=== PATIENT | female | born 1950 | race Caucasian/White ===

== ENCOUNTER 2017-06-26 08:55 | Emergency (ER) | payer MEDICARE ==
[2017-06-26 09:09] VITALS: BP 143/88
[2017-06-26] MEDS ORDERED: Sodium Chloride 0.9% 10 ML Syringe FLUSH PRN (09:10)
[2017-06-26] MEDS ORDERED: methylPREDNISolone Sodium Succinate 125 MG/2 ML SDV IVPUSH ONE (09:12)
[2017-06-26] MEDS ORDERED: Albuterol/Ipratropium 3.0-0.5 MG/3 ML Neb Soln NEB ONE (09:12)
[2017-06-26 09:30] LABS: CHLORIDE,CL 104 mmol/L (101-111); SODIUM,NA 141 mmol/L (135-145)
[2017-06-26] MEDS ORDERED: Albuterol 0.083% 2.5 MG/3 ML Neb Soln NEB ONE ×2 (09:53→11:25)
[2017-06-26] MEDS ORDERED: guaiFENesin 100 MG/5 ML Soln 5 ML UD Cup PO ONE (11:25)
--- NOTE | 2017-06-26 11:44 | EDM.PDOC ---
ED HPI GENERAL MEDICAL PROBLEM - General Chief Complaint: Respiratory Problem Time Seen by Provider: 06/26/17 09:05 Source of Information: Reports: Patient History Limitations: Reports: No Limitations - History of Present Illness INITIAL COMMENTS - FREE TEXT/NARRATIVE: 67 yo female presents with shortness of breath since this morning. States that she took a duoneb earlier with no relief. No respiratory distress upon arrival however pt with shallow breathing and dry cough.No other complaints currently. 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 Treatments - Related Data Allergies Allergy/AdvReac Type Severity Reaction Status Date / Time Penicillins Allergy Intermediate Hives Verified 06/26/17 09:25 Home Meds: Home Meds Benazepril HCl 10 mg PO DAILY 10/02/13 [History] Venlafaxine HCl [Venlafaxine ER] 175 mg PO DAILY 10/02/13 [History] amLODIPine Besylate [Amlodipine Besylate] 20 mg PO DAILY 10/02/13 [History] traZODone 50 mg PO BEDTIME PRN 03/25/16 [History] Albuterol/Ipratropium [DuoNeb 3.0-0.5 MG/3 ML] 3 ml NEB TID #60 neb 03/26/16 [Rx ] Budesonide [Pulmicort] 0.5 mg IH BID #60 ml 03/26/16 [Rx] Past Medical History HEENT History: Reports: Impaired Vision Cardiovascular History: Reports: Hypertension Respiratory History: Reports: COPD, Pneumonia, Recurrent Musculoskeletal History: Reports: Fracture - Infectious Disease History Infectious Disease History: Reports: Chicken Pox - Past Surgical History GI Surgical History: Reports: Appendectomy, Cholecystectomy Musculoskeletal Surgical History: Reports: Knee Replacement Social & Family History - Family History Family Medical History: Unobtainable - Tobacco Use Smoking Status *Q: Former Smoker Years of Tobacco use: 50 Packs/Tins Daily: 1 Used Tobacco, but Quit: Yes Month Tobacco Last Used: Septmenber Second Hand Smoke Exposure: Yes - Caffeine Use Caffeine Use: Reports: Coffee Caffeine Use Comment: 3 cups/day - Alcohol Use Days Per Week of Alcohol Use: 0 - Recreational Drug Use Recreational Drug Use: No ED ROS GENERAL - Review of Systems Review Of Systems: ROS reveals no pertinent complaints other than HPI. ED EXAM, GENERAL - Physical Exam Exam: See Below Exam Limited By: No Limitations General Appearance: Alert, WD/WN, No Apparent Distress Eye Exam: Bilateral Eye: Normal Inspection, PERRL Nose: Normal Inspection, Normal Mucosa, No Blood Throat/Mouth: Normal Inspection, Normal Lips, Normal Teeth, Normal Gums, Normal Oropharynx, Normal Voice, No Airway Compromise Head: Atraumatic, Normocephalic Neck: Normal Inspection, Supple, Non-Tender, Full Range of Motion Respiratory/Chest: No Respiratory Distress, No Accessory Muscle Use, Chest Non- Tender, Crackles, Rhonchi, Wheezing, Accessory Muscle Use Cardiovascular: Normal Peripheral Pulses, Regular Rate, Rhythm, No Edema, No Gallop, No JVD, No Murmur, No Rub GI/Abdominal: Normal Bowel Sounds, Soft, Non-Tender, No Organomegaly, No Distention, No Abnormal Bruit, No Mass Neurological: Alert, Oriented, CN II-XII Intact, Normal Cognition, Normal Gait, No Motor/Sensory Deficits Skin Exam: Warm, Dry, Intact, Normal Color, No Rash Course - Vital Signs Last Recorded V/S: Last Vital Signs Temp 98.7 F 06/26/17 09:07 Pulse 105 H 06/26/17 11:37 Resp 30 H 06/26/17 09:07 BP 143/88 H 06/26/17 09:07 Pulse Ox 92 L 06/26/17 09:07 - Orders/Labs/Meds Orders: Active Orders 24 hr Category Date Time Status EKG Documentation Completion [RC] STAT Care 06/26/17 09:10 Active RT Aerosol Therapy [RC] ASDIRECTED Care 06/26/17 09:13 Active RT Aerosol Therapy [RC] ASDIRECTED Care 06/26/17 09:53 Active RT Aerosol Therapy [RC] ASDIRECTED Care 06/26/17 11:26 Active Sodium Chloride 0.9% [Saline Flush] Med 06/26/17 09:10 Active 10 ml FLUSH ASDIRECTED PRN Saline Lock Insert [OM.PC] Stat Oth 06/26/17 09:10 Ordered Medication Orders Sodium Chloride (Saline Flush) 10 ml FLUSH ASDIRECTED PRN PRN Reason: Keep Vein Open Last Admin: 06/26/17 09:18 Dose: 10 ml Labs: Laboratory Tests 0906/26/17 06/26/17 Range/Units 08:58 08:58 08:58 WBC 16.2 H (5.0-10.0) 10^3/uL RBC 5.13 (4.2-5.4) 10^6/uL Hgb 13.4 (12.0-16.0) g/dL Hct 42.5 (37.0-47.0) % MCV 82.8 (80-100) fL MCH 26.1 L (27.0-34.0) pg MCHC 31.5 L (33.0-35.0) g/dL Plt Count 394 (150-450) 10^3/uL Neut % (Auto) 73.9 (42.2-75.2) % Lymph % (Auto) 15.1 L (20.5-50.1) % Mitchell % (Auto) 9.5 H (2-8) % Eos % (Auto) 1.4 (1.0-3.0) % Baso % (Auto) 0.1 (0.0-1.0) % Sodium 141 (135-145) mmol/L Potassium 3.7 (3.6-5.0) mmol/L Chloride 104 (101-111) mmol/L Carbon Dioxide 25.0 (21.0-31.0) mmol/L Anion Gap 15.7 BUN 9 (7-18) mg/dL Creatinine 0.8 (0.6-1.3) mg/dL Est Cr Clr Drug Dosing 60.54 mL/min Estimated GFR (MDRD) > 60 Glucose 92 (74-105) mg/dL Calcium 9.1 (8.4-10.2) mg/dl Creatine Kinase 32 (26-174) IU/L Creatine Kinase Index 4.1 H (0-2.4) % CK-MB (CK-2) 1.30 (0.4-4.7) ng/mL Troponin I < 0.02 (0.00-0.02) ng/ml B-Natriuretic Peptide 48 (0-100) pg/ml Meds: Medications Generic Name Dose Route Start Last Admin Trade Name Freq PRN Reason Stop Dose Admin Sodium Chloride 10 ml 06/26/17 09:10 06/26/17 09:18 Saline Flush FLUSH 10 ml ASDIRECTED PRN Administration Keep Vein Open Discontinued Medications Generic Name Dose Route Start Last Admin Trade Name Sylvain PRN Reason Stop Dose Admin Albuterol 2.5 mg 06/26/17 09:53 06/26/17 10:32 Proventil Neb Soln NEB 06/26/17 09:54 2.5 mg ONETIME ONE Administration Albuterol 2.5 mg 06/26/17 11:25 06/26/17 11:41 Proventil Neb Soln NEB 06/26/17 11:26 2.5 mg ONETIME ONE Administration Albuterol/Ipratropium 3 ml 06/26/17 09:12 06/26/17 09:17 Duoneb 3.0-0.5 Mg/3 Ml NEB 06/26/17 09:13 3 ml ONETIME ONE Administration Guaifenesin 100 mg 06/26/17 11:25 06/26/17 12:02 Robitussin PO 06/26/17 11:26 100 mg ONETIME ONE Administration Methylprednisolone Sodium Succinate 125 mg 06/26/17 09:12 06/26/17 09:17 Solu-Medrol IVPUSH 06/26/17 09:13 125 mg ONETIME ONE Administration - Re-Assessments/Exams Free Text/Narrative Re-Assessment/Exam: 06/26/17 11:45 Pt states that she feels better after treatments. Continues with cough. Wheezing and rhonchi significantly decreased. 06/26/17 12:03 Pt breathing easier after third albuterol. Wheezing decreased. coughing improved. Will DC home Departure - Departure Time of Disposition: 12:04 Disposition: Home, Self-Care 01 Condition: Good Clinical Impression: COPD exacerbation - Discharge Information Instructions: Chronic Obstructive Pulmonary Disease Exacerbation, [id number] Forms: ED Department Discharge Additional Instructions: Use albuterol nebs as needed. Take medrol dose pack as directed. Take coricidan for cough as needed. Follow up with your PCP in 2-3 days if not improving. return for worsening symptoms - My Orders Last 24 Hours: My Active Orders 06/26/17 09:10 EKG Documentation Completion [RC] STAT Sodium Chloride 0.9% [Saline Flush] 10 ml FLUSH ASDIRECTED PRN Saline Lock Insert [OM.PC] Stat 06/26/17 09:13 RT Aerosol Therapy [RC] ASDIRECTED 06/26/17 09:53 RT Aerosol Therapy [RC] ASDIRECTED 06/26/17 11:26 RT Aerosol Therapy [RC] ASDIRECTED - Assessment/Plan Last 24 Hours: My Active Orders 06/26/17 09:10 EKG Documentation Completion [RC] STAT Sodium Chloride 0.9% [Saline Flush] 10 ml FLUSH ASDIRECTED PRN Saline Lock Insert [OM.PC] Stat 06/26/17 09:13 RT Aerosol Therapy [RC] ASDIRECTED 06/26/17 09:53 RT Aerosol Therapy [RC] ASDIRECTED 06/26/17 11:26 RT Aerosol Therapy [RC] ASDIRECTED
--- NOTE | 2017-07-05 10:35 | EKG ---
06/26/2017- YOMAIRA YANCEY - This is a standard 12-lead EKG showing sinus tachycardia with ventricular rate of 105 beats per minute. 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 Normal axis. No significant ST-T changes. [facility] /[id number]
== END 2017-06-26 12:15 | disposition home or self-care (01) ==
LOC: DL.ED 08:55
DX: J44.1 Chronic obstructive pulmonary disease with (acute) exacerbation (principal); I10 Essential (primary) hypertension; Z87.01 Personal history of pneumonia (recurrent); Z90.49 Acquired absence of other specified parts of digestive tract; Z96.659 Presence of unspecified artificial knee joint; Z87.891 Personal history of nicotine dependence; Z79.899 Other long term (current) drug therapy; Z88.0 Allergy status to penicillin
CPT/HCPCS: 36415; 71010; 80048; 82550; 82553; 83880; 84484; 85025; 93005; 96374; 99285; A9270; J2930; J7050; J7620; 93010; 99284

== ENCOUNTER 2017-10-13 14:38 | Emergency (ER) | payer MEDICARE ==
--- NOTE | 2017-10-13 14:50 | EDM.PDOC ---
<Kalyn Nunez - Last Filed: 10/13/17 17:14> ED HPI GENERAL MEDICAL PROBLEM - General Chief Complaint: Gastrointestinal Problem Stated Complaint: IN BY AMBULANCE Time Seen by Provider: 10/13/17 14:38 Source of Information: Reports: Patient, EMS, EMS Notes Reviewed, RN, RN Notes Reviewed History Limitations: Reports: No Limitations - History of Present Illness INITIAL COMMENTS - FREE TEXT/NARRATIVE: Pt presents to the ER with c/o N/V/D since Wednesday night. She states she has been unable to keep even fluids down. She admits to chills but denies fever, SOB , or chest pain. She states a history of COPD. Onset: Gradual Onset Date: 10/10/17 - Related Data Allergies Allergy/AdvReac Type Severity Reaction Status Date / Time Penicillins Allergy Intermediate Hives Verified 06/26/17 09:25 Home Meds: Home Meds Benazepril HCl 10 mg PO DAILY 10/02/13 [History] Venlafaxine HCl [Venlafaxine ER] 175 mg PO DAILY 10/02/13 [History] amLODIPine Besylate [Amlodipine Besylate] 20 mg PO DAILY 10/02/13 [History] traZODone 50 mg PO BEDTIME PRN 03/25/16 [History] Albuterol/Ipratropium [DuoNeb 3.0-0.5 MG/3 ML] 3 ml NEB TID PRN 10/13/17 [ History] Budesonide [Pulmicort] 0.5 mg IH BID PRN 10/13/17 [History] Past Medical History HEENT History: Reports: Impaired Vision Cardiovascular History: Reports: Hypertension Respiratory History: Reports: COPD, Pneumonia, Recurrent Musculoskeletal History: Reports: Fracture - Infectious Disease History Infectious Disease History: Reports: Chicken Pox - Past Surgical History GI Surgical History: Reports: Appendectomy, Cholecystectomy Musculoskeletal Surgical History: Reports: Knee Replacement Social & Family History - Family History Family Medical History: Unobtainable - Tobacco Use Smoking Status *Q: Former Smoker Years of Tobacco use: 50 Packs/Tins Daily: 1 Used Tobacco, but Quit: Yes Month Tobacco Last Used: Second Hand Smoke Exposure: Yes - Caffeine Use Caffeine Use: Reports: Coffee Caffeine Use Comment: 3 cups/day - Alcohol Use Days Per Week of Alcohol Use: 0 - Recreational Drug Use Recreational Drug Use: No ED ROS GENERAL - Review of Systems Review Of Systems: ROS reveals no pertinent complaints other than HPI. ED EXAM, GI/ABD - Physical Exam Exam: See Below Exam Limited By: No Limitations General Appearance: Alert, WD/WN, Mild Distress Eyes: Bilateral: Normal Appearance, EOMI Ears: Normal External Exam, Hearing Grossly Normal Nose: Normal Inspection Throat/Mouth: Normal Voice, No Airway Compromise, Other (dry mucous membranes) Head: Atraumatic, Normocephalic Neck: Normal Inspection, Supple, Non-Tender, Full Range of Motion Respiratory/Chest: No Respiratory Distress, No Accessory Muscle Use, Chest Non- Tender, Decreased Breath Sounds Cardiovascular: Normal Peripheral Pulses, Regular Rate, Rhythm, No Edema, No Gallop, No JVD, No Murmur, No Rub GI/Abdominal Exam: Normal Bowel Sounds, Soft, Tender (Female) Exam: Deferred Rectal (Female) Exam: Deferred Back Exam: Normal Inspection, Full Range of Motion Extremities: Normal Inspection, Normal Range of Motion, Non-Tender, No Pedal Edema, Normal Capillary Refill Neurological: Alert, Oriented Psychiatric: Normal Affect, Normal Mood Skin Exam: Warm, Dry, Intact, No Rash, Pallor Lymphatic: No Adenopathy EKG INTERPRETATION EKG Date: 10/13/17 Time: 14:58 Rhythm: Other (sinus tachycardia) Rate (Beats/Min): 121 [place]: LAD-Left [place] Deviation P-Wave: Present QRS: Normal ST-T: Normal QT: Normal MA/PQ Interval: 124 Comparison: Change From Previous EKG Course - Vital Signs Last Recorded V/S: Last Vital Signs Temp 37.1 C 10/13/17 14:11 Pulse 123 H 10/13/17 14:11 Resp 16 10/13/17 14:11 BP 148/89 H 10/13/17 14:11 Pulse Ox 98 10/13/17 14:11 - Orders/Labs/Meds Orders: Active Orders 24 hr Category Date Time Status EKG Documentation Completion [RC] STAT Care 10/13/17 14:44 Active CULTURE BLOOD [BC] Stat Lab 10/13/17 15:57 Received CULTURE BLOOD [BC] Stat Lab 10/13/17 16:01 Results UA W/MICROSCOPIC [URIN] Stat Lab 10/13/17 16:17 Received Blood Culture x2 Reflex Set [OM.PC] Stat Oth 10/13/17 15:19 Ordered Labs: Laboratory Tests 10/13/17 10/13/17 10/13/17 Range/Units 14:57 14:57 15:57 WBC 16.6 H (5.0-10.0) 10^3/uL RBC 5.65 H (4.2-5.4) 10^6/uL Hgb 14.4 (12.0-16.0) g/dL Hct 45.4 (37.0-47.0) % MCV 80.4 (80-100) fL MCH 25.5 L (27.0-34.0) pg MCHC 31.7 L (33.0-35.0) g/dL Plt Count 366 (150-450) 10^3/uL Neut % (Auto) 86.8 H (42.2-75.2) % Lymph % (Auto) 4.7 L (20.5-50.1) % [place] % (Auto) 7.4 (2-8) % Eos % (Auto) 1.0 (1.0-3.0) % Baso % (Auto) 0.1 (0.0-1.0) % Add Manual Diff Yes Neutrophils % (Manual) 88 H (42-75) % Band Neutrophils % 2 % Lymphocytes % (Manual) 7 L (20-50) % Monocytes % (Manual) 3 (2-8) % Sodium 142 (135-145) mmol/L Potassium 3.4 L (3.6-5.0) mmol/L Chloride 105 (101-111) mmol/L Carbon Dioxide 26.0 (21.0-31.0) mmol/L Anion Gap 14.4 BUN 18 (7-18) mg/dL Creatinine 0.7 (0.6-1.3) mg/dL Est Cr Clr Drug Dosing 72.10 mL/min Estimated GFR (MDRD) > 60 BUN/Creatinine Ratio 25.71 Glucose 126 H (74-105) mg/dL Lactic Acid 2.7 H (0.5-2.2) mmol/L Calcium 8.5 (8.4-10.2) mg/dl Total Bilirubin 0.3 (0.2-1.0) mg/dL AST 25 (10-42) IU/L ALT 17 (10-60) IU/L Alkaline Phosphatase 86 (42-121) IU/L Troponin I < 0.02 (0.00-0.02) ng/ml Total Protein 6.7 (6.7-8.2) g/dl Albumin 3.8 (3.2-5.5) g/dl Globulin 2.9 Albumin/Globulin Ratio 1.31 Departure - Departure Disposition: Home, Self-Care 01 Clinical Impression: Gastroenteritis - Discharge Information Instructions: Viral Gastroenteritis, Adult, [id number] Forms: ED Department Discharge Additional Instructions: RX: Zofran 4mg. Drink plenty of fluids. Clear liquid diet until nausea and vomiting resolves and then advance to diet as tolerated. Follow up in clinic for urine test at the first available appointment. Return to ER if worse at any time. <Rodriguez Iraheta - Last Filed: 10/13/17 18:46> ED HPI GENERAL MEDICAL PROBLEM Epigastric Pain Score (Numeric/FACES): 8 Course - Radiology Interpretation Free Text/Narrative:: Chest x-ray: No acute progress. See Rad report. - Re-Assessments/Exams Free Text/Narrative Re-Assessment/Exam: 10/13/17 18:45 Patient was unable to provide a satisfactory urine sample. She was unwilling to wait until she could and would not allow a cath urine. Patient stated that she was going to leave AMA if she could not be discharged at this time. I agreed to discharge the patient and instructed her to follow up in clinic. Departure - Departure Time of Disposition: 18:41 Condition: Fair
[2017-10-13 15:25] LABS: ANION GAP 14.4; CHLORIDE,CL 105 mmol/L (101-111); SODIUM,NA 142 mmol/L (135-145)
[2017-10-13 16:01] VITALS: BP 148/89
--- NOTE | 2017-10-14 15:01 | EKG ---
10/13/2017 - YOMAIRA YANCEY - FINDINGS: This 12-lead EKG shows sinus tachycardia with a ventricular rate of 121. Borderline left axis deviation. No acute ST-T wave changes. [facility] /[id number]
== END 2017-10-13 18:55 | disposition home or self-care (01) ==
LOC: DL.ED 14:38
DX: K52.9 Noninfective gastroenteritis and colitis, unspecified (principal); I10 Essential (primary) hypertension; J44.9 Chronic obstructive pulmonary disease, unspecified; Z87.891 Personal history of nicotine dependence; Z79.899 Other long term (current) drug therapy; Z88.0 Allergy status to penicillin
CPT/HCPCS: 36415; 71046; 80053; 83605; 84484; 85025; 87040; 93005; 93010; 99282; 99285

== ENCOUNTER 2018-05-14 19:46 | Emergency (ER) | payer MEDICARE, OTHER ==
[2018-05-14] MEDS ORDERED: Albuterol/Ipratropium 3.0-0.5 MG/3 ML Neb Soln NEB ONE (20:05)
[2018-05-14] MEDS ORDERED: Aspirin 81 MG Tab.Chew PO ONE (20:11)
[2018-05-14] MEDS ORDERED: methylPREDNISolone Sodium Succinate 125 MG/2 ML SDV IVPUSH ONE (20:13)
[2018-05-14 20:29] VITALS: BP 112/79
[2018-05-14 20:29] LABS: ANION GAP 12.5; CHLORIDE,CL 106 mmol/L (101-111); SODIUM,NA 137 mmol/L (135-145)
--- NOTE | 2018-05-14 21:32 | EDM.PDOC ---
ED HPI GENERAL MEDICAL PROBLEM - General Chief Complaint: Chest Pain Stated Complaint: CHEST PAIN HARD TIME BREATHING [id number] Time Seen by Provider: 05/14/18 19:55 Source of Information: Reports: Patient History Limitations: Reports: No Limitations - History of Present Illness INITIAL COMMENTS - FREE TEXT/NARRATIVE: C/o chest pain with cough since 2pm, hx COPD, coughing more, productive clear, hard to cough up. Pain worse with cough, absent at rest. Current tobacco use. Does not use oxygen at home. No air conditioning in home by choice. No fevers. Last neb in am. Left Chest Pain Score (Numeric/FACES): 6 - Related Data Allergies Allergy/AdvReac Type Severity Reaction Status Date / Time Penicillins Allergy Intermediate Hives Verified 05/14/18 19:58 Home Meds: Home Meds Benazepril HCl 10 mg PO DAILY 10/02/13 [History] Venlafaxine HCl [Venlafaxine ER] 175 mg PO DAILY 10/02/13 [History] amLODIPine Besylate [Amlodipine Besylate] 20 mg PO DAILY 10/02/13 [History] traZODone 50 mg PO BEDTIME PRN 03/25/16 [History] Albuterol/Ipratropium [DuoNeb 3.0-0.5 MG/3 ML] 3 ml NEB TID PRN 10/13/17 [ History] Past Medical History HEENT History: Reports: Impaired Vision Cardiovascular History: Reports: Hypertension Respiratory History: Reports: COPD, Pneumonia, Recurrent Musculoskeletal History: Reports: Fracture - Infectious Disease History Infectious Disease History: Reports: Chicken Pox - Past Surgical History HEENT Surgical History: Reports: Cataract Surgery GI Surgical History: Reports: Appendectomy, Cholecystectomy Musculoskeletal Surgical History: Reports: Knee Replacement Social & Family History - Family History Family Medical History: Unobtainable - Tobacco Use Smoking Status *Q: Current Every Day Smoker Years of Tobacco use: 50 Packs/Tins Daily: 0.7 - Caffeine Use Caffeine Use: Reports: Coffee, Tea Caffeine Use Comment: 3 cups/day - Recreational Drug Use Recreational Drug Use: No ED ROS GENERAL - Review of Systems Review Of Systems: ROS reveals no pertinent complaints other than HPI. ED EXAM, GENERAL - Physical Exam Exam: See Below Exam Limited By: No Limitations General Appearance: Alert, Mild Distress Eye Exam: Bilateral Eye: EOMI, PERRL Ears: Normal External Exam Nose: Normal Inspection Throat/Mouth: Normal Inspection Head: Atraumatic, Normocephalic Neck: Normal Inspection Respiratory/Chest: Decreased Breath Sounds, Wheezing (end phase greater left lowe), Other (harsh thick cough) Cardiovascular: Normal Peripheral Pulses, Regular Rate, Rhythm Back Exam: Normal Inspection Extremities: Normal Inspection, Normal Range of Motion Neurological: Alert, Oriented Psychiatric: Normal Affect Skin Exam: Warm, Dry, Intact, Normal Color Course - Vital Signs Last Recorded V/S: Last Vital Signs Temp 98.0 F 05/14/18 19:53 Pulse 102 H 05/14/18 20:28 Resp 16 05/14/18 20:28 BP 112/79 05/14/18 20:28 Pulse Ox 95 05/14/18 20:28 - Orders/Labs/Meds Labs: Laboratory Tests 05/14/18 05/14/18 05/14/18 Range/Units 20:00 20:00 20:00 WBC 11.2 H (5.0-10.0) 10^3/uL RBC 5.95 H (4.2-5.4) 10^6/uL Hgb 15.4 (12.0-16.0) g/dL Hct 47.5 H (37.0-47.0) % MCV 79.8 L (80-100) fL MCH 25.9 L (27.0-34.0) pg MCHC 32.4 L (33.0-35.0) g/dL Plt Count 440 (150-450) 10^3/uL Neut % (Auto) 77.4 H (42.2-75.2) % Lymph % (Auto) 14.8 L (20.5-50.1) % Alfalfa % (Auto) 5.3 (2-8) % Eos % (Auto) 2.3 (1.0-3.0) % Baso % (Auto) 0.2 (0.0-1.0) % Sodium 137 (135-145) mmol/L Potassium 3.5 L (3.6-5.0) mmol/L Chloride 106 (101-111) mmol/L Carbon Dioxide 22.0 (21.0-31.0) mmol/L Anion Gap 12.5 BUN 14 (7-18) mg/dL Creatinine 0.9 (0.6-1.3) mg/dL Est Cr Clr Drug Dosing 48.63 mL/min Estimated GFR (MDRD) > 60 BUN/Creatinine Ratio 15.55 Glucose 120 H (74-105) mg/dL Calcium 9.8 (8.4-10.2) mg/dl Total Bilirubin 0.6 (0.2-1.0) mg/dL AST 18 (10-42) IU/L ALT 12 (10-60) IU/L Alkaline Phosphatase 88 (42-121) IU/L CK-MB (CK-2) 1.20 (0.4-4.7) ng/mL Troponin I < 0.02 (0.00-0.02) ng/ml B-Natriuretic Peptide 42 (0-100) pg/ml Total Protein 7.6 (6.7-8.2) g/dl Albumin 4.1 (3.2-5.5) g/dl Globulin 3.5 Albumin/Globulin Ratio 1.17 Meds: Medications Discontinued Medications Generic Name Dose Route Start Last Admin Trade Name Freq PRN Reason Stop Dose Admin Albuterol/Ipratropium 3 ml 05/14/18 20:05 05/14/18 20:09 Duoneb 3.0-0.5 Mg/3 Ml NEB 05/14/18 20:06 3 ml ONETIME ONE Administration Aspirin 324 mg 05/14/18 20:11 05/14/18 20:25 Aspirin PO 05/14/18 20:12 324 mg ONETIME ONE Administration Doxycycline Hyclate Confirm 05/14/18 21:48 Vibramycin Administered 05/14/18 21:49 Dose 200 mg .ROUTE .STK-MED ONE Methylprednisolone Sodium Succinate 125 mg 05/14/18 20:13 05/14/18 20:26 Solu-Medrol IVPUSH 05/14/18 20:14 125 mg ONETIME ONE Administration - Radiology Interpretation Free Text/Narrative:: CXR COPD, No pneumonia - Re-Assessments/Exams Free Text/Narrative Re-Assessment/Exam: 05/16/18 02:47 Improved exchange post neb. Departure - Departure Time of Disposition: 21:47 Disposition: Home, Self-Care 01 Condition: Good Clinical Impression: COPD with acute bronchitis, Tobacco user - Discharge Information *PRESCRIPTION DRUG MONITORING PROGRAM REVIEWED*: No Instructions: Chronic Obstructive Pulmonary Disease Exacerbation Referrals: PCP,None [Primary Care Provider] - Forms: ED Department Discharge Additional Instructions: Use albuterol inhaler every 4 hours as needed for cough congestion muccinex per package instructions to loosen phlegm and ease cough doxycycline 100mg one twice daily for one week prednisone 2mg daily x 3 then 10 x 3 days
[2018-05-14] MEDS ORDERED: Doxycycline 100 MG Cap ONE (21:48)
--- NOTE | 2018-05-17 14:24 | EKG ---
05/14/2018 - YOMAIRA YANCEY - FINDINGS: A 12-lead EKG shows normal sinus rhythm with sinus tachycardia with heart rate of 103. No significant ST elevation or ST depression noted on this 12-lead EKG except for nonspecific ST-T wave changes noted on leads V2 and V3 with mild depression, not significant. [facility] /[id number]
== END 2018-05-14 21:58 | disposition home or self-care (01) ==
LOC: DL.ED 19:46
DX: J44.9 Chronic obstructive pulmonary disease, unspecified (principal); I10 Essential (primary) hypertension; F17.210 Nicotine dependence, cigarettes, uncomplicated; Z88.0 Allergy status to penicillin; Z79.899 Other long term (current) drug therapy
CPT/HCPCS: 36415; 71045; 80053; 82553; 83880; 84484; 85025; 96374; 99285; A9270; J2930; 99283; J7620-GY

== ENCOUNTER 2018-11-08 14:38 | Emergency (ER) | payer MEDICARE, OTHER ==
--- NOTE | 2018-11-08 14:53 | EDM.PDOC ---
"ED HPI GENERAL MEDICAL PROBLEM - General Chief Complaint: Chest Pain Stated Complaint: ambulance Time Seen by Provider: 11/08/18 14:53 Source of Information: Reports: Patient, EMS, Family (brother), Old Records, RN , RN Notes Reviewed History Limitations: Reports: No Limitations - History of Present Illness INITIAL COMMENTS - FREE TEXT/NARRATIVE: Pt arrives from home by ambulance with report that approx. 36 hours ago she went to bed feeling well and woke on the floor next to the bed after approx. 12 hours. She does not recall falling or hitting her head. Denies neck pain. She did not seek medical care initially but states that today her family insisted she go to the ER to be checked. She admits to pain in the right arm, chest, and buttock. She states that she has been up and walking today without weakness or severe pain. She denies fever, chills, headache, visual changes, loss of bowel or bladder control, or motor weakness. Onset: Today, Unknown/Unsure Location: Reports: Chest, Upper Extremity, Right, Generalized Quality: Reports: Ache Severity: Moderate Improves with: Reports: None Worsens with: Reports: None Associated Symptoms: Reports: No Other Symptoms Treatments CLIENT TECHNOLOGIES SPECIALIST: Reports: Nitroglycerin - Related Data Allergies Allergy/AdvReac Type Severity Reaction Status Date / Time Penicillins Allergy Intermediate Hives Verified 05/14/18 19:58 Home Meds: Home Meds Benazepril HCl 20 mg PO DAILY 10/02/13 [History] Venlafaxine HCl [Venlafaxine ER] 150 mg PO DAILY 10/02/13 [History] amLODIPine Besylate [Amlodipine Besylate] 10 mg PO DAILY 10/02/13 [History] traZODone 50 mg PO BEDTIME PRN 03/25/16 [History] Albuterol/Ipratropium [DuoNeb 3.0-0.5 MG/3 ML] 3 ml NEB TID PRN 10/13/17 [ History] Metoprolol Succinate [Toprol XL 100mg] 100 mg PO DAILY 11/08/18 [History] Potassium Chloride [Klor-Con 10] 10 meq PO DAILY 11/08/18 [History] Past Medical History HEENT History: Reports: Impaired Vision Cardiovascular History: Reports: Hypertension Respiratory History: Reports: COPD, Pneumonia, Recurrent Musculoskeletal History: Reports: Fracture - Infectious Disease History Infectious Disease History: Reports: Chicken Pox - Past Surgical History HEENT Surgical History: Reports: Cataract Surgery GI Surgical History: Reports: Appendectomy, Cholecystectomy Musculoskeletal Surgical History: Reports: Knee Replacement Social & Family History - Family History Family Medical History: Unobtainable - Tobacco Use Smoking Status *Q: Current Every Day Smoker Tobacco Use Within Last Twelve Months: Cigarettes Years of Tobacco use: 50 - Caffeine Use Caffeine Use: Reports: Coffee, Tea Caffeine Use Comment: 3 cups/day - Alcohol Use Alcohol Use History: No - Recreational Drug Use Recreational Drug Use: No - Living Situation & Occupation Living situation: Reports: Single, Alone Occupation: Retired ED ROS GENERAL - Review of Systems Review Of Systems: ROS reveals no pertinent complaints other than HPI. ED EXAM, GENERAL - Physical Exam Exam: See Below Exam Limited By: No Limitations General Appearance: Alert, No Apparent Distress, Thin, Other (Chronically ill appearing) Eye Exam: Bilateral Eye: EOMI, Normal Inspection, PERRL Ears: Hearing Grossly Normal Nose: Normal Inspection, Normal Mucosa, No Blood Throat/Mouth: Normal Lips, Normal Oropharynx, Normal Voice, No Airway Compromise Head: Atraumatic, Normocephalic Neck: Normal Inspection, Supple, Non-Tender, Full Range of Motion Respiratory/Chest: No Respiratory Distress, No Accessory Muscle Use, Chest Non- Tender, Decreased Breath Sounds, Crackles. No: Rales, Rhonchi, Wheezing, Stridor Cardiovascular: Normal Peripheral Pulses, Regular Rate, Rhythm, No Edema, No Gallop, No JVD, No Murmur, No Rub Peripheral Pulses: 3+: Radial (L), Radial (R) GI/Abdominal: Normal Bowel Sounds, Soft, Non-Tender, No Distention, No Abnormal Bruit. No: Guarding, Rigid, Rebound (Female) Exam: Deferred Rectal (Female) Exam: Deferred Back Exam: Normal Inspection, Full Range of Motion, NT Extremities: No Pedal Edema, Normal Capillary Refill, Arm Pain (Rt upper, no visible bruising, swelling, or deformity.). No: Joint Swelling, Sherri's Sign, Increased Warmth Neurological: Alert, Oriented, CN II-XII Intact, Normal Cognition, Normal Gait, No Motor/Sensory Deficits Psychiatric: Normal Affect, Normal Mood Skin Exam: Warm, Dry, Intact, Normal Color, Rash (Rash at left lower leg, resolving per pt.) EKG INTERPRETATION EKG Date: 11/08/18 Time: 14:54 Rhythm: Other (SR) Rate (Beats/Min): 82 [place]: RAD-Right [place] Deviation P-Wave: Present QRS: Other (RSR' in V1 and V2) ST-T: Normal QT: Prolonged Comparison: NA - No Prior EKG Course - Vital Signs Last Recorded V/S: Last Vital Signs Temp 37.2 C 11/08/18 14:44 Pulse 88 11/08/18 14:44 Resp 18 11/08/18 14:44 BP 110/95 H 11/08/18 14:44 Pulse Ox 97 11/08/18 14:44 - Orders/Labs/Meds Orders: Active Orders 24 hr Category Date Time Status EKG 12 Lead [EKG Documentation Completion] [RC] STAT Care 11/08/18 15:00 Active Peripheral IV Care [RC] . DIRECTED Care 11/08/18 15:03 Active Chest 1V Frontal [CR] Stat Exams 11/08/18 15:01 Taken Head wo Cont [CT] Stat Exams 11/08/18 16:12 Taken Humerus Rt [CR] Urgent Exams 11/08/18 15:02 Taken CULTURE URINE [RM] Stat Lab 11/08/18 16:05 Received Sodium Chloride 0.9% [Saline Flush] Med 11/08/18 15:02 Active 10 ml FLUSH ASDIRECTED PRN Peripheral IV Insertion Adult [OM.PC] Stat Oth 11/08/18 15:00 Ordered Medication Orders Sodium Chloride (Saline Flush) 10 ml FLUSH ASDIRECTED PRN PRN Reason: Keep Vein Open Labs: Laboratory Tests 11/08/18 11/08/18 11/08/18 Range/Units 15:03 15:03 15:03 WBC 9.7 (5.0-10.0) 10^3/uL RBC 4.22 (4.2-5.4) 10^6/uL Hgb 11.8 L D (12.0-16.0) g/dL Hct 35.6 L (37.0-47.0) % MCV 84.4 D (80-100) fL MCH 28.0 (27.0-34.0) pg MCHC 33.1 (33.0-35.0) g/dL Plt Count 344 D (150-450) 10^3/uL Neut % (Auto) 73.8 (42.2-75.2) % Lymph % (Auto) 15.7 L (20.5-50.1) % [place] % (Auto) 8.3 H (2-8) % Eos % (Auto) 2.1 (1.0-3.0) % Baso % (Auto) 0.1 (0.0-1.0) % PT 10.4 (9.0-12.0) SEC INR 1.0 (0.9-1.2) APTT 28.7 (22.0-34.0) SEC Sodium 140 (135-145) mmol/L Potassium 3.6 (3.6-5.0) mmol/L Chloride 107 (101-111) mmol/L Carbon Dioxide 19.0 L (21.0-31.0) mmol/L Anion Gap 17.6 BUN 15 (7-18) mg/dL Creatinine 0.6 (0.6-1.3) mg/dL Est Cr Clr Drug Dosing 72.95 mL/min Estimated GFR (MDRD) > 60 BUN/Creatinine Ratio 25.00 Glucose 70 L (74-105) mg/dL Lactic Acid (0.5-2.2) mmol/L Calcium 8.5 (8.4-10.2) mg/dl Magnesium 1.7 L (1.8-2.5) mg/dL Total Bilirubin 1.1 H (0.2-1.0) mg/dL AST 35 (10-42) IU/L ALT 18 (10-60) IU/L Alkaline Phosphatase 86 (42-121) IU/L Creatine Kinase 628 H (26-174) IU/L Troponin I < 0.02 (0.00-0.02) ng/ml Total Protein 5.9 L (6.7-8.2) g/dl Albumin 3.0 L (3.2-5.5) g/dl Globulin 2.9 Albumin/Globulin Ratio 1.03 Lipase 21 L (22-51) U/L Urine Color (YELLOW) Urine Appearance (CLEAR) Urine pH (5.0-9.0) Ur Specific [place] (1.005-1.030) Urine Protein (NEGATIVE) Urine Glucose (UA) (NEGATIVE) Urine Ketones (NEGATIVE) Urine Occult Blood (NEGATIVE) Urine Nitrite (NEGATIVE) Urine Bilirubin (NEGATIVE) Urine Urobilinogen (0.2-1.0) mg/dL Ur Leukocyte Esterase (NEGATIVE) Urine RBC /HPF Urine WBC (0-5/HPF) /HPF Ur Epithelial Cells /HPF Amorphous Sediment (0/HPF) /HPF Urine Bacteria (0-FEW/HPF) /HPF Urine Mucus /LPF Urine Yeast (0/HPF) /HPF Urine Opiates Screen (NEGATIVE) Ur Oxycodone Screen (NEGATIVE) Urine Methadone Screen (NEGATIVE) Ur Barbiturates Screen (NEGATIVE) U Tricyclic Antidepress (NEGATIVE) Ur Phencyclidine Scrn (NEGATIVE) Ur Amphetamine Screen (NEGATIVE) U Methamphetamines Scrn (NEGATIVE) Urine MDMA Screen (NEGATIVE) U Benzodiazepines Scrn (NEGATIVE) Urine Cocaine Screen (NEGATIVE) U Marijuana (THC) Screen (NEGATIVE) Ethyl Alcohol 6 mg/dL 11/08/18 11/08/18 11/08/18 Range/Units 15:03 16:05 16:05 WBC (5.0-10.0) 10^3/uL RBC (4.2-5.4) 10^6/uL Hgb (12.0-16.0) g/dL Hct (37.0-47.0) % MCV (80-100) fL MCH (27.0-34.0) pg MCHC (33.0-35.0) g/dL Plt Count (150-450) 10^3/uL Neut % (Auto) (42.2-75.2) % Lymph % (Auto) (20.5-50.1) % [place] % (Auto) (2-8) % Eos % (Auto) (1.0-3.0) % Baso % (Auto) (0.0-1.0) % PT (9.0-12.0) SEC INR (0.9-1.2) APTT (22.0-34.0) SEC Sodium (135-145) mmol/L Potassium (3.6-5.0) mmol/L Chloride (101-111) mmol/L Carbon Dioxide (21.0-31.0) mmol/L Anion Gap BUN (7-18) mg/dL Creatinine (0.6-1.3) mg/dL Est Cr Clr Drug Dosing mL/min Estimated GFR (MDRD) BUN/Creatinine Ratio Glucose (74-105) mg/dL Lactic Acid 1.0 (0.5-2.2) mmol/L Calcium (8.4-10.2) mg/dl Magnesium (1.8-2.5) mg/dL Total Bilirubin (0.2-1.0) mg/dL AST (10-42) IU/L ALT (10-60) IU/L Alkaline Phosphatase (42-121) IU/L Creatine Kinase (26-174) IU/L Troponin I (0.00-0.02) ng/ml Total Protein (6.7-8.2) g/dl Albumin (3.2-5.5) g/dl Globulin Albumin/Globulin Ratio Lipase (22-51) U/L Urine Color Yellow (YELLOW) Urine Appearance Slightly cloudy (CLEAR) Urine pH 6.0 (5.0-9.0) Ur Specific [place] >= 1.030 (1.005-1.030) Urine Protein 30 H (NEGATIVE) Urine Glucose (UA) Negative (NEGATIVE) Urine Ketones 80 H (NEGATIVE) Urine Occult Blood Negative (NEGATIVE) Urine Nitrite Negative (NEGATIVE) Urine Bilirubin Large H (NEGATIVE) Urine Urobilinogen 1.0 (0.2-1.0) mg/dL Ur Leukocyte Esterase Small H (NEGATIVE) Urine RBC 0-5 /HPF Urine WBC 30-40 H (0-5/HPF) /HPF Ur Epithelial Cells Many H /HPF Amorphous Sediment Rare (0/HPF) /HPF Urine Bacteria Few (0-FEW/HPF) /HPF Urine Mucus Rare /LPF Urine Yeast Few H (0/HPF) /HPF Urine Opiates Screen Negative (NEGATIVE) Ur Oxycodone Screen Negative (NEGATIVE) Urine Methadone Screen Positive H (NEGATIVE) Ur Barbiturates Screen Negative (NEGATIVE) U Tricyclic Antidepress Positive H (NEGATIVE) Ur Phencyclidine Scrn Negative (NEGATIVE) Ur Amphetamine Screen Negative (NEGATIVE) U Methamphetamines Scrn Negative (NEGATIVE) Urine MDMA Screen Negative (NEGATIVE) U Benzodiazepines Scrn Negative (NEGATIVE) Urine Cocaine Screen Negative (NEGATIVE) U Marijuana (THC) Screen Negative (NEGATIVE) Ethyl Alcohol mg/dL Meds: Medications Generic Name Dose Route Start Last Admin Trade Name Freq PRN Reason Stop Dose Admin Sodium Chloride 10 ml 11/08/18 15:02 Saline Flush FLUSH ASDIRECTED PRN Keep Vein Open Discontinued Medications Generic Name Dose Route Start Last Admin Trade Name Freq PRN Reason Stop Dose Admin Fluconazole 200 mg 11/08/18 17:09 Diflucan PO 11/08/18 17:10 ONETIME ONE - Radiology Interpretation Free Text/Narrative:: [facility] Final Radiology Report Call: [phone] assistance Online chat: [email or web address] Name: YOMAIRA YANCEY Age: 68Years F Date: 11/08/2018 SSN: -- : 1950 Study: XR CHEST 1 VIEW Requesting Physician: RADHA MENDIOLA Images: 1 Addl Studies: Provided Clinical History: Contrast: Contrast Medium: Contrast Amount: Contrast Method: CONFIDENTIALITY STATEMENT This report is intended only for use by the referring physician, and only in accordance with law. If you received this in error, call [phone]. Page 1 of 1 EXAM: XR Chest, 1 View EXAM DATE/TIME: 11/08/2018 3:12 PM CLINICAL HISTORY: 68 years old, female; Pain; Chest pain; Type not specified TECHNIQUE: XR of the chest, 1 view. COMPARISON: CR Chest 1V Frontal 05/14/2018 8:35 PM FINDINGS: Lungs: There is nonspecific elevation of the right hemidiaphragm. The lungs are hyperinflated, consistent with underlying small airways disease. Pleural space: Unremarkable. No pleural effusion. No pneumothorax. Heart/Mediastinum: The vasculature demonstrates diffuse mild atherosclerotic calcification. Bones/joints: The thoracic spine demonstrates mild degenerative changes at multiple levels. IMPRESSION: 1. There is nonspecific elevation of the right hemidiaphragm. 2. The lungs are hyperinflated, consistent with underlying small airways disease. Thank you for allowing us to participate in the care of your patient. Dictated and Authenticated by: Luis Peterson DO 11/08/2018 3:32 PM Central Time ([place] & [place]) [facility] Final Radiology Report Call: [phone] assistance Online chat: [email or web address] Name: YOMAIRA YANCEY Age: 68Years F Date: 11/08/2018 SSN: -- : 1950 Study: XR HUMERUS Requesting Physician: RADHA MENDIOLA Images: 2 Addl Studies: Provided Clinical History: Contrast: Contrast Medium: Contrast Amount: Contrast Method: CONFIDENTIALITY STATEMENT This report is intended only for use by the referring physician, and only in accordance with law. If you received this in error, call [phone]. Page 1 of 1 EXAM: XR Right Humerus, 2 or More Views EXAM DATE/TIME: 11/08/2018 3:12 PM CLINICAL HISTORY: 68 years old, female; Injury or trauma; Fall; Initial encounter; Blunt trauma ( contusions or hematomas; Arm, upper; Right; Patient HX: RT upper arm pain S/P fall TECHNIQUE: XR Right humerus 2 or more views. COMPARISON: No relevant prior studies available. FINDINGS: Bones/joints: There is no evidence of acute fracture. There is no evidence of joint malalignment or dislocation. Degenerative changes of the shoulder are present. Soft tissues: Normal. IMPRESSION: 1. There is no evidence of acute fracture. 2. Degenerative changes of the shoulder are present. Thank you for allowing us to participate in the care of your patient. Dictated and Authenticated by: Luis Peterson DO 11/08/2018 3:33 PM Central Time ([place] & [place]) [facility] Final Radiology Report Call: [phone] assistance Online chat: [email or web address] Name: YOMAIRA YANCEY Age: 68Years F Date: 11/08/2018 SSN: -- : 1950 Study: CT HEAD WO Requesting Physician: RADHA MENDIOLA Images: 140 Addl Studies: Provided Clinical History: Contrast: Without Contrast Medium: Contrast Amount: Contrast Method: Page 1 of 2 EXAM: CT Head Without Contrast EXAM DATE/TIME: 11/08/2018 4:21 PM CLINICAL HISTORY: 68 years old, female; Signs and symptoms; Other: Syncope TECHNIQUE: Axial computed tomography images of the head/brain without contrast. All CT scans at this facility use at least one of these dose optimization techniques: automated exposure control; mA and/or kV adjustment per patient size (includes targeted exams where dose is matched to clinical indication); or iterative reconstruction. Coronal and sagittal reformatted images were created and reviewed. COMPARISON: No relevant prior studies available. FINDINGS: Brain: No hemorrhage, mass effect or midline shift. Age-related atrophy and chronic white matter ischemic changes, with no evidence of an acute intracranial abnormality. Ventricles: Normal. No ventriculomegaly. Bones/joints: Unremarkable. No acute fracture. Sinuses: Mucosal thickening within the left maxillary sinus. Remaining sinuses are clear. Mastoid air cells: Visualized mastoid air cells are unremarkable. No mastoid effusion. Soft tissues: Unremarkable. Vasculature: The vasculature demonstrates diffuse mild atherosclerotic calcification. Other findings: Encephalomalacic change noted within the right caudate nucleus. IMPRESSION: YOMAIRA YANCEY | Final Radiology Report CONFIDENTIALITY STATEMENT This report is intended only for use by the referring physician, and only in accordance with law. If you received this in error, call [phone]. Page 2 of 2 1. No hemorrhage, mass effect or midline shift. 2. Age-related atrophy and chronic white matter ischemic changes, with no evidence of an acute intracranial abnormality. Thank you for allowing us to participate in the care of your patient. Dictated and Authenticated by: Luis Peterson DO 11/08/2018 4:37 PM Central Time ([place] & [place]) Departure - Departure Time of Disposition: 17:16 Disposition: Home, Self-Care 01 Condition: Good Clinical Impression: Fall from bed, initial encounter, Yeast cystitis, COPD, Moderate chronic obstructive pulmonary disease Syncope Qualifiers: Syncope type: unspecified Qualified Code(s): R55 - Syncope and collapse - Discharge Information *PRESCRIPTION DRUG MONITORING PROGRAM REVIEWED*: No *COPY OF PRESCRIPTION DRUG MONITORING REPORT IN PATIENT COLLIN: No Instructions: Syncope Forms: ED Department Discharge Additional Instructions: It is unable to be determined if you rolled out of bed or had a syncopal episode (sudden loss of consciousness). No significant abnormalities were found on your exam, x-rays, blood tests, or CT Head scan. Your urine has some yeast infection. Rx: Diflucan 150mg Follow up in clinic with your doctor in the next week for recheck. Return to ER if worse at any time. - My Orders Last 24 Hours: My Active Orders 11/08/18 15:00 EKG 12 Lead [EKG Documentation Completion] [RC] STAT Peripheral IV Insertion Adult [OM.PC] Stat 11/08/18 15:01 Chest 1V Frontal [CR] Stat 11/08/18 15:02 Humerus Rt [CR] Urgent Sodium Chloride 0.9% [Saline Flush] 10 ml FLUSH ASDIRECTED PRN 11/08/18 15:03 Peripheral IV Care [RC] . DIRECTED 11/08/18 16:05 CULTURE URINE [RM] Stat 11/08/18 16:12 Head wo Cont [CT] Stat - Assessment/Plan Last 24 Hours: My Active Orders 11/08/18 15:00 EKG 12 Lead [EKG Documentation Completion] [RC] STAT Peripheral IV Insertion Adult [OM.PC] Stat 11/08/18 15:01 Chest 1V Frontal [CR] Stat 11/08/18 15:02 Humerus Rt [CR] Urgent Sodium Chloride 0.9% [Saline Flush] 10 ml FLUSH ASDIRECTED PRN 11/08/18 15:03 Peripheral IV Care [RC] . DIRECTED 11/08/18 16:05 CULTURE URINE [RM] Stat 11/08/18 16:12 Head wo Cont [CT] Stat"
[2018-11-08] MEDS ORDERED: Sodium Chloride 0.9% 10 ML Syringe FLUSH PRN (15:02)
[2018-11-08 15:36] LABS: ANION GAP 17.6; CHLORIDE,CL 107 mmol/L (101-111); SODIUM,NA 140 mmol/L (135-145)
[2018-11-08] MEDS ORDERED: Fluconazole 100 MG Tab PO ONE (17:09)
[2018-11-08 17:30] VITALS: BP 125/73
== END 2018-11-08 17:51 | disposition home or self-care (01) ==
LOC: DL.ED 14:38
DX: R55 Syncope and collapse (principal); B37.41 Candidal cystitis and urethritis; J44.9 Chronic obstructive pulmonary disease, unspecified; I10 Essential (primary) hypertension; F17.210 Nicotine dependence, cigarettes, uncomplicated; Z88.0 Allergy status to penicillin; Z79.899 Other long term (current) drug therapy
CPT/HCPCS: 36415; 70450; 71045; 73060; 80053; 80305; 81001; 82550; 83605; 83690; 83735; 84484; 85025; 85610; 85730; 87086; 93005; 99285; G0480; 87088; 87186

== ENCOUNTER 2018-12-25 21:02 | Emergency (ER) | payer MEDICARE ==
--- NOTE | 2018-12-25 21:00 | EDM.PDOC ---
ED HPI GENERAL MEDICAL PROBLEM - General Stated Complaint: AMBULANCE Time Seen by Provider: 12/25/18 20:54 Source of Information: Reports: Patient History Limitations: Reports: No Limitations - History of Present Illness INITIAL COMMENTS - FREE TEXT/NARRATIVE: states been getting dizziness alot since taking new BP Rx. lost balance fell c/ o right hip pain unable to stand had someone helped her back up. did hit right fore head but no LOC and no neck pain feels fine only pain is at right hip. Right Temporal Head Pain Score (Numeric/FACES): 4 - Related Data Allergies Allergy/AdvReac Type Severity Reaction Status Date / Time Penicillins Allergy Intermediate Hives Verified 05/14/18 19:58 Home Meds: Home Meds Benazepril HCl 20 mg PO DAILY 10/02/13 [History] Venlafaxine HCl [Venlafaxine ER] 150 mg PO DAILY 10/02/13 [History] amLODIPine Besylate [Amlodipine Besylate] 10 mg PO DAILY 10/02/13 [History] traZODone 50 mg PO BEDTIME PRN 03/25/16 [History] Albuterol/Ipratropium [DuoNeb 3.0-0.5 MG/3 ML] 3 ml NEB TID PRN 10/13/17 [ History] Metoprolol Succinate [Toprol XL 100mg] 100 mg PO DAILY 11/08/18 [History] Potassium Chloride [Klor-Con 10] 10 meq PO DAILY 11/08/18 [History] Past Medical History HEENT History: Reports: Impaired Vision Cardiovascular History: Reports: Hypertension Respiratory History: Reports: COPD, Pneumonia, Recurrent Musculoskeletal History: Reports: Fracture - Infectious Disease History Infectious Disease History: Reports: Chicken Pox - Past Surgical History HEENT Surgical History: Reports: Cataract Surgery GI Surgical History: Reports: Appendectomy, Cholecystectomy Musculoskeletal Surgical History: Reports: Knee Replacement Social & Family History - Family History Family Medical History: Unobtainable - Caffeine Use Caffeine Use: Reports: Coffee, Tea Caffeine Use Comment: 3 cups/day - Living Situation & Occupation Living situation: Reports: Single, Alone Occupation: Retired ED ROS GENERAL - Review of Systems Review Of Systems: ROS reveals no pertinent complaints other than HPI. ED EXAM,LOWER BACK PAIN/INJURY - Physical Exam Exam: See Below Exam Limited By: No Limitations General Appearance: Alert, WD/WN, No Apparent Distress, Other (txting on phone presently) Eye Exam: Bilateral Eye: PERRL (pupils ess ER @ 4mm) Ears: Hearing Grossly Normal Throat/Mouth: Normal Voice, No Airway Compromise Head: Other (right fore head contusion) Neck: Non-Tender, Full Range of Motion Respiratory/Chest: No Respiratory Distress Cardiovascular: Regular Rate, Rhythm GI/Abdominal: Soft, Non-Tender Neurological: Alert, Normal Mood/Affect, No Motor/Sensory Deficits, Oriented x 3 Psychiatric: Normal Affect, Normal Mood Skin Exam: Warm, Dry, Normal Color Lymphatic: No Adenopathy Course - Vital Signs Last Recorded V/S: Last Vital Signs Temp 36.7 C 12/25/18 22:05 Pulse 70 12/25/18 22:05 Resp 16 12/25/18 22:05 BP 98/71 12/25/18 22:05 Pulse Ox 94 L 12/25/18 22:05 - Orders/Labs/Meds Orders: Active Orders 24 hr Category Date Time Status Chest 1V Frontal [CR] Urgent Exams 12/25/18 22:06 Ordered Labs: Laboratory Tests 12/25/18 12/25/18 12/25/18 Range/Units 20:55 20:55 20:55 WBC 19.7 H (5.0-10.0) 10^3/uL RBC 4.74 (4.2-5.4) 10^6/uL Hgb 13.5 D (12.0-16.0) g/dL Hct 41.6 (37.0-47.0) % MCV 87.8 D (80-100) fL MCH 28.5 (27.0-34.0) pg MCHC 32.5 L (33.0-35.0) g/dL Plt Count 315 (150-450) 10^3/uL Neut % (Auto) 78.4 H (42.2-75.2) % Lymph % (Auto) 13.0 L (20.5-50.1) % [place] % (Auto) 5.5 (2-8) % Eos % (Auto) 3.0 (1.0-3.0) % Baso % (Auto) 0.1 (0.0-1.0) % Add Manual Diff Yes Neutrophils % (Manual) 66 (42-75) % Band Neutrophils % 8 % Lymphocytes % (Manual) 16 L (20-50) % Atypical Lymphs % 0 % Monocytes % (Manual) 5 (2-8) % Eosinophils % (Manual) 5 H (1-3) % Basophils % (Manual) 0 Sodium 137 (135-145) mmol/L Potassium 3.6 (3.6-5.0) mmol/L Chloride 105 (101-111) mmol/L Carbon Dioxide 21.0 (21.0-31.0) mmol/L Anion Gap 14.6 BUN 17 (7-18) mg/dL Creatinine 0.9 (0.6-1.3) mg/dL Est Cr Clr Drug Dosing 48.63 mL/min Estimated GFR (MDRD) > 60 BUN/Creatinine Ratio 18.88 Glucose 78 (74-105) mg/dL Lactic Acid 1.4 (0.5-2.2) mmol/L Calcium 8.9 (8.4-10.2) mg/dl Total Bilirubin 0.7 (0.2-1.0) mg/dL AST 24 (10-42) IU/L ALT 20 (10-60) IU/L Alkaline Phosphatase 93 (42-121) IU/L Total Protein 7.1 (6.7-8.2) g/dl Albumin 3.9 (3.2-5.5) g/dl Globulin 3.2 Albumin/Globulin Ratio 1.22 Meds: Medications Discontinued Medications Generic Name Dose Route Start Last Admin Trade Name Freq PRN Reason Stop Dose Admin Morphine Sulfate 2 mg 12/25/18 21:55 12/25/18 22:00 Morphine IVPUSH 12/25/18 21:56 2 mg ONETIME ONE Administration Ondansetron HCl 4 mg 12/25/18 21:52 12/25/18 22:00 Zofran IV 12/25/18 21:53 4 mg ONETIME ONE Administration - Re-Assessments/Exams Free Text/Narrative Re-Assessment/Exam: 12/25/18 22:[address] [facility] Departure - Departure Time of Disposition: 22:10 Disposition: DC/Tfer to Acute Hospital 02 Condition: Fair Clinical Impression: Fracture of right hip Qualifiers: Encounter type: initial encounter Fracture type: closed Qualified Code(s): S72.001A - Fracture of unspecified part of neck of right femur, initial encounter for closed fracture Pelvic fracture Qualifiers: Encounter type: initial encounter Pelvic bone location: multiple parts Fracture type: closed Fracture alignment: without disruption of pelvic ring Qualified Code(s): S32.82XA - Multiple fractures of pelvis without disruption of pelvic ring, initial encounter for closed fracture - Discharge Information Forms: Interfacility Transfer EMTALA - My Orders Last 24 Hours: My Active Orders 12/25/18 22:06 Chest 1V Frontal [CR] Urgent - Assessment/Plan Last 24 Hours: My Active Orders 12/25/18 22:06 Chest 1V Frontal [CR] Urgent
[2018-12-25 21:24] LABS: ANION GAP 14.6; CHLORIDE,CL 105 mmol/L (101-111); SODIUM,NA 137 mmol/L (135-145)
[2018-12-25] MEDS ORDERED: Ondansetron 4 MG/2 ML SDV IV ONE (21:52)
[2018-12-25] MEDS ORDERED: Morphine 2 MG/ML Syringe IVPUSH ONE (21:55)
[2018-12-25 22:06] VITALS: BP 98/71
== END 2018-12-25 22:49 ==
LOC: DL.ED 21:02
DX: S32.82XA Multiple fractures of pelvis without disruption of pelvic ring, initial encounter for closed fracture (principal); S72.001A Fracture of unspecified part of neck of right femur, initial encounter for closed fracture; S00.83XA Contusion of other part of head, initial encounter; I10 Essential (primary) hypertension; J44.9 Chronic obstructive pulmonary disease, unspecified; Z88.0 Allergy status to penicillin; Z79.899 Other long term (current) drug therapy; W18.39XA Other fall on same level, initial encounter
CPT/HCPCS: 36415; 70450; 71045; 72125; 72192; 80053; 83605; 85025; 96374; 96375; 99285; J2270; J2405

== ENCOUNTER 2019-01-02 15:45 | Inpatient (IN) | payer MEDICARE, MEDICAID ==
[2019-01-02] MEDS ORDERED: Ibuprofen 400 MG Tab PO PRN (16:12)
[2019-01-02] MEDS ORDERED: Acetaminophen 325 MG Tab PO PRN (16:12)
[2019-01-02] MEDS ORDERED: Polyethylene Glycol 3350 Powder 17 GM Packet PO PRN (16:12)
[2019-01-02] MEDS ORDERED: Ondansetron 4 MG Tab.DIS PO PRN (16:12)
[2019-01-02] MEDS ORDERED: Promethazine 25 MG Tab PO PRN (16:12)
[2019-01-02] MEDS ORDERED: Bisacodyl 5 MG Tab PO PRN (16:12)
[2019-01-02] MEDS ORDERED: Promethazine 25 MG/ML SDV IM PRN (16:12)
[2019-01-02] MEDS ORDERED: Ondansetron 4 MG/2 ML SDV IVPUSH PRN (16:12)
[2019-01-02] MEDS ORDERED: Docusate Sodium 100 MG Cap PO PRN (16:12)
[2019-01-02] MEDS ORDERED: Magnesium Hydroxide 400 MG/5 ML Susp 30 ML Cup PO PRN (16:12)
--- NOTE | 2019-01-02 16:48 | PCM.HP ---
H&P History of Present Illness - General Date of Service: 01/02/19 Admit Problem/Dx: Admission Diagnosis/Problem Admission Diagnosis/Problem Fracture of pubis Source of Information: Patient, Old Records History Limitations: Reports: No Limitations - History of Present Illness Initial Comments - Free Text/Narative: Ms. Barr is a 68 y.o female with medical history significant for fracture of the right inferior and superior pubis, sacral fracture, right wrist fracture, COPD, gastric ulcer with bleeding, HTN, HLP, depression, tobacco abuse, and pedal edema who was admitted to [facility] for pubic rami fracture and has been transferred to us for Swing Bed admission for PT/OT. She reports that she was unloading her groceries from the trunk of her car when she felt lightheaded and fell down to the right. Presented to our ED where she was found to have fractures of her right pubis and was sent to [facility] for further management. She states that she was given IVF and underwent physical therapy. She reports 8/10 right pubis pain that is constant, throbbing, and non-radiating. Worse with exertion but improves with tramadol. She reports shortness of breath at baseline but that has not worsened. Does not use O2 at home. She denies any fever, chills, chest pain, headache, vision changes, rhinorrhea, sore throat, abd pain, n/v/d/c, melena, hematochezia, dysuria, hematuria, or edema. Denies alcohol or illicit drug use. Reports that she used to smoke half pack of cigarettes daily but has not smoked since she was admitted and plans to stay quit. - Related Data Allergies/Adverse Reactions: Allergies Allergy/AdvReac Type Severity Reaction Status Date / Time Penicillins Allergy Intermediate Hives Verified 01/02/19 16:23 Home Medications: Home Meds Benazepril HCl 20 mg PO DAILY 10/02/13 [History] Venlafaxine HCl [Venlafaxine ER] 150 mg PO DAILY 10/02/13 [History] amLODIPine Besylate [Amlodipine Besylate] 10 mg PO DAILY 10/02/13 [History] traZODone 50 mg PO BEDTIME PRN 03/25/16 [History] Albuterol/Ipratropium [DuoNeb 3.0-0.5 MG/3 ML] 3 ml NEB TID PRN 10/13/17 [ History] Metoprolol Succinate [Toprol XL 100mg] 100 mg PO DAILY 11/08/18 [History] Potassium Chloride [Klor-Con 10] 10 meq PO DAILY 11/08/18 [History] Past Medical History HEENT History: Reports: Impaired Vision Cardiovascular History: Reports: Hypertension Respiratory History: Reports: COPD, Pneumonia, Recurrent Musculoskeletal History: Reports: Fracture Neurological History: Reports: None Psychiatric History: Reports: Anxiety - Infectious Disease History Infectious Disease History: Reports: Chicken Pox - Past Surgical History HEENT Surgical History: Reports: Cataract Surgery GI Surgical History: Reports: Appendectomy, Cholecystectomy Musculoskeletal Surgical History: Reports: Knee Replacement Social & Family History - Family History Family Medical History: Unobtainable - Caffeine Use Caffeine Use: Reports: Coffee, Tea Caffeine Use Comment: 3 cups/day - Living Situation & Occupation Living situation: Reports: Single, Alone Occupation: Retired H&P Review of Systems - Review of Systems: Review Of Systems: ROS reveals no pertinent complaints other than HPI. Exam - Exam Exam: See Below - Exam General: Alert, Oriented, Cooperative, Mild Distress HEENT: Conjunctiva Clear, EOMI, Hearing Intact, Mucosa Moist & [place] Neck: Supple, Trachea Midline Lungs: Normal Respiratory Effort, Wheezing (Expiratory wheezings. ) Cardiovascular: Regular Rate, Regular Rhythm GI/Abdominal Exam: Normal Bowel Sounds, Soft, Non-Tender (suprapubic and pubic tenderness on the right. ), No Distention, Pelvis Stable Extremities: Normal Inspection, Non-Tender, No Pedal Edema Peripheral Pulses: 1+: Dorsalis Pedis (L), Dorsalis Pedis (R), 2+: Radial (L), Radial (R) Skin: Warm, Dry, Intact Neuro Extensive - Mental Status: Alert, Oriented x3, Normal Mood/Affect, Normal Cognition, Memory Intact Psychiatric: Alert, Normal Affect, Normal Mood - Patient Data Lab Results Last 24 hrs: Reviewed patient's labs from [facility]. No need to repeat CBC or BMP today. Will obtain new labs tomorrow. - Problem List (1) Pubic ramus fracture SNOMED Code(s): 56657789 ICD Code: S32.599A - OTH FRACTURE OF UNSP PUBIS, INIT ENCNTR FOR CLOSED FRACTURE Status: Acute Current Visit: Yes (2) COPD, Moderate chronic obstructive pulmonary disease SNOMED Code(s): 858887388 ICD Code: J44.9 - CHRONIC OBSTRUCTIVE PULMONARY DISEASE, UNSPECIFIED Status : Chronic Current Visit: No (3) Dyslipidemia SNOMED Code(s): 858245636 ICD Code: E78.5 - HYPERLIPIDEMIA, UNSPECIFIED Status: Chronic Priority: Low Current Visit: No (4) History of - depression SNOMED Code(s): 179200758 ICD Code: Z86.59 - PERSONAL HISTORY OF OTHER MENTAL AND BEHAVIORAL DISORDERS Status: Chronic Current Visit: No (5) History of - hypertension, HTN, High Blood Pressure SNOMED Code(s): 861083905 ICD Code: Z86.79 - PERSONAL HISTORY OF OTHER DISEASES OF THE CIRCULATORY SYSTEM Status: Chronic Current Visit: No Problem List Initiated/Reviewed/Updated: Yes Orders Last 24hrs: Active Orders 24 hr Category Date Time Status Patient Status [ADT] Routine ADT 01/02/19 16:12 Ordered Height and Weight [RC] UPON Care 01/02/19 16:12 Ordered Intake and Output [RC] QSHIFT Care 01/02/19 16:20 Ordered Notify Provider Vital Signs [RC] ASDIRECTED Care 01/02/19 16:20 Ordered Oxygen Therapy [RC] PRN Care 01/02/19 16:12 Ordered Up With Assistance [RC] ASDIRECTED Care 01/02/19 16:12 Ordered VTE/DVT Education [RC] PER UNIT ROUTINE Care 01/02/19 16:12 Ordered Vital Signs [RC] Q4H Care 01/02/19 16:12 Ordered OT Evaluation and Treatment [CONS] Routine Cons 01/02/19 16:12 Ordered PT Evaluation and Treatment [CONS] Routine Cons 01/02/19 16:12 Ordered Regular Diet [DIET] Diet 01/02/19 Dinner Ordered BASIC METABOLIC PANEL,BMP [CHEM] AM Lab 01/03/19 05:11 Ordered CBC W/O DIFF,HEMOGRAM [HEME] AM Lab 01/03/19 05:11 Ordered Acetaminophen [Tylenol] Med 01/02/19 16:12 Ordered 650 mg PO Q6H PRN Bisacodyl [Dulcolax] Med 01/02/19 16:12 Ordered 5 mg PO DAILY PRN Docusate Sodium [Colace] Med 01/02/19 16:12 Ordered 100 mg PO BID PRN Docusate Sodium/Sennosides [Senna Plus] Med 01/02/19 16:12 Ordered 1 tab PO BEDTIME PRN Enoxaparin [Lovenox] Med 01/03/19 09:00 Ordered 30 mg SUBCUT DAILY Ibuprofen [Motrin] Med 01/02/19 16:12 Ordered 400 mg PO Q6H PRN Magnesium Hydroxide [Milk of Magnesia] Med 01/02/19 16:12 Ordered 30 ml PO Q12H PRN Ondansetron [Zofran ODT] Med 01/02/19 16:12 Ordered 4 mg PO Q6H PRN Ondansetron [Zofran] Med 01/02/19 16:12 Ordered 4 mg IVPUSH Q6H PRN Polyethylene Glycol 3350 [MiraLAX] Med 01/02/19 16:12 Ordered 17 gm PO DAILY PRN Promethazine [Phenergan] Med 01/02/19 16:12 Ordered 25 mg PO Q6H PRN Promethazine [Phenergan] Med 01/02/19 16:12 Ordered 6.25 mg IM Q6H PRN Resuscitation Status Routine Resus Stat 01/02/19 16:12 Ordered Medication Orders Acetaminophen (Tylenol) 650 mg PO Q6H PRN PRN Reason: Pain Bisacodyl (Dulcolax) 5 mg PO DAILY PRN PRN Reason: Constipation Docusate Sodium (Colace) 100 mg PO BID PRN PRN Reason: Constipation Enoxaparin Sodium (Lovenox) 30 mg SUBCUT DAILY [facility] Ibuprofen (Motrin) 400 mg PO Q6H PRN PRN Reason: Pain Magnesium Hydroxide (Milk Of Magnesia) 30 ml PO Q12H PRN PRN Reason: Constipation Ondansetron HCl (Zofran Odt) 4 mg PO Q6H PRN PRN Reason: nausea, able to take PO Ondansetron HCl (Zofran) 4 mg IVPUSH Q6H PRN PRN Reason: Nausea/Vomiting Polyethylene Glycol (Miralax) 17 gm PO DAILY PRN PRN Reason: Constipation Promethazine HCl (Phenergan) 25 mg PO Q6H PRN PRN Reason: nausea, able to take PO Promethazine HCl (Phenergan) 6.25 mg IM Q6H PRN PRN Reason: Nausea/Vomiting Senna/Docusate Sodium (Senna Plus) 1 tab PO BEDTIME PRN PRN Reason: Constipation Assessment/Plan Comment:: Fracture of inferior and superior rami of right pubis: No surgical intervention. Reports 8/10 pain that improves with tramadol. - PT/OT ordered. - Ambulate with assistance - Tramadol, ibuprofen, for pain #COPD: not in exacerbation - Symbicort - supplemental O2 as needed, titrate to O2 saturation of 88-92% #HTN: - Continue home medications #Hyperlipidemia: - Continue home medications. #Cachexia: patient appears cachectic, likely due to COPD - Regular diet - Nutritional supplementation - User Experience Developer consult #Anxiety/Depression: - Continue Effexor and trazodone DVT PPx: Lovenox GI PPx: Regular diet Code status discussed and patient wants to be DNR/DNI.
[2019-01-02] MEDS: traMADol 50 MG Tab PO PRN (18:43)
[2019-01-02] MEDS: traZODone 50 MG Tab PO PRN (20:59)
[2019-01-03 07:13] LABS: ANION GAP 12.4; CHLORIDE,CL 109 mmol/L (101-111); SODIUM,NA 141 mmol/L (135-145)
[2019-01-03] MEDS: Benazepril 10 MG Tab PO SCH (08:37)
[2019-01-03] MEDS: Potassium Chloride 10 MEQ Tab.ER PO SCH (08:38)
[2019-01-03] MEDS: Metoprolol Succinate 50 MG Tab.ER PO SCH (08:38)
[2019-01-03] MEDS: amLODIPine 5 MG Tab PO SCH (08:38)
[2019-01-03] MEDS: Venlafaxine 150 MG CAP.ER PO SCH (08:38)
[2019-01-03] MEDS: traMADol 50 MG Tab PO PRN (10:29)
[2019-01-03] MEDS: Enoxaparin 40 MG/0.4 ML Syringe SUBCUT SCH (10:59)
--- NOTE | 2019-01-03 11:40 | PCM.PN ---
- General Info Date of Service: 01/03/19 Admission Dx/Problem (Free Text): Admission Diagnosis/Problem Admission Diagnosis/Problem Fracture of pubis - Patient Data Vitals - Most Recent: Last Vital Signs Temp 98.8 F 01/03/19 07:42 Pulse 86 01/03/19 08:38 Resp 20 01/03/19 07:42 BP 129/67 01/03/19 08:38 Pulse Ox 90 L 01/03/19 07:42 Weight - Most Recent: 112 lb 12.8 oz Lab Results Last 24 Hours: Laboratory Results - last 24 hr 01/03/19 01/03/19 Range/Units 06:00 06:00 WBC 7.2 (5.0-10.0) 10^3/uL RBC 3.76 L (4.2-5.4) 10^6/uL Hgb 10.6 L D (12.0-16.0) g/dL Hct 33.5 L (37.0-47.0) % MCV 89.1 (80-100) fL MCH 28.2 (27.0-34.0) pg MCHC 31.6 L (33.0-35.0) g/dL Plt Count 340 (150-450) 10^3/uL Sodium 141 (135-145) mmol/L Potassium 4.4 (3.6-5.0) mmol/L Chloride 109 (101-111) mmol/L Carbon Dioxide 24.0 (21.0-31.0) mmol/L Anion Gap 12.4 BUN 10 (7-18) mg/dL Creatinine 0.5 L (0.6-1.3) mg/dL Est Cr Clr Drug Dosing 87.54 mL/min Estimated GFR (MDRD) > 60 Glucose 74 (74-105) mg/dL Calcium 8.7 (8.4-10.2) mg/dl Med Orders - Current: Current Medications Acetaminophen (Tylenol) 650 mg PO Q6H PRN PRN Reason: Pain Last Admin: 01/03/19 09:08 Dose: 650 mg Albuterol/Ipratropium (Duoneb 3.0-0.5 Mg/3 Ml) 3 ml NEB TID PRN PRN Reason: breathing Amlodipine Besylate (Norvasc) 10 mg PO DAILY [facility] Last Admin: 01/03/19 08:38 Dose: 10 mg Benazepril HCl (Lotensin) 20 mg PO DAILY [facility] Last Admin: 01/03/19 08:37 Dose: 20 mg Bisacodyl (Dulcolax) 5 mg PO DAILY PRN PRN Reason: Constipation Calamine/Zinc Oxide (Calamine Lotion) 0 ml TOP ASDIRECTED PRN PRN Reason: Itching Docusate Sodium (Colace) 100 mg PO BID PRN PRN Reason: Constipation Doxycycline Hyclate (Vibramycin) 100 mg PO Q12HR [facility] Enoxaparin Sodium (Lovenox) 40 mg SUBCUT DAILY [facility] Last Admin: 01/03/19 10:59 Dose: 40 mg Ibuprofen (Motrin) 400 mg PO Q6H PRN PRN Reason: Pain Magnesium Hydroxide (Milk Of Magnesia) 30 ml PO Q12H PRN PRN Reason: Constipation Metoprolol Succinate (Toprol Xl) 100 mg PO DAILY [facility] Last Admin: 01/03/19 08:38 Dose: 100 mg Ondansetron HCl (Zofran Odt) 4 mg PO Q6H PRN PRN Reason: nausea, able to take PO Last Admin: 01/02/19 21:04 Dose: 4 mg Ondansetron HCl (Zofran) 4 mg IVPUSH Q6H PRN PRN Reason: Nausea/Vomiting Polyethylene Glycol (Miralax) 17 gm PO DAILY PRN PRN Reason: Constipation Potassium Chloride (Klor-Con 10) 10 meq PO DAILY [facility] Last Admin: 01/03/19 08:38 Dose: 10 meq Promethazine HCl (Phenergan) 25 mg PO Q6H PRN PRN Reason: nausea, able to take PO Promethazine HCl (Phenergan) 6.25 mg IM Q6H PRN PRN Reason: Nausea/Vomiting Senna/Docusate Sodium (Senna Plus) 1 tab PO BEDTIME PRN PRN Reason: Constipation Tramadol HCl (Ultram) 50 mg PO Q6H PRN PRN Reason: Pain Last Admin: 01/03/19 10:29 Dose: 50 mg Trazodone HCl (Trazodone) 50 mg PO BEDTIME PRN PRN Reason: Insomnia Last Admin: 01/02/19 20:59 Dose: 50 mg Venlafaxine HCl (Venlafaxine Hcl Er) 150 mg PO DAILY [facility] Last Admin: 01/03/19 08:38 Dose: 150 mg - Problem List & Annotations (1) Pubic ramus fracture SNOMED Code(s): 65173615 Code(s): S32.599A - OTH FRACTURE OF UNSP PUBIS, INIT ENCNTR FOR CLOSED FRACTURE Status: Acute Current Visit: Yes (2) COPD, Moderate chronic obstructive pulmonary disease SNOMED Code(s): 932946078 Code(s): J44.9 - CHRONIC OBSTRUCTIVE PULMONARY DISEASE, UNSPECIFIED Status : Chronic Current Visit: No (3) Dyslipidemia SNOMED Code(s): 395104848 Code(s): E78.5 - HYPERLIPIDEMIA, UNSPECIFIED Status: Chronic Priority: Low Current Visit: No (4) History of - depression SNOMED Code(s): 238792796 Code(s): Z86.59 - PERSONAL HISTORY OF OTHER MENTAL AND BEHAVIORAL DISORDERS Status: Chronic Current Visit: No (5) History of - hypertension, HTN, High Blood Pressure SNOMED Code(s): 840100557 Code(s): Z86.79 - PERSONAL HISTORY OF OTHER DISEASES OF THE CIRCULATORY SYSTEM Status: Chronic Current Visit: No - My Orders Last 24 Hours: My Active Orders 01/02/19 16:12 Patient Status [ADT] Routine Height and Weight [RC] UPON Oxygen Therapy [RC] PRN Up With Assistance [RC] ASDIRECTED VTE/DVT Education [RC] PER UNIT ROUTINE Vital Signs [RC] QSHIFT OT Evaluation and Treatment [CONS] Routine PT Evaluation and Treatment [CONS] Routine Acetaminophen [Tylenol] 650 mg PO Q6H PRN Bisacodyl [Dulcolax] 5 mg PO DAILY PRN Docusate Sodium [Colace] 100 mg PO BID PRN Docusate Sodium/Sennosides [Senna Plus] 1 tab PO BEDTIME PRN Ibuprofen [Motrin] 400 mg PO Q6H PRN Magnesium Hydroxide [Milk of Magnesia] 30 ml PO Q12H PRN Ondansetron [Zofran ODT] 4 mg PO Q6H PRN Ondansetron [Zofran] 4 mg IVPUSH Q6H PRN Polyethylene Glycol 3350 [MiraLAX] 17 gm PO DAILY PRN Promethazine [Phenergan] 25 mg PO Q6H PRN Promethazine [Phenergan] 6.25 mg IM Q6H PRN Resuscitation Status Routine 01/02/19 16:20 Intake and Output [RC] QSHIFT Notify Provider Vital Signs [RC] ASDIRECTED 01/02/19 17:04 Albuterol/Ipratropium [DuoNeb 3.0-0.5 MG/3 ML] 3 ml NEB TID PRN traZODone 50 mg PO BEDTIME PRN 01/02/19 18:27 traMADol [Ultram] 50 mg PO Q6H PRN 01/02/19 Dinner Regular Diet [DIET] 01/03/19 09:00 Benazepril [Lotensin] 20 mg PO DAILY Enoxaparin [Lovenox] 40 mg SUBCUT DAILY Metoprolol Succinate [Toprol XL] 100 mg PO DAILY Potassium Chloride [Klor-Con 10] 10 meq PO DAILY Venlafaxine [Venlafaxine HCl ER] 150 mg PO DAILY amLODIPine [Norvasc] 10 mg PO DAILY 01/03/19 11:38 Calamine/Zinc Oxide [Calamine Lotion] See Dose Instructions TOP ASDIRECTED PRN 01/03/19 12:00 Doxycycline [Vibramycin] 100 mg PO Q12HR - Plan Plan:: Fracture of inferior and superior rami of right pubis: No surgical intervention. Reports 8/10 pain that improves with tramadol. - PT/OT ordered. - Ambulate with assistance - Tramadol, ibuprofen, for pain #COPD: not in exacerbation - Symbicort - supplemental O2 as needed, titrate to O2 saturation of 88-92% #HTN: - Continue home medications #Hyperlipidemia: - Continue home medications. #Cachexia: patient appears cachectic, likely due to COPD - Regular diet - Nutritional supplementation - Core Stacker consult #Anxiety/Depression: - Continue Effexor and trazodone DVT PPx: Lovenox GI PPx: Regular diet Code status discussed and patient wants to be DNR/DNI.
[2019-01-03] MEDS: Doxycycline 100 MG Cap PO SCH ×2 (13:00→21:01)
[2019-01-03] MEDS: Calamine/Zinc Oxide Lotion 118 ML Bottle TOP PRN (13:00)
[2019-01-03] MEDS: Albuterol/Ipratropium 3.0-0.5 MG/3 ML Neb Soln NEB PRN (14:56)
[2019-01-03] MEDS ORDERED: Acetaminophen 325 MG Tab PO PRN (16:15)
[2019-01-03] MEDS ORDERED: Ondansetron 4 MG Tab.DIS PO PRN (16:15)
[2019-01-03] MEDS ORDERED: Magnesium Hydroxide 400 MG/5 ML Susp 30 ML Cup PO PRN (16:15)
[2019-01-03] MEDS: traZODone 50 MG Tab PO PRN (21:02)
[2019-01-04] MEDS: Albuterol/Ipratropium 3.0-0.5 MG/3 ML Neb Soln NEB PRN (05:34)
[2019-01-04] MEDS: Benazepril 10 MG Tab PO SCH (08:53)
[2019-01-04] MEDS: Doxycycline 100 MG Cap PO SCH ×2 (08:54→20:47)
[2019-01-04] MEDS: amLODIPine 5 MG Tab PO SCH (08:54)
[2019-01-04] MEDS: Potassium Chloride 10 MEQ Tab.ER PO SCH (08:56)
[2019-01-04] MEDS: Venlafaxine 150 MG CAP.ER PO SCH (08:56)
[2019-01-04] MEDS: Metoprolol Succinate 50 MG Tab.ER PO SCH (08:57)
[2019-01-04] MEDS: Enoxaparin 40 MG/0.4 ML Syringe SUBCUT SCH (08:59)
[2019-01-04] MEDS: Calamine/Zinc Oxide Lotion 118 ML Bottle TOP PRN (16:22)
[2019-01-04] MEDS: traZODone 50 MG Tab PO PRN (20:48)
[2019-01-05] MEDS: Albuterol/Ipratropium 3.0-0.5 MG/3 ML Neb Soln NEB PRN ×3 (08:18→22:28)
[2019-01-05] MEDS: Enoxaparin 40 MG/0.4 ML Syringe SUBCUT SCH (08:40)
[2019-01-05] MEDS: Potassium Chloride 10 MEQ Tab.ER PO SCH (08:40)
[2019-01-05] MEDS: amLODIPine 5 MG Tab PO SCH (08:41)
[2019-01-05] MEDS: Metoprolol Succinate 50 MG Tab.ER PO SCH (08:44)
[2019-01-05] MEDS: Doxycycline 100 MG Cap PO SCH ×2 (08:44→20:49)
[2019-01-05] MEDS: Calamine/Zinc Oxide Lotion 118 ML Bottle TOP PRN ×2 (08:45→20:51)
[2019-01-05] MEDS: Benazepril 10 MG Tab PO SCH (08:45)
[2019-01-05] MEDS: Venlafaxine 150 MG CAP.ER PO SCH (08:45)
[2019-01-05] MEDS: traMADol 50 MG Tab PO PRN ×2 (14:01→20:49)
[2019-01-05] MEDS: FORMOTEROL INH SCH ×2 (18:41→22:29)
[2019-01-05] MEDS: BUDESONIDE INH SCH ×2 (18:41→22:29)
[2019-01-05] MEDS: traZODone 50 MG Tab PO PRN (20:51)
[2019-01-05] MEDS ORDERED: Formoterol/Mometasone 200-5 MCG 8.8 GM Inhaler IH SCH (21:00)
[2019-01-06] MEDS: Albuterol/Ipratropium 3.0-0.5 MG/3 ML Neb Soln NEB PRN (06:38)
[2019-01-06] MEDS: Venlafaxine 150 MG CAP.ER PO SCH (08:57)
[2019-01-06] MEDS: Benazepril 10 MG Tab PO SCH (08:58)
[2019-01-06] MEDS: Doxycycline 100 MG Cap PO SCH ×2 (08:58→22:30)
[2019-01-06] MEDS: Enoxaparin 40 MG/0.4 ML Syringe SUBCUT SCH (08:58)
[2019-01-06] MEDS: Metoprolol Succinate 50 MG Tab.ER PO SCH (09:01)
[2019-01-06] MEDS: Potassium Chloride 10 MEQ Tab.ER PO SCH (09:01)
[2019-01-06] MEDS: amLODIPine 5 MG Tab PO SCH (09:01)
[2019-01-06] MEDS: BUDESONIDE INH SCH ×2 (09:02→22:38)
[2019-01-06] MEDS: FORMOTEROL INH SCH ×2 (09:02→22:38)
[2019-01-06] MEDS: Pantoprazole 40 MG Tab.CR PO SCH (10:07)
[2019-01-06] MEDS: traMADol 50 MG Tab PO PRN (10:07)
[2019-01-06] MEDS: Hydrocortisone 1% Oint 28 GM Tube TOP PRN (10:08)
[2019-01-06] MEDS: traZODone 50 MG Tab PO PRN (22:30)
[2019-01-07] MEDS: Pantoprazole 40 MG Tab.CR PO SCH (06:22)
[2019-01-07] MEDS: Doxycycline 100 MG Cap PO SCH ×2 (09:28→21:26)
[2019-01-07] MEDS: amLODIPine 5 MG Tab PO SCH (09:28)
[2019-01-07] MEDS: Potassium Chloride 10 MEQ Tab.ER PO SCH (09:29)
[2019-01-07] MEDS: Benazepril 10 MG Tab PO SCH (09:29)
[2019-01-07] MEDS: Venlafaxine 150 MG CAP.ER PO SCH (09:29)
[2019-01-07] MEDS: Metoprolol Succinate 50 MG Tab.ER PO SCH (09:30)
[2019-01-07] MEDS: traMADol 50 MG Tab PO PRN (09:30)
[2019-01-07] MEDS: Enoxaparin 40 MG/0.4 ML Syringe SUBCUT SCH (09:32)
[2019-01-07] MEDS: FORMOTEROL INH SCH ×2 (09:33→21:30)
[2019-01-07] MEDS: BUDESONIDE INH SCH ×2 (09:33→21:30)
[2019-01-07] MEDS: Calamine/Zinc Oxide Lotion 118 ML Bottle TOP PRN (09:35)
[2019-01-07] MEDS: Ibuprofen 400 MG Tab PO PRN (11:50)
[2019-01-07] MEDS: Albuterol/Ipratropium 3.0-0.5 MG/3 ML Neb Soln NEB PRN (15:29)
[2019-01-07] MEDS: traZODone 50 MG Tab PO PRN (21:26)
[2019-01-07] MEDS: Hydrocortisone 1% Oint 28 GM Tube TOP PRN (21:26)
[2019-01-08] MEDS: Ibuprofen 400 MG Tab PO PRN ×2 (02:08→12:26)
[2019-01-08] MEDS: Pantoprazole 40 MG Tab.CR PO SCH (05:50)
[2019-01-08] MEDS: Venlafaxine 150 MG CAP.ER PO SCH (08:43)
[2019-01-08] MEDS: Potassium Chloride 10 MEQ Tab.ER PO SCH (08:44)
[2019-01-08] MEDS: Doxycycline 100 MG Cap PO SCH ×2 (08:44→21:02)
[2019-01-08] MEDS: amLODIPine 5 MG Tab PO SCH (08:44)
[2019-01-08] MEDS: Benazepril 10 MG Tab PO SCH (08:44)
[2019-01-08] MEDS: Metoprolol Succinate 50 MG Tab.ER PO SCH (08:45)
[2019-01-08] MEDS: FORMOTEROL INH SCH ×2 (08:47→21:03)
[2019-01-08] MEDS: BUDESONIDE INH SCH ×2 (08:47→21:03)
[2019-01-08] MEDS: Enoxaparin 40 MG/0.4 ML Syringe SUBCUT SCH (08:48)
[2019-01-08] MEDS: Hydrocortisone 1% Oint 28 GM Tube TOP PRN ×2 (10:03→21:05)
[2019-01-08] MEDS: Mineral Oil/Petrolatum/Phenylephrine/Shark Liver Oil Oint 57 GM Tube RECTAL SCH ×2 (16:29→20:53)
[2019-01-08] MEDS: traZODone 50 MG Tab PO PRN (21:02)
[2019-01-09] MEDS: Pantoprazole 40 MG Tab.CR PO SCH (05:36)
[2019-01-09] MEDS: Benazepril 10 MG Tab PO SCH (08:50)
[2019-01-09] MEDS: Potassium Chloride 10 MEQ Tab.ER PO SCH (08:50)
[2019-01-09] MEDS: Venlafaxine 150 MG CAP.ER PO SCH (08:50)
[2019-01-09] MEDS: Doxycycline 100 MG Cap PO SCH ×2 (08:51→21:56)
[2019-01-09] MEDS: Mineral Oil/Petrolatum/Phenylephrine/Shark Liver Oil Oint 57 GM Tube RECTAL SCH ×2 (08:51→21:56)
[2019-01-09] MEDS: amLODIPine 5 MG Tab PO SCH (08:51)
[2019-01-09] MEDS: Enoxaparin 40 MG/0.4 ML Syringe SUBCUT SCH (08:51)
[2019-01-09] MEDS: Metoprolol Succinate 50 MG Tab.ER PO SCH (08:51)
[2019-01-09] MEDS: BUDESONIDE INH SCH ×2 (08:52→21:54)
[2019-01-09] MEDS: FORMOTEROL INH SCH ×2 (08:52→21:54)
[2019-01-09] MEDS: Hydrocortisone 1% Oint 28 GM Tube TOP PRN ×2 (08:59→21:56)
[2019-01-09] MEDS: Ibuprofen 400 MG Tab PO PRN (10:06)
--- NOTE | 2019-01-09 10:49 | PCM.PN ---
- General Info Date of Service: 01/09/19 Subjective Update: Feeling well, Improved pain in the pelvis area. Pain is moderate, worse with activity. Better with rest. Has been itching, left anterior ray has been erythematous with scratching ivan. No associated fever. Improved after starting hydrocortisone cream. Feeling less itchy Functional Status: Reports: Pain Controlled, Tolerating Diet - Review of Systems Pulmonary: Denies: Shortness of Breath Cardiovascular: Denies: Chest Pain Gastrointestinal: Denies: Abdominal Pain Skin: Reports: Pruritis (Improved in the left leg) Psychiatric: Denies: Confusion - Patient Data Vitals - Most Recent: Last Vital Signs Temp 36.9 C 01/09/19 08:00 Pulse 69 01/09/19 08:51 Resp 16 01/09/19 08:00 BP 121/65 01/09/19 08:51 Pulse Ox 90 L 01/09/19 08:00 Weight - Most Recent: 52.299 kg I&O - Last 24 Hours: Intake & Output 01/08/19 01/09/19 01/09/19 22:59 06:59 14:59 Intake Total 150 200 Balance 150 200 Med Orders - Current: Current Medications Acetaminophen (Tylenol) 650 mg PO Q6HR PRN PRN Reason: Pain (mild 1-3) Last Admin: 01/04/19 08:52 Dose: 650 mg Albuterol/Ipratropium (Duoneb 3.0-0.5 Mg/3 Ml) 3 ml NEB TID PRN PRN Reason: breathing Last Admin: 01/07/19 15:29 Dose: 3 ml Amlodipine Besylate (Norvasc) 10 mg PO DAILY [facility] Last Admin: 01/09/19 08:51 Dose: 10 mg Benazepril HCl (Lotensin) 20 mg PO DAILY [facility] Last Admin: 01/09/19 08:50 Dose: 20 mg Bisacodyl (Dulcolax) 5 mg PO DAILY PRN PRN Reason: Constipation, use 4th Calamine/Zinc Oxide (Calamine Lotion) 0 ml TOP ASDIRECTED PRN PRN Reason: Itching Last Admin: 01/07/19 09:35 Dose: 1 applic Docusate Sodium (Colace) 100 mg PO BID PRN PRN Reason: Constipation, use 1st Doxycycline Hyclate (Vibramycin) 100 mg PO Q12HR [facility] Stop: 01/12/19 21:01 Last Admin: 01/09/19 08:51 Dose: 100 mg Enoxaparin Sodium (Lovenox) 40 mg SUBCUT DAILY [facility] Last Admin: 01/09/19 08:51 Dose: 40 mg Hydrocortisone (Hydrocortisone 1% Oint) 0 gm TOP BID PRN PRN Reason: itchy leg Last Admin: 01/09/19 08:59 Dose: 1 applic Ibuprofen (Motrin) 400 mg PO Q6HR PRN PRN Reason: Pain (moderate 4-6) Last Admin: 01/09/19 10:06 Dose: 400 mg Magnesium Hydroxide (Milk Of Magnesia) 30 ml PO Q12HR PRN PRN Reason: Constipation, use 2nd Metoprolol Succinate (Toprol Xl) 100 mg PO DAILY [facility] Last Admin: 01/09/19 08:51 Dose: 100 mg Nf Symbicort 160-4. 5mcg Inhalet Patient Own Med 0 each INH BID [facility] Last Admin: 01/09/19 08:52 Dose: 1 each Ondansetron HCl (Zofran) 4 mg IVPUSH Q6H PRN PRN Reason: Nausea/Vomiting Ondansetron HCl (Zofran Odt) 4 mg PO Q6HR PRN PRN Reason: nausea, can take PO, use 1st Last Admin: 01/03/19 21:03 Dose: 4 mg Pantoprazole Sodium (Protonix) 40 mg PO ACBREAKFAST [facility] Last Admin: 01/09/19 05:36 Dose: 40 mg Phenyleph/Shark Oil/Min Oil/Petrol (Preparation H Oint) 0 gm RECTAL BID [facility] Last Admin: 01/09/19 08:51 Dose: Not Given Polyethylene Glycol (Miralax) 17 gm PO DAILY PRN PRN Reason: Constipation, use 3rd Potassium Chloride (Klor-Con 10) 10 meq PO DAILY [facility] Last Admin: 01/09/19 08:50 Dose: 10 meq Promethazine HCl (Phenergan) 25 mg PO Q6H PRN PRN Reason: nausea, can take PO, use 2nd Promethazine HCl (Phenergan) 6.25 mg IM Q6H PRN PRN Reason: Nausea/Vomiting Last Admin: 01/05/19 09:35 Dose: 6.25 mg Senna/Docusate Sodium (Senna Plus) 1 tab PO BEDTIME PRN PRN Reason: Constipation Tramadol HCl (Ultram) 50 mg PO Q6HR PRN PRN Reason: Pain (severe 7-10) Last Admin: 01/07/19 09:30 Dose: 50 mg Trazodone HCl (Trazodone) 50 mg PO BEDTIME PRN PRN Reason: Insomnia Last Admin: 01/08/19 21:02 Dose: 50 mg Venlafaxine HCl (Venlafaxine Hcl Er) 150 mg PO DAILY [facility] Last Admin: 01/09/19 08:50 Dose: 150 mg Discontinued Medications Acetaminophen (Tylenol) 650 mg PO Q6H PRN PRN Reason: Pain Last Admin: 01/03/19 09:08 Dose: 650 mg Ibuprofen (Motrin) 400 mg PO Q6H PRN PRN Reason: Pain Magnesium Hydroxide (Milk Of Magnesia) 30 ml PO Q12H PRN PRN Reason: Constipation Last Admin: 01/03/19 15:20 Dose: 30 ml Mometasone Furoate/Formoterol Fumar (Dulera 200-5 Mcg) 2 puff IH BID [facility] Ondansetron HCl (Zofran Odt) 4 mg PO Q6H PRN PRN Reason: nausea, able to take PO Last Admin: 01/02/19 21:04 Dose: 4 mg Tramadol HCl (Ultram) 50 mg PO Q6H PRN PRN Reason: Pain Last Admin: 01/03/19 10:29 Dose: 50 mg - Exam General: Alert, Oriented Neck: Supple Lungs: Clear to Auscultation, Normal Respiratory Effort Cardiovascular: Regular Rate, Regular Rhythm GI/Abdominal Exam: Normal Bowel Sounds, Soft, Non-Tender Extremities: No Pedal Edema Skin: Warm, Other (Left leg anterior ray area with scratch ivan, mild erythema ) - Problem List & Annotations (1) Pubic ramus fracture SNOMED Code(s): 85721623 Code(s): S32.599A - OTH FRACTURE OF UNSP PUBIS, INIT ENCNTR FOR CLOSED FRACTURE Status: Acute Current Visit: Yes - Problem List Review Problem List Initiated/Reviewed/Updated: Yes - My Orders Last 24 Hours: My Active Orders 01/08/19 14:15 MO/Pet,Wh/Phenylephrine/Shk Lv [Preparation H Oint] 0 gm RECTAL BID - Plan Plan:: Fracture of inferior and superior rami of right pubis: No surgical intervention. Reports 8/10 pain that improves with tramadol. - PT/OT ordered. - Ambulate with assistance - Tramadol, ibuprofen, for pain #COPD: not in exacerbation - Symbicort - supplemental O2 as needed, titrate to O2 saturation of 88-92% #HTN: - Continue home medications #Hyperlipidemia: - Continue home medications. #Cachexia: patient appears cachectic, likely due to COPD - Regular diet - Nutritional supplementation - Decorative Greens Cutter consult #Anxiety/Depression: - Continue Effexor and trazodone Lower extremity erythema, scratches Concern w cellulitis Started doxycycline We will finish a 10 day course Hydrocortisone for itching DVT PPx: Lovenox GI PPx: Regular diet
[2019-01-09] MEDS: traZODone 50 MG Tab PO PRN (21:56)
[2019-01-10] MEDS: Pantoprazole 40 MG Tab.CR PO SCH (06:35)
[2019-01-10] MEDS: Benazepril 10 MG Tab PO SCH (08:37)
[2019-01-10] MEDS: Potassium Chloride 10 MEQ Tab.ER PO SCH (08:37)
[2019-01-10] MEDS: amLODIPine 5 MG Tab PO SCH (08:38)
[2019-01-10] MEDS: Enoxaparin 40 MG/0.4 ML Syringe SUBCUT SCH (08:38)
[2019-01-10] MEDS: Doxycycline 100 MG Cap PO SCH ×2 (08:40→20:45)
[2019-01-10] MEDS: Venlafaxine 150 MG CAP.ER PO SCH (08:40)
[2019-01-10] MEDS: Metoprolol Succinate 50 MG Tab.ER PO SCH (08:40)
[2019-01-10] MEDS: Mineral Oil/Petrolatum/Phenylephrine/Shark Liver Oil Oint 57 GM Tube RECTAL SCH ×2 (08:41→20:45)
[2019-01-10] MEDS: FORMOTEROL INH SCH ×2 (08:43→20:45)
[2019-01-10] MEDS: BUDESONIDE INH SCH ×2 (08:43→20:45)
[2019-01-10] MEDS: Ibuprofen 400 MG Tab PO PRN (15:13)
[2019-01-10] MEDS: traZODone 50 MG Tab PO PRN (20:48)
[2019-01-11] MEDS: Pantoprazole 40 MG Tab.CR PO SCH (06:07)
[2019-01-11 07:52] VITALS: BP 108/77
[2019-01-11] MEDS: Benazepril 10 MG Tab PO SCH (08:35)
[2019-01-11] MEDS: Potassium Chloride 10 MEQ Tab.ER PO SCH (08:35)
[2019-01-11] MEDS: Enoxaparin 40 MG/0.4 ML Syringe SUBCUT SCH (08:36)
[2019-01-11] MEDS: FORMOTEROL INH SCH (08:36)
[2019-01-11] MEDS: BUDESONIDE INH SCH (08:36)
[2019-01-11] MEDS: amLODIPine 5 MG Tab PO SCH (08:37)
[2019-01-11] MEDS: Mineral Oil/Petrolatum/Phenylephrine/Shark Liver Oil Oint 57 GM Tube RECTAL SCH (08:37)
[2019-01-11] MEDS: Metoprolol Succinate 50 MG Tab.ER PO SCH (08:38)
[2019-01-11] MEDS: Venlafaxine 150 MG CAP.ER PO SCH (08:38)
[2019-01-11] MEDS: Doxycycline 100 MG Cap PO SCH (08:39)
[2019-01-11] MEDS: Hydrocortisone 1% Oint 28 GM Tube TOP PRN (08:40)
--- NOTE | 2019-01-11 10:13 | PCM.DCSUM1 ---
Discharge Summary - Hospital Course Free Text/Narrative:: Fracture of inferior and superior rami of right pubis: No surgical intervention. - PT/OT ordered. improved - Ambulating with assistance of walker - Tramadol, ibuprofen, for pain #COPD: not in exacerbation -resume Symbicort #HTN: - Continue norvasc, metoprolol #Cachexia: patient appears cachectic, likely due to COPD - Regular diet - Nutritional supplementation #Anxiety/Depression: - Continue Effexor and trazodone Lower extremity erythema, scratches possible cellulitis was treated with doxycycline and hydrocortisone cream improved Diagnosis: Stroke: No - Discharge Data Discharge Date: 01/11/19 Discharge Disposition: Home, Self-Care 01 Condition: Good - Discharge Diagnosis/Problem(s) (1) Pubic ramus fracture SNOMED Code(s): 62226282 ICD Code: S32.599A - OTH FRACTURE OF UNSP PUBIS, INIT ENCNTR FOR CLOSED FRACTURE Status: Acute Current Visit: Yes - Patient Summary/Data Consults: Consultations 01/02/19 16:12 OT Evaluation and Treatment [CONS] Routine PT Evaluation and Treatment [CONS] Routine - Discharge Plan *PRESCRIPTION DRUG MONITORING PROGRAM REVIEWED*: Not Applicable *COPY OF PRESCRIPTION DRUG MONITORING REPORT IN PATIENT COLLIN: Not Applicable Home Medications: Home Meds Benazepril HCl 20 mg PO DAILY 10/02/13 [History] Venlafaxine HCl [Venlafaxine ER] 150 mg PO DAILY 10/02/13 [History] amLODIPine Besylate [Amlodipine Besylate] 10 mg PO DAILY 10/02/13 [History] traZODone 50 mg PO BEDTIME PRN 03/25/16 [History] Albuterol/Ipratropium [DuoNeb 3.0-0.5 MG/3 ML] 3 ml NEB TID PRN 10/13/17 [ History] Metoprolol Succinate [Toprol XL 100mg] 100 mg PO DAILY 11/08/18 [History] Potassium Chloride [Klor-Con 10] 10 meq PO DAILY 11/08/18 [History] Ondansetron [Zofran] 4 mg PO Q6H PRN 01/03/19 [History] Budesonide/Formoterol [Symbicort 160-4.5 MCG] 1 puff INH BID 01/05/19 [History] Referrals: Nava Lopez MD [Physician] - (in 3-4 days) - Discharge Summary/Plan Comment DC Time >30 min.: No - General Info Date of Service: 01/11/19 - Review of Systems General: Denies: Fever, Weakness Pulmonary: Denies: Shortness of Breath Cardiovascular: Denies: Chest Pain Neurological: Denies: Confusion - Patient Data Vitals - Most Recent: Last Vital Signs Temp 36.4 C 01/11/19 07:48 Pulse 72 01/11/19 08:38 Resp 18 01/11/19 07:48 BP 108/77 01/11/19 08:38 Pulse Ox 92 L 01/11/19 07:48 Weight - Most Recent: 50.848 kg I&O - Last 24 hours: Intake & Output 01/10/19 01/11/19 01/11/19 22:59 06:59 14:59 Intake Total 200 510 Balance 200 510 Med Orders - Current: Current Medications Acetaminophen (Tylenol) 650 mg PO Q6HR PRN PRN Reason: Pain (mild 1-3) Last Admin: 01/04/19 08:52 Dose: 650 mg Albuterol/Ipratropium (Duoneb 3.0-0.5 Mg/3 Ml) 3 ml NEB TID PRN PRN Reason: breathing Last Admin: 01/07/19 15:29 Dose: 3 ml Amlodipine Besylate (Norvasc) 10 mg PO DAILY [facility] Last Admin: 01/11/19 08:37 Dose: 10 mg Benazepril HCl (Lotensin) 20 mg PO DAILY [facility] Last Admin: 01/11/19 08:35 Dose: 20 mg Bisacodyl (Dulcolax) 5 mg PO DAILY PRN PRN Reason: Constipation, use 4th Calamine/Zinc Oxide (Calamine Lotion) 0 ml TOP ASDIRECTED PRN PRN Reason: Itching Last Admin: 01/07/19 09:35 Dose: 1 applic Docusate Sodium (Colace) 100 mg PO BID PRN PRN Reason: Constipation, use 1st Doxycycline Hyclate (Vibramycin) 100 mg PO Q12HR [facility] Stop: 01/12/19 21:01 Last Admin: 01/11/19 08:39 Dose: 100 mg Enoxaparin Sodium (Lovenox) 40 mg SUBCUT DAILY [facility] Last Admin: 01/11/19 08:36 Dose: 40 mg Hydrocortisone (Hydrocortisone 1% Oint) 0 gm TOP BID PRN PRN Reason: itchy leg Last Admin: 01/11/19 08:40 Dose: 1 applic Ibuprofen (Motrin) 400 mg PO Q6HR PRN PRN Reason: Pain (moderate 4-6) Last Admin: 01/10/19 15:13 Dose: 400 mg Magnesium Hydroxide (Milk Of Magnesia) 30 ml PO Q12HR PRN PRN Reason: Constipation, use 2nd Metoprolol Succinate (Toprol Xl) 100 mg PO DAILY [facility] Last Admin: 01/11/19 08:38 Dose: 100 mg Nf Symbicort 160-4. 5mcg Inhalet Patient Own Med 0 each INH BID [facility] Last Admin: 01/11/19 08:36 Dose: 1 each Ondansetron HCl (Zofran) 4 mg IVPUSH Q6H PRN PRN Reason: Nausea/Vomiting Ondansetron HCl (Zofran Odt) 4 mg PO Q6HR PRN PRN Reason: nausea, can take PO, use 1st Last Admin: 01/03/19 21:03 Dose: 4 mg Pantoprazole Sodium (Protonix) 40 mg PO ACBREAKFAST [facility] Last Admin: 01/11/19 06:07 Dose: 40 mg Phenyleph/Shark Oil/Min Oil/Petrol (Preparation H Oint) 0 gm RECTAL BID [facility] Last Admin: 01/11/19 08:37 Dose: Not Given Polyethylene Glycol (Miralax) 17 gm PO DAILY PRN PRN Reason: Constipation, use 3rd Potassium Chloride (Klor-Con 10) 10 meq PO DAILY [facility] Last Admin: 01/11/19 08:35 Dose: 10 meq Promethazine HCl (Phenergan) 25 mg PO Q6H PRN PRN Reason: nausea, can take PO, use 2nd Promethazine HCl (Phenergan) 6.25 mg IM Q6H PRN PRN Reason: Nausea/Vomiting Last Admin: 01/05/19 09:35 Dose: 6.25 mg Senna/Docusate Sodium (Senna Plus) 1 tab PO BEDTIME PRN PRN Reason: Constipation Tramadol HCl (Ultram) 50 mg PO Q6HR PRN PRN Reason: Pain (severe 7-10) Last Admin: 01/07/19 09:30 Dose: 50 mg Trazodone HCl (Trazodone) 50 mg PO BEDTIME PRN PRN Reason: Insomnia Last Admin: 01/10/19 20:48 Dose: 50 mg Venlafaxine HCl (Venlafaxine Hcl Er) 150 mg PO DAILY [facility] Last Admin: 01/11/19 08:38 Dose: 150 mg Discontinued Medications Acetaminophen (Tylenol) 650 mg PO Q6H PRN PRN Reason: Pain Last Admin: 01/03/19 09:08 Dose: 650 mg Ibuprofen (Motrin) 400 mg PO Q6H PRN PRN Reason: Pain Magnesium Hydroxide (Milk Of Magnesia) 30 ml PO Q12H PRN PRN Reason: Constipation Last Admin: 01/03/19 15:20 Dose: 30 ml Mometasone Furoate/Formoterol Fumar (Dulera 200-5 Mcg) 2 puff IH BID [facility] Ondansetron HCl (Zofran Odt) 4 mg PO Q6H PRN PRN Reason: nausea, able to take PO Last Admin: 01/02/19 21:04 Dose: 4 mg Tramadol HCl (Ultram) 50 mg PO Q6H PRN PRN Reason: Pain Last Admin: 01/03/19 10:29 Dose: 50 mg - Exam General: Reports: Alert, Oriented Neck: Reports: Supple Lungs: Reports: Clear to Auscultation, Normal Respiratory Effort Cardiovascular: Reports: Regular Rate, Regular Rhythm GI/Abdominal Exam: Normal Bowel Sounds, Soft, Non-Tender Skin: Reports: Warm, Dry Neurological: Reports: No New Focal Deficit Psy/Mental Status: Reports: Alert, Normal Affect, Normal Mood
== END 2019-01-11 14:30 | disposition home or self-care (01) | DRG 560 ==
LOC: DL.MS 15:45 → UNDOADMIN 15:45 → DL.MS 16:12
PROVIDERS: ADMIT Internal Medicine; ATTEND Internal Medicine
PROC: F07Z5ZZ Bed Mobility Treatment (ICD-10-PCS; principal; 2019-01-03)
PROC: F07Z9ZZ Gait Training/Functional Ambulation Treatment (ICD-10-PCS; 2019-01-03)
PROC: F07M6ZZ Therapeutic Exercise Treatment of Musculoskeletal System - Whole Body (ICD-10-PCS; 2019-01-03)
PROC: F07Z8ZZ Transfer Training Treatment (ICD-10-PCS; 2019-01-03)
PROC: F08Z4ZZ Home Management Treatment (ICD-10-PCS; 2019-01-03)
DX: S32.591D Other specified fracture of right pubis, subsequent encounter for fracture with routine healing (principal); L03.119 Cellulitis of unspecified part of limb; R64 Cachexia; J44.9 Chronic obstructive pulmonary disease, unspecified; Z66 Do not resuscitate; E78.5 Hyperlipidemia, unspecified; I10 Essential (primary) hypertension; F32.9 Major depressive disorder, single episode, unspecified; H54.7 Unspecified visual loss; F41.9 Anxiety disorder, unspecified; Z96.659 Presence of unspecified artificial knee joint; W18.30XD Fall on same level, unspecified, subsequent encounter; Z88.0 Allergy status to penicillin; Z90.49 Acquired absence of other specified parts of digestive tract; Z79.899 Other long term (current) drug therapy; Z68.20 Body mass index [BMI] 20.0-20.9, adult
CPT/HCPCS: 36415; 80048; 85027; 94640; 97110-GO; 97110-GP; 97116-GP; 97162-GP; 97165-GO; 97530-GO; A9270-GY; J1650; J2550; J7620-GY

== ENCOUNTER 2019-05-25 06:51 | Day surgery (SDC) | payer MEDICARE, MEDICAID ==
[~2019-05-25 06:51] MED LIST: Midazolam 1 MG/ML 2 ML SDV ONE; fentaNYL 100 MCG/2 ML SDV ONE
[2019-05-25] MEDS ORDERED: fentaNYL 100 MCG/2 ML SDV IV ONE ×2 (06:52→07:43)
[2019-05-25] MEDS ORDERED: Midazolam 1 MG/ML 2 ML SDV IV ONE ×3 (06:52→07:45)
[2019-05-25] MEDS ORDERED: Sodium Chloride 0.9% 10 ML Syringe FLUSH PRN (07:40)
[2019-05-25] MEDS ORDERED: Dextrose 5%-0.45% NaCl 1,000 ML IV SCH (07:45)
[2019-05-25 10:49] VITALS: BP 131/78
--- NOTE | 2019-05-25 12:55 | OR ---
DATE: 05/25/2019 PROCEDURE: Esophagogastroduodenoscopy and multiple pinch biopsies. INSTRUMENT USED: [id number]-HQ190 Olympus video panendoscope. PREMEDICATIONS: No oral or topical anesthesia used. Fentanyl 50 mcg intravenous, Versed 1.5 mg intravenous, nasal O2 cannula. Procedure was done under pulse oximetry, BP recording, and monitoring and evaluation advisor. INDICATION: The patient with progressive weight loss and anemia unexplained, not responsive to medical measures. Esophagogastroduodenoscopy is performed for detection of any active erosive lesions. Boudreaxu esophagus and/or malignancy also under consideration. H. pylori status to be determined. Endoscopic hemostasis therapy if needed. PROCEDURE IN DETAIL: The scope was passed with ease. Adequate visualization of the esophagus was made from proximal to distal areas. No upper esophageal lesions identified. No distal esophageal stricture. No uphill or downhill esophageal varices. No Gifty-Carey tear. No evidence of erosive esophagitis by De Baca criteria. No esophageal polyp or tumor mass identified. Z-line was seen at around 39 cm distal to the oral verge configuration consistent with grade 1 by ZAP classification. No proximal gastric varices noted. Gastric fundus examination, retroflexion showed no polypoid lesions. No gastric ulcer, malignant mass, or vascular ectasia identified. Duodenal bulb showed no ulcer. Visualized second part of the duodenum showed presence of diverticulum. Multiple pinch biopsies, 4 in number, were taken from different areas of the second part of the duodenum and tissues were also obtained at the 9 and 12 o'clock positions of duodenal bulb and sent for any histopathologic evidence of celiac disease. Multiple pinch biopsies were also obtained from the gastric antrum and proximal body and sent for PyloriTek test for H. pylori and histopathology. No bleeding was noted from any of the visualized areas at the completion of examination. Photographs were taken of the duodenal diverticulum, duodenal bulb, gastric antrum, fundus, and distal esophagus. No bleeding was noted in the visualized areas at the completion of the examination. IMPRESSION: Duodenal diverticulum. The patient tolerated the procedure well. [facility] /[id number]
--- NOTE | 2019-05-25 13:58 | LETTER ---
05/25/2019 RE: GLADYS YANCEY : 1950 [place] [address] Lopez: Ms. Gladys Yancey had esophagogastroduodenoscopy done this morning and she tolerated the procedure well. I herewith send a copy of the endoscopy note and photographs for your review. Thank you. Sincerely, [facility] /[id number]
== END 2019-05-25 10:05 | disposition home or self-care (01) ==
LOC: DL.ENDO 06:51
PROVIDERS: ATTEND Internal Medicine Gastroenterology
DX: R63.4 Abnormal weight loss (principal); D64.9 Anemia, unspecified; K57.10 Diverticulosis of small intestine without perforation or abscess without bleeding; K21.9 Gastro-esophageal reflux disease without esophagitis; I10 Essential (primary) hypertension; Z87.891 Personal history of nicotine dependence; Z79.82 Long term (current) use of aspirin; Z90.49 Acquired absence of other specified parts of digestive tract; Z88.0 Allergy status to penicillin
CPT/HCPCS: 43239; 87077; J2250; J3010; J7042

== ENCOUNTER 2019-05-29 06:27 | Day surgery (SDC) | payer MEDICARE, MEDICAID ==
[2019-05-29] MEDS ORDERED: Midazolam 1 MG/ML 2 ML SDV IV ONE ×7 (06:28→07:55)
[2019-05-29] MEDS ORDERED: fentaNYL 100 MCG/2 ML SDV IV ONE ×4 (06:28→07:41)
[2019-05-29] MEDS ORDERED: Dextrose 5%-0.45% NaCl 1,000 ML IV SCH (07:20)
[2019-05-29 09:57] VITALS: BP 144/93
--- NOTE | 2019-05-29 13:24 | OR ---
DATE: 05/29/2019 PROCEDURE: Total colonoscopy. INSTRUMENT USED: PCF-H190DL Olympus video colonoscope. PREMEDICATIONS: Fentanyl 100 mcg intravenous, Versed 4 mg intravenous, nasal O2 cannula. The procedure was done under pulse oximetry, BP recording, and youth nutritional monitor. INDICATION: The patient with recent progressive weight loss. Screening colonoscopic examination is done for detection of any polypoid lesions and removal, endoscopic hemostasis therapy if needed. DESCRIPTION OF PROCEDURE: Initial rectal exam was unremarkable. Rigid anoscopy was normal. The colonoscope was passed with ease. Numerous scattered diverticula were noted, especially in the distal left colon along with deformity. The scope was passed with ease up to the ileocecal area. Photographs were taken of the normal-appearing cecum identified by double-bulged ileocecal folds. No bleeding was noted from any of the visualized areas at the commencement of the examination. The bowel preparation was found to be inadequate, [place] scale 1 in all areas. No stricture. No vascular ectasia. No large isolated ulcerations seen. No evidence of diffuse inflammatory bowel disease in the form of friability, contact bleeding, or ulcerations. No polyp or tumor mass identified. Probing the proximal sides of folds and flexures using adequate distention and clearing up the stool material, withdrawal of the scope was made, cecum to rectum time over 6 minutes. No bleeding was noted from any of the visualized areas at the completion of examination. IMPRESSION: Diverticulosis. The patient tolerated the procedure well. [facility] /[id number]
--- NOTE | 2019-05-30 09:47 | LETTER ---
05/29/2019 Nava Lopez MD [address] [address] RE: GLADYS YANCEY : [address] Lopez: Ms. Gladys Yancey had colonoscopic examination done this morning and she tolerated the procedure well. I herewith send a copy of the endoscopy note and photographs for your review. Thank you. Sincerely, [facility] /[id number]
== END 2019-05-29 10:06 | disposition home or self-care (01) ==
LOC: DL.ENDO 06:27
PROVIDERS: ATTEND Internal Medicine Gastroenterology
DX: R63.4 Abnormal weight loss (principal); K57.30 Diverticulosis of large intestine without perforation or abscess without bleeding; K21.9 Gastro-esophageal reflux disease without esophagitis; I10 Essential (primary) hypertension; Z79.82 Long term (current) use of aspirin; Z90.49 Acquired absence of other specified parts of digestive tract; Z88.0 Allergy status to penicillin; Z87.891 Personal history of nicotine dependence
CPT/HCPCS: G0121; J2250; J3010; J7042

== ENCOUNTER 2019-06-22 06:57 | Day surgery (SDC) | payer MEDICARE, MEDICAID ==
[~2019-06-22 06:57] MED LIST changes: +Dextrose 5%-0.45% NaCl 1,000 ML IV SCH; +Sodium Chloride 0.9% 10 ML Syringe FLUSH PRN
[2019-06-22] MEDS ORDERED: Midazolam 1 MG/ML 2 ML SDV IV ONE ×6 (06:58→07:50)
[2019-06-22] MEDS ORDERED: fentaNYL 100 MCG/2 ML SDV IV ONE ×3 (06:58→07:40)
[2019-06-22 12:08] VITALS: BP 102/85; PULSE 74
--- NOTE | 2019-06-22 13:53 | OR ---
DATE: 06/22/2019 PROCEDURE: Total colonoscopy. INSTRUMENT USED: PCF-H190DL Olympus video colonoscope. PREMEDICATIONS: Fentanyl 100 mcg intravenous, Versed 3 mg intravenous, nasal O2 cannula. The procedure was done under pulse oximetry, BP, and monitoring tech. INDICATION: The patient with progressive weight loss and anemia unexplained. Colonoscopic examination inadequate due to poor bowel preparation before. Colonoscopic examination is done with 2-day bowel preparation for detection of any polypoid lesions and removal, endoscopic hemostasis therapy if needed. DESCRIPTION OF PROCEDURE: Initial rectal exam was unremarkable. Rigid anoscopy was normal. The colonoscope was passed with ease. Numerous scattered diverticula were noted in the distal left colon along with deformity. There was moderate amount of fecal material that had to be aspirated. The scope was passed with ease up to the ileocecal area. Photographs were taken of the normal- appearing cecum, identified by double-bulged ileocecal folds. No bleeding was noted from any of the visualized areas at the commencement of the examination. No stricture. No vascular ectasia. No large isolated ulcerations seen. No evidence of diffuse inflammatory bowel disease in the form of friability, contact bleeding, or ulcerations. No polyp or tumor mass identified. Probing the proximal sides of folds and flexures using adequate distention and clearing up the stool material, withdrawal of the scope was made, cecum to rectum time over 6 minutes. No bleeding was noted from any of the visualized areas at the completion of examination. IMPRESSION: Diverticulosis. The patient tolerated the procedure well. [facility] /[id number]
--- NOTE | 2019-06-23 09:52 | LETTER ---
06/22/2019 RE: GLADYS YANCEY : 1950 [place] [address] Lopez: Ms. Gladys Yancey had colonoscopic examination done this morning and she tolerated the procedure well. I herewith send a copy of the endoscopy note and photographs for your review. Thank you. Sincerely, [facility] /[id number]
== END 2019-06-22 10:04 | disposition home or self-care (01) ==
LOC: DL.ENDO 06:57
PROVIDERS: ATTEND Internal Medicine Gastroenterology
DX: R63.4 Abnormal weight loss (principal); D64.9 Anemia, unspecified; K57.30 Diverticulosis of large intestine without perforation or abscess without bleeding
CPT/HCPCS: G0121; J2250; J3010; J7042

== ENCOUNTER 2019-10-29 23:17 | Emergency (ER) | payer MEDICARE, MEDICAID ==
[2019-10-29] MEDS ORDERED: Sodium Chloride 0.9% 10 ML Syringe FLUSH PRN (23:29)
--- NOTE | 2019-10-29 23:36 | EDM.PDOC ---
ED HPI GENERAL MEDICAL PROBLEM - General Chief Complaint: Respiratory Problem Stated Complaint: HARD TO BREATH Time Seen by Provider: 10/29/19 23:35 Source of Information: Reports: Patient, RN, RN Notes Reviewed History Limitations: Reports: No Limitations - History of Present Illness INITIAL COMMENTS - FREE TEXT/NARRATIVE: patient presents to ER with complaint of increased shortness of breath ending this afternoon. Patient states she has COPD, lives at home alone, and no longer smokes. Patient states she has had a productive cough, clear sputum. Patient states she did not realize she had a fever, just has had the increased shortness of breath. Upon arrival to the ER oxygen saturation on room air was 88 %. Oxygen applied at 1 L bring sats up to 90-91%. Patient states she is not on oxygen at home. Patient denies any nausea/vomiting/diarrhea. Denies chest pain. Patient states she did not get a flu shot this year, but did get her pneumonia vaccination a few years ago. Onset: Today, Sudden - Related Data Allergies Allergy/AdvReac Type Severity Reaction Status Date / Time Penicillins Allergy Intermediate Hives Verified 10/29/19 23:22 Home Meds: Home Meds Benazepril HCl 20 mg PO DAILY 10/02/13 [History] amLODIPine Besylate [Amlodipine Besylate] 10 mg PO DAILY 10/02/13 [History] traZODone 50 mg PO BEDTIME PRN 03/25/16 [History] Albuterol/Ipratropium [DuoNeb 3.0-0.5 MG/3 ML] 3 ml NEB TID PRN 10/13/17 [ History] Potassium Chloride [Klor-Con 10] 10 meq PO DAILY 11/08/18 [History] Budesonide/Formoterol [Symbicort 160-4.5 MCG] 1 puff INH BID 01/05/19 [History] Omeprazole 20 mg PO DAILY 05/23/19 [History] Sertraline HCl 50 mcg PO DAILY 05/23/19 [History] Past Medical History HEENT History: Reports: Glaucoma, Impaired Vision Cardiovascular History: Reports: High Cholesterol, Hypertension Respiratory History: Reports: COPD, Pneumonia, Recurrent Gastrointestinal History: Reports: None, GERD Genitourinary History: Reports: Renal Disease [employer] History: Reports: None Musculoskeletal History: Reports: Fracture, Other (See Below) Other Musculoskeletal History: RIGHT SIDED KYPHOSCOLIOSIS. LEFT WRIST FRACTURE 1989. LATERAL MALLEOULUS 1990. CLAVICLE FX AGE 8. PELVIC FRACTURE 12/2018 Neurological History: Reports: Other (See Below) Other Neuro History: CHRONIC INSOMNIA Psychiatric History: Reports: Anxiety, Depression Endocrine/Metabolic History: Reports: None Hematologic History: Reports: None Immunologic History: Reports: None Oncologic (Cancer) History: Reports: None Dermatologic History: Reports: None - Infectious Disease History Infectious Disease History: Reports: None, Chicken Pox - Past Surgical History Head Surgeries/Procedures: Reports: None HEENT Surgical History: Reports: Cataract Surgery Other HEENT Surgeries/Procedures: CATARACT SURGERY 2017 Cardiovascular Surgical History: Reports: None Respiratory Surgical History: Reports: None GI Surgical History: Reports: Appendectomy, Cholecystectomy Female Surgical History: Reports: None Neurological Surgical History: Reports: None Musculoskeletal Surgical History: Reports: Knee Replacement Other Musculoskeletal Surgeries/Procedures:: TOTAL LEFT KNEE REPLACEMENT. RIGHT WRIST SURGERY Oncologic Surgical History: Reports: None Social & Family History - Family History Family Medical History: Noncontributory - Caffeine Use Caffeine Use: Reports: Coffee, Tea Caffeine Use Comment: 3 cups/day - Living Situation & Occupation Living situation: Reports: Single, Alone Occupation: Retired ED ROS GENERAL - Review of Systems Review Of Systems: Comprehensive ROS is negative, except as noted in HPI. ED EXAM, GENERAL - Physical Exam Exam: See Below Exam Limited By: No Limitations General Appearance: Alert, WD/WN, Mild Distress Eye Exam: Bilateral Eye: EOMI, Normal Inspection Ears: Normal External Exam, Hearing Grossly Normal Nose: Normal Inspection Throat/Mouth: Normal Inspection, Normal Voice, No Airway Compromise Head: Atraumatic, Normocephalic Neck: Normal Inspection, Supple, Non-Tender, Full Range of Motion Respiratory/Chest: No Accessory Muscle Use, Chest Non-Tender, Decreased Breath Sounds Cardiovascular: Normal Peripheral Pulses, No Edema, No Gallop, No JVD, No Murmur , No Rub, Tachycardia Peripheral Pulses: 1+: Radial (L), Radial (R) GI/Abdominal: Normal Bowel Sounds, Soft, Non-Tender (Female) Exam: Deferred Rectal (Female) Exam: Deferred Back Exam: Normal Inspection, Full Range of Motion, NT Extremities: Normal Inspection, Normal Range of Motion, Non-Tender, Normal Capillary Refill, No Pedal Edema Neurological: Alert, Oriented, CN II-XII Intact, Normal Cognition, Normal Gait, Normal Reflexes, No Motor/Sensory Deficits Psychiatric: Normal Affect, Normal Mood Skin Exam: Warm, Dry, Intact, Normal Color, No Rash Lymphatic: No Adenopathy Course - Vital Signs Last Recorded V/S: Last Vital Signs Temp 101.2 F H 10/29/19 23:23 Pulse 127 H 10/29/19 23:23 Resp BP 158/98 H 10/29/19 23:23 Pulse Ox 90 L 10/29/19 23:35 - Orders/Labs/Meds Orders: Active Orders 24 hr Category Date Time Status EKG Documentation Completion [RC] URGENT Care 10/29/19 23:29 Active RT Aerosol Therapy [RC] ASDIRECTED Care 10/29/19 23:42 Active Chest 1V Frontal [CR] Urgent Exams 10/29/19 23:30 Taken CULTURE BLOOD [BC] Stat Lab 10/29/19 23:35 Received Acetaminophen [Tylenol] Med 10/30/19 00:53 Once 650 mg PO NOW ONE Sodium Chloride 0.9% [Saline Flush] Med 10/29/19 23:29 Active 10 ml FLUSH ASDIRECTED PRN Saline Lock Insert [OM.PC] Routine Oth 10/29/19 23:29 Ordered Medication Orders Sodium Chloride (Saline Flush) 10 ml FLUSH ASDIRECTED PRN PRN Reason: Keep Vein Open Last Admin: 10/29/19 23:52 Dose: 10 ml Labs: Laboratory Tests 10/29/19 10/29/19 10/29/19 Range/Units 23:35 23:35 23:35 WBC 9.8 (5.0-10.0) 10^3/uL RBC 5.09 (4.2-5.4) 10^6/uL Hgb 14.0 D (12.0-16.0) g/dL Hct 41.8 (37.0-47.0) % MCV 82.1 D (80-100) fL MCH 27.5 (27.0-34.0) pg MCHC 33.5 (33.0-35.0) g/dL Plt Count 317 (150-450) 10^3/uL Neut % (Auto) 77.5 H (42.2-75.2) % Lymph % (Auto) 10.6 L (20.5-50.1) % [place] % (Auto) 7.7 (2-8) % Eos % (Auto) 4.1 H (1.0-3.0) % Baso % (Auto) 0.1 (0.0-1.0) % Sodium 137 (135-145) mmol/L Potassium 3.3 L (3.6-5.0) mmol/L Chloride 103 (101-111) mmol/L Carbon Dioxide 21.0 (21.0-31.0) mmol/L Anion Gap 16.3 BUN 12 (7-18) mg/dL Creatinine 0.6 (0.6-1.3) mg/dL Est Cr Clr Drug Dosing 63.91 mL/min Estimated GFR (MDRD) > 60 BUN/Creatinine Ratio 20.00 Glucose 100 (74-105) mg/dL Lactic Acid 1.3 (0.5-2.0) mmol/L Calcium 9.2 (8.4-10.2) mg/dl Total Bilirubin 0.4 (0.2-1.0) mg/dL AST 15 (10-42) IU/L ALT 12 (10-60) IU/L Alkaline Phosphatase 100 (42-121) IU/L Total Protein 7.6 (6.7-8.2) g/dl Albumin 4.2 (3.2-5.5) g/dl Globulin 3.4 Albumin/Globulin Ratio 1.24 influenza A: Negative Influenza B: Negative Meds: Medications Generic Name Dose Route Start Last Admin Trade Name Gabeq PRN Reason Stop Dose Admin Sodium Chloride 10 ml 10/29/19 23:29 10/29/19 23:52 Saline Flush FLUSH 10 ml ASDIRECTED PRN Administration Keep Vein Open Discontinued Medications Generic Name Dose Route Start Last Admin Trade Name Sylvain PRN Reason Stop Dose Admin Albuterol/Ipratropium 3 ml 10/29/19 23:42 10/29/19 23:48 Duoneb 3.0-0.5 Mg/3 Ml NEB 10/29/19 23:43 3 ml ONETIME ONE Administration Azithromycin 500 mg 10/30/19 00:37 Zithromax PO 10/30/19 00:38 ONETIME ONE Methylprednisolone Sodium Succinate 125 mg 10/29/19 23:43 10/29/19 23:50 Solu-Medrol IVPUSH 10/29/19 23:44 125 mg ONETIME ONE Administration - Radiology Interpretation Free Text/Narrative:: chest x-ray: FINDINGS: Lungs: Pulmonary hyperexpansion and hyperlucency with diaphragmatic flattening suggesting possible COPD. Pulmonary vasculature grossly normal. Pleural space: No pleural effusion. No pneumothorax. Heart/Mediastinum: Heart size normal. No tracheal/mediastinal shift. Diaphragm: Elevation of the left hemidiaphragm unchanged. No infiltrates. Vasculature: Moderate aortic ectasia/tortuosity and moderate calcific atherosclerosis. Bones/joints: No acute osseous abnormalities are identified. Osteopenia. Other findings: Mild chronic IMPRESSION: 1. No acute thoracic process. No significant change from chest CT topogram on . 2. Evidence of COPD. Thank you for allowing us to participate in the care of your patient. Dictated and Authenticated by: Asif Torres MD 10/30/2019 12:11 AM Central Time ([place] & [place]) See radiologist's report - Re-Assessments/Exams Free Text/Narrative Re-Assessment/Exam: 10/30/19 00:54 Patient states she feels much improved after the nebulizer treatment. Departure - Departure Time of Disposition: 00:45 Disposition: Home, Self-Care 01 Condition: Fair Clinical Impression: COPD exacerbation, COPD, Moderate chronic obstructive pulmonary disease - Discharge Information *PRESCRIPTION DRUG MONITORING PROGRAM REVIEWED*: No *COPY OF PRESCRIPTION DRUG MONITORING REPORT IN PATIENT COLLIN: No Instructions: Chronic Obstructive Pulmonary Disease Exacerbation, Gwsu-fs-Hama , Shortness of Breath, Adult, Nrff-yv-Qtkq, Cough, Adult, Cols-cb-[id number], Upper Respiratory Infection, Adult, Kbzh-fs-Flnx, Community-Acquired Pneumonia, Adult , Hulc-jq-Ehuj Forms: ED Department Discharge Additional Instructions: May use Tylenol as directed for pain RX: Azithromycin 250mg orally once daily in the evening on 10/30, 10/31, 11/01, RX for Duoneb and nebulizer machine Return to the ER with any worsening Follow up with your primary care facility Sepsis Event Note - Evaluation Sepsis Screening Result: No Definite Risk - Focused Exam Vital Signs: Vital Signs Temp Pulse BP Pulse Ox Pulse Ox 10/29/19 23:35 90 L 10/29/19 23:23 101.2 F H 127 H 158/98 H 22 L Date Exam was Performed: 10/30/19 Time Exam was Performed: 00:53 - My Orders Last 24 Hours: My Active Orders 10/29/19 23:29 EKG Documentation Completion [RC] URGENT Sodium Chloride 0.9% [Saline Flush] 10 ml FLUSH ASDIRECTED PRN Saline Lock Insert [OM.PC] Routine 10/29/19 23:30 Chest 1V Frontal [CR] Urgent 10/29/19 23:35 CULTURE BLOOD [BC] Stat 10/29/19 23:42 RT Aerosol Therapy [RC] ASDIRECTED 10/30/19 00:53 Acetaminophen [Tylenol] 650 mg PO NOW ONE - Assessment/Plan Last 24 Hours: My Active Orders 10/29/19 23:29 EKG Documentation Completion [RC] URGENT Sodium Chloride 0.9% [Saline Flush] 10 ml FLUSH ASDIRECTED PRN Saline Lock Insert [OM.PC] Routine 10/29/19 23:30 Chest 1V Frontal [CR] Urgent 10/29/19 23:35 CULTURE BLOOD [BC] Stat 10/29/19 23:42 RT Aerosol Therapy [RC] ASDIRECTED 10/30/19 00:53 Acetaminophen [Tylenol] 650 mg PO NOW ONE
[2019-10-29] MEDS ORDERED: Albuterol/Ipratropium 3.0-0.5 MG/3 ML Neb Soln NEB ONE (23:42)
[2019-10-29] MEDS ORDERED: methylPREDNISolone Sodium Succinate 125 MG/2 ML SDV IVPUSH ONE (23:43)
[2019-10-29 23:57] LABS: ANION GAP 16.3; CHLORIDE,CL 103 mmol/L (101-111); SODIUM,NA 137 mmol/L (135-145)
[2019-10-30] MEDS ORDERED: Azithromycin 250 MG Tab PO ONE (00:37)
[2019-10-30] MEDS ORDERED: Acetaminophen 325 MG Tab PO ONE (00:53)
[2019-10-30 00:57] VITALS: BP 135/77; PULSE 109
== END 2019-10-30 01:09 | disposition home or self-care (01) ==
LOC: DL.ED 23:17
DX: J44.1 Chronic obstructive pulmonary disease with (acute) exacerbation (principal); F32.9 Major depressive disorder, single episode, unspecified; K21.9 Gastro-esophageal reflux disease without esophagitis; E78.00 Pure hypercholesterolemia, unspecified; Z79.899 Other long term (current) drug therapy; Z79.51 Long term (current) use of inhaled steroids; Z88.0 Allergy status to penicillin
CPT/HCPCS: 36415; 71045; 80053; 83605; 85025; 87040; 87804; 93005; 94640; 96374; 99284; 99285; A9270; J2930; J7620-GY

== ENCOUNTER 2019-10-30 18:09 | Inpatient (IN) | payer MEDICARE, MEDICAID ==
[2019-10-30] MEDS ORDERED: Albuterol/Ipratropium 3.0-0.5 MG/3 ML Neb Soln NEB ONE (18:23)
--- NOTE | 2019-10-30 19:11 | EDM.PDOC ---
"<Brennan De Jesus - Last Filed: 10/30/19 19:12> ED HPI GENERAL MEDICAL PROBLEM - General Chief Complaint: Respiratory Problem Stated Complaint: AMBULANCE Time Seen by Provider: 10/30/19 18:10 Source of Information: Reports: Patient, Family History Limitations: Reports: No Limitations - History of Present Illness INITIAL COMMENTS - FREE TEXT/NARRATIVE: ED via [facility] with c/o SOB, cough, not improving. Hx COPD. Admitted for observation yesterday given antibiotic steroid and felt better, Home today, unable to walk except very short distance Fever possible, not chills. Cough non productive today, Feels tighter. No nausea or vomiting. . No dizziness. . Influenza testing yesterday negative. 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 - Related Data Allergies Allergy/AdvReac Type Severity Reaction Status Date / Time Penicillins Allergy Intermediate Hives Verified 10/30/19 18:20 Home Meds: Home Meds Benazepril HCl 20 mg PO DAILY 10/02/13 [History] amLODIPine Besylate [Amlodipine Besylate] 10 mg PO DAILY 10/02/13 [History] traZODone 50 mg PO BEDTIME PRN 03/25/16 [History] Albuterol/Ipratropium [DuoNeb 3.0-0.5 MG/3 ML] 3 ml NEB TID PRN 10/13/17 [ History] Potassium Chloride [Klor-Con 10] 10 meq PO DAILY 11/08/18 [History] Budesonide/Formoterol [Symbicort 160-4.5 MCG] 1 puff INH BID 01/05/19 [History] Omeprazole 20 mg PO DAILY 05/23/19 [History] Sertraline HCl 50 mcg PO DAILY 05/23/19 [History] Past Medical History HEENT History: Reports: Glaucoma, Impaired Vision Cardiovascular History: Reports: High Cholesterol, Hypertension Respiratory History: Reports: COPD, Pneumonia, Recurrent Gastrointestinal History: Reports: None, GERD Genitourinary History: Reports: Renal Disease 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 LEFT WRIST FRACTURE 1989. LATERAL MALLEOULUS 1990. CLAVICLE FX AGE 8. PELVIC FRACTURE 12/2018 Neurological History: Reports: Other (See Below) Other Neuro History: CHRONIC INSOMNIA Psychiatric History: Reports: Anxiety, Depression Endocrine/Metabolic History: Reports: None Hematologic History: Reports: None Immunologic History: Reports: None Oncologic (Cancer) History: Reports: None Dermatologic History: Reports: None - Infectious Disease History Infectious Disease History: Reports: None, Chicken Pox - Past Surgical History Head Surgeries/Procedures: Reports: None HEENT Surgical History: Reports: Cataract Surgery Other HEENT Surgeries/Procedures: CATARACT SURGERY 2018 Cardiovascular Surgical History: Reports: None Respiratory Surgical History: Reports: None GI Surgical History: Reports: Appendectomy, Cholecystectomy Female Surgical History: Reports: None Endocrine Surgical History: Reports: None Neurological Surgical History: Reports: None Musculoskeletal Surgical History: Reports: Knee Replacement Other Musculoskeletal Surgeries/Procedures:: TOTAL LEFT KNEE REPLACEMENT. RIGHT WRIST SURGERY Oncologic Surgical History: Reports: None Social & Family History - Family History Family Medical History: Noncontributory - Tobacco Use Smoking Status *Q: Former Smoker Used Tobacco, but Quit: Yes Month/Year Tobacco Last Used: 09/2019 Second Hand Smoke Exposure: No - Caffeine Use Caffeine Use: Reports: Coffee, Soda Caffeine Use Comment: 3 cups/day - Recreational Drug Use Recreational Drug Use: No - Living Situation & Occupation Living situation: Reports: Single, Alone Occupation: Retired ED EXAM, GENERAL - Physical Exam Exam: See Below Exam Limited By: No Limitations General Appearance: Alert, No Apparent Distress, Thin Eye Exam: Bilateral Eye: EOMI, PERRL Ears: Normal External Exam, Normal TMs Nose: Normal Inspection Throat/Mouth: Normal Inspection, Normal Lips Head: Atraumatic, Normocephalic Neck: Normal Inspection Respiratory/Chest: Decreased Breath Sounds, Rhonchi, Wheezing (bilateral mid to base) Cardiovascular: Regular Rate, Rhythm, No Edema, Tachycardia GI/Abdominal: Normal Bowel Sounds, Soft Back Exam: Normal Inspection Extremities: Normal Capillary Refill Neurological: Alert, Oriented, Normal Cognition Skin Exam: Warm, Dry, Intact, Normal Color, Rash (left lateral lower extremity. ) Course - Vital Signs Last Recorded V/S: Last Vital Signs Temp 98.9 F 10/30/19 18:10 Pulse 120 H 10/30/19 18:10 Resp 20 10/30/19 18:10 BP 120/83 10/30/19 18:10 Pulse Ox 93 L 10/30/19 18:10 - Orders/Labs/Meds Orders: Active Orders 24 hr Category Date Time Status Admission Diagnosis [ADT] Stat ADT 10/30/19 19:50 Ordered Admission Status [Patient Status] [ADT] Routine ADT 10/30/19 19:50 Active RT Aerosol Therapy [RC] ASDIRECTED Care 10/30/19 18:24 Active CXR [Chest 1V Frontal] [CR] Urgent Exams 10/30/19 18:23 Taken Azithromycin [Zithromax] 500 mg Med 10/30/19 19:37 Active Sodium Chloride 0.9% [Normal Saline (AdvBag)] 250 ml IV ONETIME Medication Orders Azithromycin 500 mg/ Sodium (Chloride) 250 mls @ 250 mls/hr IV ONETIME ONE Stop: 10/30/19 20:36 Labs: Laboratory Tests 10/30/19 10/30/19 10/30/19 Range/Units 18:34 18:34 18:34 WBC 12.3 H (5.0-10.0) 10^3/uL RBC 4.70 (4.2-5.4) 10^6/uL Hgb 12.8 (12.0-16.0) g/dL Hct 38.6 (37.0-47.0) % MCV 82.1 (80-100) fL MCH 27.2 (27.0-34.0) pg MCHC 33.2 (33.0-35.0) g/dL Plt Count 343 (150-450) 10^3/uL Neut % (Auto) 86.0 H (42.2-75.2) % Lymph % (Auto) 5.2 L (20.5-50.1) % [place] % (Auto) 8.5 H (2-8) % Eos % (Auto) 0.2 L (1.0-3.0) % Baso % (Auto) 0.1 (0.0-1.0) % Sodium 139 (135-145) mmol/L Potassium 3.3 L (3.6-5.0) mmol/L Chloride 106 (101-111) mmol/L Carbon Dioxide 23.0 (21.0-31.0) mmol/L Anion Gap 13.3 BUN 18 (7-18) mg/dL Creatinine 0.6 (0.6-1.3) mg/dL Est Cr Clr Drug Dosing TNP Estimated GFR (MDRD) > 60 BUN/Creatinine Ratio 30.00 Glucose 91 (74-105) mg/dL Lactic Acid 1.1 (0.5-2.0) mmol/L Calcium 9.5 (8.4-10.2) mg/dl Total Bilirubin 0.4 (0.2-1.0) mg/dL AST 16 (10-42) IU/L ALT 13 (10-60) IU/L Alkaline Phosphatase 85 (42-121) IU/L Troponin I < 0.02 (0.00-0.02) ng/ml B-Natriuretic Peptide 84 (0-100) pg/ml Total Protein 7.2 (6.7-8.2) g/dl Albumin 4.0 (3.2-5.5) g/dl Globulin 3.2 Albumin/Globulin Ratio 1.25 Amylase 48 (28-100) U/L Lipase 22 (22-51) U/L Meds: Medications Generic Name Dose Route Start Last Admin Trade Name Freq PRN Reason Stop Dose Admin Azithromycin 500 mg/ Sodium 250 mls @ 250 mls/hr 10/30/19 19:37 Chloride IV 10/30/19 20:36 ONETIME ONE Discontinued Medications Generic Name Dose Route Start Last Admin Trade Name Freq PRN Reason Stop Dose Admin Albuterol/Ipratropium 3 ml 10/30/19 18:23 10/30/19 18:43 Duoneb 3.0-0.5 Mg/3 Ml NEB 10/30/19 18:24 3 ml ONETIME ONE Administration Methylprednisolone Sodium Succinate 125 mg 10/30/19 19:37 10/30/19 19:54 Solu-Medrol IVPUSH 10/30/19 19:38 125 mg ONETIME ONE Administration - Radiology Interpretation Free Text/Narrative:: [facility] Final Radiology Report Call: [phone] assistance Online chat: [email or web address] Name: YOMAIRA YANCEY Age: 69Years F Date: 10/30/2019 SSN: -- : [id number] Study: XR CHEST 1 VIEW FRONTAL Requesting Physician: BRENNAN DE JESUS Images: 1 Addl Studies: Provided Clinical History: Contrast: Contrast Medium: Contrast Amount: Contrast Method: Page 1 of 2 PROCEDURE INFORMATION: Exam: XR Chest, 1 View Exam date and time: 10/30/2019 6:28 PM Age: 69 years old Clinical indication: Chest pain; Patient HX: SOB TECHNIQUE: Imaging protocol: XR of the chest Views: 1 view. COMPARISON: CR Chest 1V Frontal 10/29/2019 11:55 PM FINDINGS: Lungs: Hyperinflation consistent with COPD. No acute lung infiltrates or edema. No nodules or mass lesions. Small rounded density retrocardiac is likely a focal eventration of the hemidiaphragm. This could be further evaluated with a lateral x-ray. Pleural space: No pleural effusion. Heart/Mediastinum: Normal heart size. Bones/joints: Degenerative thoracic spine changes and bilateral shoulder joint changes. IMPRESSION: 1. COPD. 2. No acute infiltrates or edema. 3. Stable exam since chest x-ray obtained approximately 18 hours earlier. 4. Small smoothly contoured rounded density measuring 4 cm retrocardiac is likely a focal eventration of the left hemidiaphragm. A lateral view might be helpful for further evaluation. Thank you for allowing us to participate in the care of your patient. YOMAIRA YANCEY | Final Radiology Report Departure - Departure Disposition: Admitted As Inpatient 68 Clinical Impression: COPD exacerbation Pneumonia Qualifiers: Pneumonia type: due to unspecified organism Laterality: unspecified laterality Lung location: unspecified part of lung Qualified Code(s): J18.9 - Pneumonia, unspecified organism - Discharge Information Forms: ED Department Discharge Sepsis Event Note - Evaluation Sepsis Screening Result: No Definite Risk - Focused Exam Vital Signs: Vital Signs Temp Pulse Resp BP Pulse Ox 10/30/19 18:10 98.9 F 120 H 20 120/83 93 L Date Exam was Performed: 10/30/19 Time Exam was Performed: 19:12 - My Orders Last 24 Hours: My Active Orders 10/30/19 19:37 Azithromycin [Zithromax] 500 mg Sodium Chloride 0.9% [Normal Saline (AdvBag)] 250 ml IV ONETIME 10/30/19 19:50 Admission Diagnosis [ADT] Stat Admission Status [Patient Status] [ADT] Routine - Assessment/Plan Last 24 Hours: My Active Orders 10/30/19 19:37 Azithromycin [Zithromax] 500 mg Sodium Chloride 0.9% [Normal Saline (AdvBag)] 250 ml IV ONETIME 10/30/19 19:50 Admission Diagnosis [ADT] Stat Admission Status [Patient Status] [ADT] Routine <NunezDarianKalyn - Last Filed: 10/30/19 19:56> ED ROS GENERAL - Review of Systems Review Of Systems: Comprehensive ROS is negative, except as noted in HPI. Departure - Departure Time of Disposition: 19:56 Condition: Fair - Discharge Information *PRESCRIPTION DRUG MONITORING PROGRAM REVIEWED*: No *COPY OF PRESCRIPTION DRUG MONITORING REPORT IN PATIENT COLLIN: No Sepsis Event Note - Focused Exam Date Exam was Performed: 10/30/19 Time Exam was Performed: 19:56"
[2019-10-30 19:25] LABS: ANION GAP 13.3; CHLORIDE,CL 106 mmol/L (101-111); SODIUM,NA 139 mmol/L (135-145)
[2019-10-30] MEDS ORDERED: Azithromycin 500 MG in Sodium Chloride 0.9% 250 ML IV ONE (19:37)
[2019-10-30] MEDS ORDERED: methylPREDNISolone Sodium Succinate 125 MG/2 ML SDV IVPUSH ONE (19:37)
[2019-10-30] MEDS ORDERED: Ondansetron 4 MG/2 ML SDV IVPUSH PRN ×2 (20:12→20:52)
[2019-10-30] MEDS ORDERED: Acetaminophen 325 MG Tab PO PRN (20:12)
[2019-10-30] MEDS ORDERED: Albuterol 0.083% 2.5 MG/3 ML Neb Soln NEB PRN ×2 (20:12→20:52)
[2019-10-30] MEDS ORDERED: Albuterol/Ipratropium 3.0-0.5 MG/3 ML Neb Soln NEB SCH (20:15)
[2019-10-30] MEDS ORDERED: Sodium Chloride 0.9% 1,000 ML IV SCH (20:15)
[2019-10-30] MEDS ORDERED: traZODone 50 MG Tab PO PRN (20:19)
[2019-10-30] MEDS ORDERED: Azithromycin 500 MG in Sodium Chloride 0.9% 250 ML IV SCH (20:30)
[2019-10-30] MEDS ORDERED: methylPREDNISolone Sodium Succinate 40 MG/1 ML SDV IVPUSH SCH (20:30)
[2019-10-30] MEDS ORDERED: Non-Formulary Medication 1 Each (Budesonide/Formoterol 1 PUFF) INH SCH (21:00)
[2019-10-30] MEDS: Heparin Sodium 5,000 Units/ML Vial SUBCUT SCH (21:25)
[2019-10-30] MEDS: Formoterol/Mometasone 200-5 MCG 8.8 GM Inhaler IH SCH (21:50)
[2019-10-30] MEDS: Sodium Chloride 0.9% 1,000 ML IV SCH (21:51)
[2019-10-30] MEDS: Acetaminophen 325 MG Tab PO PRN (21:55)
[2019-10-30] MEDS ORDERED: Heparin Sodium 5,000 Units/ML Vial SUBCUT SCH (22:00)
[2019-10-30] MEDS: traZODone 50 MG Tab PO PRN (22:25)
[2019-10-30] MEDS: Omeprazole 20 MG Cap.CR PO SCH (22:25)
[2019-10-30] MEDS: amLODIPine 5 MG Tab PO SCH (22:26)
[2019-10-30] MEDS: guaiFENesin/Dextromethorphan 100-10 MG/5 ML Soln 5 ML Cup PO PRN (23:34)
[2019-10-30] MEDS: Albuterol/Ipratropium 3.0-0.5 MG/3 ML Neb Soln NEB SCH (23:35)
[2019-10-31] MEDS: Albuterol/Ipratropium 3.0-0.5 MG/3 ML Neb Soln NEB SCH ×6 (04:00→22:29)
[2019-10-31] MEDS: methylPREDNISolone Sodium Succinate 40 MG/1 ML SDV IVPUSH SCH ×3 (04:00→20:43)
[2019-10-31] MEDS: guaiFENesin/Dextromethorphan 100-10 MG/5 ML Soln 5 ML Cup PO PRN ×2 (04:12→09:08)
[2019-10-31] MEDS: Heparin Sodium 5,000 Units/ML Vial SUBCUT SCH ×3 (05:50→22:22)
[2019-10-31 06:51] LABS: ANION GAP 11.8; CHLORIDE,CL 109 mmol/L (101-111); SODIUM,NA 141 mmol/L (135-145)
[2019-10-31] MEDS: Sertraline 50 MG Tab PO SCH (08:17)
[2019-10-31] MEDS ORDERED: Omeprazole 20 MG Cap.CR PO SCH ×2 (09:00)
[2019-10-31] MEDS ORDERED: Sertraline 50 MG Tab PO SCH (09:00)
[2019-10-31] MEDS ORDERED: Non-Formulary Medication 1 Each (Amlodipine Besylate [Amlodipine Besylate] 10 MG) PO SCH (09:00)
[2019-10-31] MEDS ORDERED: Potassium Chloride 10 MEQ Tab.ER PO SCH (09:00)
[2019-10-31] MEDS ORDERED: amLODIPine 5 MG Tab PO SCH (09:00)
[2019-10-31] MEDS ORDERED: BENAZEPRIL 20 MG PO SCH (09:00)
[2019-10-31] MEDS: Benazepril 10 MG Tab PO SCH (09:09)
[2019-10-31] MEDS: Omeprazole 20 MG Cap.CR PO SCH (09:09)
[2019-10-31] MEDS: Potassium Chloride 10 MEQ Tab.ER PO SCH (09:10)
[2019-10-31] MEDS: amLODIPine 5 MG Tab PO SCH (09:10)
[2019-10-31] MEDS: Formoterol/Mometasone 200-5 MCG 8.8 GM Inhaler IH SCH ×2 (09:11→20:44)
--- NOTE | 2019-10-31 11:48 | PCM.HP ---
H&P History of Present Illness - General Date of Service: 10/31/19 Admit Problem/Dx: Admission Diagnosis/Problem Admission Diagnosis/Problem COPD with acute lower respiratory infection Source of Information: Patient - History of Present Illness Initial Comments - Free Text/Narative: The patient is a 69-year-old female with medical history of depression, gastroesophageal reflux disease, COPD, and anxiety disorder. The patient presented to the emergency room with complaint of shortness of breath. She has been coughing for the past week. It is mostly unproductive. She started having shortness of breath and it significantly got worse. Shortness of breath is present at rest but wasn't activity. Associated wheezing and generalized body malaise. Did have fever. Patient was a vomiting emergency room treated empirically as outpatient without improvement. She came back even more hypoxic. No nausea and no vomiting. bilateral upper back Pain Score (Numeric/FACES): 6 - Related Data Allergies/Adverse Reactions: Allergies Allergy/AdvReac Type Severity Reaction Status Date / Time Penicillins Allergy Intermediate Hives Verified 10/30/19 18:20 Home Medications: Home Meds Benazepril HCl 20 mg PO DAILY 10/02/13 [History] amLODIPine Besylate [Amlodipine Besylate] 10 mg PO DAILY 10/02/13 [History] traZODone 50 mg PO BEDTIME PRN 03/25/16 [History] Albuterol/Ipratropium [DuoNeb 3.0-0.5 MG/3 ML] 3 ml NEB TID PRN 10/13/17 [ History] Potassium Chloride [Klor-Con 10] 10 meq PO DAILY 11/08/18 [History] Budesonide/Formoterol [Symbicort 160-4.5 MCG] 1 puff INH BID 01/05/19 [History] Omeprazole 20 mg PO DAILY 05/23/19 [History] Sertraline HCl 50 mcg PO DAILY 05/23/19 [History] Past Medical History HEENT History: Reports: Glaucoma, Impaired Vision Other HEENT History: glasses Cardiovascular History: Reports: High Cholesterol, Hypertension Other Cardiovascular History: pt denies high cholesterol Respiratory History: Reports: Bronchitis, Recurrent, COPD, Pneumonia, Recurrent , SOB Gastrointestinal History: Reports: None, GERD Genitourinary History: Reports: Renal Disease 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 LEFT WRIST FRACTURE 1989. LATERAL MALLEOULUS 1990. CLAVICLE FX AGE 8. PELVIC FRACTURE 12/2018 Neurological History: Reports: Other (See Below) Other Neuro History: CHRONIC INSOMNIA Psychiatric History: Reports: Anxiety, Depression Endocrine/Metabolic History: Reports: None Hematologic History: Reports: None Immunologic History: Reports: None Oncologic (Cancer) History: Reports: None Dermatologic History: Reports: None - Infectious Disease History Infectious Disease History: Reports: None, Chicken Pox - Past Surgical History Head Surgeries/Procedures: Reports: None HEENT Surgical History: Reports: Cataract Surgery Other HEENT Surgeries/Procedures: CATARACT SURGERY 2017 Cardiovascular Surgical History: Reports: None Respiratory Surgical History: Reports: None GI Surgical History: Reports: Appendectomy, Cholecystectomy Female Surgical History: Reports: None Endocrine Surgical History: Reports: None Neurological Surgical History: Reports: None Musculoskeletal Surgical History: Reports: Knee Replacement Other Musculoskeletal Surgeries/Procedures:: TOTAL LEFT KNEE REPLACEMENT. RIGHT WRIST SURGERY Oncologic Surgical History: Reports: None Social & Family History - Family History Family Medical History: Noncontributory - Tobacco Use Smoking Status *Q: Former Smoker Years of Tobacco use: 49 Packs/Tins Daily: 2 Used Tobacco, but Quit: Yes Month/Year Tobacco Last Used: 2018 Second Hand Smoke Exposure: Yes - Caffeine Use Caffeine Use: Reports: Coffee Caffeine Use Comment: 3 cups/day - Recreational Drug Use Recreational Drug Use: No - Living Situation & Occupation Living situation: Reports: Single, Alone Occupation: Retired H&P Review of Systems - Review of Systems: Review Of Systems: See Below General: Reports: Malaise, Weakness Pulmonary: Reports: Wheezing, Cough Cardiovascular: Reports: No Symptoms Gastrointestinal: Reports: No Symptoms Musculoskeletal: Reports: No Symptoms Skin: Reports: No Symptoms Psychiatric: Reports: No Symptoms Hematologic/Lymphatic: Reports: No Symptoms Exam - Exam Exam: See Below - Vital Signs Vital Signs: Last Vital Signs Temp 37.2 C 10/31/19 11:32 Pulse 110 H 10/31/19 11:42 Resp 24 H 10/31/19 11:32 BP 129/70 10/31/19 11:32 Pulse Ox 91 L 10/31/19 11:42 Weight: 47.627 kg - Exam Quality Assessment: Supplemental Oxygen General: Alert, Oriented, Cooperative Neck: Supple, Trachea Midline, 2 Lungs: Decreased Breath Sounds, Rhonchi Cardiovascular: Regular Rate, Regular Rhythm GI/Abdominal Exam: Normal Bowel Sounds, Soft, Non-Tender, No Organomegaly, No Distention, No Abnormal Bruit, No Mass, Pelvis Stable Extremities: Normal Inspection, Normal Range of Motion, Non-Tender, No Pedal Edema, Normal Capillary Refill - Patient Data Lab Results Last 24 hrs: Laboratory Results - last 24 hr 10/30/19 10/30/19 10/30/19 Range/Units 18:34 18:34 18:34 WBC 12.3 H (5.0-10.0) 10^3/uL RBC 4.70 (4.2-5.4) 10^6/uL Hgb 12.8 (12.0-16.0) g/dL Hct 38.6 (37.0-47.0) % MCV 82.1 (80-100) fL MCH 27.2 (27.0-34.0) pg MCHC 33.2 (33.0-35.0) g/dL Plt Count 343 (150-450) 10^3/uL Neut % (Auto) 86.0 H (42.2-75.2) % Lymph % (Auto) 5.2 L (20.5-50.1) % [place] % (Auto) 8.5 H (2-8) % Eos % (Auto) 0.2 L (1.0-3.0) % Baso % (Auto) 0.1 (0.0-1.0) % Sodium 139 (135-145) mmol/L Potassium 3.3 L (3.6-5.0) mmol/L Chloride 106 (101-111) mmol/L Carbon Dioxide 23.0 (21.0-31.0) mmol/L Anion Gap 13.3 BUN 18 (7-18) mg/dL Creatinine 0.6 (0.6-1.3) mg/dL Est Cr Clr Drug Dosing TNP Estimated GFR (MDRD) > 60 BUN/Creatinine Ratio 30.00 Glucose 91 (74-105) mg/dL Lactic Acid 1.1 (0.5-2.0) mmol/L Calcium 9.5 (8.4-10.2) mg/dl Total Bilirubin 0.4 (0.2-1.0) mg/dL AST 16 (10-42) IU/L ALT 13 (10-60) IU/L Alkaline Phosphatase 85 (42-121) IU/L Troponin I < 0.02 (0.00-0.02) ng/ml B-Natriuretic Peptide 84 (0-100) pg/ml Total Protein 7.2 (6.7-8.2) g/dl Albumin 4.0 (3.2-5.5) g/dl Globulin 3.2 Albumin/Globulin Ratio 1.25 Amylase 48 (28-100) U/L Lipase 22 (22-51) U/L 10/31/19 10/31/19 Range/Units 06:17 06:17 WBC 8.3 (5.0-10.0) 10^3/uL RBC 4.34 (4.2-5.4) 10^6/uL Hgb 11.9 L (12.0-16.0) g/dL Hct 36.5 L (37.0-47.0) % MCV 84.1 (80-100) fL MCH 27.4 (27.0-34.0) pg MCHC 32.6 L (33.0-35.0) g/dL Plt Count 257 D (150-450) 10^3/uL Neut % (Auto) 95.3 H (42.2-75.2) % Lymph % (Auto) 2.9 L (20.5-50.1) % [place] % (Auto) 1.7 L (2-8) % Eos % (Auto) 0.0 L (1.0-3.0) % Baso % (Auto) 0.1 (0.0-1.0) % Sodium 141 (135-145) mmol/L Potassium 3.8 (3.6-5.0) mmol/L Chloride 109 (101-111) mmol/L Carbon Dioxide 24.0 (21.0-31.0) mmol/L Anion Gap 11.8 BUN 20 H (7-18) mg/dL Creatinine 0.6 (0.6-1.3) mg/dL Est Cr Clr Drug Dosing 68.41 Estimated GFR (MDRD) > 60 BUN/Creatinine Ratio Glucose 152 H (74-105) mg/dL Lactic Acid (0.5-2.0) mmol/L Calcium 9.0 (8.4-10.2) mg/dl Total Bilirubin (0.2-1.0) mg/dL AST (10-42) IU/L ALT (10-60) IU/L Alkaline Phosphatase (42-121) IU/L Troponin I (0.00-0.02) ng/ml B-Natriuretic Peptide (0-100) pg/ml Total Protein (6.7-8.2) g/dl Albumin (3.2-5.5) g/dl Globulin Albumin/Globulin Ratio Amylase (28-100) U/L Lipase (22-51) U/L Result Diagrams: 10/31/19 06:17 10/31/19 06:17 Problem List Initiated/Reviewed/Updated: Yes Orders Last 24hrs: Active Orders 24 hr Category Date Time Status Admission Diagnosis [ADT] Stat ADT 10/30/19 19:50 Ordered Admission Status [Patient Status] [ADT] Routine ADT 10/30/19 19:50 Active Patient Status [ADT] Routine ADT 10/30/19 20:12 Active Oxygen Therapy [RC] PRN Care 10/30/19 20:12 Active RT Aerosol Therapy [RC] ASDIRECTED Care 10/30/19 18:24 Active RT Aerosol Therapy [RC] ASDIRECTED Care 10/30/19 20:17 Active Up ad Nancy [RC] ASDIRECTED Care 10/30/19 20:12 Active VTE/DVT Education [RC] PER UNIT ROUTINE Care 10/30/19 20:12 Active Vital Signs [RC] Q4H Care 10/30/19 20:12 Active Regular Diet [DIET] Diet 10/30/19 Dinner Active CULTURE BLOOD [BC] Stat Lab 10/30/19 18:34 Received CULTURE SPUTUM + SMEAR [RM] Stat Lab 10/30/19 20:25 Ordered Acetaminophen [Tylenol] Med 10/30/19 20:52 Active 650 mg PO Q4H PRN Albuterol [Proventil Neb Soln] Med 10/30/19 20:52 Active 2.5 mg NEB Q2H PRN Albuterol/Ipratropium [DuoNeb 3.0-0.5 MG/3 ML] Med 10/31/19 00:15 Active 3 ml NEB Q4HRRT Azithromycin [Zithromax] 500 mg Med 10/31/19 20:30 Active Sodium Chloride 0.9% [Normal Saline (AdvBag)] 250 ml IV Q24H Benazepril [Lotensin] Med 10/31/19 09:00 Active 20 mg PO DAILY Codeine/guaiFENesin [Robitussin AC] Med 10/31/19 11:19 Active 5 ml PO Q4H PRN Dextromethorphan/guaiFENesin [Robitussin DM] Med 10/30/19 23:05 Active 5 ml PO Q4H PRN Heparin Sodium Med 10/30/19 22:00 Active 5,000 units SUBCUT Q8HR Mometasone/Formoterol [Dulera 200-5 MCG] Med 10/30/19 21:00 Active 2 puff IH BID Omeprazole Med 10/30/19 22:15 Active 20 mg PO DAILY Ondansetron [Zofran] Med 10/30/19 20:52 Active 4 mg IVPUSH Q6H PRN Potassium Chloride [Klor-Con 10] Med 10/31/19 09:00 Active 10 meq PO DAILY Sertraline [Zoloft] Med 10/31/19 09:00 Active 50 mg PO DAILY Sodium Chloride 0.9% [Normal Saline] 1,000 ml Med 10/30/19 20:15 Active IV ASDIRECTED amLODIPine [Norvasc] Med 10/30/19 22:00 Active 10 mg PO DAILY methylPREDNISolone Sod Succ [Solu-MEDROL] Med 10/31/19 04:30 Active 40 mg IVPUSH Q8H traZODone Med 10/30/19 20:52 Active 50 mg PO BEDTIME PRN Blood Culture x2 Reflex Set [OM.PC] Stat Oth 10/30/19 20:00 Ordered Resuscitation Status Routine Resus Stat 10/30/19 20:12 Ordered Medication Orders Acetaminophen (Tylenol) 650 mg PO Q4H PRN PRN Reason: Pain (Mild 1-3)/fever Last Admin: 10/30/19 21:55 Dose: 650 mg Albuterol (Proventil Neb Soln) 2.5 mg NEB Q2H PRN PRN Reason: shortness of breath/wheezing Albuterol/Ipratropium (Duoneb 3.0-0.5 Mg/3 Ml) 3 ml NEB Q4HRRT JOSE Last Admin: 10/31/19 11:41 Dose: 3 ml Admin: 10/31/19 07:55 Dose: 3 ml Admin: 10/31/19 04:00 Dose: 3 ml Admin: 10/30/19 23:35 Dose: 3 ml Amlodipine Besylate (Norvasc) 10 mg PO DAILY [facility] Last Admin: 10/31/19 09:10 Dose: 10 mg Admin: 10/30/19 22:26 Dose: 10 mg Benazepril HCl (Lotensin) 20 mg PO DAILY [facility] Last Admin: 10/31/19 09:09 Dose: 20 mg Guaifenesin/Codeine Phosphate (Robitussin Ac) 5 ml PO Q4H PRN PRN Reason: Cough Guaifenesin/Phenylephrine HCl (Robitussin Dm) 5 ml PO Q4H PRN PRN Reason: Cough Last Admin: 10/31/19 09:08 Dose: 5 ml Admin: 10/31/19 04:12 Dose: 5 ml Admin: 10/30/19 23:34 Dose: 5 ml Heparin Sodium (Porcine) (Heparin Sodium) 5,000 units SUBCUT Q8HR [facility] Last Admin: 10/31/19 05:50 Dose: Not Given Admin: 10/30/19 21:25 Dose: Not Given Sodium Chloride (Normal Saline) 1,000 mls @ 50 mls/hr IV ASDIRECTED [facility] Last Admin: 10/30/19 21:51 Dose: 50 mls/hr Azithromycin 500 mg/ Sodium (Chloride) 250 mls @ 250 mls/hr IV Q24H [facility] Methylprednisolone Sodium Succinate (Solu-Medrol) 40 mg IVPUSH Q8H [facility] Last Admin: 10/31/19 04:00 Dose: 40 mg Mometasone Furoate/Formoterol Fumar (Dulera 200-5 Mcg) 2 puff IH BID [facility] Last Admin: 10/31/19 09:11 Dose: 2 puff Admin: 10/30/19 21:50 Dose: 2 puff Omeprazole (Omeprazole) 20 mg PO DAILY [facility] Last Admin: 10/31/19 09:09 Dose: 20 mg Admin: 10/30/19 22:25 Dose: 20 mg Ondansetron HCl (Zofran) 4 mg IVPUSH Q6H PRN PRN Reason: Nausea/Vomiting Potassium Chloride (Klor-Con 10) 10 meq PO DAILY [facility] Last Admin: 10/31/19 09:10 Dose: 10 meq Sertraline HCl (Zoloft) 50 mg PO DAILY [facility] Last Admin: 10/31/19 08:17 Dose: 50 mg Trazodone HCl (Trazodone) 50 mg PO BEDTIME PRN PRN Reason: Insomnia Last Admin: 10/30/19 22:25 Dose: 50 mg Assessment/Plan Comment:: #. Acute hypoxemic respiratory failure This is likely because of COPD exacerbation Patient is wheezing profusely Send sputum for Gram stain and cultures Aggressive nebulization with DuoNeb Intravenous Solu Medrol Albuterol every 2 hours when necessary Wean off oxygen as tolerated #. Acute exacerbation of COPD Does have diminished periventricular R. Wheezing profusely Aggressive bronchodilators #. Hypertension Blood pressure is mostly within acceptable limits #. Discussed this with her reflux disease Patient on proton pump inhibitor #. Depression/anxiety Continue Zoloft
[2019-10-31] MEDS: Codeine/guaiFENesin 100-10 MG/5 ML Syrup 5 ML Cup PO PRN ×2 (16:35→20:42)
[2019-10-31] MEDS: Sodium Chloride 0.9% 1,000 ML IV SCH (17:43)
[2019-10-31] MEDS: Acetaminophen 325 MG Tab PO PRN (18:14)
[2019-10-31] MEDS: Azithromycin 500 MG in Sodium Chloride 0.9% 250 ML IV SCH (20:42)
[2019-10-31] MEDS: ALPRAZolam 0.25 MG Tab PO PRN (20:42)
[2019-10-31] MEDS: traZODone 50 MG Tab PO PRN (22:27)
[2019-11-01] MEDS: Albuterol/Ipratropium 3.0-0.5 MG/3 ML Neb Soln NEB SCH ×5 (04:06→18:15)
[2019-11-01] MEDS: methylPREDNISolone Sodium Succinate 40 MG/1 ML SDV IVPUSH SCH (04:10)
[2019-11-01] MEDS: Heparin Sodium 5,000 Units/ML Vial SUBCUT SCH ×3 (05:04→21:22)
[2019-11-01] MEDS: Omeprazole 20 MG Cap.CR PO SCH (09:06)
[2019-11-01] MEDS: Benazepril 10 MG Tab PO SCH (09:06)
[2019-11-01] MEDS: ALPRAZolam 0.25 MG Tab PO PRN ×2 (09:07→21:36)
[2019-11-01] MEDS: amLODIPine 5 MG Tab PO SCH (09:07)
[2019-11-01] MEDS: Sertraline 50 MG Tab PO SCH (09:07)
[2019-11-01] MEDS: Formoterol/Mometasone 200-5 MCG 8.8 GM Inhaler IH SCH ×2 (09:08→21:21)
[2019-11-01] MEDS: Potassium Chloride 10 MEQ Tab.ER PO SCH (09:08)
[2019-11-01] MEDS: Codeine/guaiFENesin 100-10 MG/5 ML Syrup 5 ML Cup PO PRN (10:05)
[2019-11-01] MEDS: predniSONE 20 MG Tab PO SCH (11:05)
[2019-11-01] MEDS ORDERED: LORazepam 2 MG/ML SDV IVPUSH ONE (12:41)
--- NOTE | 2019-11-01 14:49 | PCM.PN ---
- General Info Date of Service: 11/01/19 Admission Dx/Problem (Free Text): Admission Diagnosis/Problem Admission Diagnosis/Problem COPD with acute lower respiratory infection Subjective Update: Patient still having, cough with SOB and requiring oxygen. Says she has only slept 4hrs in the last 2-3 days. Afebrile overnight. She also complains of very poor appetite and history of weight loss. Functional Status: Reports: Pain Controlled - Review of Systems General: Reports: Weakness HEENT: Reports: No Symptoms Pulmonary: Reports: Shortness of Breath, Cough, Sputum, Wheezing Cardiovascular: Reports: No Symptoms Gastrointestinal: Reports: Decreased Appetite Genitourinary: Reports: No Symptoms Musculoskeletal: Reports: No Symptoms Skin: Reports: No Symptoms Neurological: Reports: No Symptoms Psychiatric: Reports: No Symptoms - Patient Data Vitals - Most Recent: Last Vital Signs Temp 99.8 F 11/01/19 12:00 Pulse 97 11/01/19 12:00 Resp 18 11/01/19 12:00 BP 135/70 11/01/19 12:00 Pulse Ox 95 11/01/19 12:00 Weight - Most Recent: 105 lb I&O - Last 24 Hours: Intake & Output 10/31/19 11/01/19 11/01/19 22:59 06:59 14:59 Intake Total 20 15 Balance 20 15 Cory Results Last 24 Hours: Microbiology 10/30/19 18:34 Aerobic Blood Culture - Preliminary Blood - Venous NO GROWTH AFTER 1 DAY Anaerobic Blood Culture - Preliminary NO GROWTH AFTER 1 DAY Med Orders - Current: Current Medications Acetaminophen (Tylenol) 650 mg PO Q4H PRN PRN Reason: Pain (Mild 1-3)/fever Last Admin: 10/31/19 18:14 Dose: 650 mg Albuterol (Proventil Neb Soln) 2.5 mg NEB Q2H PRN PRN Reason: shortness of breath/wheezing Albuterol/Ipratropium (Duoneb 3.0-0.5 Mg/3 Ml) 3 ml NEB Q4HRRT [facility] Last Admin: 11/01/19 11:05 Dose: 3 ml Alprazolam (Xanax) 0.25 mg PO BID PRN PRN Reason: Anxiety Last Admin: 11/01/19 09:07 Dose: 0.25 mg Amlodipine Besylate (Norvasc) 10 mg PO DAILY [facility] Last Admin: 11/01/19 09:07 Dose: 10 mg Benazepril HCl (Lotensin) 20 mg PO DAILY [facility] Last Admin: 11/01/19 09:06 Dose: 20 mg Guaifenesin/Codeine Phosphate (Robitussin Ac) 5 ml PO Q4H PRN PRN Reason: Cough Last Admin: 11/01/19 10:05 Dose: 5 ml Heparin Sodium (Porcine) (Heparin Sodium) 5,000 units SUBCUT Q8HR [facility] Last Admin: 11/01/19 13:11 Dose: Not Given Sodium Chloride (Normal Saline) 1,000 mls @ 50 mls/hr IV ASDIRECTED [facility] Last Admin: 10/31/19 17:43 Dose: 50 mls/hr Azithromycin 500 mg/ Sodium (Chloride) 250 mls @ 250 mls/hr IV Q24H [facility] Last Infusion: 10/31/19 23:01 Dose: Infused Mometasone Furoate/Formoterol Fumar (Dulera 200-5 Mcg) 2 puff IH BID [facility] Last Admin: 11/01/19 09:08 Dose: 2 puff Omeprazole (Omeprazole) 20 mg PO DAILY [facility] Last Admin: 11/01/19 09:06 Dose: 20 mg Ondansetron HCl (Zofran) 4 mg IVPUSH Q6H PRN PRN Reason: Nausea/Vomiting Potassium Chloride (Klor-Con 10) 10 meq PO DAILY [facility] Last Admin: 11/01/19 09:08 Dose: 10 meq Prednisone (Prednisone) 40 mg PO WITHBREAKFAST [facility] Last Admin: 11/01/19 11:05 Dose: 40 mg Sertraline HCl (Zoloft) 50 mg PO DAILY [facility] Last Admin: 11/01/19 09:07 Dose: 50 mg Trazodone HCl (Trazodone) 50 mg PO BEDTIME PRN PRN Reason: Insomnia Last Admin: 10/31/19 22:27 Dose: 50 mg Discontinued Medications Acetaminophen (Tylenol) 650 mg PO Q4H PRN PRN Reason: Pain (Mild 1-3)/fever Albuterol (Proventil Neb Soln) 2.5 mg NEB Q2H PRN PRN Reason: shortness of breath/wheezing Albuterol/Ipratropium (Duoneb 3.0-0.5 Mg/3 Ml) 3 ml NEB ONETIME ONE Stop: 10/30/19 18:24 Last Admin: 10/30/19 18:43 Dose: 3 ml Albuterol/Ipratropium (Duoneb 3.0-0.5 Mg/3 Ml) 3 ml NEB Q4H [facility] Amlodipine Besylate (Norvasc) 10 mg PO DAILY [facility] Guaifenesin/Phenylephrine HCl (Robitussin Dm) 5 ml PO Q4H PRN PRN Reason: Cough Last Admin: 10/31/19 09:08 Dose: 5 ml Heparin Sodium (Porcine) (Heparin Sodium) 5,000 units SUBCUT Q8HR [facility] Azithromycin 500 mg/ Sodium (Chloride) 250 mls @ 250 mls/hr IV ONETIME ONE Stop: 10/30/19 20:36 Last Admin: 10/30/19 19:57 Dose: 250 mls/hr Sodium Chloride (Normal Saline) 1,000 mls @ 50 mls/hr IV ASDIRECTED [facility] Azithromycin 500 mg/ Sodium (Chloride) 250 mls @ 250 mls/hr IV Q24H [facility] Lorazepam (Ativan) 0.5 mg IVPUSH ONETIME ONE Stop: 11/01/19 12:42 Last Admin: 11/01/19 13:01 Dose: 0.5 mg Methylprednisolone Sodium Succinate (Solu-Medrol) 125 mg IVPUSH ONETIME ONE Stop: 10/30/19 19:38 Last Admin: 10/30/19 19:54 Dose: 125 mg Methylprednisolone Sodium Succinate (Solu-Medrol) 40 mg IVPUSH Q8H [facility] Methylprednisolone Sodium Succinate (Solu-Medrol) 40 mg IVPUSH Q8H [facility] Last Admin: 11/01/19 04:10 Dose: 40 mg Non-Formulary Medication (Amlodipine Besylate [Amlodipine Besylate]) 10 mg PO DAILY [facility] Non-Formulary Medication (Benazepril) 20 mg PO DAILY [facility] Non-Formulary Medication (Budesonide/Formoterol) 1 puff INH BID [facility] Omeprazole (Omeprazole) 20 mg PO DAILY [facility] Omeprazole (Omeprazole) 20 mg PO DAILY [facility] Ondansetron HCl (Zofran) 4 mg IVPUSH Q6H PRN PRN Reason: Nausea/Vomiting Potassium Chloride (Klor-Con 10) 10 meq PO DAILY [facility] Prednisone (Prednisone) 40 mg PO WITHBREAKFAST [facility] Sertraline HCl (Zoloft) 0.05 mg PO DAILY [facility] Trazodone HCl (Trazodone) 50 mg PO BEDTIME PRN PRN Reason: Insomnia - Exam General: Alert, Oriented, Mild Distress HEENT: Pupils Equal, Pupils Reactive, EOMI, Mucous Membr. Moist/[place] Neck: Supple Lungs: Decreased Breath Sounds, Wheezing Cardiovascular: Regular Rate, Regular Rhythm GI/Abdominal Exam: Normal Bowel Sounds, Soft, Non-Tender, No Organomegaly, No Distention, No Abnormal Bruit, No Mass, Pelvis Stable (Female) Exam: Deferred Back Exam: Normal Inspection, Full Range of Motion Extremities: Normal Inspection, Normal Range of Motion, Non-Tender, No Pedal Edema, Normal Capillary Refill Skin: Warm, Dry, Intact Wound/Incisions: Other Neurological: No New Focal Deficit Psy/Mental Status: Alert, Normal Affect, Normal Mood Sepsis Event Note - Evaluation Sepsis Screening Result: No Definite Risk - Focused Exam Vital Signs: Vital Signs Temp Pulse Resp BP BP Pulse Ox Pulse Ox 11/01/19 12:00 99.8 F 97 18 135/70 95 11/01/19 11:10 102 H 95 11/01/19 09:07 113/88 11/01/19 09:06 113/88 11/01/19 08:00 98.6 F 86 22 H 113/88 94 L 11/01/19 07:31 87 93 L 11/01/19 04:00 20 93 L Date Exam was Performed: 11/01/19 Time Exam was Performed: 14:52 - Problem List Review Problem List Initiated/Reviewed/Updated: Yes - My Orders Last 24 Hours: My Active Orders 11/01/19 09:17 Resuscitation Status Routine 11/01/19 10:21 predniSONE 40 mg PO WITHBREAKFAST - Plan Plan:: Assessment and Plan #. Acute hypoxemic respiratory failure This is likely because of COPD exacerbation Patient is wheezing profusely Send sputum for Gram stain and cultures Aggressive nebulization with DuoNeb Dc Intravenous Solu Medrol and switch to prednisone 40 mg daily Albuterol every 2 hours when necessary BiPAP for respiratory support and to allow patient rest Wean off oxygen as tolerated #. Acute exacerbation of COPD Does have diminished periventricular R. Wheezing profusely Aggressive bronchodilators #. Hypertension Blood pressure is mostly within acceptable limits #. Discussed this with her reflux disease Patient on proton pump inhibitor #. Depression/anxiety Continue Zoloft
[2019-11-01] MEDS: Sodium Chloride 0.9% 1,000 ML IV SCH (15:32)
[2019-11-01] MEDS: Acetaminophen 325 MG Tab PO PRN (18:14)
[2019-11-01] MEDS: Azithromycin 500 MG in Sodium Chloride 0.9% 250 ML IV SCH (21:17)
[2019-11-01] MEDS: traZODone 50 MG Tab PO PRN (21:36)
[2019-11-02] MEDS: Albuterol/Ipratropium 3.0-0.5 MG/3 ML Neb Soln NEB SCH ×6 (04:55→19:02)
[2019-11-02] MEDS: ALPRAZolam 0.25 MG Tab PO PRN (05:35)
[2019-11-02] MEDS: Heparin Sodium 5,000 Units/ML Vial SUBCUT SCH ×3 (08:02→21:32)
[2019-11-02] MEDS: Benazepril 10 MG Tab PO SCH (08:03)
[2019-11-02] MEDS: amLODIPine 5 MG Tab PO SCH (08:06)
[2019-11-02] MEDS: Potassium Chloride 10 MEQ Tab.ER PO SCH (08:06)
[2019-11-02] MEDS: Sertraline 50 MG Tab PO SCH (08:06)
[2019-11-02] MEDS: Omeprazole 20 MG Cap.CR PO SCH (08:07)
[2019-11-02] MEDS: Formoterol/Mometasone 200-5 MCG 8.8 GM Inhaler IH SCH ×2 (08:30→20:54)
[2019-11-02] MEDS: predniSONE 20 MG Tab PO SCH (09:00)
[2019-11-02] MEDS ORDERED: predniSONE 20 MG Tab PO SCH (10:20)
[2019-11-02] MEDS ORDERED: methylPREDNISolone Sodium Succinate 40 MG/1 ML SDV IM ONE (11:08)
--- NOTE | 2019-11-02 12:02 | PCM.PN ---
- General Info Date of Service: 11/02/19 Admission Dx/Problem (Free Text): Admission Diagnosis/Problem Admission Diagnosis/Problem COPD with acute lower respiratory infection Subjective Update: Patient coughing with SOB. Did not really tolerate BiPAP yesterday due to anxiety. Requiring 3L of oxygen. She had a temperature of 100.1F overnight. Patient would like to be DNI/DNR and says she would want to be made comfortable if her clinical status declines severely. - Review of Systems General: Reports: Weakness, Fatigue HEENT: Reports: No Symptoms Pulmonary: Reports: Shortness of Breath, Cough, Sputum, Wheezing Cardiovascular: Reports: No Symptoms Gastrointestinal: Reports: Decreased Appetite Genitourinary: Reports: No Symptoms Musculoskeletal: Reports: No Symptoms Skin: Reports: No Symptoms Neurological: Reports: No Symptoms Psychiatric: Reports: No Symptoms - Patient Data Vitals - Most Recent: Last Vital Signs Temp 100.1 F 11/02/19 08:00 Pulse 112 H 11/02/19 08:00 Resp 24 H 11/02/19 08:00 BP 154/97 H 11/02/19 08:06 Pulse Ox 93 L 11/02/19 08:00 Weight - Most Recent: 105 lb I&O - Last 24 Hours: Intake & Output 11/01/19 11/02/19 11/02/19 22:59 06:59 14:59 Intake Total 200 640 Output Total 150 Balance 200 490 Cory Results Last 24 Hours: Microbiology 10/30/19 18:34 Aerobic Blood Culture - Preliminary Blood - Venous NO GROWTH AFTER 2 DAYS Anaerobic Blood Culture - Preliminary NO GROWTH AFTER 2 DAYS Med Orders - Current: Current Medications Acetaminophen (Tylenol) 650 mg PO Q4H PRN PRN Reason: Pain (Mild 1-3)/fever Last Admin: 11/01/19 18:14 Dose: 650 mg Albuterol (Proventil Neb Soln) 2.5 mg NEB Q2H PRN PRN Reason: shortness of breath/wheezing Albuterol/Ipratropium (Duoneb 3.0-0.5 Mg/3 Ml) 3 ml NEB Q4HRRT [facility] Last Admin: 11/02/19 08:04 Dose: Not Given Alprazolam (Xanax) 0.25 mg PO BID PRN PRN Reason: Anxiety Last Admin: 11/02/19 05:35 Dose: 0.25 mg Amlodipine Besylate (Norvasc) 10 mg PO DAILY [facility] [place] Last Admin: 11/02/19 08:06 Dose: 10 mg Benazepril HCl (Lotensin) 20 mg PO DAILY [facility] [place] Last Admin: 11/02/19 08:03 Dose: 20 mg Guaifenesin/Codeine Phosphate (Robitussin Ac) 5 ml PO Q4H PRN PRN Reason: Cough Last Admin: 11/01/19 10:05 Dose: 5 ml Heparin Sodium (Porcine) (Heparin Sodium) 5,000 units SUBCUT Q8HR [facility] [place] Last Admin: 11/02/19 08:02 Dose: Not Given Sodium Chloride (Normal Saline) 1,000 mls @ 50 mls/hr IV ASDIRECTED [facility] [place] Last Admin: 11/01/19 15:32 Dose: 50 mls/hr Azithromycin 500 mg/ Sodium (Chloride) 250 mls @ 250 mls/hr IV Q24H [facility] [place] Last Admin: 11/01/19 21:17 Dose: 250 mls/hr Methylprednisolone Sodium Succinate (Solu-Medrol) 125 mg IM Q6HR [facility] [place] Mometasone Furoate/Formoterol Fumar (Dulera 200-5 Mcg) 2 puff IH BID [facility] [place] Last Admin: 11/02/19 08:30 Dose: 2 puff Omeprazole (Omeprazole) 20 mg PO DAILY [facility] [place] Last Admin: 11/02/19 08:07 Dose: 20 mg Ondansetron HCl (Zofran) 4 mg IVPUSH Q6H PRN PRN Reason: Nausea/Vomiting Potassium Chloride (Klor-Con 10) 10 meq PO DAILY [facility] [place] Last Admin: 11/02/19 08:06 Dose: 10 meq Sertraline HCl (Zoloft) 50 mg PO DAILY [facility] [place] Last Admin: 11/02/19 08:06 Dose: 50 mg Trazodone HCl (Trazodone) 50 mg PO BEDTIME PRN PRN Reason: Insomnia Last Admin: 11/01/19 21:36 Dose: 50 mg Discontinued Medications Acetaminophen (Tylenol) 650 mg PO Q4H PRN PRN Reason: Pain (Mild 1-3)/fever Albuterol (Proventil Neb Soln) 2.5 mg NEB Q2H PRN PRN Reason: shortness of breath/wheezing Albuterol/Ipratropium (Duoneb 3.0-0.5 Mg/3 Ml) 3 ml NEB ONETIME ONE Stop: 10/30/19 18:24 Last Admin: 10/30/19 18:43 Dose: 3 ml Albuterol/Ipratropium (Duoneb 3.0-0.5 Mg/3 Ml) 3 ml NEB Q4H [facility] [place] Amlodipine Besylate (Norvasc) 10 mg PO DAILY [facility] [place] Guaifenesin/Phenylephrine HCl (Robitussin Dm) 5 ml PO Q4H PRN PRN Reason: Cough Last Admin: 10/31/19 09:08 Dose: 5 ml Heparin Sodium (Porcine) (Heparin Sodium) 5,000 units SUBCUT Q8HR [facility] [place] Azithromycin 500 mg/ Sodium (Chloride) 250 mls @ 250 mls/hr IV ONETIME ONE Stop: 10/30/19 20:36 Last Admin: 10/30/19 19:57 Dose: 250 mls/hr Sodium Chloride (Normal Saline) 1,000 mls @ 50 mls/hr IV ASDIRECTED [facility] [place] Azithromycin 500 mg/ Sodium (Chloride) 250 mls @ 250 mls/hr IV Q24H [facility] [place] Lorazepam (Ativan) 0.5 mg IVPUSH ONETIME ONE Stop: 11/01/19 12:42 Last Admin: 11/01/19 13:01 Dose: 0.5 mg Methylprednisolone Sodium Succinate (Solu-Medrol) 125 mg IVPUSH ONETIME ONE Stop: 10/30/19 19:38 Last Admin: 10/30/19 19:54 Dose: 125 mg Methylprednisolone Sodium Succinate (Solu-Medrol) 40 mg IVPUSH Q8H [facility] [place] Methylprednisolone Sodium Succinate (Solu-Medrol) 40 mg IVPUSH Q8H [facility] [place] Last Admin: 11/01/19 04:10 Dose: 40 mg Methylprednisolone Sodium Succinate (Solu-Medrol) 40 mg IM ONETIME ONE Stop: 11/02/19 11:09 Non-Formulary Medication (Amlodipine Besylate [Amlodipine Besylate]) 10 mg PO DAILY [facility] [place] Non-Formulary Medication (Benazepril) 20 mg PO DAILY [facility] [place] Non-Formulary Medication (Budesonide/Formoterol) 1 puff INH BID [facility] [place] Omeprazole (Omeprazole) 20 mg PO DAILY [facility] [place] Omeprazole (Omeprazole) 20 mg PO DAILY [facility] [place] Ondansetron HCl (Zofran) 4 mg IVPUSH Q6H PRN PRN Reason: Nausea/Vomiting Potassium Chloride (Klor-Con 10) 10 meq PO DAILY [facility] [place] Prednisone (Prednisone) 40 mg PO WITHBREAKFAST [facility] Prednisone (Prednisone) 40 mg PO WITHBREAKFAST [facility] Last Admin: 11/02/19 09:00 Dose: 40 mg Sertraline HCl (Zoloft) 0.05 mg PO DAILY [facility] [place] Trazodone HCl (Trazodone) 50 mg PO BEDTIME PRN PRN Reason: Insomnia - Exam Quality Assessment: Supplemental Oxygen General: Alert, Mild Distress HEENT: Pupils Equal, Pupils Reactive, EOMI, Mucous Membr. Moist/[place] Neck: Supple Lungs: Decreased Breath Sounds, Wheezing Cardiovascular: No Murmurs, Tachycardia GI/Abdominal Exam: Normal Bowel Sounds, Soft, Non-Tender, No Organomegaly, No Distention, No Abnormal Bruit, No Mass, Pelvis Stable (Female) Exam: Deferred Back Exam: Normal Inspection, Full Range of Motion Extremities: Normal Inspection, Normal Range of Motion, Non-Tender, No Pedal Edema, Normal Capillary Refill Skin: Warm, Dry, Intact Neurological: No New Focal Deficit Psy/Mental Status: Alert, Normal Affect, Normal Mood Sepsis Event Note - Evaluation Sepsis Screening Result: Sepsis Risk - Focused Exam Vital Signs: Vital Signs Temp Pulse Resp BP BP Pulse Ox Pulse Ox 11/02/19 08:06 154/97 H 11/02/19 08:03 154/97 H 11/02/19 08:00 100.1 F 112 H 24 H 154/97 H 93 L 11/02/19 05:00 95 Date Exam was Performed: 11/02/19 Time Exam was Performed: 12:10 - Problem List Review Problem List Initiated/Reviewed/Updated: Yes - My Orders Last 24 Hours: My Active Orders 11/03/19 06:00 methylPREDNISolone Sod Succ [Solu-MEDROL] 125 mg IM Q6HR - Plan Plan:: Assessment and Plan Acute hypoxemic respiratory failure Acute exacerbation of COPD This is likely because of COPD exacerbation Patient is wheezy and has poor air entry. - Continue aggressive nebulization with DuoNeb - Switch to solumedrol per patients preference - Albuterol every 2 hours when necessary - Duonebs - NC/BiPAP for respiratory support as needed - Wean off oxygen as tolerated - Repeat CBC, BMP, Mag and procalcitonin - Consider antibiotics pending above labs Malnutrition Patient is very cachectic and reports poor appetite and weight loss. - Encourage diet Hypertension Blood pressure is mostly within acceptable limits GERD - Continue proton pump inhibitor Depression/anxiety -Continue Zoloft
[2019-11-02] MEDS: Sodium Chloride 0.9% 1,000 ML IV SCH (12:06)
[2019-11-02 14:03] LABS: ANION GAP 13.6; CHLORIDE,CL 105 mmol/L (101-111); SODIUM,NA 139 mmol/L (135-145)
[2019-11-02] MEDS: Codeine/guaiFENesin 100-10 MG/5 ML Syrup 5 ML Cup PO PRN (14:28)
[2019-11-02] MEDS ORDERED: Potassium Chloride 10 MEQ Tab.ER PO ONE (19:04)
[2019-11-02] MEDS: Azithromycin 500 MG in Sodium Chloride 0.9% 250 ML IV SCH (20:22)
[2019-11-03] MEDS: Albuterol/Ipratropium 3.0-0.5 MG/3 ML Neb Soln NEB SCH ×7 (01:22→23:28)
[2019-11-03] MEDS: traZODone 50 MG Tab PO PRN ×2 (01:29→22:35)
[2019-11-03] MEDS: Heparin Sodium 5,000 Units/ML Vial SUBCUT SCH ×3 (05:57→21:17)
[2019-11-03] MEDS: methylPREDNISolone Sodium Succinate 125 MG/2 ML SDV IM SCH ×4 (05:58→23:43)
[2019-11-03] MEDS: Sodium Chloride 0.9% 1,000 ML IV SCH (09:18)
[2019-11-03] MEDS: Potassium Chloride 10 MEQ Tab.ER PO SCH (09:23)
[2019-11-03] MEDS: Benazepril 10 MG Tab PO SCH (09:23)
[2019-11-03] MEDS: Sertraline 50 MG Tab PO SCH (09:23)
[2019-11-03] MEDS: Omeprazole 20 MG Cap.CR PO SCH (09:23)
[2019-11-03] MEDS: amLODIPine 5 MG Tab PO SCH (09:24)
[2019-11-03] MEDS: Formoterol/Mometasone 200-5 MCG 8.8 GM Inhaler IH SCH ×2 (09:24→21:17)
[2019-11-03] MEDS: ALPRAZolam 0.25 MG Tab PO PRN ×2 (11:39→23:28)
--- NOTE | 2019-11-03 13:02 | PCM.PN ---
- General Info Date of Service: 11/03/19 Admission Dx/Problem (Free Text): Admission Diagnosis/Problem Admission Diagnosis/Problem COPD with acute lower respiratory infection Subjective Update: Patient seen and examined. Says she had a good sleep last night for the first time in a long time. Now down to 2L by NC. afebrile overnight. Functional Status: Reports: Pain Controlled - Review of Systems General: Reports: No Symptoms HEENT: Reports: No Symptoms Pulmonary: Reports: Shortness of Breath, Cough, Wheezing Cardiovascular: Reports: No Symptoms Gastrointestinal: Reports: No Symptoms Genitourinary: Reports: No Symptoms Musculoskeletal: Reports: No Symptoms Skin: Reports: No Symptoms Neurological: Reports: No Symptoms Psychiatric: Reports: No Symptoms - Patient Data Vitals - Most Recent: Last Vital Signs Temp 99.3 F 11/03/19 11:34 Pulse 102 H 11/03/19 11:34 Resp 20 11/03/19 11:34 BP 133/84 11/03/19 11:34 Pulse Ox 95 11/03/19 11:34 Weight - Most Recent: 105 lb I&O - Last 24 Hours: Intake & Output 11/02/19 11/03/19 11/03/19 22:59 06:59 14:59 Intake Total 600 Output Total 1000 Balance -400 Lab Results Last 24 Hours: Laboratory Results - last 24 hr 11/02/19 11/02/19 11/02/19 Range/Units 13:35 13:35 13:35 WBC 8.4 (5.0-10.0) 10^3/uL RBC 5.40 (4.2-5.4) 10^6/uL Hgb 14.7 D (12.0-16.0) g/dL Hct 45.2 (37.0-47.0) % MCV 83.7 (80-100) fL MCH 27.2 (27.0-34.0) pg MCHC 32.5 L (33.0-35.0) g/dL Plt Count 291 (150-450) 10^3/uL Sodium 139 (135-145) mmol/L Potassium 3.6 (3.6-5.0) mmol/L Chloride 105 (101-111) mmol/L Carbon Dioxide 24.0 (21.0-31.0) mmol/L Anion Gap 13.6 BUN 14 (7-18) mg/dL Creatinine 0.5 L (0.6-1.3) mg/dL Est Cr Clr Drug Dosing 82.09 mL/min Estimated GFR (MDRD) > 60 Glucose 156 H (74-105) mg/dL Calcium 9.0 (8.4-10.2) mg/dl Magnesium 1.8 (1.8-2.5) mg/dL Procalcitonin <0.05 (<0.10) ng/mL Cory Results Last 24 Hours: Microbiology 10/30/19 18:34 Aerobic Blood Culture - Preliminary Blood - Venous NO GROWTH AFTER 3 DAYS Anaerobic Blood Culture - Preliminary NO GROWTH AFTER 3 DAYS Med Orders - Current: Current Medications Acetaminophen (Tylenol) 650 mg PO Q4H PRN PRN Reason: Pain (Mild 1-3)/fever Last Admin: 11/01/19 18:14 Dose: 650 mg Albuterol (Proventil Neb Soln) 2.5 mg NEB Q2H PRN PRN Reason: shortness of breath/wheezing Albuterol/Ipratropium (Duoneb 3.0-0.5 Mg/3 Ml) 3 ml NEB Q4HRRT [facility] Last Admin: 11/03/19 11:14 Dose: 3 ml Alprazolam (Xanax) 0.25 mg PO BID PRN PRN Reason: Anxiety Last Admin: 11/03/19 11:39 Dose: 0.25 mg Amlodipine Besylate (Norvasc) 10 mg PO DAILY [facility] Last Admin: 11/03/19 09:24 Dose: 10 mg Benazepril HCl (Lotensin) 20 mg PO DAILY [facility] Last Admin: 11/03/19 09:23 Dose: 20 mg Guaifenesin/Codeine Phosphate (Robitussin Ac) 5 ml PO Q4H PRN PRN Reason: Cough Last Admin: 11/02/19 14:28 Dose: 5 ml Heparin Sodium (Porcine) (Heparin Sodium) 5,000 units SUBCUT Q8HR [facility] Last Admin: 11/03/19 05:57 Dose: Not Given Azithromycin 500 mg/ Sodium (Chloride) 250 mls @ 250 mls/hr IV Q24H [facility] Last Admin: 11/02/19 20:22 Dose: 250 mls/hr Methylprednisolone Sodium Succinate (Solu-Medrol) 125 mg IM Q6HR [facility] Last Admin: 11/03/19 11:41 Dose: 125 mg Mometasone Furoate/Formoterol Fumar (Dulera 200-5 Mcg) 2 puff IH BID [facility] Last Admin: 11/03/19 09:24 Dose: 2 puff Omeprazole (Omeprazole) 20 mg PO DAILY [facility] Last Admin: 11/03/19 09:23 Dose: 20 mg Ondansetron HCl (Zofran) 4 mg IVPUSH Q6H PRN PRN Reason: Nausea/Vomiting Potassium Chloride (Klor-Con 10) 10 meq PO DAILY [facility] Last Admin: 11/03/19 09:23 Dose: 10 meq Sertraline HCl (Zoloft) 50 mg PO DAILY [facility] Last Admin: 11/03/19 09:23 Dose: 50 mg Sodium Chloride (Saline Flush) 10 ml FLUSH ASDIRECTED PRN PRN Reason: Keep Vein Open Trazodone HCl (Trazodone) 50 mg PO BEDTIME PRN PRN Reason: Insomnia Last Admin: 11/03/19 01:29 Dose: 50 mg Discontinued Medications Acetaminophen (Tylenol) 650 mg PO Q4H PRN PRN Reason: Pain (Mild 1-3)/fever Albuterol (Proventil Neb Soln) 2.5 mg NEB Q2H PRN PRN Reason: shortness of breath/wheezing Albuterol/Ipratropium (Duoneb 3.0-0.5 Mg/3 Ml) 3 ml NEB ONETIME ONE Stop: 10/30/19 18:24 Last Admin: 10/30/19 18:43 Dose: 3 ml Albuterol/Ipratropium (Duoneb 3.0-0.5 Mg/3 Ml) 3 ml NEB Q4H [facility] Amlodipine Besylate (Norvasc) 10 mg PO DAILY [facility] Guaifenesin/Phenylephrine HCl (Robitussin Dm) 5 ml PO Q4H PRN PRN Reason: Cough Last Admin: 10/31/19 09:08 Dose: 5 ml Heparin Sodium (Porcine) (Heparin Sodium) 5,000 units SUBCUT Q8HR [facility] Azithromycin 500 mg/ Sodium (Chloride) 250 mls @ 250 mls/hr IV ONETIME ONE Stop: 10/30/19 20:36 Last Admin: 10/30/19 19:57 Dose: 250 mls/hr Sodium Chloride (Normal Saline) 1,000 mls @ 50 mls/hr IV ASDIRECTED [facility] Azithromycin 500 mg/ Sodium (Chloride) 250 mls @ 250 mls/hr IV Q24H [facility] Sodium Chloride (Normal Saline) 1,000 mls @ 50 mls/hr IV ASDIRECTED [facility] Last Infusion: 11/03/19 09:31 Dose: 0 mls/hr Lorazepam (Ativan) 0.5 mg IVPUSH ONETIME ONE Stop: 11/01/19 12:42 Last Admin: 11/01/19 13:01 Dose: 0.5 mg Methylprednisolone Sodium Succinate (Solu-Medrol) 125 mg IVPUSH ONETIME ONE Stop: 10/30/19 19:38 Last Admin: 10/30/19 19:54 Dose: 125 mg Methylprednisolone Sodium Succinate (Solu-Medrol) 40 mg IVPUSH Q8H [facility] Methylprednisolone Sodium Succinate (Solu-Medrol) 40 mg IVPUSH Q8H [facility] Last Admin: 11/01/19 04:10 Dose: 40 mg Methylprednisolone Sodium Succinate (Solu-Medrol) 40 mg IM ONETIME ONE Stop: 11/02/19 11:09 Last Admin: 11/02/19 12:05 Dose: 40 mg Non-Formulary Medication (Amlodipine Besylate [Amlodipine Besylate]) 10 mg PO DAILY [facility] Non-Formulary Medication (Benazepril) 20 mg PO DAILY [facility] Non-Formulary Medication (Budesonide/Formoterol) 1 puff INH BID [facility] Omeprazole (Omeprazole) 20 mg PO DAILY [facility] Omeprazole (Omeprazole) 20 mg PO DAILY [facility] Ondansetron HCl (Zofran) 4 mg IVPUSH Q6H PRN PRN Reason: Nausea/Vomiting Potassium Chloride (Klor-Con 10) 10 meq PO DAILY [facility] Potassium Chloride (Klor-Con 10) 40 meq PO ONETIME ONE Stop: 11/02/19 19:05 Last Admin: 11/02/19 19:44 Dose: 40 meq Prednisone (Prednisone) 40 mg PO WITHBREAKFAST [facility] Prednisone (Prednisone) 40 mg PO WITHBREAKFAST [facility] Last Admin: 11/02/19 09:00 Dose: 40 mg Sertraline HCl (Zoloft) 0.05 mg PO DAILY [facility] Trazodone HCl (Trazodone) 50 mg PO BEDTIME PRN PRN Reason: Insomnia - Exam General: Alert, Oriented HEENT: Pupils Equal, Pupils Reactive, EOMI, Mucous Membr. Moist/[place] Neck: Supple Lungs: Decreased Breath Sounds, Wheezing Cardiovascular: Regular Rate, Regular Rhythm GI/Abdominal Exam: Normal Bowel Sounds, Soft, Non-Tender, No Organomegaly, No Distention, No Abnormal Bruit, No Mass, Pelvis Stable (Female) Exam: Deferred Back Exam: Normal Inspection, Full Range of Motion Extremities: Normal Inspection, Normal Range of Motion, Non-Tender, No Pedal Edema, Normal Capillary Refill Skin: Warm, Dry, Intact Wound/Incisions: Other (None) Neurological: No New Focal Deficit Psy/Mental Status: Alert, Normal Affect, Normal Mood Sepsis Event Note - Evaluation Sepsis Screening Result: No Definite Risk - Focused Exam Vital Signs: Vital Signs Temp Pulse Resp BP BP BP Pulse Ox 11/03/19 11:34 99.3 F 102 H 20 133/84 95 11/03/19 11:00 102 H 11/03/19 09:24 150/88 H 11/03/19 09:23 150/88 H 11/03/19 08:00 98.2 F 76 20 150/88 H 94 L 11/03/19 07:00 85 Pulse Ox 11/03/19 11:34 11/03/19 11:00 95 11/03/19 09:24 11/03/19 09:23 11/03/19 08:00 11/03/19 07:00 94 L Date Exam was Performed: 11/03/19 Time Exam was Performed: 16:32 - Problem List Review Problem List Initiated/Reviewed/Updated: Yes - My Orders Last 24 Hours: My Active Orders 11/03/19 06:00 methylPREDNISolone Sod Succ [Solu-MEDROL] 125 mg IM Q6HR 11/03/19 09:49 Sodium Chloride 0.9% [Saline Flush] 10 ml FLUSH ASDIRECTED PRN Convert IV to Saline Lock [OM.PC] Routine - Assessment Assessment:: #. Acute hypoxemic respiratory failure This is likely because of COPD exacerbation Patient is wheezing profusely Send sputum for Gram stain and cultures Aggressive nebulization with DuoNeb Intravenous Solu Medrol Albuterol every 2 hours when necessary BiPAP for respiratory support and to allow patient rest Wean off oxygen as tolerated #. Acute exacerbation of COPD Does have diminished periventricular R. Wheezing profusely Aggressive bronchodilators #. Hypertension Blood pressure is mostly within acceptable limits #. Discussed this with her reflux disease Patient on proton pump inhibitor #. Depression/anxiety Continue Zoloft - Plan Plan:: Assessment and Plan Acute hypoxemic respiratory failure Acute exacerbation of COPD This is likely because of COPD exacerbation Patient is wheezy and has poor air entry. - Continue aggressive nebulization with DuoNeb - Continue solumedrol - Albuterol every 2 hours when necessary - NC/BiPAP for respiratory support as needed - Wean off oxygen as tolerated - Procalcitonin insignificant Malnutrition Patient is very cachectic and reports poor appetite and weight loss. - Encourage diet Hypertension Blood pressure is mostly within acceptable limits GERD - Continue proton pump inhibitor Depression/anxiety -Continue Zoloft
[2019-11-03] MEDS: Sodium Chloride 0.9% 10 ML Syringe FLUSH PRN (20:14)
[2019-11-03] MEDS: Azithromycin 500 MG in Sodium Chloride 0.9% 250 ML IV SCH (20:15)
[2019-11-04] MEDS: Codeine/guaiFENesin 100-10 MG/5 ML Syrup 5 ML Cup PO PRN ×2 (00:20→11:42)
[2019-11-04] MEDS: Albuterol/Ipratropium 3.0-0.5 MG/3 ML Neb Soln NEB SCH ×6 (03:18→23:46)
[2019-11-04] MEDS: methylPREDNISolone Sodium Succinate 125 MG/2 ML SDV IM SCH ×4 (06:44→23:55)
[2019-11-04] MEDS: Heparin Sodium 5,000 Units/ML Vial SUBCUT SCH ×3 (06:46→23:07)
[2019-11-04] MEDS: Benazepril 10 MG Tab PO SCH (09:01)
[2019-11-04] MEDS: amLODIPine 5 MG Tab PO SCH (09:02)
[2019-11-04] MEDS: Sertraline 50 MG Tab PO SCH (09:03)
[2019-11-04] MEDS: Formoterol/Mometasone 200-5 MCG 8.8 GM Inhaler IH SCH ×2 (09:03→20:50)
[2019-11-04] MEDS: Omeprazole 20 MG Cap.CR PO SCH (09:03)
[2019-11-04] MEDS: Potassium Chloride 10 MEQ Tab.ER PO SCH (09:03)
--- NOTE | 2019-11-04 10:46 | PCM.PN ---
- General Info Date of Service: 11/04/19 Admission Dx/Problem (Free Text): Admission Diagnosis/Problem Admission Diagnosis/Problem COPD with acute lower respiratory infection Subjective Update: Patient seen and examined. Had desaturations and anxiety with attempted walking yesterday. Stable on 2L by NC. Appetite mildly improved. Afebrile overnight. - Review of Systems General: Reports: No Symptoms HEENT: Reports: No Symptoms Pulmonary: Reports: Shortness of Breath, Cough Cardiovascular: Reports: No Symptoms Gastrointestinal: Reports: No Symptoms Genitourinary: Reports: No Symptoms Musculoskeletal: Reports: No Symptoms Skin: Reports: No Symptoms Neurological: Reports: No Symptoms Psychiatric: Reports: No Symptoms - Patient Data Vitals - Most Recent: Last Vital Signs Temp 98.9 F 11/04/19 08:00 Pulse 86 11/04/19 08:00 Resp 22 H 11/04/19 08:00 BP 136/91 H 11/04/19 09:02 Pulse Ox 87 L 11/04/19 09:05 Weight - Most Recent: 105 lb I&O - Last 24 Hours: Intake & Output 11/03/19 11/04/19 11/04/19 22:59 06:59 14:59 Intake Total 1540 450 Output Total 1000 Balance 540 450 Cory Results Last 24 Hours: Microbiology 10/30/19 18:34 Aerobic Blood Culture - Preliminary Blood - Venous NO GROWTH AFTER 4 DAYS Anaerobic Blood Culture - Preliminary NO GROWTH AFTER 4 DAYS Med Orders - Current: Current Medications Acetaminophen (Tylenol) 650 mg PO Q4H PRN PRN Reason: Pain (Mild 1-3)/fever Last Admin: 11/01/19 18:14 Dose: 650 mg Albuterol (Proventil Neb Soln) 2.5 mg NEB Q2H PRN PRN Reason: shortness of breath/wheezing Albuterol/Ipratropium (Duoneb 3.0-0.5 Mg/3 Ml) 3 ml NEB Q4HRRT [facility] Last Admin: 11/04/19 07:25 Dose: 3 ml Alprazolam (Xanax) 0.25 mg PO BID PRN PRN Reason: Anxiety Last Admin: 11/03/19 23:28 Dose: 0.25 mg Amlodipine Besylate (Norvasc) 10 mg PO DAILY [facility] Last Admin: 11/04/19 09:02 Dose: 10 mg Benazepril HCl (Lotensin) 20 mg PO DAILY [facility] Last Admin: 11/04/19 09:01 Dose: 20 mg Guaifenesin/Codeine Phosphate (Robitussin Ac) 5 ml PO Q4H PRN PRN Reason: Cough Last Admin: 11/04/19 00:20 Dose: 5 ml Heparin Sodium (Porcine) (Heparin Sodium) 5,000 units SUBCUT Q8HR [facility] Last Admin: 11/04/19 06:46 Dose: Not Given Azithromycin 500 mg/ Sodium (Chloride) 250 mls @ 250 mls/hr IV Q24H [facility] Last Admin: 11/03/19 20:15 Dose: 250 mls/hr Methylprednisolone Sodium Succinate (Solu-Medrol) 125 mg IM Q6HR [facility] Last Admin: 11/04/19 06:44 Dose: 125 mg Mometasone Furoate/Formoterol Fumar (Dulera 200-5 Mcg) 2 puff IH BID [facility] Last Admin: 11/04/19 09:03 Dose: 2 puff Omeprazole (Omeprazole) 20 mg PO DAILY [facility] Last Admin: 11/04/19 09:03 Dose: 20 mg Ondansetron HCl (Zofran) 4 mg IVPUSH Q6H PRN PRN Reason: Nausea/Vomiting Potassium Chloride (Klor-Con 10) 10 meq PO DAILY [facility] Last Admin: 11/04/19 09:03 Dose: 10 meq Sertraline HCl (Zoloft) 50 mg PO DAILY [facility] Last Admin: 11/04/19 09:03 Dose: 50 mg Sodium Chloride (Saline Flush) 10 ml FLUSH ASDIRECTED PRN PRN Reason: Keep Vein Open Last Admin: 11/03/19 20:14 Dose: 10 ml Trazodone HCl (Trazodone) 50 mg PO BEDTIME PRN PRN Reason: Insomnia Last Admin: 11/03/19 22:35 Dose: 50 mg Discontinued Medications Acetaminophen (Tylenol) 650 mg PO Q4H PRN PRN Reason: Pain (Mild 1-3)/fever Albuterol (Proventil Neb Soln) 2.5 mg NEB Q2H PRN PRN Reason: shortness of breath/wheezing Albuterol/Ipratropium (Duoneb 3.0-0.5 Mg/3 Ml) 3 ml NEB ONETIME ONE Stop: 10/30/19 18:24 Last Admin: 10/30/19 18:43 Dose: 3 ml Albuterol/Ipratropium (Duoneb 3.0-0.5 Mg/3 Ml) 3 ml NEB Q4H [facility] Amlodipine Besylate (Norvasc) 10 mg PO DAILY [facility] Guaifenesin/Phenylephrine HCl (Robitussin Dm) 5 ml PO Q4H PRN PRN Reason: Cough Last Admin: 10/31/19 09:08 Dose: 5 ml Heparin Sodium (Porcine) (Heparin Sodium) 5,000 units SUBCUT Q8HR [facility] Azithromycin 500 mg/ Sodium (Chloride) 250 mls @ 250 mls/hr IV ONETIME ONE Stop: 10/30/19 20:36 Last Admin: 10/30/19 19:57 Dose: 250 mls/hr Sodium Chloride (Normal Saline) 1,000 mls @ 50 mls/hr IV ASDIRECTED [facility] Azithromycin 500 mg/ Sodium (Chloride) 250 mls @ 250 mls/hr IV Q24H [facility] Sodium Chloride (Normal Saline) 1,000 mls @ 50 mls/hr IV ASDIRECTED [facility] Last Infusion: 11/03/19 09:31 Dose: 0 mls/hr Lorazepam (Ativan) 0.5 mg IVPUSH ONETIME ONE Stop: 11/01/19 12:42 Last Admin: 11/01/19 13:01 Dose: 0.5 mg Methylprednisolone Sodium Succinate (Solu-Medrol) 125 mg IVPUSH ONETIME ONE Stop: 10/30/19 19:38 Last Admin: 10/30/19 19:54 Dose: 125 mg Methylprednisolone Sodium Succinate (Solu-Medrol) 40 mg IVPUSH Q8H [facility] Methylprednisolone Sodium Succinate (Solu-Medrol) 40 mg IVPUSH Q8H [facility] Last Admin: 11/01/19 04:10 Dose: 40 mg Methylprednisolone Sodium Succinate (Solu-Medrol) 40 mg IM ONETIME ONE Stop: 11/02/19 11:09 Last Admin: 11/02/19 12:05 Dose: 40 mg Non-Formulary Medication (Amlodipine Besylate [Amlodipine Besylate]) 10 mg PO DAILY [facility] Non-Formulary Medication (Benazepril) 20 mg PO DAILY [facility] Non-Formulary Medication (Budesonide/Formoterol) 1 puff INH BID [facility] Omeprazole (Omeprazole) 20 mg PO DAILY [facility] Omeprazole (Omeprazole) 20 mg PO DAILY [facility] Ondansetron HCl (Zofran) 4 mg IVPUSH Q6H PRN PRN Reason: Nausea/Vomiting Potassium Chloride (Klor-Con 10) 10 meq PO DAILY [facility] Potassium Chloride (Klor-Con 10) 40 meq PO ONETIME ONE Stop: 11/02/19 19:05 Last Admin: 11/02/19 19:44 Dose: 40 meq Prednisone (Prednisone) 40 mg PO WITHBREAKFAST [facility] Prednisone (Prednisone) 40 mg PO WITHBREAKFAST [facility] Last Admin: 11/02/19 09:00 Dose: 40 mg Sertraline HCl (Zoloft) 0.05 mg PO DAILY [facility] Trazodone HCl (Trazodone) 50 mg PO BEDTIME PRN PRN Reason: Insomnia - Exam General: Alert, Oriented HEENT: Pupils Equal, Pupils Reactive, EOMI, Mucous Membr. Moist/[place] Neck: Supple Lungs: Normal Respiratory Effort, Decreased Breath Sounds, Wheezing Cardiovascular: Regular Rate, Regular Rhythm GI/Abdominal Exam: Normal Bowel Sounds, Soft, Non-Tender, No Organomegaly, No Distention, No Abnormal Bruit, No Mass, Pelvis Stable (Female) Exam: Deferred Back Exam: Normal Inspection, Full Range of Motion Extremities: Normal Inspection, Normal Range of Motion, Non-Tender, No Pedal Edema, Normal Capillary Refill Skin: Warm, Dry, Intact Neurological: No New Focal Deficit Psy/Mental Status: Alert, Normal Affect, Normal Mood Sepsis Event Note - Evaluation Sepsis Screening Result: No Definite Risk - Focused Exam Vital Signs: Vital Signs Temp Pulse Resp BP BP BP Pulse Ox 11/04/19 09:05 87 L 11/04/19 09:02 136/91 H 11/04/19 09:01 136/91 H 11/04/19 08:00 98.9 F 86 22 H 136/91 H 93 L 11/04/19 07:26 92 11/03/19 23:49 98.3 F 88 20 137/78 94 L 11/03/19 23:28 92 Pulse Ox 11/04/19 09:05 11/04/19 09:02 11/04/19 09:01 11/04/19 08:00 11/04/19 07:26 11/03/19 23:49 11/03/19 23:28 91 L Date Exam was Performed: 11/04/19 Time Exam was Performed: 10:42 - Problem List Review Problem List Initiated/Reviewed/Updated: Yes - My Orders Last 24 Hours: My Active Orders 11/03/19 09:49 Sodium Chloride 0.9% [Saline Flush] 10 ml FLUSH ASDIRECTED PRN Convert IV to Saline Lock [OM.PC] Routine 11/03/19 13:53 Consult to Physical Therapy [PT Evaluation and Treatment] [CONS] Routine 11/03/19 13:55 OT Evaluation and Treatment [CONS] Routine 11/03/19 15:47 Communication Order [RC] - Plan Plan:: Assessment and Plan Acute hypoxemic respiratory failure Acute exacerbation of COPD This is likely because of COPD exacerbation Patient is wheezy and has poor air entry. - Continue aggressive nebulization with DuoNeb - Continue Solumedrol - Albuterol every 2 hours when necessary - NC/BiPAP for respiratory support as needed - Wean off oxygen as tolerated. Now at 2L. Malnutrition Patient is very cachectic and reports poor appetite and weight loss. - Encourage diet Hypertension Blood pressure is mostly within acceptable limits GERD - Continue proton pump inhibitor Depression/anxiety -Continue Zoloft
[2019-11-04] MEDS: Polyethylene Glycol 3350 Powder 17 GM Packet PO SCH (12:50)
[2019-11-04] MEDS: ALPRAZolam 0.25 MG Tab PO PRN ×2 (13:55→23:51)
[2019-11-04] MEDS: Sodium Chloride 0.9% 10 ML Syringe FLUSH PRN ×2 (20:46→21:54)
[2019-11-04] MEDS: Azithromycin 500 MG in Sodium Chloride 0.9% 250 ML IV SCH (20:47)
[2019-11-04] MEDS: traZODone 50 MG Tab PO PRN (23:51)
[2019-11-05] MEDS: Albuterol/Ipratropium 3.0-0.5 MG/3 ML Neb Soln NEB SCH ×6 (03:11→23:18)
[2019-11-05] MEDS: Heparin Sodium 5,000 Units/ML Vial SUBCUT SCH ×3 (06:27→21:06)
[2019-11-05] MEDS: methylPREDNISolone Sodium Succinate 125 MG/2 ML SDV IM SCH ×4 (06:29→23:36)
[2019-11-05] MEDS: amLODIPine 5 MG Tab PO SCH (09:06)
[2019-11-05] MEDS: Omeprazole 20 MG Cap.CR PO SCH (09:06)
[2019-11-05] MEDS: Sertraline 50 MG Tab PO SCH (09:06)
[2019-11-05] MEDS: Benazepril 10 MG Tab PO SCH (09:07)
[2019-11-05] MEDS: Potassium Chloride 10 MEQ Tab.ER PO SCH (09:07)
[2019-11-05] MEDS: Formoterol/Mometasone 200-5 MCG 8.8 GM Inhaler IH SCH ×2 (09:08→21:05)
[2019-11-05] MEDS: Polyethylene Glycol 3350 Powder 17 GM Packet PO SCH (09:09)
[2019-11-05] MEDS: ALPRAZolam 0.25 MG Tab PO PRN ×2 (13:05→23:22)
--- NOTE | 2019-11-05 17:22 | PCM.PN ---
- General Info Date of Service: 11/05/19 Admission Dx/Problem (Free Text): Admission Diagnosis/Problem Admission Diagnosis/Problem COPD with acute lower respiratory infection Subjective Update: Patient seen and examined. no new complain. She walked about 30 ft by herself and it went well. - Review of Systems General: Reports: No Symptoms HEENT: Reports: No Symptoms Pulmonary: Reports: Shortness of Breath, Cough, Sputum, Wheezing Cardiovascular: Reports: No Symptoms Gastrointestinal: Reports: No Symptoms Genitourinary: Reports: No Symptoms Musculoskeletal: Reports: No Symptoms Skin: Reports: No Symptoms Neurological: Reports: No Symptoms Psychiatric: Reports: No Symptoms - Patient Data Vitals - Most Recent: Last Vital Signs Temp 98.5 F 11/05/19 16:38 Pulse 106 H 11/05/19 16:38 Resp 18 11/05/19 16:38 BP 139/81 11/05/19 16:38 Pulse Ox 95 11/05/19 16:38 Weight - Most Recent: 105 lb I&O - Last 24 Hours: Intake & Output 11/05/19 11/05/19 11/05/19 06:59 14:59 22:59 Intake Total 350 200 Output Total 1100 Balance 350 -900 Cory Results Last 24 Hours: Microbiology 10/30/19 18:34 Aerobic Blood Culture - Final Blood - Venous NO GROWTH AFTER 5 DAYS Anaerobic Blood Culture - Final NO GROWTH AFTER 5 DAYS Med Orders - Current: Current Medications Acetaminophen (Tylenol) 650 mg PO Q4H PRN PRN Reason: Pain (Mild 1-3)/fever Last Admin: 11/01/19 18:14 Dose: 650 mg Albuterol (Proventil Neb Soln) 2.5 mg NEB Q2H PRN PRN Reason: shortness of breath/wheezing Last Admin: 11/05/19 12:01 Dose: 2.5 mg Albuterol/Ipratropium (Duoneb 3.0-0.5 Mg/3 Ml) 3 ml NEB Q4HRRT [facility] Last Admin: 11/05/19 15:43 Dose: 3 ml Alprazolam (Xanax) 0.25 mg PO BID PRN PRN Reason: Anxiety Last Admin: 11/05/19 13:05 Dose: 0.25 mg Amlodipine Besylate (Norvasc) 10 mg PO DAILY [facility] Last Admin: 02/02/20 09:06 Dose: 10 mg Benazepril HCl (Lotensin) 20 mg PO DAILY [facility] Last Admin: 11/05/19 09:07 Dose: 20 mg Guaifenesin/Codeine Phosphate (Robitussin Ac) 5 ml PO Q4H PRN PRN Reason: Cough Last Admin: 11/04/19 11:42 Dose: 5 ml Heparin Sodium (Porcine) (Heparin Sodium) 5,000 units SUBCUT Q8HR [facility] Last Admin: 11/05/19 13:36 Dose: Not Given Azithromycin 500 mg/ Sodium (Chloride) 250 mls @ 250 mls/hr IV Q24H [facility] Last Infusion: 11/04/19 21:53 Dose: Infused Methylprednisolone Sodium Succinate (Solu-Medrol) 125 mg IM Q6HR [facility] Last Admin: 11/05/19 13:05 Dose: 125 mg Mometasone Furoate/Formoterol Fumar (Dulera 200-5 Mcg) 2 puff IH BID [facility] Last Admin: 11/05/19 09:08 Dose: 2 puff Omeprazole (Omeprazole) 20 mg PO DAILY [facility] Last Admin: 11/05/19 09:06 Dose: 20 mg Ondansetron HCl (Zofran) 4 mg IVPUSH Q6H PRN PRN Reason: Nausea/Vomiting Polyethylene Glycol (Miralax) 17 gm PO DAILY [facility] Last Admin: 11/05/19 09:09 Dose: Not Given Potassium Chloride (Klor-Con 10) 10 meq PO DAILY [facility] Last Admin: 11/05/19 09:07 Dose: 10 meq Senna/Docusate Sodium (Senna Plus) 1 tab PO DAILY PRN PRN Reason: Constipation Sertraline HCl (Zoloft) 50 mg PO DAILY [facility] Last Admin: 11/05/19 09:06 Dose: 50 mg Sodium Chloride (Saline Flush) 10 ml FLUSH ASDIRECTED PRN PRN Reason: Keep Vein Open Last Admin: 11/04/19 21:54 Dose: 10 ml Trazodone HCl (Trazodone) 50 mg PO BEDTIME PRN PRN Reason: Insomnia Last Admin: 11/04/19 23:51 Dose: 50 mg Discontinued Medications Acetaminophen (Tylenol) 650 mg PO Q4H PRN PRN Reason: Pain (Mild 1-3)/fever Albuterol (Proventil Neb Soln) 2.5 mg NEB Q2H PRN PRN Reason: shortness of breath/wheezing Albuterol/Ipratropium (Duoneb 3.0-0.5 Mg/3 Ml) 3 ml NEB ONETIME ONE Stop: 10/30/19 18:24 Last Admin: 10/30/19 18:43 Dose: 3 ml Albuterol/Ipratropium (Duoneb 3.0-0.5 Mg/3 Ml) 3 ml NEB Q4H [facility] Amlodipine Besylate (Norvasc) 10 mg PO DAILY [facility] Guaifenesin/Phenylephrine HCl (Robitussin Dm) 5 ml PO Q4H PRN PRN Reason: Cough Last Admin: 10/31/19 09:08 Dose: 5 ml Heparin Sodium (Porcine) (Heparin Sodium) 5,000 units SUBCUT Q8HR [facility] Azithromycin 500 mg/ Sodium (Chloride) 250 mls @ 250 mls/hr IV ONETIME ONE Stop: 10/30/19 20:36 Last Admin: 10/30/19 19:57 Dose: 250 mls/hr Sodium Chloride (Normal Saline) 1,000 mls @ 50 mls/hr IV ASDIRECTED [facility] Azithromycin 500 mg/ Sodium (Chloride) 250 mls @ 250 mls/hr IV Q24H [facility] Sodium Chloride (Normal Saline) 1,000 mls @ 50 mls/hr IV ASDIRECTED [facility] Last Infusion: 11/03/19 09:31 Dose: 0 mls/hr Lorazepam (Ativan) 0.5 mg IVPUSH ONETIME ONE Stop: 11/01/19 12:42 Last Admin: 11/01/19 13:01 Dose: 0.5 mg Methylprednisolone Sodium Succinate (Solu-Medrol) 125 mg IVPUSH ONETIME ONE Stop: 10/30/19 19:38 Last Admin: 10/30/19 19:54 Dose: 125 mg Methylprednisolone Sodium Succinate (Solu-Medrol) 40 mg IVPUSH Q8H [facility] Methylprednisolone Sodium Succinate (Solu-Medrol) 40 mg IVPUSH Q8H [facility] Last Admin: 11/01/19 04:10 Dose: 40 mg Methylprednisolone Sodium Succinate (Solu-Medrol) 40 mg IM ONETIME ONE Stop: 11/02/19 11:09 Last Admin: 11/02/19 12:05 Dose: 40 mg Non-Formulary Medication (Amlodipine Besylate [Amlodipine Besylate]) 10 mg PO DAILY [facility] Non-Formulary Medication (Benazepril) 20 mg PO DAILY [facility] Non-Formulary Medication (Budesonide/Formoterol) 1 puff INH BID [facility] Omeprazole (Omeprazole) 20 mg PO DAILY [facility] Omeprazole (Omeprazole) 20 mg PO DAILY [facility] Ondansetron HCl (Zofran) 4 mg IVPUSH Q6H PRN PRN Reason: Nausea/Vomiting Potassium Chloride (Klor-Con 10) 10 meq PO DAILY [facility] Potassium Chloride (Klor-Con 10) 40 meq PO ONETIME ONE Stop: 11/02/19 19:05 Last Admin: 11/02/19 19:44 Dose: 40 meq Prednisone (Prednisone) 40 mg PO WITHBREAKFAST [facility] Prednisone (Prednisone) 40 mg PO WITHBREAKFAST [facility] Last Admin: 11/02/19 09:00 Dose: 40 mg Sertraline HCl (Zoloft) 0.05 mg PO DAILY [facility] Trazodone HCl (Trazodone) 50 mg PO BEDTIME PRN PRN Reason: Insomnia - Exam General: Alert, Oriented HEENT: Pupils Equal, Pupils Reactive, EOMI, Mucous Membr. Moist/[place] Neck: Supple Lungs: Decreased Breath Sounds, Wheezing Cardiovascular: Regular Rate, Regular Rhythm GI/Abdominal Exam: Normal Bowel Sounds, Soft, Non-Tender, No Organomegaly, No Distention, No Abnormal Bruit, No Mass, Pelvis Stable (Female) Exam: Deferred Back Exam: Normal Inspection, Full Range of Motion Extremities: Normal Inspection, Normal Range of Motion, Non-Tender, No Pedal Edema, Normal Capillary Refill Skin: Warm, Dry, Intact Neurological: No New Focal Deficit Psy/Mental Status: Alert, Normal Affect, Normal Mood Sepsis Event Note - Evaluation Sepsis Screening Result: Sepsis Risk - Focused Exam Vital Signs: Vital Signs Temp Pulse Resp BP BP Pulse Ox Pulse Ox 11/05/19 16:38 98.5 F 106 H 18 139/81 95 11/05/19 15:41 98 92 L 11/05/19 15:00 94 L 11/05/19 11:33 99.9 F 102 H 20 140/70 94 L 11/05/19 09:24 98 93 L 11/05/19 09:07 128/78 11/05/19 09:06 128/82 11/05/19 08:13 98.4 F 77 22 H 128/82 97 Date Exam was Performed: 11/05/19 Time Exam was Performed: 17:24 - Problem List Review Problem List Initiated/Reviewed/Updated: Yes - Plan Plan:: Assessment and Plan Acute hypoxemic respiratory failure Acute exacerbation of COPD This is likely because of COPD exacerbation Patient is wheezy and has poor air entry. - Continue aggressive nebulization with DuoNeb - Continue Solumedrol - Albuterol every 2 hours when necessary - Wean off oxygen as tolerated. Now at 2L. hope to wean off in next couple days. Malnutrition Patient is very cachectic and reports poor appetite and weight loss. - Encourage diet Hypertension Blood pressure is mostly within acceptable limits GERD - Continue proton pump inhibitor Depression/anxiety -Continue Zoloft
[2019-11-05] MEDS: Codeine/guaiFENesin 100-10 MG/5 ML Syrup 5 ML Cup PO PRN (18:15)
[2019-11-05] MEDS: Sodium Chloride 0.9% 10 ML Syringe FLUSH PRN ×2 (21:00→22:12)
[2019-11-05] MEDS: Azithromycin 500 MG in Sodium Chloride 0.9% 250 ML IV SCH (21:01)
[2019-11-05] MEDS: traZODone 50 MG Tab PO PRN (23:19)
[2019-11-06] MEDS: Albuterol/Ipratropium 3.0-0.5 MG/3 ML Neb Soln NEB SCH ×6 (03:10→23:22)
[2019-11-06] MEDS: Heparin Sodium 5,000 Units/ML Vial SUBCUT SCH ×3 (06:28→21:20)
[2019-11-06] MEDS: methylPREDNISolone Sodium Succinate 125 MG/2 ML SDV IM SCH ×4 (06:33→23:22)
[2019-11-06] MEDS: Potassium Chloride 10 MEQ Tab.ER PO SCH (09:03)
[2019-11-06] MEDS: Omeprazole 20 MG Cap.CR PO SCH (09:03)
[2019-11-06] MEDS: Benazepril 10 MG Tab PO SCH (09:03)
[2019-11-06] MEDS: amLODIPine 5 MG Tab PO SCH (09:04)
[2019-11-06] MEDS: Sertraline 50 MG Tab PO SCH (09:04)
[2019-11-06] MEDS: Polyethylene Glycol 3350 Powder 17 GM Packet PO SCH (09:05)
[2019-11-06] MEDS: Formoterol/Mometasone 200-5 MCG 8.8 GM Inhaler IH SCH ×2 (09:05→20:40)
--- NOTE | 2019-11-06 12:09 | PCM.PN ---
- General Info Date of Service: 11/06/19 Admission Dx/Problem (Free Text): Admission Diagnosis/Problem Admission Diagnosis/Problem COPD with acute lower respiratory infection Subjective Update: Patient seen and examined. No new complain. She is optimistic about getting off oxygen today. Now on 1-2 L. Functional Status: Reports: Pain Controlled - Review of Systems General: Reports: No Symptoms HEENT: Reports: No Symptoms Pulmonary: Reports: Shortness of Breath, Cough Cardiovascular: Reports: No Symptoms Gastrointestinal: Reports: No Symptoms Genitourinary: Reports: No Symptoms Musculoskeletal: Reports: No Symptoms Skin: Reports: No Symptoms Neurological: Reports: No Symptoms Psychiatric: Reports: No Symptoms - Patient Data Vitals - Most Recent: Last Vital Signs Temp 100 F 11/06/19 11:52 Pulse 92 11/06/19 11:52 Resp 22 H 11/06/19 11:52 BP 133/71 11/06/19 11:52 Pulse Ox 95 11/06/19 11:52 Weight - Most Recent: 105 lb I&O - Last 24 Hours: Intake & Output 11/05/19 11/06/19 11/06/19 22:59 06:59 14:59 Intake Total 431 700 120 Output Total 700 Balance 431 0 120 Med Orders - Current: Current Medications Acetaminophen (Tylenol) 650 mg PO Q4H PRN PRN Reason: Pain (Mild 1-3)/fever Last Admin: 11/01/19 18:14 Dose: 650 mg Albuterol (Proventil Neb Soln) 2.5 mg NEB Q2H PRN PRN Reason: shortness of breath/wheezing Last Admin: 11/05/19 12:01 Dose: 2.5 mg Albuterol/Ipratropium (Duoneb 3.0-0.5 Mg/3 Ml) 3 ml NEB Q4HRRT [facility] Last Admin: 11/06/19 11:51 Dose: 3 ml Alprazolam (Xanax) 0.25 mg PO BID PRN PRN Reason: Anxiety Last Admin: 11/05/19 23:22 Dose: 0.25 mg Amlodipine Besylate (Norvasc) 10 mg PO DAILY [facility] Last Admin: 11/06/19 09:04 Dose: 10 mg Benazepril HCl (Lotensin) 20 mg PO DAILY [facility] Last Admin: 11/06/19 09:03 Dose: 20 mg Guaifenesin/Codeine Phosphate (Robitussin Ac) 5 ml PO Q4H PRN PRN Reason: Cough Last Admin: 11/05/19 18:15 Dose: 5 ml Heparin Sodium (Porcine) (Heparin Sodium) 5,000 units SUBCUT Q8HR [facility] Last Admin: 11/06/19 06:28 Dose: Not Given Azithromycin 500 mg/ Sodium (Chloride) 250 mls @ 250 mls/hr IV Q24H [facility] Last Infusion: 11/05/19 22:10 Dose: Infused Methylprednisolone Sodium Succinate (Solu-Medrol) 125 mg IM Q6HR [facility] Last Admin: 11/06/19 11:51 Dose: 125 mg Mometasone Furoate/Formoterol Fumar (Dulera 200-5 Mcg) 2 puff IH BID [facility] Last Admin: 11/06/19 09:05 Dose: 2 puff Omeprazole (Omeprazole) 20 mg PO DAILY [facility] Last Admin: 11/06/19 09:03 Dose: 20 mg Ondansetron HCl (Zofran) 4 mg IVPUSH Q6H PRN PRN Reason: Nausea/Vomiting Polyethylene Glycol (Miralax) 17 gm PO DAILY [facility] Last Admin: 11/06/19 09:05 Dose: Not Given Potassium Chloride (Klor-Con 10) 10 meq PO DAILY [facility] Last Admin: 11/06/19 09:03 Dose: 10 meq Senna/Docusate Sodium (Senna Plus) 1 tab PO DAILY PRN PRN Reason: Constipation Sertraline HCl (Zoloft) 50 mg PO DAILY [facility] Last Admin: 11/06/19 09:04 Dose: 50 mg Sodium Chloride (Saline Flush) 10 ml FLUSH ASDIRECTED PRN PRN Reason: Keep Vein Open Last Admin: 11/05/19 22:12 Dose: 10 ml Trazodone HCl (Trazodone) 50 mg PO BEDTIME PRN PRN Reason: Insomnia Last Admin: 11/05/19 23:19 Dose: 50 mg Discontinued Medications Acetaminophen (Tylenol) 650 mg PO Q4H PRN PRN Reason: Pain (Mild 1-3)/fever Albuterol (Proventil Neb Soln) 2.5 mg NEB Q2H PRN PRN Reason: shortness of breath/wheezing Albuterol/Ipratropium (Duoneb 3.0-0.5 Mg/3 Ml) 3 ml NEB ONETIME ONE Stop: 10/30/19 18:24 Last Admin: 10/30/19 18:43 Dose: 3 ml Albuterol/Ipratropium (Duoneb 3.0-0.5 Mg/3 Ml) 3 ml NEB Q4H [facility] Amlodipine Besylate (Norvasc) 10 mg PO DAILY [facility] Guaifenesin/Phenylephrine HCl (Robitussin Dm) 5 ml PO Q4H PRN PRN Reason: Cough Last Admin: 10/31/19 09:08 Dose: 5 ml Heparin Sodium (Porcine) (Heparin Sodium) 5,000 units SUBCUT Q8HR [facility] Azithromycin 500 mg/ Sodium (Chloride) 250 mls @ 250 mls/hr IV ONETIME ONE Stop: 10/30/19 20:36 Last Admin: 10/30/19 19:57 Dose: 250 mls/hr Sodium Chloride (Normal Saline) 1,000 mls @ 50 mls/hr IV ASDIRECTED [facility] Azithromycin 500 mg/ Sodium (Chloride) 250 mls @ 250 mls/hr IV Q24H [facility] Sodium Chloride (Normal Saline) 1,000 mls @ 50 mls/hr IV ASDIRECTED [facility] Last Infusion: 11/03/19 09:31 Dose: 0 mls/hr Lorazepam (Ativan) 0.5 mg IVPUSH ONETIME ONE Stop: 11/01/19 12:42 Last Admin: 11/01/19 13:01 Dose: 0.5 mg Methylprednisolone Sodium Succinate (Solu-Medrol) 125 mg IVPUSH ONETIME ONE Stop: 10/30/19 19:38 Last Admin: 10/30/19 19:54 Dose: 125 mg Methylprednisolone Sodium Succinate (Solu-Medrol) 40 mg IVPUSH Q8H [facility] Methylprednisolone Sodium Succinate (Solu-Medrol) 40 mg IVPUSH Q8H [facility] Last Admin: 11/01/19 04:10 Dose: 40 mg Methylprednisolone Sodium Succinate (Solu-Medrol) 40 mg IM ONETIME ONE Stop: 11/02/19 11:09 Last Admin: 11/02/19 12:05 Dose: 40 mg Non-Formulary Medication (Amlodipine Besylate [Amlodipine Besylate]) 10 mg PO DAILY [facility] Non-Formulary Medication (Benazepril) 20 mg PO DAILY [facility] Non-Formulary Medication (Budesonide/Formoterol) 1 puff INH BID [facility] Omeprazole (Omeprazole) 20 mg PO DAILY [facility] Omeprazole (Omeprazole) 20 mg PO DAILY [facility] Ondansetron HCl (Zofran) 4 mg IVPUSH Q6H PRN PRN Reason: Nausea/Vomiting Potassium Chloride (Klor-Con 10) 10 meq PO DAILY [facility] Potassium Chloride (Klor-Con 10) 40 meq PO ONETIME ONE Stop: 11/02/19 19:05 Last Admin: 11/02/19 19:44 Dose: 40 meq Prednisone (Prednisone) 40 mg PO WITHBREAKFAST [facility] Prednisone (Prednisone) 40 mg PO WITHBREAKFAST [facility] Last Admin: 11/02/19 09:00 Dose: 40 mg Sertraline HCl (Zoloft) 0.05 mg PO DAILY [facility] Trazodone HCl (Trazodone) 50 mg PO BEDTIME PRN PRN Reason: Insomnia - Exam Quality Assessment: Supplemental Oxygen General: Alert, Oriented HEENT: Pupils Equal, Pupils Reactive, EOMI, Mucous Membr. Moist/[place] Neck: Supple Lungs: Normal Respiratory Effort, Crackles (Very mild) Cardiovascular: Regular Rate, Regular Rhythm GI/Abdominal Exam: Normal Bowel Sounds, Soft, Non-Tender, No Organomegaly, No Distention, No Abnormal Bruit, No Mass, Pelvis Stable (Female) Exam: Deferred Back Exam: Normal Inspection, Full Range of Motion Extremities: Normal Inspection, Normal Range of Motion, Non-Tender, No Pedal Edema, Normal Capillary Refill Skin: Warm, Dry, Intact Wound/Incisions: Other Neurological: No New Focal Deficit Psy/Mental Status: Alert, Normal Affect, Normal Mood Sepsis Event Note - Evaluation Sepsis Screening Result: No Definite Risk - Focused Exam Vital Signs: Vital Signs Temp Pulse Resp BP BP Pulse Ox Pulse Ox 11/06/19 11:52 100 F 92 22 H 133/71 95 11/06/19 11:00 98 91 L 11/06/19 09:04 132/70 11/06/19 09:03 132/70 11/06/19 07:52 99.1 F 76 22 H 132/70 97 Date Exam was Performed: 11/06/19 Time Exam was Performed: 12:04 - Problem List Review Problem List Initiated/Reviewed/Updated: Yes - Plan Plan:: Assessment and Plan Acute hypoxemic respiratory failure Acute exacerbation of COPD - Continue aggressive nebulization with DuoNeb - Continue Solumedrol - Albuterol every 2 hours when necessary - Wean off oxygen as tolerated. Now at 1-2L. Hope to wean off today. Malnutrition Patient is very cachectic and reports poor appetite and weight loss. - Encourage diet - Appetite improving Hypertension Blood pressure is mostly within acceptable limits GERD - Continue proton pump inhibitor Depression/anxiety -Continue Zoloft
[2019-11-06] MEDS: Azithromycin 500 MG in Sodium Chloride 0.9% 250 ML IV SCH (20:08)
[2019-11-06] MEDS: traZODone 50 MG Tab PO PRN (23:23)
[2019-11-07] MEDS: ALPRAZolam 0.25 MG Tab PO PRN (01:01)
[2019-11-07] MEDS: Albuterol/Ipratropium 3.0-0.5 MG/3 ML Neb Soln NEB SCH ×4 (05:49→15:57)
[2019-11-07] MEDS: Heparin Sodium 5,000 Units/ML Vial SUBCUT SCH ×2 (06:03→13:55)
[2019-11-07] MEDS: methylPREDNISolone Sodium Succinate 125 MG/2 ML SDV IM SCH ×2 (06:04→12:56)
[2019-11-07] MEDS: amLODIPine 5 MG Tab PO SCH (08:53)
[2019-11-07] MEDS: Potassium Chloride 10 MEQ Tab.ER PO SCH (08:53)
[2019-11-07] MEDS: Sertraline 50 MG Tab PO SCH (08:54)
[2019-11-07] MEDS: Benazepril 10 MG Tab PO SCH (08:54)
[2019-11-07] MEDS: Omeprazole 20 MG Cap.CR PO SCH (08:54)
[2019-11-07] MEDS: Polyethylene Glycol 3350 Powder 17 GM Packet PO SCH (08:55)
[2019-11-07] MEDS: Formoterol/Mometasone 200-5 MCG 8.8 GM Inhaler IH SCH (08:55)
--- NOTE | 2019-11-07 12:18 | PCM.DCSUM1 ---
Discharge Summary - Hospital Course Free Text/Narrative:: Gladys Barr is a 69-year-old female with medical history of depression, gastroesophageal reflux disease, COPD, and anxiety disorder. She was admitted with shortness of breath, wheezing and productive cough that had been getting worse for a week. Patient was hypoxic and required up to 6 L of oxygen by NC, and BiPAP occasionally. She improved with IV Solumedrol, aggressive DuoNebs and albuterol therapies. Her hypoxia was quite difficult in attempts to wean her off oxygen. A walking desaturation test at discharge showed she requires 2L of oxygen with activity due to desaturations as low as 85%. She will be sent home on a prednisone taper and home O2. Discharge diagnoses Acute hypoxemic respiratory failure Acute exacerbation of COPD Malnutrition Hypertension GERD Depression/anxiety - Discharge Data Discharge Date: 11/07/19 Discharge Disposition: Home, Self-Care 01 Condition: Stable - Referral to Home Health Primary Care Physician: Nava Lopez MD - Patient Summary/Data Consults: Consultations 11/03/19 13:53 Consult to Physical Therapy [PT Evaluation and Treatment] [CONS] Routine 11/03/19 13:55 OT Evaluation and Treatment [CONS] Routine - Discharge Plan *PRESCRIPTION DRUG MONITORING PROGRAM REVIEWED*: Not Applicable *COPY OF PRESCRIPTION DRUG MONITORING REPORT IN PATIENT COLLIN: Not Applicable Prescriptions/Med Rec: predniSONE [Prednisone] See Taper PO DAILY 15 Days tablet Home Medications: Home Meds Benazepril HCl 20 mg PO DAILY 10/02/13 [History] amLODIPine Besylate [Amlodipine Besylate] 10 mg PO DAILY 10/02/13 [History] traZODone 50 mg PO BEDTIME PRN 03/25/16 [History] Albuterol/Ipratropium [DuoNeb 3.0-0.5 MG/3 ML] 3 ml NEB TID PRN 10/13/17 [ History] Potassium Chloride [Klor-Con 10] 10 meq PO DAILY 11/08/18 [History] Budesonide/Formoterol [Symbicort 160-4.5 MCG] 1 puff INH BID 01/05/19 [History] Omeprazole 20 mg PO DAILY 05/23/19 [History] Sertraline HCl 50 mcg PO DAILY 05/23/19 [History] predniSONE [Prednisone] See Taper PO DAILY 15 Days tablet 11/07/19 [Rx] Oxygen Therapy Mode: Nasal Cannula Patient Handouts: Chronic Obstructive Pulmonary Disease Exacerbation, Easy-to- Read, Home Oxygen Use, Adult, Community-Acquired Pneumonia, Adult, [id number] Referrals: Nava Lopez MD [Primary Care Provider] - - Discharge Summary/Plan Comment DC Time >30 min.: Yes - Patient Data Vitals - Most Recent: Last Vital Signs Temp 97.7 F 11/07/19 07:00 Pulse 105 H 11/07/19 11:00 Resp 20 11/07/19 07:00 BP 144/84 H 11/07/19 08:54 Pulse Ox 90 L 11/07/19 11:00 Weight - Most Recent: 105 lb I&O - Last 24 hours: Intake & Output 11/06/19 11/07/19 11/07/19 22:59 06:59 14:59 Intake Total 540 120 Output Total 600 200 Balance -60 -200 120 Med Orders - Current: Current Medications Acetaminophen (Tylenol) 650 mg PO Q4H PRN PRN Reason: Pain (Mild 1-3)/fever Last Admin: 11/01/19 18:14 Dose: 650 mg Albuterol (Proventil Neb Soln) 2.5 mg NEB Q2H PRN PRN Reason: shortness of breath/wheezing Last Admin: 11/05/19 12:01 Dose: 2.5 mg Albuterol/Ipratropium (Duoneb 3.0-0.5 Mg/3 Ml) 3 ml NEB Q4HRRT [facility] Last Admin: 11/07/19 11:26 Dose: 3 ml Alprazolam (Xanax) 0.25 mg PO BID PRN PRN Reason: Anxiety Last Admin: 11/07/19 01:01 Dose: 0.25 mg Amlodipine Besylate (Norvasc) 10 mg PO DAILY [facility] Last Admin: 11/07/19 08:53 Dose: 10 mg Benazepril HCl (Lotensin) 20 mg PO DAILY [facility] Last Admin: 11/07/19 08:54 Dose: 20 mg Guaifenesin/Codeine Phosphate (Robitussin Ac) 5 ml PO Q4H PRN PRN Reason: Cough Last Admin: 11/05/19 18:15 Dose: 5 ml Heparin Sodium (Porcine) (Heparin Sodium) 5,000 units SUBCUT Q8HR [facility] Last Admin: 11/07/19 06:03 Dose: Not Given Azithromycin 500 mg/ Sodium (Chloride) 250 mls @ 250 mls/hr IV Q24H [facility] Last Admin: 11/06/19 20:08 Dose: 250 mls/hr Methylprednisolone Sodium Succinate (Solu-Medrol) 125 mg IM Q6HR [facility] Last Admin: 11/07/19 06:04 Dose: 125 mg Mometasone Furoate/Formoterol Fumar (Dulera 200-5 Mcg) 2 puff IH BID [facility] Last Admin: 11/07/19 08:55 Dose: 2 puff Omeprazole (Omeprazole) 20 mg PO DAILY [facility] Last Admin: 11/07/19 08:54 Dose: 20 mg Ondansetron HCl (Zofran) 4 mg IVPUSH Q6H PRN PRN Reason: Nausea/Vomiting Polyethylene Glycol (Miralax) 17 gm PO DAILY [facility] Last Admin: 11/07/19 08:55 Dose: Not Given Potassium Chloride (Klor-Con 10) 10 meq PO DAILY [facility] Last Admin: 11/07/19 08:53 Dose: 10 meq Senna/Docusate Sodium (Senna Plus) 1 tab PO DAILY PRN PRN Reason: Constipation Sertraline HCl (Zoloft) 50 mg PO DAILY [facility] Last Admin: 11/07/19 08:54 Dose: 50 mg Sodium Chloride (Saline Flush) 10 ml FLUSH ASDIRECTED PRN PRN Reason: Keep Vein Open Last Admin: 11/05/19 22:12 Dose: 10 ml Trazodone HCl (Trazodone) 50 mg PO BEDTIME PRN PRN Reason: Insomnia Last Admin: 11/06/19 23:23 Dose: 50 mg Discontinued Medications Acetaminophen (Tylenol) 650 mg PO Q4H PRN PRN Reason: Pain (Mild 1-3)/fever Albuterol (Proventil Neb Soln) 2.5 mg NEB Q2H PRN PRN Reason: shortness of breath/wheezing Albuterol/Ipratropium (Duoneb 3.0-0.5 Mg/3 Ml) 3 ml NEB ONETIME ONE Stop: 10/30/19 18:24 Last Admin: 10/30/19 18:43 Dose: 3 ml Albuterol/Ipratropium (Duoneb 3.0-0.5 Mg/3 Ml) 3 ml NEB Q4H [facility] Amlodipine Besylate (Norvasc) 10 mg PO DAILY [facility] Guaifenesin/Phenylephrine HCl (Robitussin Dm) 5 ml PO Q4H PRN PRN Reason: Cough Last Admin: 10/31/19 09:08 Dose: 5 ml Heparin Sodium (Porcine) (Heparin Sodium) 5,000 units SUBCUT Q8HR [facility] Azithromycin 500 mg/ Sodium (Chloride) 250 mls @ 250 mls/hr IV ONETIME ONE Stop: 10/30/19 20:36 Last Admin: 10/30/19 19:57 Dose: 250 mls/hr Sodium Chloride (Normal Saline) 1,000 mls @ 50 mls/hr IV ASDIRECTED [facility] Azithromycin 500 mg/ Sodium (Chloride) 250 mls @ 250 mls/hr IV Q24H [facility] Sodium Chloride (Normal Saline) 1,000 mls @ 50 mls/hr IV ASDIRECTED [facility] Last Infusion: 11/03/19 09:31 Dose: 0 mls/hr Lorazepam (Ativan) 0.5 mg IVPUSH ONETIME ONE Stop: 11/01/19 12:42 Last Admin: 11/01/19 13:01 Dose: 0.5 mg Methylprednisolone Sodium Succinate (Solu-Medrol) 125 mg IVPUSH ONETIME ONE Stop: 10/30/19 19:38 Last Admin: 10/30/19 19:54 Dose: 125 mg Methylprednisolone Sodium Succinate (Solu-Medrol) 40 mg IVPUSH Q8H [facility] Methylprednisolone Sodium Succinate (Solu-Medrol) 40 mg IVPUSH Q8H [facility] Last Admin: 11/01/19 04:10 Dose: 40 mg Methylprednisolone Sodium Succinate (Solu-Medrol) 40 mg IM ONETIME ONE Stop: 11/02/19 11:09 Last Admin: 11/02/19 12:05 Dose: 40 mg Non-Formulary Medication (Amlodipine Besylate [Amlodipine Besylate]) 10 mg PO DAILY [facility] Non-Formulary Medication (Benazepril) 20 mg PO DAILY [facility] Non-Formulary Medication (Budesonide/Formoterol) 1 puff INH BID [facility] Omeprazole (Omeprazole) 20 mg PO DAILY [facility] Omeprazole (Omeprazole) 20 mg PO DAILY [facility] Ondansetron HCl (Zofran) 4 mg IVPUSH Q6H PRN PRN Reason: Nausea/Vomiting Potassium Chloride (Klor-Con 10) 10 meq PO DAILY [facility] Potassium Chloride (Klor-Con 10) 40 meq PO ONETIME ONE Stop: 11/02/19 19:05 Last Admin: 11/02/19 19:44 Dose: 40 meq Prednisone (Prednisone) 40 mg PO WITHBREAKFAST [facility] Prednisone (Prednisone) 40 mg PO WITHBREAKFAST [facility] Last Admin: 11/02/19 09:00 Dose: 40 mg Sertraline HCl (Zoloft) 0.05 mg PO DAILY [facility] Trazodone HCl (Trazodone) 50 mg PO BEDTIME PRN PRN Reason: Insomnia
[2019-11-07 12:59] VITALS: BP 141/77; PULSE 110
== END 2019-11-07 16:00 | disposition home or self-care (01) | DRG 190 ==
LOC: DL.ED 18:09 → DL.MS 19:50 → DL.ED 20:05
PROVIDERS: ADMIT Hospitalist; ATTEND Internal Medicine
DX: J44.1 Chronic obstructive pulmonary disease with (acute) exacerbation (principal); J18.9 Pneumonia, unspecified organism; J96.01 Acute respiratory failure with hypoxia; E46 Unspecified protein-calorie malnutrition; H54.7 Unspecified visual loss; Z68.1 Body mass index [BMI] 19.9 or less, adult; J44.0 Chronic obstructive pulmonary disease with (acute) lower respiratory infection; Z87.01 Personal history of pneumonia (recurrent); Z96.652 Presence of left artificial knee joint; N28.9 Disorder of kidney and ureter, unspecified; M41.9 Scoliosis, unspecified; F51.04 Psychophysiologic insomnia; H40.9 Unspecified glaucoma; F32.9 Major depressive disorder, single episode, unspecified; K21.9 Gastro-esophageal reflux disease without esophagitis; F41.9 Anxiety disorder, unspecified; H91.90 Unspecified hearing loss, unspecified ear; I10 Essential (primary) hypertension; E78.00 Pure hypercholesterolemia, unspecified; G47.00 Insomnia, unspecified; Z98.49 Cataract extraction status, unspecified eye; Z90.49 Acquired absence of other specified parts of digestive tract; Z98.890 Other specified postprocedural states; Z87.891 Personal history of nicotine dependence; Z99.81 Dependence on supplemental oxygen; Z79.51 Long term (current) use of inhaled steroids; Z79.899 Other long term (current) drug therapy; Z88.0 Allergy status to penicillin
CPT/HCPCS: 36415; 71045; 80048; 80053; 82150; 83605; 83690; 83735; 83880; 84145; 84484; 85025; 85027; 87040; 94618; 94640; 94660; 97116-GP; 97162-GP; 97165-GO; 97530-GO; 99284; 99285-25; A9270-GY; J0456; J2060; J2920; J2930; J7030; J7050; J7613-GY; J7620-GY

== ENCOUNTER 2019-12-17 22:45 | Emergency (ER) | payer MEDICARE, MEDICAID ==
[2019-12-17] MEDS ORDERED: Acetaminophen/HYDROcodone 325-5 MG Tab PO ONE (22:46)
--- NOTE | 2019-12-17 22:54 | EDM.PDOC ---
ED HPI GENERAL MEDICAL PROBLEM - General Chief Complaint: Upper Extremity Injury/Pain Stated Complaint: FELL INJURY TO LEFT ARM Time Seen by Provider: 12/17/19 22:53 Source of Information: Reports: Patient History Limitations: Reports: No Limitations - History of Present Illness INITIAL COMMENTS - FREE TEXT/NARRATIVE: ED with c/o pain to left wrist, fell in apartment building parking lot approximately 20 minutes ago. Swelling to left wrist. No loss of consciousness. Right Wrist Pain Score (Numeric/FACES): 10 - Related Data Allergies Allergy/AdvReac Type Severity Reaction Status Date / Time Penicillins Allergy Intermediate Hives Verified 12/17/19 22:52 Home Meds: Home Meds Benazepril HCl 10 mg PO DAILY 10/02/13 [History] amLODIPine Besylate [Amlodipine Besylate] 20 mg PO DAILY 10/02/13 [History] traZODone 50 mg PO BEDTIME PRN 03/25/16 [History] Albuterol/Ipratropium [DuoNeb 3.0-0.5 MG/3 ML] 3 ml NEB TID PRN 10/13/17 [ History] Potassium Chloride [Klor-Con 10] 10 meq PO DAILY 11/08/18 [History] Budesonide/Formoterol [Symbicort 160-4.5 MCG] 1 puff INH BID 01/05/19 [History] Omeprazole 20 mg PO DAILY 05/23/19 [History] Sertraline HCl 50 mcg PO DAILY 05/23/19 [History] Past Medical History HEENT History: Reports: Glaucoma, Impaired Vision Other HEENT History: glasses Cardiovascular History: Reports: High Cholesterol, Hypertension Other Cardiovascular History: pt denies high cholesterol Respiratory History: Reports: Bronchitis, Recurrent, COPD, Pneumonia, Recurrent , SOB Gastrointestinal History: Reports: None, GERD Genitourinary History: Reports: Renal Disease 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 LEFT WRIST FRACTURE 1989. LATERAL MALLEOULUS 1990. CLAVICLE FX AGE 8. PELVIC FRACTURE 12/2018 Neurological History: Reports: Other (See Below) Other Neuro History: CHRONIC INSOMNIA Psychiatric History: Reports: Anxiety, Depression Endocrine/Metabolic History: Reports: None Hematologic History: Reports: None Immunologic History: Reports: None Oncologic (Cancer) History: Reports: None Dermatologic History: Reports: None - Infectious Disease History Infectious Disease History: Reports: None, Chicken Pox - Past Surgical History Head Surgeries/Procedures: Reports: None HEENT Surgical History: Reports: Cataract Surgery Other HEENT Surgeries/Procedures: CATARACT SURGERY 2018 Cardiovascular Surgical History: Reports: None Respiratory Surgical History: Reports: None GI Surgical History: Reports: Appendectomy, Cholecystectomy Female Surgical History: Reports: None Endocrine Surgical History: Reports: None Neurological Surgical History: Reports: None Musculoskeletal Surgical History: Reports: Knee Replacement Other Musculoskeletal Surgeries/Procedures:: TOTAL LEFT KNEE REPLACEMENT. RIGHT WRIST SURGERY Oncologic Surgical History: Reports: None Social & Family History - Family History Family Medical History: Noncontributory - Caffeine Use Caffeine Use: Reports: Coffee Caffeine Use Comment: 3 cups/day - Living Situation & Occupation Living situation: Reports: Single, Alone Occupation: Retired Review of Systems - Review of Systems Review Of Systems: Comprehensive ROS is negative, except as noted in HPI. ED EXAM, GENERAL - Physical Exam Exam: See Below Exam Limited By: No Limitations General Appearance: Alert, Thin Eye Exam: Bilateral Eye: PERRL Ears: Normal External Exam, Hearing Loss Throat/Mouth: Normal Inspection Neck: Normal Inspection Respiratory/Chest: No Respiratory Distress Extremities: Joint Swelling (left wrist) Neurological: Alert, Oriented, Normal Cognition Psychiatric: Normal Affect Skin Exam: Warm, Dry, Intact, Ecchymosis (left wrist) ED TRAUMA EXTREMITY PROCEDURES - Splinting Left Upper Extremity Pre-Procedure NV Status: Normal Post-Procedure NV Status: Normal Splint Material: Fiberglass Splint Design: Gutter, Sling Applied & Form Fitted By: Provider Provider Post-Splint Application NV Check: NV Status Normal Complications: No Course - Vital Signs Last Recorded V/S: Last Vital Signs Temp 96.4 F L 12/17/19 22:54 Pulse 102 H 12/17/19 22:54 Resp 24 H 12/17/19 22:54 BP 115/86 12/17/19 22:54 Pulse Ox 98 12/17/19 22:54 - Orders/Labs/Meds Meds: Medications Discontinued Medications Generic Name Dose Route Start Last Admin Trade Name Freq PRN Reason Stop Dose Admin Hydrocodone Bitart/Acetaminophen 1 tab 12/17/19 23:19 12/17/19 23:28 [place] 325-5 Mg PO 12/17/19 23:20 1 tab ONETIME ONE Administration Hydrocodone Bitart/Acetaminophen Confirm 12/17/19 23:42 [place] 325-5 Mg Administered 12/17/19 23:43 Dose 2 tab .ROUTE .[facility] - Radiology Interpretation Free Text/Narrative:: [facility] [place] [facility] Final Radiology Report Call: [phone] assistance Online chat: [email or web address] Name: YOMAIRA YANCEY Age: 69Years F Date: 12/17/2019 SSN: -- : 1950 Study: XR WRIST 1 OR 2 VIEWS LEFT Requesting Physician: BRENNAN DE JESUS Images: 2 Addl Studies: Provided Clinical History: Contrast: Contrast Medium: Contrast Amount: Contrast Method: CONFIDENTIALITY STATEMENT This report is intended only for use by the referring physician, and only in accordance with law. If you received this in error, call [phone]. Page 1 of 1 PROCEDURE INFORMATION: Exam: XR Left Wrist Exam date and time: 12/17/2019 11:11 PM Age: 69 years old Clinical indication: Other: Fall/pain TECHNIQUE: Imaging protocol: XR Left wrist. Views: 1 or 2 views. COMPARISON: No relevant prior studies available. FINDINGS: Bones/joints: The bones are demineralized. There is an acute comminuted fracture oriented transversely across the distal metaphysis of the radius. The fracture is angulated by about 40 degrees, apex directed volarly, with some fracture impaction dorsally. The fracture appears to extend distally through the articular surface of the radius. The distal ulna appears intact. The carpal bones appear preserved. There is significant arthropathy of the scaphoid trapezium trapezoid articulation as well as the 1st carpometacarpal articulation. Soft tissues: There is diffuse soft tissue swelling about the wrist. IMPRESSION: Acute comminuted and angulated fracture of the distal radius. Thank you for allowing us to participate in the care of your patient. Dictated and Authenticated by: Marcelle Vieyra MD 12/17/2019 11:26 PM Central Time ([place] & [place]) - Re-Assessments/Exams Free Text/Narrative Re-Assessment/Exam: 12/17/19 23:42 TC Amy Nixon. Splint and follow up in Ortho clinic in am Departure - Departure Time of Disposition: 00:17 Disposition: Home, Self-Care 01 Condition: Good Clinical Impression: Fracture of radius Qualifiers: Encounter type: initial encounter Radius location: distal physis (incl. Salter- Moraes) Fracture alignment: displaced Laterality: left Qualified Code(s): S59.202A - Unspecified physeal fracture of lower end of radius, left arm, initial encounter for closed fracture - Discharge Information *PRESCRIPTION DRUG MONITORING PROGRAM REVIEWED*: No *COPY OF PRESCRIPTION DRUG MONITORING REPORT IN PATIENT COLLIN: No Instructions: Wrist Fracture Treated With Immobilization, [id number] Forms: ED Department Discharge Additional Instructions: splint elevate follow up with Ortho in [facility] Wednesday am, tylenol 650mg every 4 hours for mild pain hydrocodone 5/325 one half to one every 6 hours as needed for severe pain *8 urgent follow up if numbness or change in sensation Sepsis Event Note - Focused Exam Vital Signs: Vital Signs Temp Pulse Resp BP Pulse Ox 12/17/19 22:54 96.4 F L 102 H 24 H 115/86 98 Date Exam was Performed: 12/18/19 Time Exam was Performed: 01:29
[2019-12-17 23:01] VITALS: BP 115/86; PULSE 102
[2019-12-17] MEDS: Acetaminophen/HYDROcodone 325-5 MG Tab PO ONE (23:28)
[2019-12-17] MEDS ORDERED: Acetaminophen/HYDROcodone 325-5 MG Tab ONE (23:42)
== END 2019-12-18 00:19 | disposition home or self-care (01) ==
LOC: DL.ED 22:45
DX: S59.202A Unspecified physeal fracture of lower end of radius, left arm, initial encounter for closed fracture (principal); I10 Essential (primary) hypertension; E78.00 Pure hypercholesterolemia, unspecified; J44.9 Chronic obstructive pulmonary disease, unspecified; K21.9 Gastro-esophageal reflux disease without esophagitis; F41.9 Anxiety disorder, unspecified; F32.9 Major depressive disorder, single episode, unspecified; Z88.0 Allergy status to penicillin; Z79.899 Other long term (current) drug therapy; W00.0XXA Fall on same level due to ice and snow, initial encounter; Y92.481 Parking lot as the place of occurrence of the external cause
CPT/HCPCS: 29125; 73110; 99283; A9270; 99284

== ENCOUNTER 2020-07-27 22:22 | Emergency (ER) | payer MEDICARE, MEDICAID | END 2020-07-28 | disposition left against medical advice (07) | LOC: DL.ED 22:22 | DX: Z53.21 Procedure and treatment not carried out due to patient leaving prior to being seen by health care provider (principal) ==

== ENCOUNTER 2020-07-30 21:59 | Emergency (ER) | payer MEDICARE, MEDICAID ==
[2020-07-30 23:03] VITALS: BP 126/93; PULSE 110
[2020-07-31] MEDS ORDERED: Lidocaine 2% Jelly 5 ML Tube TOP ONE (00:06)
--- NOTE | 2020-07-31 00:59 | EDM.PDOC ---
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 States being treated with oral medication for yeast infection. Denied Nausea or vomiting. No fever no chills. No discharge. Some incontinence, wears pads, No change in brand Increased pain with voiding. Tried OTC vaseline did not help - Related Data Allergies Allergy/AdvReac Type Severity Reaction Status Date / Time Penicillins Allergy Intermediate Hives Verified 07/30/20 22:55 Home Meds: Home Meds Benazepril HCl 10 mg PO DAILY 10/02/13 [History] amLODIPine Besylate [Amlodipine Besylate] 20 mg PO DAILY 10/02/13 [History] traZODone 50 mg PO BEDTIME PRN 03/25/16 [History] Albuterol/Ipratropium [DuoNeb 3.0-0.5 MG/3 ML] 3 ml NEB TID PRN 10/13/17 [History] Potassium Chloride [Klor-Con 10] 10 meq PO DAILY 11/08/18 [History] Budesonide/Formoterol [Symbicort 160-4.5 MCG] 1 puff INH BID 01/05/19 [History] Omeprazole 20 mg PO DAILY 05/23/19 [History] Sertraline HCl 50 mcg PO DAILY 05/23/19 [History] Venlafaxine [Venlafaxine HCl ER] 175 mg PO DAILY 07/30/20 [History] Past Medical History HEENT History: Reports: Glaucoma, Impaired Vision Other HEENT History: glasses Cardiovascular History: Reports: High Cholesterol, Hypertension Other Cardiovascular History: pt denies high cholesterol Respiratory History: Reports: Bronchitis, Recurrent, COPD, Pneumonia, Recurrent, SOB Gastrointestinal History: Reports: None, GERD Genitourinary History: Reports: Renal Disease 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 LEFT WRIST FRACTURE 1989. LATERAL MALLEOULUS 1990. CLAVICLE FX AGE 8. PELVIC FRACTURE 12/2018 Neurological History: Reports: Other (See Below) Other Neuro History: CHRONIC INSOMNIA Psychiatric History: Reports: Anxiety, Depression Endocrine/Metabolic History: Reports: None Hematologic History: Reports: None Immunologic History: Reports: None Oncologic (Cancer) History: Reports: None Dermatologic History: Reports: None - Infectious Disease History Infectious Disease History: Reports: Chicken Pox - Past Surgical History Head Surgeries/Procedures: Reports: None HEENT Surgical History: Reports: Cataract Surgery Other HEENT Surgeries/Procedures: CATARACT SURGERY 2018 Cardiovascular Surgical History: Reports: None Respiratory Surgical History: Reports: None GI Surgical History: Reports: Appendectomy, Cholecystectomy Female Surgical History: Reports: None Endocrine Surgical History: Reports: None Neurological Surgical History: Reports: None Musculoskeletal Surgical History: Reports: Knee Replacement Other Musculoskeletal Surgeries/Procedures:: TOTAL LEFT KNEE REPLACEMENT. RIGHT WRIST SURGERY Oncologic Surgical History: Reports: None Social & Family History - Family History Family Medical History: Noncontributory - Tobacco Use Tobacco Use Status *Q: Former Tobacco User Used Tobacco, but Quit: Yes Month/Year Tobacco Last Used: 2018 - Caffeine Use Caffeine Use: Reports: Coffee Caffeine Use Comment: 3 cups/day - Recreational Drug Use Recreational Drug Use: No - Living Situation & Occupation Living situation: Reports: Single, Alone Occupation: Retired ED ROS GENERAL - Review of Systems Review Of Systems: Comprehensive ROS is negative, except as noted in HPI. ED EXAM, RENAL/ - Physical Exam Exam: See Below Exam Limited By: No Limitations General Appearance: Alert, Moderate Distress, Thin Eye Exam: Bilateral Eye: EOMI Ears: Normal External Exam Nose: Normal Inspection Throat/Mouth: Normal Inspection Respiratory/Chest: No Respiratory Distress Cardiovascular: Regular Rate, Rhythm (Female) Exam: No: Normal External Exam (moderate swelling of labia bilateral, multiple shallow excoriations to posterior inner, peticheal errythematous rash outer exposed labia tissue), Vaginal Discharge Extremities: Redness Neurological: Alert, Oriented Psychiatric: Normal Affect Skin Exam: Warm Course - Vital Signs Last Recorded V/S: Last Vital Signs Temp 98.9 F 07/30/20 22:57 Pulse 110 H 07/30/20 22:57 Resp 16 07/30/20 22:57 BP 126/93 H 07/30/20 22:57 Pulse Ox 92 L 07/30/20 22:57 - Orders/Labs/Meds Orders: Active Orders 24 hr Category Date Time Status CULTURE URINE [RM] Urgent Lab 07/31/20 00:30 Received Labs: Laboratory Tests 07/31/20 Range/Units 00:30 Urine Color Yellow (YELLOW) Urine Appearance Slightly cloudy (CLEAR) Urine pH 6.0 (5.0-9.0) Ur Specific [place] >= 1.030 (1.005-1.030) Urine Protein 30 H (NEGATIVE) Urine Glucose (UA) Negative (NEGATIVE) Urine Ketones 15 H (NEGATIVE) Urine Occult Blood Negative (NEGATIVE) Urine Nitrite Positive H (NEGATIVE) Urine Bilirubin Small H (NEGATIVE) Urine Urobilinogen 0.2 (0.2-1.0) mg/dL Ur Leukocyte Esterase Small H (NEGATIVE) Urine RBC Not seen /HPF Urine WBC 30-40 H (0-5/HPF) /HPF Ur Epithelial Cells Few (NOT SEEN) /HPF Amorphous Sediment Few (NOT SEEN) /HPF Urine Bacteria Moderate H (0-FEW/HPF) /HPF Urine Mucus Few H (NOT SEEN) /LPF Meds: Medications Discontinued Medications Generic Name Dose Route Start Last Admin Trade Name Freq PRN Reason Stop Dose Admin Ciprofloxacin 500 mg 07/31/20 01:00 07/31/20 01:13 Ciprofloxacin Hcl PO 07/31/20 01:01 500 mg ONETIME ONE Administration Lidocaine HCl 5 ml 07/31/20 00:06 07/31/20 00:46 Xylocaine 2% Jelly TOP 07/31/20 00:07 1 applic ONETIME ONE Administration - Re-Assessments/Exams Free Text/Narrative Re-Assessment/Exam: 07/31/20 05:45 Tria, Lidocaine topical to area, reports symptoms worse. Area cleansed, Cool back with barrier cream, Some improvement. Tolerable. Departure - Departure Time of Disposition: 01:02 Disposition: Home, Self-Care 01 Condition: Good Clinical Impression: Vaginitis and vulvovaginitis UTI (urinary tract infection) Qualifiers: Urinary tract infection type: acute cystitis Hematuria presence: without hematuria Qualified Code(s): N30.00 - Acute cystitis without hematuria - Discharge Information *PRESCRIPTION DRUG MONITORING PROGRAM REVIEWED*: No *COPY OF PRESCRIPTION DRUG MONITORING REPORT IN PATIENT COLLIN: No Instructions: Urinary Tract Infection, Adult, [id number], Atrophic Vaginitis, [id number] Forms: ED Department Discharge Additional Instructions: cool compress to perineum barrier cream as needed to area avoid creams or lotions with alcohol base change incontinent pads more frequently use incontinent pads for sensitive skin dianna area open to air as much as possible for next 24 hours if not improving follow up in clinic tylenol 650mg every 4 hours as needed for discomfort Sepsis Event Note (ED) - Evaluation Sepsis Screening Result: No Definite Risk - Focused Exam Vital Signs: Vital Signs Temp Pulse Resp BP Pulse Ox 07/30/20 22:57 98.9 F 110 H 16 126/93 H 92 L - My Orders Last 24 Hours: My Active Orders 07/31/20 00:30 CULTURE URINE [RM] Urgent - Assessment/Plan Last 24 Hours: My Active Orders 07/31/20 00:30 CULTURE URINE [RM] Urgent
[2020-07-31] MEDS ORDERED: Ciprofloxacin 500 MG Tab PO ONE (01:00)
== END 2020-07-31 01:14 | disposition home or self-care (01) ==
LOC: DL.ED 21:59
DX: N76.0 Acute vaginitis (principal); N30.00 Acute cystitis without hematuria; I10 Essential (primary) hypertension; J44.9 Chronic obstructive pulmonary disease, unspecified; K21.9 Gastro-esophageal reflux disease without esophagitis; E78.00 Pure hypercholesterolemia, unspecified; F41.9 Anxiety disorder, unspecified; F32.9 Major depressive disorder, single episode, unspecified; Z87.891 Personal history of nicotine dependence; Z79.899 Other long term (current) drug therapy; Z88.0 Allergy status to penicillin
CPT/HCPCS: 81001; 87086; 87088; 87186; 87210; 99283; A9270

== ENCOUNTER 2021-04-07 02:34 | Inpatient (IN) | payer MEDICARE, MEDICAID ==
--- NOTE | 2021-04-07 02:59 | EDM.PDOC ---
ED HPI GENERAL MEDICAL PROBLEM - General Chief Complaint: Respiratory Problem Stated Complaint: AMBULANCE Time Seen by Provider: 04/07/21 02:59 Source of Information: Reports: Patient, RN, RN Notes Reviewed History Limitations: Reports: No Limitations - History of Present Illness INITIAL COMMENTS - FREE TEXT/NARRATIVE: Patient is a 70-year-old female who presents to ER per [place] [facility] with complaint of shortness of breath. Patient has known history of COPD. Patient states she does not use oxygen at home at all. States she has been short of breath and coughing for the past 1 day. Denies any fever that she knows of, states she has just been chilled during the night tonight. Admits to nausea, denies vomiting or diarrhea. Patient states she has never had Covid, and has been vaccinated. Last used nebulizer at approximately 1 AM. EMS reports oxygen saturation was 77% upon arrival. She was placed on 4 L per nasal cannula at that time bringing her oxygen saturation up into the 90s. 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 Treatments Back Pain Score (Numeric/FACES): 7 - Related Data Allergies Allergy/AdvReac Type Severity Reaction Status Date / Time Penicillins Allergy Intermediate Hives Verified 04/07/21 02:55 Home Meds: Home Meds Benazepril HCl 10 mg PO DAILY 10/02/13 [History] amLODIPine Besylate [Amlodipine Besylate] 20 mg PO DAILY 10/02/13 [History] traZODone 50 mg PO BEDTIME PRN 03/25/16 [History] Albuterol/Ipratropium [DuoNeb 3.0-0.5 MG/3 ML] 3 ml NEB TID PRN 10/13/17 [History] Potassium Chloride [Klor-Con 10] 10 meq PO DAILY 11/08/18 [History] Budesonide/Formoterol [Symbicort 160-4.5 MCG] 1 puff INH BID 01/05/19 [History] Omeprazole 20 mg PO DAILY 05/23/19 [History] Sertraline HCl 50 mcg PO DAILY 05/23/19 [History] Venlafaxine [Venlafaxine HCl ER] 175 mg PO DAILY 07/30/20 [History] Past Medical History HEENT History: Reports: Glaucoma, Impaired Vision Other HEENT History: glasses Cardiovascular History: Reports: High Cholesterol, Hypertension Other Cardiovascular History: pt denies high cholesterol Respiratory History: Reports: Bronchitis, Recurrent, COPD, Pneumonia, Recurrent, SOB Gastrointestinal History: Reports: None, GERD Genitourinary History: Reports: Renal Disease 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 LEFT WRIST FRACTURE 1989. LATERAL MALLEOULUS 1990. CLAVICLE FX AGE 8. PELVIC FRACTURE 12/2018 Neurological History: Reports: Other (See Below) Other Neuro History: CHRONIC INSOMNIA Psychiatric History: Reports: Anxiety, Depression Endocrine/Metabolic History: Reports: None Hematologic History: Reports: None Immunologic History: Reports: None Oncologic (Cancer) History: Reports: None Dermatologic History: Reports: None - Infectious Disease History Infectious Disease History: Reports: Chicken Pox - Past Surgical History Head Surgeries/Procedures: Reports: None HEENT Surgical History: Reports: Cataract Surgery Other HEENT Surgeries/Procedures: CATARACT SURGERY 2017 Cardiovascular Surgical History: Reports: None Respiratory Surgical History: Reports: None GI Surgical History: Reports: Appendectomy, Cholecystectomy Female Surgical History: Reports: None Endocrine Surgical History: Reports: None Neurological Surgical History: Reports: None Musculoskeletal Surgical History: Reports: Knee Replacement Other Musculoskeletal Surgeries/Procedures:: TOTAL LEFT KNEE REPLACEMENT. RIGHT WRIST SURGERY Oncologic Surgical History: Reports: None Social & Family History - Family History Family Medical History: No Pertinent Family History - Tobacco Use Tobacco Use Status *Q: Former Tobacco User Used Tobacco, but Quit: No - Caffeine Use Caffeine Use: Reports: Coffee Caffeine Use Comment: 3 cups/day - Recreational Drug Use Recreational Drug Use: No - Living Situation & Occupation Living situation: Reports: Single, Alone Occupation: Retired ED ROS GENERAL - Review of Systems Review Of Systems: Comprehensive ROS is negative, except as noted in HPI. ED EXAM, GENERAL - Physical Exam Exam: See Below Exam Limited By: No Limitations General Appearance: Alert, WD/WN, Moderate Distress Eye Exam: Bilateral Eye: EOMI, Normal Inspection Ears: Normal External Exam, Hearing Grossly Normal Nose: Normal Inspection Throat/Mouth: Normal Inspection, Normal Voice, No Airway Compromise Head: Atraumatic, Normocephalic Neck: Normal Inspection, Supple, Non-Tender, Full Range of Motion Respiratory/Chest: Chest Non-Tender, Respiratory Distress, Decreased Breath Sounds, Crackles (Throughout), Wheezing (Throughout) Cardiovascular: Normal Peripheral Pulses, Regular Rate, Rhythm, No Edema, No Gallop, No JVD, No Murmur, No Rub, Tachycardia Peripheral Pulses: 2+: Radial (L), Radial (R) GI/Abdominal: Normal Bowel Sounds, Soft, Non-Tender (Female) Exam: Deferred Rectal (Female) Exam: Deferred Back Exam: Normal Inspection, Full Range of Motion, NT Extremities: Normal Inspection, Normal Range of Motion, Non-Tender, Normal Capillary Refill, No Pedal Edema Neurological: Alert, Oriented, CN II-XII Intact, Normal Cognition, Normal Reflexes, No Motor/Sensory Deficits Psychiatric: Normal Affect, Normal Mood Skin Exam: Warm, Dry, Intact, No Rash, Pallor Lymphatic: No Adenopathy #1 Interpretation EKG Date: 04/07/21 Time: 02:46 Rhythm: Other (sinus tach) Rate (Beats/Min): 114 [place]: Normal P-Wave: Present QRS: Normal ST-T: Normal QT: Normal Comparison: No Change Course - Vital Signs Last Recorded V/S: Last Vital Signs Temp 99 F 04/07/21 02:42 Pulse 117 H 04/07/21 02:42 Resp 18 04/07/21 02:42 BP 127/78 04/07/21 02:42 Pulse Ox 96 04/07/21 03:36 - Orders/Labs/Meds Orders: Active Orders 24 hr Category Date Time Status EKG Documentation Completion [RC] STAT Care 04/07/21 02:35 Active RT Aerosol Therapy [RC] ASDIRECTED Care 04/07/21 03:14 Active CULTURE BLOOD [BC] Stat Lab 04/07/21 03:00 Received CULTURE BLOOD [BC] Stat Lab 04/07/21 03:05 Received UA RFX ZAHRAA AND CULT IF INDIC [URIN] Stat Lab 04/07/21 02:36 Ordered Blood Culture x2 Reflex Set [OM.PC] Stat Oth 04/07/21 02:35 Ordered Labs: Laboratory Tests 04/07/21 04/07/21 04/07/21 Range/Units 03:00 03:05 03:05 WBC 6.7 (5.0-10.0) 10^3/uL RBC 4.41 (4.2-5.4) 10^6/uL Hgb 12.2 D (12.0-16.0) g/dL Hct 37.9 (37.0-47.0) % MCV 85.9 (80-100) fL MCH 27.7 (27.0-34.0) pg MCHC 32.2 L (33.0-35.0) g/dL Plt Count 212 D (150-450) 10^3/uL Neut % (Auto) 85.9 H (42.2-75.2) % Lymph % (Auto) 4.1 L (20.5-50.1) % [place] % (Auto) 8.1 H (2-8) % Eos % (Auto) 1.7 (1.0-3.0) % Baso % (Auto) 0.2 (0.0-1.0) % Sodium 140 (136-145) mmol/L Potassium 3.7 (3.5-5.1) mmol/L Chloride 104 (98-107) mmol/L Carbon Dioxide 24 (21-32) mmol/L Anion Gap 15.7 H (7-13) mEq/L BUN 13 (7-18) mg/dL Creatinine 0.91 (0.55-1.02) mg/dL Est Cr Clr Drug Dosing 51.09 mL/min Estimated GFR (MDRD) > 60 BUN/Creatinine Ratio 14.3 (No establ ref range) Glucose 114 H (70-99) mg/dL Lactic Acid 0.9 (0.4-2.0) mmol/L Calcium 8.2 L (8.5-10.1) mg/dL Total Bilirubin 0.2 (0.2-1.0) mg/dL AST 20 (15-37) U/L ALT 22 (14-59) U/L Alkaline Phosphatase 92 (46-116) U/L Troponin I High Sens 5 (<=51) pg/mL C-Reactive Protein 9.1 H (0.0-0.9) mg/dL Total Protein 6.6 (6.4-8.2) g/dL Albumin 3.3 L (3.4-5.0) g/dL Globulin 3.3 Albumin/Globulin Ratio 1.00 Influenza Type A RNA (NEGATIVE) Influenza Type B RNA (NEGATIVE) SARS-CoV-2 RNA (ARIANNE) (NEGATIVE) 04/07/21 Range/Units 03:06 WBC (5.0-10.0) 10^3/uL RBC (4.2-5.4) 10^6/uL Hgb (12.0-16.0) g/dL Hct (37.0-47.0) % MCV (80-100) fL MCH (27.0-34.0) pg MCHC (33.0-35.0) g/dL Plt Count (150-450) 10^3/uL Neut % (Auto) (42.2-75.2) % Lymph % (Auto) (20.5-50.1) % [place] % (Auto) (2-8) % Eos % (Auto) (1.0-3.0) % Baso % (Auto) (0.0-1.0) % Sodium (136-145) mmol/L Potassium (3.5-5.1) mmol/L Chloride (98-107) mmol/L Carbon Dioxide (21-32) mmol/L Anion Gap (7-13) mEq/L BUN (7-18) mg/dL Creatinine (0.55-1.02) mg/dL Est Cr Clr Drug Dosing mL/min Estimated GFR (MDRD) BUN/Creatinine Ratio (No establ ref range) Glucose (70-99) mg/dL Lactic Acid (0.4-2.0) mmol/L Calcium (8.5-10.1) mg/dL Total Bilirubin (0.2-1.0) mg/dL AST (15-37) U/L ALT (14-59) U/L Alkaline Phosphatase (46-116) U/L Troponin I High Sens (<=51) pg/mL C-Reactive Protein (0.0-0.9) mg/dL Total Protein (6.4-8.2) g/dL Albumin (3.4-5.0) g/dL Globulin Albumin/Globulin Ratio Influenza Type A RNA Negative (NEGATIVE) Influenza Type B RNA Negative (NEGATIVE) SARS-CoV-2 RNA (ARIANNE) Negative (NEGATIVE) Meds: Medications Discontinued Medications Generic Name Dose Route Start Last Admin Trade Name Freq PRN Reason Stop Dose Admin Albuterol/Ipratropium 3 ml 04/07/21 03:14 04/07/21 03:22 Albuterol/Ipratropium 3.0-0.5 Mg/3 Ml Neb Soln NEB 04/07/21 03:15 3 ml ONETIME ONE Administration Methylprednisolone Sodium Succinate 125 mg 04/07/21 03:13 04/07/21 03:22 Methylprednisolone Sodium Succinate 125 Mg/2 Ml Sdv IVPUSH 04/07/21 03:14 125 mg ONETIME ONE Administration - Radiology Interpretation Free Text/Narrative:: Chest x-ray: PROCEDURE INFORMATION: Exam: XR Chest Exam date and time: 04/07/2021 3:15 AM Age: 70 years old Clinical indication: Other: Chest pain; Prior surgery TECHNIQUE: Imaging protocol: XR of the chest. Views: 1 view. COMPARISON: CR Chest 1V Frontal 10/30/2019 6:28 PM FINDINGS: Lungs: Stable pulmonary hyperinflation. Pleural spaces: Unremarkable. No pleural effusion. No pneumothorax. Heart/Mediastinum: Unremarkable. No cardiomegaly. Bones/joints: Unremarkable. IMPRESSION: Stable pulmonary hyperinflation without superimposed acute abnormality. Thank you for allowing us to participate in the care of your patient. Dictated and Authenticated by: Carito Gonzalez MD 04/07/2021 3:48 AM Central Time ([place] & [place]) See radiologist report - Re-Assessments/Exams Free Text/Narrative Re-Assessment/Exam: 04/07/21 04:10 Discussed patient case with Dr. Gold who agreed to accept the patient for observation admission. Departure - Departure Time of Disposition: 04:11 Disposition: Refer to Observation Condition: Fair Clinical Impression: COPD exacerbation - Discharge Information *PRESCRIPTION DRUG MONITORING PROGRAM REVIEWED*: No *COPY OF PRESCRIPTION DRUG MONITORING REPORT IN PATIENT COLLIN: No Forms: ED Department Discharge Sepsis Event Note (ED) - Evaluation Sepsis Screening Result: No Definite Risk - Focused Exam Vital Signs: Vital Signs Temp Pulse Resp BP Pulse Ox Pulse Ox 04/07/21 03:36 96 04/07/21 02:42 99 F 117 H 18 127/78 92 L - My Orders Last 24 Hours: My Active Orders 04/07/21 02:35 EKG Documentation Completion [RC] STAT Blood Culture x2 Reflex Set [OM.PC] Stat 04/07/21 02:36 UA RFX ZAHRAA AND CULT IF INDIC [URIN] Stat 04/07/21 03:00 CULTURE BLOOD [BC] Stat 04/07/21 03:05 CULTURE BLOOD [BC] Stat 04/07/21 03:14 RT Aerosol Therapy [RC] ASDIRECTED - Assessment/Plan Last 24 Hours: My Active Orders 04/07/21 02:35 EKG Documentation Completion [RC] STAT Blood Culture x2 Reflex Set [OM.PC] Stat 04/07/21 02:36 UA RFX ZAHRAA AND CULT IF INDIC [URIN] Stat 04/07/21 03:00 CULTURE BLOOD [BC] Stat 04/07/21 03:05 CULTURE BLOOD [BC] Stat 04/07/21 03:14 RT Aerosol Therapy [RC] ASDIRECTED
[2021-04-07] MEDS ORDERED: methylPREDNISolone Sodium Succinate 125 MG/2 ML SDV IVPUSH ONE (03:13)
[2021-04-07] MEDS: Albuterol/Ipratropium 3.0-0.5 MG/3 ML Neb Soln NEB ONE (03:22)
--- NOTE | 2021-04-07 03:48 | CR ---
PROCEDURE INFORMATION: Exam: XR Chest Exam date and time: 04/07/2021 3:15 AM Age: 70 years old Clinical indication: Other: Chest pain; Prior surgery TECHNIQUE: Imaging protocol: XR of the chest. Views: 1 view. COMPARISON: CR Chest 1V Frontal 10/30/2019 6:28 PM FINDINGS: Lungs: Stable pulmonary hyperinflation. Pleural spaces: Unremarkable. No pleural effusion. No pneumothorax. Heart/Mediastinum: Unremarkable. No cardiomegaly. Bones/joints: Unremarkable. IMPRESSION: Stable pulmonary hyperinflation without superimposed acute abnormality.
[2021-04-07 03:50] LABS: CORONAVIRUS COVID-19 NAA NEGATIVE (NEGATIVE)
[2021-04-07 04:02] LABS: ANION GAP 15.7 mEq/L (7-13); CHLORIDE,CL 104 mmol/L (98-107); SODIUM,NA 140 mmol/L (136-145)
[2021-04-07] MEDS ORDERED: Acetaminophen 325 MG Tab PO PRN (04:53)
[2021-04-07] MEDS ORDERED: Ondansetron 4 MG/2 ML SDV IVPUSH PRN (04:53)
[2021-04-07] MEDS ORDERED: methylPREDNISolone Sodium Succinate 40 MG/1 ML SDV IVPUSH SCH (05:00)
--- NOTE | 2021-04-07 05:00 | PCM.HP ---
H&P History of Present Illness - General Date of Service: 04/07/21 Admit Problem/Dx: Admission Diagnosis/Problem Admission Diagnosis/Problem COPD, Moderate chronic obstructive pulmonary disease - History of Present Illness Initial Comments - Free Text/Narative: The patient is a 70-year-old female who presents with chief complaint of shortness of breath. She states that dyspnea started proximately 24 hours prior to hospitalization and it had awakened her from her sleep. Since that time it has progressively worsened. The patient denies fever, rigors, nausea, vomiting, wheeze, abdominal pain, diarrhea, myalgia, chest pain, peripheral edema, a nose Carm[place], dysgeusia. She admits to onset of cough which is productive of white sputum. Patient has known history of COPD and has an extensive smoking history for which she states she quit smoking approximately 1 month prior to this presentation. She presents for further evaluation Back Pain Score (Numeric/FACES): 7 - Related Data Allergies/Adverse Reactions: Allergies Allergy/AdvReac Type Severity Reaction Status Date / Time Penicillins Allergy Intermediate Hives Verified 04/07/21 02:55 Home Medications: Home Meds Benazepril HCl 10 mg PO DAILY 10/02/13 [History] amLODIPine Besylate [Amlodipine Besylate] 20 mg PO DAILY 10/02/13 [History] traZODone 50 mg PO BEDTIME PRN 03/25/16 [History] Albuterol/Ipratropium [DuoNeb 3.0-0.5 MG/3 ML] 3 ml NEB TID PRN 10/13/17 [History] Potassium Chloride [Klor-Con 10] 10 meq PO DAILY 11/08/18 [History] Budesonide/Formoterol [Symbicort 160-4.5 MCG] 1 puff INH BID 01/05/19 [History] Omeprazole 20 mg PO DAILY 05/23/19 [History] Sertraline HCl 50 mcg PO DAILY 05/23/19 [History] Venlafaxine [Venlafaxine HCl ER] 175 mg PO DAILY 07/30/20 [History] Past Medical History HEENT History: Reports: Glaucoma, Impaired Vision Other HEENT History: glasses Cardiovascular History: Reports: High Cholesterol, Hypertension Other Cardiovascular History: pt denies high cholesterol Respiratory History: Reports: Bronchitis, Recurrent, COPD, Pneumonia, Recurrent, SOB Gastrointestinal History: Reports: None, GERD Genitourinary History: Reports: Renal Disease 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 LEFT WRIST FRACTURE 1989. LATERAL MALLEOULUS 1990. CLAVICLE FX AGE 8. PELVIC FRACTURE 12/2018 Neurological History: Reports: Other (See Below) Other Neuro History: CHRONIC INSOMNIA Psychiatric History: Reports: Anxiety, Depression Endocrine/Metabolic History: Reports: None Hematologic History: Reports: None Immunologic History: Reports: None Oncologic (Cancer) History: Reports: None Dermatologic History: Reports: None - Infectious Disease History Infectious Disease History: Reports: Chicken Pox - Past Surgical History Head Surgeries/Procedures: Reports: None HEENT Surgical History: Reports: Cataract Surgery Other HEENT Surgeries/Procedures: CATARACT SURGERY 2017 Cardiovascular Surgical History: Reports: None Respiratory Surgical History: Reports: None GI Surgical History: Reports: Appendectomy, Cholecystectomy Female Surgical History: Reports: None Endocrine Surgical History: Reports: None Neurological Surgical History: Reports: None Musculoskeletal Surgical History: Reports: Knee Replacement Other Musculoskeletal Surgeries/Procedures:: TOTAL LEFT KNEE REPLACEMENT. RIGHT WRIST SURGERY Oncologic Surgical History: Reports: None Social & Family History - Family History Family Medical History: No Pertinent Family History - Tobacco Use Tobacco Use Status *Q: Former Tobacco User Used Tobacco, but Quit: No - Caffeine Use Caffeine Use: Reports: Coffee Caffeine Use Comment: 3 cups/day - Recreational Drug Use Recreational Drug Use: No - Living Situation & Occupation Living situation: Reports: Single, Alone Occupation: Retired H&P Review of Systems - Review of Systems: Review Of Systems: See Below General: Reports: No Symptoms HEENT: Reports: No Symptoms Pulmonary: Reports: Shortness of Breath Cardiovascular: Reports: No Symptoms Gastrointestinal: Reports: No Symptoms Genitourinary: Reports: No Symptoms Musculoskeletal: Reports: No Symptoms Skin: Reports: No Symptoms Psychiatric: Reports: No Symptoms Neurological: Reports: No Symptoms Hematologic/Lymphatic: Reports: No Symptoms Immunologic: Reports: No Symptoms Exam - Exam Exam: See Below - Vital Signs Vital Signs: Last Vital Signs Temp 99 F 04/07/21 02:42 Pulse 117 H 04/07/21 02:42 Resp 18 04/07/21 02:42 BP 127/78 04/07/21 02:42 Pulse Ox 96 04/07/21 03:36 Weight: 127 lb 6.4 oz - Exam General: Alert, Oriented, 4 HEENT: PERRLA, Hearing Intact, Mucosa Moist & [place], Nares Patent, Normal Nasal Septum, Posterior Pharynx Clear, Conjunctiva Clear, EOMI, EACs Clear, TMs Clear Neck: Supple, Trachea Midline, 2 Lungs: Wheezing Cardiovascular: Tachycardia GI/Abdominal Exam: Normal Bowel Sounds, Soft, Non-Tender, No Organomegaly, No Distention, No Abnormal Bruit, No Mass, Pelvis Stable Back Exam: Normal Inspection, Full Range of Motion, NT Extremities: Normal Inspection, Normal Range of Motion, Non-Tender, No Pedal Edema, Normal Capillary Refill Peripheral Pulses: 2+: Carotid (L), Carotid (R), Brachial (L), Brachial (R), Radial (L), Radial (R), Femoral (L), Femoral (R), Popliteal (L), Popliteal (R), Posterior Tibial (L), Posterior Tibial (R), Dorsalis Pedis (L), Dorsalis Pedis (R) Skin: Warm, Dry, Intact Neurological: Cranial Nerves Intact, Reflexes Equal Bilateral Neuro Extensive - Mental Status: Alert, Oriented x3, Normal Mood/Affect, Normal Cognition Neuro Extensive - Motor, Sensory, Reflexes: CN II-XII Intact, Normal Gait, Normal Reflexes DTR: 2+: Bicep (L), Bicep (R), Tricep (L), Tricep (R), Patella (L), Patella (R), Achilles (L), Achilles (R) Psychiatric: Alert, Normal Affect, Normal Mood - Patient Data Lab Results Last 24 hrs: Laboratory Results - last 24 hr 04/07/21 04/07/21 04/07/21 Range/Units 03:00 03:05 03:05 WBC 6.7 (5.0-10.0) 10^3/uL RBC 4.41 (4.2-5.4) 10^6/uL Hgb 12.2 D (12.0-16.0) g/dL Hct 37.9 (37.0-47.0) % MCV 85.9 (80-100) fL MCH 27.7 (27.0-34.0) pg MCHC 32.2 L (33.0-35.0) g/dL Plt Count 212 D (150-450) 10^3/uL Neut % (Auto) 85.9 H (42.2-75.2) % Lymph % (Auto) 4.1 L (20.5-50.1) % [place] % (Auto) 8.1 H (2-8) % Eos % (Auto) 1.7 (1.0-3.0) % Baso % (Auto) 0.2 (0.0-1.0) % Sodium 140 (136-145) mmol/L Potassium 3.7 (3.5-5.1) mmol/L Chloride 104 (98-107) mmol/L Carbon Dioxide 24 (21-32) mmol/L Anion Gap 15.7 H (7-13) mEq/L BUN 13 (7-18) mg/dL Creatinine 0.91 (0.55-1.02) mg/dL Est Cr Clr Drug Dosing 51.09 mL/min Estimated GFR (MDRD) > 60 BUN/Creatinine Ratio 14.3 (No establ ref range) Glucose 114 H (70-99) mg/dL Lactic Acid 0.9 (0.4-2.0) mmol/L Calcium 8.2 L (8.5-10.1) mg/dL Total Bilirubin 0.2 (0.2-1.0) mg/dL AST 20 (15-37) U/L ALT 22 (14-59) U/L Alkaline Phosphatase 92 (46-116) U/L Troponin I High Sens 5 (<=51) pg/mL C-Reactive Protein 9.1 H (0.0-0.9) mg/dL Total Protein 6.6 (6.4-8.2) g/dL Albumin 3.3 L (3.4-5.0) g/dL Globulin 3.3 Albumin/Globulin Ratio 1.00 Influenza Type A RNA (NEGATIVE) Influenza Type B RNA (NEGATIVE) SARS-CoV-2 RNA (ARIANNE) (NEGATIVE) 04/07/21 Range/Units 03:06 WBC (5.0-10.0) 10^3/uL RBC (4.2-5.4) 10^6/uL Hgb (12.0-16.0) g/dL Hct (37.0-47.0) % MCV (80-100) fL MCH (27.0-34.0) pg MCHC (33.0-35.0) g/dL Plt Count (150-450) 10^3/uL Neut % (Auto) (42.2-75.2) % Lymph % (Auto) (20.5-50.1) % [place] % (Auto) (2-8) % Eos % (Auto) (1.0-3.0) % Baso % (Auto) (0.0-1.0) % Sodium (136-145) mmol/L Potassium (3.5-5.1) mmol/L Chloride (98-107) mmol/L Carbon Dioxide (21-32) mmol/L Anion Gap (7-13) mEq/L BUN (7-18) mg/dL Creatinine (0.55-1.02) mg/dL Est Cr Clr Drug Dosing mL/min Estimated GFR (MDRD) BUN/Creatinine Ratio (No establ ref range) Glucose (70-99) mg/dL Lactic Acid (0.4-2.0) mmol/L Calcium (8.5-10.1) mg/dL Total Bilirubin (0.2-1.0) mg/dL AST (15-37) U/L ALT (14-59) U/L Alkaline Phosphatase (46-116) U/L Troponin I High Sens (<=51) pg/mL C-Reactive Protein (0.0-0.9) mg/dL Total Protein (6.4-8.2) g/dL Albumin (3.4-5.0) g/dL Globulin Albumin/Globulin Ratio Influenza Type A RNA Negative (NEGATIVE) Influenza Type B RNA Negative (NEGATIVE) SARS-CoV-2 RNA (ARIANNE) Negative (NEGATIVE) Result Diagrams: 04/07/21 03:05 04/07/21 03:05 Problem List Initiated/Reviewed/Updated: Yes Orders Last 24hrs: Active Orders 24 hr Category Date Time Status Admission Diagnosis [ADT] Stat ADT 04/07/21 04:12 Ordered Patient Status [ADT] Routine ADT 04/07/21 04:12 Active EKG Documentation Completion [RC] STAT Care 04/07/21 02:35 Active Oxygen Therapy [RC] PRN Care 04/07/21 04:53 Ordered Peripheral IV Care [RC] . DIRECTED Care 04/07/21 04:54 Ordered RT Aerosol Therapy [RC] ASDIRECTED Care 04/07/21 03:14 Active RT Aerosol Therapy [RC] ASDIRECTED Care 04/07/21 04:55 Ordered Up With Assistance [RC] ASDIRECTED Care 04/07/21 04:53 Ordered Vital Signs [RC] Q4H Care 04/07/21 04:53 Ordered Heart Healthy Diet [DIET] Diet 04/07/21 Breakfast Ordered CULTURE BLOOD [BC] Stat Lab 04/07/21 03:00 Received CULTURE BLOOD [BC] Stat Lab 04/07/21 03:05 Received UA RFX ZAHRAA AND CULT IF INDIC [URIN] Stat Lab 04/07/21 02:36 Ordered Acetaminophen [TylenoL] Med 04/07/21 04:53 Ordered 650 mg PO Q4H PRN Albuterol/Ipratropium [DuoNeb 3.0-0.5 MG/3 ML] Med 04/07/21 07:00 Ordered 3 ml NEB Q4HRRT Doxycycline Monohydrate Med 04/07/21 05:00 Ordered 100 mg PO BID Enoxaparin [Lovenox] Med 04/07/21 09:00 Ordered 40 mg SUBCUT DAILY Ondansetron [Zofran] Med 04/07/21 04:53 Ordered 4 mg IVPUSH Q4H PRN Pantoprazole [ProTONIX] Med 04/07/21 06:00 Ordered 40 mg PO ACBREAKFAST Sodium Chloride 0.9% [Saline Flush] Med 04/07/21 04:53 Ordered 10 ml FLUSH ASDIRECTED PRN methylPREDNISolone Sod Succ [Solu-MEDROL] Med 04/07/21 05:00 Ordered 60 mg IVPUSH Q8H Blood Culture x2 Reflex Set [OM.PC] Stat Oth 04/07/21 02:35 Ordered Peripheral IV Insertion Adult [OM.PC] Routine Oth 04/07/21 04:53 Ordered Saline Lock Insert [OM.PC] Routine Oth 04/07/21 04:53 Ordered Resuscitation Status Routine Resus Stat 04/07/21 04:53 Ordered Medication Orders Acetaminophen (Acetaminophen 325 Mg Tab) 650 mg PO Q4H PRN PRN Reason: Pain (Mild 1-3)/fever Enoxaparin Sodium (Enoxaparin 40 Mg/0.4 Ml Syringe) 40 mg SUBCUT DAILY JOSE Ondansetron HCl (Ondansetron 4 Mg/2 Ml Sdv) 4 mg IVPUSH Q4H PRN PRN Reason: Nausea/Vomiting Sodium Chloride (Sodium Chloride 0.9% 10 Ml Syringe) 10 ml FLUSH ASDIRECTED PRN PRN Reason: Keep Vein Open Assessment/Plan Comment:: Surgical History: Cholecystectomy, appendectomy, bilateral cataract surgery, left knee surgery, right wrist surgery Family History: Cancer, stroke, diabetes, coronary artery disease, hypertension Social History: Tobacco: Former smoker as of approximately March 08, 2021 Alcohol: Denies Caffeine: Coffee Drugs: Never Allergies: Penicillin Code Status: DNR, DNI Assessment / Plan: COPD exacerbation. Patient is not O2 dependent. Sign Medrol 60 mg IV every 8 hours plus DuoNeb every 4 hours plus doxycycline 100 mg p.o. twice daily Osteoporosis Diverticulosis Chronic pain Insomnia Anxiety Depression GERD/peptic ulcer disease. Protonix 40 mg p.o. daily Hyperlipidemia Hypertension DVT prophylaxis. Lovenox 40 mg subcutaneously daily Disposition: Anticipate discharge within 40 hours. At the time of admission, the patient's home medications were pending input to the EMR/B[facility] system. Once their input, they will be reviewed and reconciled END OF DOCTOR EMAMIS HISTORY AND PHYSICAL / CONSULTATION NOTE
[2021-04-07] MEDS: Doxycycline Monohydrate 100 MG Cap PO SCH ×3 (05:52→21:12)
[2021-04-07] MEDS: Pantoprazole 40 MG Tab.CR PO SCH (05:52)
[2021-04-07] MEDS: methylPREDNISolone Sodium Succinate 125 MG/2 ML SDV IVPUSH SCH ×3 (05:53→21:15)
[2021-04-07] MEDS ORDERED: traZODone 50 MG Tab PO PRN ×2 (07:22→20:30)
[2021-04-07] MEDS: Albuterol/Ipratropium 3.0-0.5 MG/3 ML Neb Soln NEB SCH ×5 (07:49→23:12)
[2021-04-07] MEDS: Enoxaparin 40 MG/0.4 ML Syringe SUBCUT SCH (08:45)
[2021-04-07] MEDS: Sertraline 50 MG Tab PO SCH (08:45)
[2021-04-07] MEDS: Sodium Chloride 0.9% 10 ML Syringe FLUSH PRN ×3 (08:50→21:23)
[2021-04-07] MEDS ORDERED: Venlafaxine 150 MG CAP.ER PO SCH (09:00)
[2021-04-07] MEDS ORDERED: amLODIPine 5 MG Tab PO SCH ×2 (09:00→21:00)
[2021-04-07] MEDS ORDERED: Benazepril 10 MG Tab PO SCH ×2 (09:00→21:00)
[2021-04-07] MEDS: Venlafaxine 150 MG CAP.ER PO SCH (09:33)
[2021-04-07] MEDS: Benazepril 10 MG Tab PO SCH (21:10)
[2021-04-07] MEDS: traZODone 50 MG Tab PO SCH (21:13)
[2021-04-07] MEDS: amLODIPine 5 MG Tab PO SCH (21:13)
[2021-04-08] MEDS: Albuterol/Ipratropium 3.0-0.5 MG/3 ML Neb Soln NEB SCH ×6 (04:17→22:16)
[2021-04-08] MEDS: methylPREDNISolone Sodium Succinate 125 MG/2 ML SDV IVPUSH SCH ×3 (05:57→20:56)
[2021-04-08] MEDS: Sodium Chloride 0.9% 10 ML Syringe FLUSH PRN ×4 (05:57→12:39)
[2021-04-08] MEDS: Pantoprazole 40 MG Tab.CR PO SCH (06:03)
--- NOTE | 2021-04-08 07:26 | PCM.PN ---
- General Info Date of Service: 04/08/21 Subjective Update: The patient indicates that she has not feeling well on the day. She currently rates her respiratory status is a 4 out of 10 at times her baseline. Overnight shows fever, rigors, nausea, vomiting, wheeze, abdominal pain, chest pain. She indicates that she has a cough which is nonproductive. I explained to the patient her current medical condition and plan of care and have answered all of her questions - Review of Systems General: Reports: No Symptoms HEENT: Reports: No Symptoms Pulmonary: Reports: Cough Cardiovascular: Reports: No Symptoms Gastrointestinal: Reports: No Symptoms Genitourinary: Reports: No Symptoms Musculoskeletal: Reports: No Symptoms Skin: Reports: No Symptoms Neurological: Reports: No Symptoms Psychiatric: Reports: No Symptoms - Patient Data Vitals - Most Recent: Last Vital Signs Temp 97 F 04/08/21 03:59 Pulse 77 04/08/21 03:59 Resp 24 H 04/08/21 03:59 BP 119/62 04/07/21 23:36 Pulse Ox 94 L 04/08/21 04:53 Weight - Most Recent: 121 lb I&O - Last 24 Hours: Intake & Output 04/07/21 04/08/21 04/08/21 22:59 06:59 14:59 Intake Total 700 200 Output Total 500 Balance 200 200 Lab Results Last 24 Hours: Laboratory Results - last 24 hr 04/07/21 Range/Units 16:40 Urine Color Yellow (YELLOW) Urine Appearance Turbid (CLEAR) Urine pH 6.5 (5.0-9.0) Ur Specific Globe >= 1.030 (1.005-1.030) Urine Protein Trace H (NEGATIVE) Urine Glucose (UA) Negative (NEGATIVE) Urine Ketones Negative (NEGATIVE) Urine Occult Blood Negative (NEGATIVE) Urine Nitrite Positive H (NEGATIVE) Urine Bilirubin Negative (NEGATIVE) Urine Urobilinogen 0.2 (0.2-1.0) mg/dL Ur Leukocyte Esterase Trace H (NEGATIVE) Urine RBC 0-5 /HPF Urine WBC 10-20 H (0-5/HPF) /HPF Ur Epithelial Cells Rare (NOT SEEN) /HPF Amorphous Sediment Moderate H (NOT SEEN) /HPF Urine Bacteria Many H (0-FEW/HPF) /HPF Urine Mucus Rare (NOT SEEN) /LPF Cory Results Last 24 Hours: Microbiology 04/07/21 03:00 Aerobic Blood Culture - Preliminary Blood - Venous - Iv Start NO GROWTH AFTER 1 DAY Anaerobic Blood Culture - Preliminary NO GROWTH AFTER 1 DAY 04/07/21 03:05 Aerobic Blood Culture - Preliminary Blood - Arm, Left NO GROWTH AFTER 1 DAY Anaerobic Blood Culture - Preliminary NO GROWTH AFTER 1 DAY Med Orders - Current: Current Medications Acetaminophen (Acetaminophen 325 Mg Tab) 650 mg PO Q4H PRN PRN Reason: Pain (Mild 1-3)/fever Albuterol/Ipratropium (Albuterol/Ipratropium 3.0-0.5 Mg/3 Ml Neb Soln) 3 ml NEB Q4HRRT [facility] Last Admin: 04/08/21 04:17 Dose: Not Given Documented by: Amlodipine Besylate (Amlodipine 5 Mg Tab) 10 mg PO BEDTIME [facility] Last Admin: 04/07/21 21:13 Dose: 10 mg Documented by: Benazepril HCl (Benazepril 10 Mg Tab) 20 mg PO BEDTIME [facility] Last Admin: 04/07/21 21:10 Dose: 20 mg Documented by: Doxycycline Monohydrate (Doxycycline Monohydrate 100 Mg Cap) 100 mg PO BID [facility] Last Admin: 04/07/21 21:12 Dose: 100 mg Documented by: Enoxaparin Sodium (Enoxaparin 40 Mg/0.4 Ml Syringe) 40 mg SUBCUT DAILY [facility] Last Admin: 04/07/21 08:45 Dose: 40 mg Documented by: Methylprednisolone Sodium Succinate (Methylprednisolone Sodium Succinate 125 Mg/2 Ml Sdv) 60 mg IVPUSH Q8H [facility] Last Admin: 04/08/21 05:57 Dose: 60 mg Documented by: Ondansetron HCl (Ondansetron 4 Mg/2 Ml Sdv) 4 mg IVPUSH Q4H PRN PRN Reason: Nausea/Vomiting Last Admin: 04/07/21 18:28 Dose: 4 mg Documented by: Pantoprazole Sodium (Pantoprazole 40 Mg Tab.Cr) 40 mg PO ACBREAKFAST [facility] Last Admin: 04/08/21 06:03 Dose: 40 mg Documented by: Sertraline HCl (Sertraline 50 Mg Tab) 50 mg PO DAILY [facility] Last Admin: 04/07/21 08:45 Dose: 50 mg Documented by: Sodium Chloride (Sodium Chloride 0.9% 10 Ml Syringe) 10 ml FLUSH ASDIRECTED PRN PRN Reason: Keep Vein Open Last Admin: 04/08/21 06:04 Dose: 10 ml Documented by: Trazodone HCl (Trazodone 50 Mg Tab) 150 mg PO BEDTIME [facility] Last Admin: 04/07/21 21:13 Dose: 150 mg Documented by: Venlafaxine HCl (Venlafaxine 150 Mg Cap.Er) 150 mg PO DAILY [facility] Last Admin: 04/07/21 09:33 Dose: 150 mg Documented by: Discontinued Medications Albuterol/Ipratropium (Albuterol/Ipratropium 3.0-0.5 Mg/3 Ml Neb Soln) 3 ml NEB ONETIME ONE Stop: 04/07/21 03:15 Last Admin: 04/07/21 03:22 Dose: 3 ml Documented by: Amlodipine Besylate (Amlodipine 5 Mg Tab) 20 mg PO DAILY [facility] Last Admin: 04/07/21 08:46 Dose: Not Given Documented by: Amlodipine Besylate (Amlodipine 5 Mg Tab) 20 mg PO BEDTIME [facility] Benazepril HCl (Benazepril 10 Mg Tab) 10 mg PO DAILY [facility] Last Admin: 04/07/21 08:46 Dose: Not Given Documented by: Benazepril HCl (Benazepril 10 Mg Tab) 10 mg PO BEDTIME [facility] Methylprednisolone Sodium Succinate (Methylprednisolone Sodium Succinate 125 Mg/2 Ml Sdv) 125 mg IVPUSH ONETIME ONE Stop: 04/07/21 03:14 Last Admin: 04/07/21 03:22 Dose: 125 mg Documented by: Methylprednisolone Sodium Succinate (Methylprednisolone Sodium Succinate 40 Mg/1 Ml Sdv) 60 mg IVPUSH Q8H [facility] Last Admin: 04/07/21 13:29 Dose: Not Given Documented by: Trazodone HCl (Trazodone 50 Mg Tab) 50 mg PO BEDTIME PRN PRN Reason: Insomnia Trazodone HCl (Trazodone 50 Mg Tab) 150 mg PO BEDTIME PRN PRN Reason: Insomnia Venlafaxine HCl (Venlafaxine 150 Mg Cap.Er) 150 mg PO DAILY [facility] - Exam General: Alert, Oriented HEENT: Pupils Equal, Pupils Reactive, EOMI, Mucous Membr. Moist/[place] Neck: Supple Lungs: Decreased Breath Sounds Cardiovascular: Regular Rate, Regular Rhythm GI/Abdominal Exam: Normal Bowel Sounds, Soft, Non-Tender, No Organomegaly, No Distention, No Abnormal Bruit, No Mass, Pelvis Stable Back Exam: Normal Inspection, Full Range of Motion Extremities: Normal Inspection, Normal Range of Motion, Non-Tender, No Pedal Edema, Normal Capillary Refill Peripheral Pulses: 2+: Carotid (L), Carotid (R), Brachial (L), Brachial (R), Radial (L), Radial (R), Femoral (L), Femoral (R), Popliteal (L), Popliteal (R), Posterior Tibial (L), Posterior Tibial (R), Dorsalis Pedis (L), Dorsalis Pedis (R) Skin: Warm, Dry, Intact Wound/Incisions: Healing Well Neurological: No New Focal Deficit Psy/Mental Status: Alert, Normal Affect, Normal Mood - Patient Data Lab Results Last 24 hrs: Laboratory Results - last 24 hr 04/07/21 Range/Units 16:40 Urine Color Yellow (YELLOW) Urine Appearance Turbid (CLEAR) Urine pH 6.5 (5.0-9.0) Ur Specific [place] >= 1.030 (1.005-1.030) Urine Protein Trace H (NEGATIVE) Urine Glucose (UA) Negative (NEGATIVE) Urine Ketones Negative (NEGATIVE) Urine Occult Blood Negative (NEGATIVE) Urine Nitrite Positive H (NEGATIVE) Urine Bilirubin Negative (NEGATIVE) Urine Urobilinogen 0.2 (0.2-1.0) mg/dL Ur Leukocyte Esterase Trace H (NEGATIVE) Urine RBC 0-5 /HPF Urine WBC 10-20 H (0-5/HPF) /HPF Ur Epithelial Cells Rare (NOT SEEN) /HPF Amorphous Sediment Moderate H (NOT SEEN) /HPF Urine Bacteria Many H (0-FEW/HPF) /HPF Urine Mucus Rare (NOT SEEN) /LPF Result Diagrams: 04/07/21 03:05 04/07/21 03:05 Cory Results Last 24 hrs: Microbiology 04/07/21 03:00 Aerobic Blood Culture - Preliminary Blood - Venous - Iv Start NO GROWTH AFTER 1 DAY Anaerobic Blood Culture - Preliminary NO GROWTH AFTER 1 DAY 04/07/21 03:05 Aerobic Blood Culture - Preliminary Blood - Arm, Left NO GROWTH AFTER 1 DAY Anaerobic Blood Culture - Preliminary NO GROWTH AFTER 1 DAY Sepsis Event Note - Evaluation Sepsis Screening Result: Sepsis Risk - Focused Exam Vital Signs: Vital Signs Temp Pulse Resp BP BP Pulse Ox Pulse Ox 04/08/21 04:53 94 L 04/08/21 03:59 97 F 77 24 H 95 04/07/21 23:36 98.2 F 102 H 24 H 119/62 95 04/07/21 23:12 106 H 97 04/07/21 21:13 118/64 97 04/07/21 21:10 118/64 04/07/21 19:31 98 F 93 24 H 113/40 L 99 - Problem List Review Problem List Initiated/Reviewed/Updated: Yes - My Orders Last 24 Hours: My Active Orders 04/07/21 07:00 Albuterol/Ipratropium [DuoNeb 3.0-0.5 MG/3 ML] 3 ml NEB Q4HRRT 04/07/21 Breakfast Heart Healthy Diet [DIET] 04/07/21 09:00 Enoxaparin [Lovenox] 40 mg SUBCUT DAILY Sertraline [Zoloft] 50 mg PO DAILY 04/07/21 09:15 Venlafaxine [Venlafaxine HCl ER] 150 mg PO DAILY 04/07/21 21:00 Benazepril [Lotensin] 20 mg PO BEDTIME amLODIPine [Norvasc] 10 mg PO BEDTIME traZODone 150 mg PO BEDTIME 04/08/21 07:19 Communication Order [RC] 04/08/21 07:23 Dextromethorphan/guaiFENesin [Robitussin DM] 10 ml PO Q6H PRN 04/08/21 08:00 Montelukast [Singulair] 10 mg PO BEDTIME 04/08/21 09:00 Loratadine [Claritin] 10 mg PO DAILY - Plan Plan:: Surgical History: Cholecystectomy, appendectomy, bilateral cataract surgery, left knee surgery, right wrist surgery Family History: Cancer, stroke, diabetes, coronary artery disease, hypertension Social History: Tobacco: Former smoker as of approximately March 08, 2021 Alcohol: Denies Caffeine: Coffee Drugs: Never Allergies: Penicillin Code Status: DNR, DNI Assessment / Plan: COPD exacerbation. Patient is not O2 dependent. However she has been told that she does require supplemental oxygen in the past sign Medrol 60 mg IV every 8 hours plus DuoNeb every 4 hours plus doxycycline 100 mg p.o. twice daily plus Singulair 10 mg p.o. nightly plus Claritin 10 mg p.o. daily Urinary tract infection. Doxycycline 100 mg p.o. twice daily Osteoporosis Diverticulosis Chronic pain Insomnia Anxiety Depression. Zoloft 50 mg p.o. daily plus trazodone 150 mg p.o. nightly plus Effexor ER 150 mg p.o. daily GERD/peptic ulcer disease. Protonix 40 mg p.o. daily Hyperlipidemia Hypertension. Norvasc 10 mg p.o. daily plus benazepril 20 mg p.o. daily DVT prophylaxis. Lovenox 40 mg subcutaneously daily Disposition: Anticipate discharge in 24 to 48 hours with possible requirement of home oxygen END OF DOCTOR EMAMIS HISTORY AND PHYSICAL / CONSULTATION NOTE
[2021-04-08] MEDS: guaiFENesin/Dextromethorphan 100-10 MG/5 ML Soln 5 ML Cup PO PRN ×3 (08:43→22:16)
[2021-04-08] MEDS: Loratadine 10 MG Tab PO SCH (09:41)
[2021-04-08] MEDS: Sertraline 50 MG Tab PO SCH (09:41)
[2021-04-08] MEDS: Montelukast 10 MG Tab PO SCH ×2 (09:42→20:58)
[2021-04-08] MEDS: Doxycycline Monohydrate 100 MG Cap PO SCH ×2 (09:42→20:56)
[2021-04-08] MEDS: Venlafaxine 150 MG CAP.ER PO SCH (09:43)
[2021-04-08] MEDS: Enoxaparin 40 MG/0.4 ML Syringe SUBCUT SCH (09:43)
[2021-04-08] MEDS ORDERED: Albuterol/Ipratropium 3.0-0.5 MG/3 ML Neb Soln NEB ONE (12:08)
[2021-04-08] MEDS: Albuterol/Ipratropium 3.0-0.5 MG/3 ML Neb Soln NEB ONE (16:18)
[2021-04-08] MEDS ORDERED: Albuterol/Ipratropium 3.0-0.5 MG/3 ML Neb Soln NEB PRN (16:21)
[2021-04-08] MEDS: traMADol 50 MG Tab PO PRN (18:28)
[2021-04-08] MEDS: Benazepril 10 MG Tab PO SCH (20:57)
[2021-04-08] MEDS: amLODIPine 5 MG Tab PO SCH (20:57)
[2021-04-08] MEDS: traZODone 50 MG Tab PO SCH (20:58)
[2021-04-09] MEDS: Albuterol/Ipratropium 3.0-0.5 MG/3 ML Neb Soln NEB SCH ×6 (04:31→22:07)
[2021-04-09] MEDS: Pantoprazole 40 MG Tab.CR PO SCH (06:05)
[2021-04-09] MEDS: methylPREDNISolone Sodium Succinate 125 MG/2 ML SDV IVPUSH SCH ×3 (06:06→20:47)
--- NOTE | 2021-04-09 06:47 | PCM.PN ---
- General Info Date of Service: 04/09/21 Subjective Update: The patient indicates that her respiratory status has improved mildly compared to my cath with her on April 08, 2021. She currently rates her respiratory status as a 5 out of 10 if 10 is her baseline. She admits to cough which is nonproductive. She denies fever, rigors, nausea, vomiting, wheeze, abdominal pain, chest pain, or any other constitutional complaints. I explained to the patient her current medical condition and plan of care and I have answered all of her questions - Review of Systems General: Reports: No Symptoms HEENT: Reports: No Symptoms Pulmonary: Reports: Shortness of Breath Cardiovascular: Reports: No Symptoms Gastrointestinal: Reports: No Symptoms Genitourinary: Reports: No Symptoms Musculoskeletal: Reports: No Symptoms Skin: Reports: No Symptoms Neurological: Reports: No Symptoms Psychiatric: Reports: No Symptoms - Patient Data Vitals - Most Recent: Last Vital Signs Temp 98.5 F 04/09/21 04:00 Pulse 98 04/09/21 04:00 Resp 20 04/09/21 04:00 BP 132/78 04/09/21 04:00 Pulse Ox 97 04/09/21 04:00 Weight - Most Recent: 121 lb I&O - Last 24 Hours: Intake & Output 04/08/21 04/08/21 04/09/21 14:59 22:59 06:59 Intake Total 1080 650 150 Output Total 700 200 400 Balance 380 450 -250 Cory Results Last 24 Hours: Microbiology 04/07/21 03:00 Aerobic Blood Culture - Preliminary Blood - Venous - Iv Start NO GROWTH AFTER 2 DAYS Anaerobic Blood Culture - Preliminary NO GROWTH AFTER 2 DAYS 04/07/21 03:05 Aerobic Blood Culture - Preliminary Blood - Arm, Left NO GROWTH AFTER 2 DAYS Anaerobic Blood Culture - Preliminary NO GROWTH AFTER 2 DAYS 04/07/21 16:40 Urine Culture - Preliminary Urine, Voided Med Orders - Current: Current Medications Acetaminophen (Acetaminophen 325 Mg Tab) 650 mg PO Q4H PRN PRN Reason: Pain (Mild 1-3)/fever Last Admin: 04/08/21 17:05 Dose: 650 mg Documented by: Albuterol/Ipratropium (Albuterol/Ipratropium 3.0-0.5 Mg/3 Ml Neb Soln) 3 ml NEB Q4HRRT [facility] Last Admin: 04/09/21 04:31 Dose: Not Given Documented by: Albuterol/Ipratropium (Albuterol/Ipratropium 3.0-0.5 Mg/3 Ml Neb Soln) 3 ml NEB Q4H PRN PRN Reason: Wheezing Amlodipine Besylate (Amlodipine 5 Mg Tab) 10 mg PO BEDTIME [facility] Last Admin: 04/08/21 20:57 Dose: 10 mg Documented by: Benazepril HCl (Benazepril 10 Mg Tab) 20 mg PO BEDTIME [facility] Last Admin: 04/08/21 20:57 Dose: 20 mg Documented by: Doxycycline Monohydrate (Doxycycline Monohydrate 100 Mg Cap) 100 mg PO BID [facility] Last Admin: 04/08/21 20:56 Dose: 100 mg Documented by: Enoxaparin Sodium (Enoxaparin 40 Mg/0.4 Ml Syringe) 40 mg SUBCUT DAILY [facility] Last Admin: 04/08/21 09:43 Dose: 40 mg Documented by: Guaifenesin/Phenylephrine HCl (Guaifenesin/Dextromethorphan 100-10 Mg/5 Ml Soln 5 Ml Cup) 10 ml PO Q6H PRN PRN Reason: Cough Last Admin: 04/08/21 22:16 Dose: 10 ml Documented by: Loratadine (Loratadine 10 Mg Tab) 10 mg PO DAILY [facility] Last Admin: 04/08/21 09:41 Dose: 10 mg Documented by: Methylprednisolone Sodium Succinate (Methylprednisolone Sodium Succinate 125 Mg/2 Ml Sdv) 60 mg IVPUSH Q8H [facility] Last Admin: 04/09/21 06:06 Dose: 60 mg Documented by: Montelukast Sodium (Montelukast 10 Mg Tab) 10 mg PO BEDTIME [facility] Last Admin: 04/08/21 20:58 Dose: 10 mg Documented by: Ondansetron HCl (Ondansetron 4 Mg/2 Ml Sdv) 4 mg IVPUSH Q4H PRN PRN Reason: Nausea/Vomiting Last Admin: 04/07/21 18:28 Dose: 4 mg Documented by: Pantoprazole Sodium (Pantoprazole 40 Mg Tab.Cr) 40 mg PO ACBREAKFAST [facility] Last Admin: 04/09/21 06:05 Dose: 40 mg Documented by: Sertraline HCl (Sertraline 50 Mg Tab) 50 mg PO DAILY [facility] Last Admin: 04/08/21 09:41 Dose: 50 mg Documented by: Sodium Chloride (Sodium Chloride 0.9% 10 Ml Syringe) 10 ml FLUSH ASDIRECTED PRN PRN Reason: Keep Vein Open Last Admin: 04/08/21 12:39 Dose: 10 ml Documented by: Tramadol HCl (Tramadol 50 Mg Tab) 50 mg PO Q6H PRN PRN Reason: Pain Last Admin: 04/08/21 18:28 Dose: 50 mg Documented by: Trazodone HCl (Trazodone 50 Mg Tab) 150 mg PO BEDTIME [facility] Last Admin: 04/08/21 20:58 Dose: 150 mg Documented by: Venlafaxine HCl (Venlafaxine 150 Mg Cap.Er) 150 mg PO DAILY [facility] Last Admin: 04/08/21 09:43 Dose: 150 mg Documented by: Discontinued Medications Albuterol/Ipratropium (Albuterol/Ipratropium 3.0-0.5 Mg/3 Ml Neb Soln) 3 ml NEB ONETIME ONE Stop: 04/07/21 03:15 Last Admin: 04/08/21 16:18 Dose: 3 ml Documented by: Albuterol/Ipratropium (Albuterol/Ipratropium 3.0-0.5 Mg/3 Ml Neb Soln) 3 ml NEB ONETIME ONE Stop: 04/08/21 12:09 Last Admin: 04/08/21 12:08 Dose: 3 ml Documented by: Amlodipine Besylate (Amlodipine 5 Mg Tab) 20 mg PO DAILY [facility] Last Admin: 04/07/21 08:46 Dose: Not Given Documented by: Amlodipine Besylate (Amlodipine 5 Mg Tab) 20 mg PO BEDTIME [facility] Benazepril HCl (Benazepril 10 Mg Tab) 10 mg PO DAILY [facility] Last Admin: 04/07/21 08:46 Dose: Not Given Documented by: Benazepril HCl (Benazepril 10 Mg Tab) 10 mg PO BEDTIME [facility] Methylprednisolone Sodium Succinate (Methylprednisolone Sodium Succinate 125 Mg/2 Ml Sdv) 125 mg IVPUSH ONETIME ONE Stop: 04/07/21 03:14 Last Admin: 04/07/21 03:22 Dose: 125 mg Documented by: Methylprednisolone Sodium Succinate (Methylprednisolone Sodium Succinate 40 Mg/1 Ml Sdv) 60 mg IVPUSH Q8H [facility] Last Admin: 04/07/21 13:29 Dose: Not Given Documented by: Trazodone HCl (Trazodone 50 Mg Tab) 50 mg PO BEDTIME PRN PRN Reason: Insomnia Trazodone HCl (Trazodone 50 Mg Tab) 150 mg PO BEDTIME PRN PRN Reason: Insomnia Venlafaxine HCl (Venlafaxine 150 Mg Cap.Er) 150 mg PO DAILY [facility] - Exam General: Alert, Oriented HEENT: Pupils Equal, Pupils Reactive, EOMI, Mucous Membr. Moist/[place] Neck: Supple Lungs: Wheezing Cardiovascular: Regular Rate, Regular Rhythm GI/Abdominal Exam: Normal Bowel Sounds, Soft, Non-Tender, No Organomegaly, No Distention, No Abnormal Bruit, No Mass, Pelvis Stable Back Exam: Normal Inspection, Full Range of Motion Extremities: Normal Inspection, Normal Range of Motion, Non-Tender, No Pedal Edema, Normal Capillary Refill Peripheral Pulses: 2+: Carotid (L), Carotid (R), Brachial (L), Brachial (R), Radial (L), Radial (R), Femoral (L), Femoral (R), Popliteal (L), Popliteal (R), Posterior Tibial (L), Posterior Tibial (R), Dorsalis Pedis (L), Dorsalis Pedis (R) Skin: Warm, Dry, Intact Wound/Incisions: Healing Well Neurological: No New Focal Deficit Psy/Mental Status: Alert, Normal Affect, Normal Mood - Patient Data Result Diagrams: 04/07/21 03:05 04/07/21 03:05 Cory Results Last 24 hrs: Microbiology 04/07/21 03:00 Aerobic Blood Culture - Preliminary Blood - Venous - Iv Start NO GROWTH AFTER 2 DAYS Anaerobic Blood Culture - Preliminary NO GROWTH AFTER 2 DAYS 04/07/21 03:05 Aerobic Blood Culture - Preliminary Blood - Arm, Left NO GROWTH AFTER 2 DAYS Anaerobic Blood Culture - Preliminary NO GROWTH AFTER 2 DAYS 04/07/21 16:40 Urine Culture - Preliminary Urine, Voided Sepsis Event Note - Evaluation Sepsis Screening Result: Sepsis Risk - Focused Exam Vital Signs: Vital Signs Temp Pulse Resp BP BP Pulse Ox Pulse Ox 04/09/21 04:00 98.5 F 98 20 132/78 97 97 04/08/21 20:57 134/83 04/08/21 20:00 98.7 F 105 H 22 H 134/83 97 - Problem List Review Problem List Initiated/Reviewed/Updated: Yes - My Orders Last 24 Hours: My Active Orders 04/08/21 07:19 Communication Order [RC] ,04/08/21 07:23 Dextromethorphan/guaiFENesin [Robitussin DM] 10 ml PO Q6H PRN 04/08/21 08:00 Montelukast [Singulair] 10 mg PO BEDTIME 04/08/21 09:00 Loratadine [Claritin] 10 mg PO DAILY 04/08/21 11:36 Patient Status [ADT] Routine 04/08/21 16:21 RT Aerosol Therapy [RC] ASDIRECTED Albuterol/Ipratropium [DuoNeb 3.0-0.5 MG/3 ML] 3 ml NEB Q4H PRN 04/08/21 17:47 traMADol [Ultram] 50 mg PO Q6H PRN 04/08/21 17:48 K Pad [Heat Therapy] [OM.PC] PRN 04/09/21 06:45 Communication Order [RC] - Plan Plan:: Surgical History: Cholecystectomy, appendectomy, bilateral cataract surgery, left knee surgery, right wrist surgery Family History: Cancer, stroke, diabetes, coronary artery disease, hypertension Social History: Tobacco: Former smoker as of approximately March 08, 2021 Alcohol: Denies Caffeine: Coffee Drugs: Never Allergies: Penicillin Code Status: DNR, DNI Assessment / Plan: COPD exacerbation. Patient is not O2 dependent. However she has been told that she does require supplemental oxygen in the past sign Medrol 60 mg IV every 8 hours plus DuoNeb every 4 hours plus doxycycline 100 mg p.o. twice daily plus Singulair 10 mg p.o. nightly plus Claritin 10 mg p.o. daily Urinary tract infection. Urine culture positive for gram-negative rods, speciation pending. Doxycycline 100 mg p.o. twice daily Osteoporosis Diverticulosis Chronic pain Insomnia Anxiety Depression. Zoloft 50 mg p.o. daily plus trazodone 150 mg p.o. nightly plus Effexor ER 150 mg p.o. daily GERD/peptic ulcer disease. Protonix 40 mg p.o. daily Hyperlipidemia Hypertension. Norvasc 10 mg p.o. daily plus benazepril 20 mg p.o. daily DVT prophylaxis. Lovenox 40 mg subcutaneously daily Disposition: Anticipate discharge in 24 hours with possible requirement of home oxygen END OF DOCTOR EMAMIS HISTORY AND PHYSICAL / CONSULTATION NOTE
[2021-04-09] MEDS: guaiFENesin/Dextromethorphan 100-10 MG/5 ML Soln 5 ML Cup PO PRN ×2 (07:18→15:14)
[2021-04-09] MEDS: Enoxaparin 40 MG/0.4 ML Syringe SUBCUT SCH (08:17)
[2021-04-09] MEDS: Venlafaxine 150 MG CAP.ER PO SCH (08:18)
[2021-04-09] MEDS: Doxycycline Monohydrate 100 MG Cap PO SCH ×2 (08:18→20:47)
[2021-04-09] MEDS: Loratadine 10 MG Tab PO SCH (08:18)
[2021-04-09] MEDS: Sertraline 50 MG Tab PO SCH (08:18)
[2021-04-09] MEDS: Benzonatate 100 MG Cap PO PRN ×2 (10:19→20:47)
[2021-04-09] MEDS: Sodium Chloride 0.9% 10 ML Syringe FLUSH PRN (13:48)
[2021-04-09] MEDS: traMADol 50 MG Tab PO PRN ×2 (15:15→22:07)
[2021-04-09] MEDS ORDERED: Calcium Carbonate 500 MG Tab.Chew PO PRN (20:20)
[2021-04-09] MEDS: traZODone 50 MG Tab PO SCH (20:46)
[2021-04-09] MEDS: Montelukast 10 MG Tab PO SCH (20:47)
[2021-04-09] MEDS: Benazepril 10 MG Tab PO SCH (20:50)
[2021-04-09] MEDS: amLODIPine 5 MG Tab PO SCH (20:50)
[2021-04-10] MEDS: guaiFENesin/Dextromethorphan 100-10 MG/5 ML Soln 5 ML Cup PO PRN ×2 (02:45→10:35)
[2021-04-10] MEDS: Albuterol/Ipratropium 3.0-0.5 MG/3 ML Neb Soln NEB SCH ×4 (02:45→20:15)
[2021-04-10] MEDS: methylPREDNISolone Sodium Succinate 125 MG/2 ML SDV IVPUSH SCH ×2 (06:09→13:31)
[2021-04-10] MEDS: Pantoprazole 40 MG Tab.CR PO SCH (06:10)
--- NOTE | 2021-04-10 07:24 | PCM.PN ---
- General Info Date of Service: 04/10/21 Subjective Update: The patient currently rates her respiratory status is a 6 out of 10 at times her baseline. She states that her respiratory status has improved somewhat compared to my encounter with her on April 09, 2021. He still complains of a cough which is nonproductive. Overnight she denies fever, rigors, nausea, vomiting, wheeze, abdominal pain, chest pain. I examined the patient her current medical condition and plan of care and I have answered all of her questions - Review of Systems General: Reports: No Symptoms HEENT: Reports: No Symptoms Pulmonary: Reports: Shortness of Breath, Cough Cardiovascular: Reports: No Symptoms Gastrointestinal: Reports: No Symptoms Genitourinary: Reports: No Symptoms Musculoskeletal: Reports: No Symptoms Skin: Reports: No Symptoms Neurological: Reports: No Symptoms Psychiatric: Reports: No Symptoms - Patient Data Vitals - Most Recent: Last Vital Signs Temp 98 F 04/10/21 00:00 Pulse 105 H 04/10/21 00:00 Resp 22 H 04/10/21 00:00 BP 134/91 H 04/10/21 00:00 Pulse Ox 94 L 04/10/21 04:00 Weight - Most Recent: 121 lb I&O - Last 24 Hours: Intake & Output 04/09/21 04/10/21 04/10/21 22:59 06:59 14:59 Intake Total 400 Balance 400 Cory Results Last 24 Hours: Microbiology 04/07/21 03:00 Aerobic Blood Culture - Preliminary Blood - Venous - Iv Start NO GROWTH AFTER 3 DAYS Anaerobic Blood Culture - Preliminary NO GROWTH AFTER 3 DAYS 04/07/21 03:05 Aerobic Blood Culture - Preliminary Blood - Arm, Left NO GROWTH AFTER 3 DAYS Anaerobic Blood Culture - Preliminary NO GROWTH AFTER 3 DAYS 04/07/21 16:40 Urine Culture - Final Urine, Voided Klebsiella Pneumoniae Med Orders - Current: Current Medications Acetaminophen (Acetaminophen 325 Mg Tab) 650 mg PO Q4H PRN PRN Reason: Pain (Mild 1-3)/fever Last Admin: 04/08/21 17:05 Dose: 650 mg Documented by: Albuterol/Ipratropium (Albuterol/Ipratropium 3.0-0.5 Mg/3 Ml Neb Soln) 3 ml NEB Q4HRRT JOSE Last Admin: 04/10/21 06:09 Dose: 3 ml Documented by: Albuterol/Ipratropium (Albuterol/Ipratropium 3.0-0.5 Mg/3 Ml Neb Soln) 3 ml NEB Q4H PRN PRN Reason: Wheezing Amlodipine Besylate (Amlodipine 5 Mg Tab) 10 mg PO BEDTIME [facility] Last Admin: 04/09/21 20:50 Dose: 10 mg Documented by: Benazepril HCl (Benazepril 10 Mg Tab) 20 mg PO BEDTIME [facility] Last Admin: 04/09/21 20:50 Dose: 20 mg Documented by: Benzonatate (Benzonatate 100 Mg Cap) 100 mg PO Q8H PRN PRN Reason: Cough Last Admin: 04/09/21 20:47 Dose: 100 mg Documented by: Calcium Carbonate/Glycine (Calcium Carbonate 500 Mg Tab.Chew) 500 mg PO Q6H PRN PRN Reason: Dyspepsia Last Admin: 04/09/21 20:46 Dose: 500 mg Documented by: Doxycycline Monohydrate (Doxycycline Monohydrate 100 Mg Cap) 100 mg PO BID [facility] Last Admin: 04/09/21 20:47 Dose: 100 mg Documented by: Enoxaparin Sodium (Enoxaparin 40 Mg/0.4 Ml Syringe) 40 mg SUBCUT DAILY [facility] Last Admin: 04/09/21 08:17 Dose: 40 mg Documented by: Guaifenesin/Phenylephrine HCl (Guaifenesin/Dextromethorphan 100-10 Mg/5 Ml Soln 5 Ml Cup) 10 ml PO Q6H PRN PRN Reason: Cough Last Admin: 04/10/21 02:45 Dose: 10 ml Documented by: Loratadine (Loratadine 10 Mg Tab) 10 mg PO DAILY [facility] Last Admin: 04/09/21 08:18 Dose: 10 mg Documented by: Methylprednisolone Sodium Succinate (Methylprednisolone Sodium Succinate 125 Mg/2 Ml Sdv) 60 mg IVPUSH Q8H [facility] Last Admin: 04/10/21 06:09 Dose: 60 mg Documented by: Montelukast Sodium (Montelukast 10 Mg Tab) 10 mg PO BEDTIME [facility] Last Admin: 04/09/21 20:47 Dose: 10 mg Documented by: Ondansetron HCl (Ondansetron 4 Mg/2 Ml Sdv) 4 mg IVPUSH Q4H PRN PRN Reason: Nausea/Vomiting Last Admin: 04/07/21 18:28 Dose: 4 mg Documented by: Pantoprazole Sodium (Pantoprazole 40 Mg Tab.Cr) 40 mg PO ACBREAKFAST [facility] Last Admin: 04/10/21 06:10 Dose: 40 mg Documented by: Sertraline HCl (Sertraline 50 Mg Tab) 50 mg PO DAILY [facility] Last Admin: 04/09/21 08:18 Dose: 50 mg Documented by: Sodium Chloride (Sodium Chloride 0.9% 10 Ml Syringe) 10 ml FLUSH ASDIRECTED PRN PRN Reason: Keep Vein Open Last Admin: 04/09/21 13:48 Dose: 10 ml Documented by: Tramadol HCl (Tramadol 50 Mg Tab) 50 mg PO Q6H PRN PRN Reason: Pain Last Admin: 04/09/21 22:07 Dose: 50 mg Documented by: Trazodone HCl (Trazodone 50 Mg Tab) 150 mg PO BEDTIME [facility] Last Admin: 04/09/21 20:46 Dose: 150 mg Documented by: Venlafaxine HCl (Venlafaxine 150 Mg Cap.Er) 150 mg PO DAILY [facility] Last Admin: 04/09/21 08:18 Dose: 150 mg Documented by: Discontinued Medications Albuterol/Ipratropium (Albuterol/Ipratropium 3.0-0.5 Mg/3 Ml Neb Soln) 3 ml NEB ONETIME ONE Stop: 04/07/21 03:15 Last Admin: 04/08/21 16:18 Dose: 3 ml Documented by: Albuterol/Ipratropium (Albuterol/Ipratropium 3.0-0.5 Mg/3 Ml Neb Soln) 3 ml NEB ONETIME ONE Stop: 04/08/21 12:09 Last Admin: 04/08/21 12:08 Dose: 3 ml Documented by: Amlodipine Besylate (Amlodipine 5 Mg Tab) 20 mg PO DAILY [facility] Last Admin: 04/07/21 08:46 Dose: Not Given Documented by: Amlodipine Besylate (Amlodipine 5 Mg Tab) 20 mg PO BEDTIME [facility] Benazepril HCl (Benazepril 10 Mg Tab) 10 mg PO DAILY [facility] Last Admin: 04/07/21 08:46 Dose: Not Given Documented by: Benazepril HCl (Benazepril 10 Mg Tab) 10 mg PO BEDTIME [facility] Methylprednisolone Sodium Succinate (Methylprednisolone Sodium Succinate 125 Mg/2 Ml Sdv) 125 mg IVPUSH ONETIME ONE Stop: 04/07/21 03:14 Last Admin: 04/07/21 03:22 Dose: 125 mg Documented by: Methylprednisolone Sodium Succinate (Methylprednisolone Sodium Succinate 40 Mg/1 Ml Sdv) 60 mg IVPUSH Q8H [facility] Last Admin: 04/07/21 13:29 Dose: Not Given Documented by: Trazodone HCl (Trazodone 50 Mg Tab) 50 mg PO BEDTIME PRN PRN Reason: Insomnia Trazodone HCl (Trazodone 50 Mg Tab) 150 mg PO BEDTIME PRN PRN Reason: Insomnia Venlafaxine HCl (Venlafaxine 150 Mg Cap.Er) 150 mg PO DAILY [facility] - Exam General: Alert, Oriented HEENT: Pupils Equal, Pupils Reactive, EOMI, Mucous Membr. Moist/[place] Neck: Supple Lungs: Decreased Breath Sounds Cardiovascular: Regular Rate, Regular Rhythm GI/Abdominal Exam: Normal Bowel Sounds, Soft, Non-Tender, No Organomegaly, No Distention, No Abnormal Bruit, No Mass, Pelvis Stable Back Exam: Normal Inspection, Full Range of Motion Extremities: Normal Inspection, Normal Range of Motion, Non-Tender, No Pedal Edema, Normal Capillary Refill Peripheral Pulses: 2+: Carotid (L), Carotid (R), Brachial (L), Brachial (R), Radial (L), Radial (R), Femoral (L), Femoral (R), Popliteal (L), Popliteal (R), Posterior Tibial (L), Posterior Tibial (R), Dorsalis Pedis (L), Dorsalis Pedis (R) Skin: Warm, Dry, Intact Wound/Incisions: Healing Well Neurological: No New Focal Deficit Psy/Mental Status: Alert, Normal Affect, Normal Mood - Patient Data Result Diagrams: 04/07/21 03:05 04/07/21 03:05 Cory Results Last 24 hrs: Microbiology 04/07/21 03:00 Aerobic Blood Culture - Preliminary Blood - Venous - Iv Start NO GROWTH AFTER 3 DAYS Anaerobic Blood Culture - Preliminary NO GROWTH AFTER 3 DAYS 04/07/21 03:05 Aerobic Blood Culture - Preliminary Blood - Arm, Left NO GROWTH AFTER 3 DAYS Anaerobic Blood Culture - Preliminary NO GROWTH AFTER 3 DAYS 04/07/21 16:40 Urine Culture - Final Urine, Voided Klebsiella Pneumoniae Sepsis Event Note - Evaluation Sepsis Screening Result: Sepsis Risk - Focused Exam Vital Signs: Vital Signs Temp Pulse Resp BP BP Pulse Ox Pulse Ox 04/10/21 04:00 94 L 04/10/21 00:00 98 F 105 H 22 H 134/91 H 93 L 04/09/21 20:50 152/78 H 04/09/21 20:38 98.0 F 106 H 20 152/78 H 95 - Problem List Review Problem List Initiated/Reviewed/Updated: Yes - My Orders Last 24 Hours: My Active Orders 04/09/21 06:45 Communication Order [RC] 04/09/21 08:53 Benzonatate [Tessalon Perles] 100 mg PO Q8H PRN 04/09/21 20:20 Calcium Carbonate [Tums] 500 mg PO Q6H PRN 04/10/21 07:22 6 Minute Walk Test [OM.PC] Routine 6 Minute Walk Test [RT Physical Performance Test] [RESPCARE] Routine - Plan Plan:: Surgical History: Cholecystectomy, appendectomy, bilateral cataract surgery, left knee surgery, right wrist surgery Family History: Cancer, stroke, diabetes, coronary artery disease, hypertension Social History: Tobacco: Former smoker as of approximately March 08, 2021 Alcohol: Denies Caffeine: Coffee Drugs: Never Allergies: Penicillin Code Status: DNR, DNI Assessment / Plan: COPD exacerbation. Patient is not O2 dependent. However she has been told that she does require supplemental oxygen in the past sign Medrol 60 mg IV every 8 hours plus DuoNeb every 4 hours plus doxycycline 100 mg p.o. twice daily plus Singulair 10 mg p.o. nightly plus Claritin 10 mg p.o. daily Urinary tract infection. Urine culture positive for Klebsiella pneumonia. Doxycycline 100 mg p.o. twice daily Osteoporosis Diverticulosis Chronic pain Insomnia Anxiety Depression. Zoloft 50 mg p.o. daily plus trazodone 150 mg p.o. nightly plus Effexor ER 150 mg p.o. daily GERD/peptic ulcer disease. Protonix 40 mg p.o. daily Hyperlipidemia Hypertension. Norvasc 10 mg p.o. daily plus benazepril 20 mg p.o. daily DVT prophylaxis. Lovenox 40 mg subcutaneously daily Disposition: It is my hope to discharge this patient on this date April 10, 2021 following a walk test to determine whether she may require home oxygen END OF DOCTOR EMAM[facility] HISTORY AND PHYSICAL / CONSULTATION NOTE
[2021-04-10] MEDS: Enoxaparin 40 MG/0.4 ML Syringe SUBCUT SCH (09:18)
[2021-04-10] MEDS: Venlafaxine 150 MG CAP.ER PO SCH (09:18)
[2021-04-10] MEDS: Sertraline 50 MG Tab PO SCH (09:18)
[2021-04-10] MEDS: Doxycycline Monohydrate 100 MG Cap PO SCH (09:18)
[2021-04-10] MEDS: Loratadine 10 MG Tab PO SCH (09:18)
[2021-04-10] MEDS: traMADol 50 MG Tab PO PRN (10:34)
[2021-04-10 12:24] VITALS: BP 131/75; PULSE 98
--- NOTE | 2021-04-10 13:26 | PCM.DCSUM1 ---
Discharge Summary - Hospital Course Free Text/Narrative:: START OF DOCTOR [facility] DISCHARGE SUMMARY Date of Admission: April 08, 2021 Date of Discharge: 1:22 PM on April 10, 2021 Primary Diagnosis: COPD exacerbation for which patient is now O2 dependent Secondary Diagnosis: Urinary tract infection, urine culture positive for Klebsiella pneumonia Osteoporosis Diverticulosis Chronic pain Insomnia Anxiety Depression GERD/peptic ulcer disease Hyperlipidemia Hypertension Consultations: None Condition on Discharge: Fair Disposition: Patient to be advised to follow-up with pulmonology 10 to 14 days post discharge for diagnosis of COPD Discharge Medications: Effexor ER 150 mg p.o. daily Triamcinolone acetonide 0.1% cream: To be applied to affected area twice daily as needed unspecified reason Trazodone 100 mg p.o. nightly Ultram 50 mg p.o. every 12 hours as needed pain Zoloft 50 mg p.o. daily K-Dur 10 M EQ p.o. daily Prilosec 20 mg p.o. daily Hydroxyzine 25 mg p.o. nightly as needed unspecified reason Doxycycline 100 mg p.o. twice daily. Quantity 10. 0 refills Robitussin-DM 10 mL p.o. every 6 hours as needed cough Tessalon Perles 100 mg p.o. every 8 hours as needed cough. Quantity 20. 0 refills Claritin 10 mg p.o. daily Prednisone 10 mg p.o.: 4 tabs daily x3 days then 3 tabs daily x3 days then 2 tabs daily x3 days then 1 tab daily x3 days. Quantity sufficient. 0 refills Singular 10 mg p.o. nightly DuoNeb 3 times daily as needed shortness of breath/wheeze Norvasc 10 mg p.o. daily Benazepril 20 mg p.o. daily Symbicort 160/4.5 mc puffs twice daily END OF DOCTOR EMAM[facility] DISCHARGE SUMMARY - Discharge Data Discharge Date: 04/10/21 Discharge Disposition: Home, Self-Care 01 Condition: Fair - Referral to Home Health Primary Care Physician: PCP None - Patient Instructions Diet: Heart Healthy Diet Activity: As Tolerated - Discharge Plan *PRESCRIPTION DRUG MONITORING PROGRAM REVIEWED*: No *COPY OF PRESCRIPTION DRUG MONITORING REPORT IN PATIENT COLLIN: No Prescriptions/Med Rec: Loratadine [Claritin] 10 mg PO DAILY 30 Days #30 tablet Doxycycline Monohydrate 100 mg PO BID 5 Days #10 cap predniSONE [Prednisone] 10 mg PO DAILY 1 Days #1 tablet Dextromethorphan/guaiFENesin [Robitussin DM] 10 ml PO Q6H PRN 10 Days #400 ml PRN Reason: Cough Montelukast [Singulair] 10 mg PO BEDTIME 30 Days #30 tablet Benzonatate [Tessalon Perle] 100 mg PO Q8H PRN 7 Days #20 capsule PRN Reason: Cough Home Medications: Home Meds Potassium Chloride [Klor-Con 10] 10 meq PO DAILY 11/08/18 [History] Triamcinolone Acetonide [Triamcinolone Acetonide 0.1% Crm] 1 applic TOP BID PRN 04/07/21 [History] hydrOXYzine HCL [Hydroxyzine HCl] 25 mg PO BEDTIME PRN 04/07/21 [History] Benazepril [Lotensin] 20 mg PO DAILY 04/08/21 [History] Budesonide/Formoterol Fumarate [Symbicort 160-4.5 Mcg Inhaler] 2 puff INH BID 04/08/21 [History] Omeprazole 20 mg PO DAILY 04/08/21 [History] Sertraline HCl [Zoloft] 50 mg PO DAILY 04/08/21 [History] Venlafaxine HCl [Venlafaxine ER] 150 mg PO DAILY 04/08/21 [History] amLODIPine [Norvasc] 10 mg PO DAILY 04/08/21 [History] traMADol [Ultram] 50 mg PO Q12HR PRN 04/08/21 [History] traZODone HCl [Trazodone HCl] 150 mg PO BEDTIME 04/08/21 [History] Albuterol/Ipratropium [DuoNeb 3.0-0.5 MG/3 ML] 3 ml NEB TID PRN 04/09/21 [History] Benzonatate [Tessalon Perle] 100 mg PO Q8H PRN 7 Days #20 capsule 04/10/21 [Rx] Dextromethorphan/guaiFENesin [Robitussin DM] 10 ml PO Q6H PRN 10 Days #400 ml 04/10/21 [Rx] Doxycycline Monohydrate 100 mg PO BID 5 Days #10 cap 04/10/21 [Rx] Loratadine [Claritin] 10 mg PO DAILY 30 Days #30 tablet 04/10/21 [Rx] Montelukast [Singulair] 10 mg PO BEDTIME 30 Days #30 tablet 04/10/21 [Rx] predniSONE [Prednisone] 10 mg PO DAILY 1 Days #1 tablet 04/10/21 [Rx] Forms: ED Department Discharge Referrals: PCP,None [Primary Care Provider] - - Discharge Summary/Plan Comment DC Time >30 min.: Yes - General Info Date of Service: 04/10/21 - Review of Systems General: Reports: No Symptoms HEENT: Reports: No Symptoms Pulmonary: Reports: Cough. Denies: No Symptoms Cardiovascular: Reports: No Symptoms Gastrointestinal: Reports: No Symptoms Genitourinary: Reports: No Symptoms Musculoskeletal: Reports: No Symptoms Skin: Reports: No Symptoms Neurological: Reports: No Symptoms Psychiatric: Reports: No Symptoms - Patient Data Vitals - Most Recent: Last Vital Signs Temp 98.0 F 04/10/21 12:00 Pulse 98 04/10/21 12:00 Resp 22 H 04/10/21 12:00 BP 131/75 04/10/21 12:00 Pulse Ox 95 04/10/21 12:00 Weight - Most Recent: 121 lb I&O - Last 24 hours: Intake & Output 04/09/21 04/10/21 04/10/21 22:59 06:59 14:59 Intake Total 400 400 Balance 400 400 ZAHRAA Results - Last 24 hrs: Microbiology 04/07/21 03:00 Aerobic Blood Culture - Preliminary Blood - Venous - Iv Start NO GROWTH AFTER 3 DAYS Anaerobic Blood Culture - Preliminary NO GROWTH AFTER 3 DAYS 04/07/21 03:05 Aerobic Blood Culture - Preliminary Blood - Arm, Left NO GROWTH AFTER 3 DAYS Anaerobic Blood Culture - Preliminary NO GROWTH AFTER 3 DAYS Med Orders - Current: Current Medications Acetaminophen (Acetaminophen 325 Mg Tab) 650 mg PO Q4H PRN PRN Reason: Pain (Mild 1-3)/fever Last Admin: 04/08/21 17:05 Dose: 650 mg Documented by: Albuterol/Ipratropium (Albuterol/Ipratropium 3.0-0.5 Mg/3 Ml Neb Soln) 3 ml NEB Q4HRRT JOSE Last Admin: 04/10/21 10:44 Dose: 3 ml Documented by: Albuterol/Ipratropium (Albuterol/Ipratropium 3.0-0.5 Mg/3 Ml Neb Soln) 3 ml NEB Q4H PRN PRN Reason: Wheezing Amlodipine Besylate (Amlodipine 5 Mg Tab) 10 mg PO BEDTIME [facility] Last Admin: 04/09/21 20:50 Dose: 10 mg Documented by: Benazepril HCl (Benazepril 10 Mg Tab) 20 mg PO BEDTIME [facility] Last Admin: 04/09/21 20:50 Dose: 20 mg Documented by: Benzonatate (Benzonatate 100 Mg Cap) 100 mg PO Q8H PRN PRN Reason: Cough Last Admin: 04/09/21 20:47 Dose: 100 mg Documented by: Calcium Carbonate/Glycine (Calcium Carbonate 500 Mg Tab.Chew) 500 mg PO Q6H PRN PRN Reason: Dyspepsia Last Admin: 04/09/21 20:46 Dose: 500 mg Documented by: Doxycycline Monohydrate (Doxycycline Monohydrate 100 Mg Cap) 100 mg PO BID [facility] Last Admin: 04/10/21 09:18 Dose: 100 mg Documented by: Enoxaparin Sodium (Enoxaparin 40 Mg/0.4 Ml Syringe) 40 mg SUBCUT DAILY [facility] Last Admin: 04/10/21 09:18 Dose: 40 mg Documented by: Guaifenesin/Phenylephrine HCl (Guaifenesin/Dextromethorphan 100-10 Mg/5 Ml Soln 5 Ml Cup) 10 ml PO Q6H PRN PRN Reason: Cough Last Admin: 04/10/21 10:35 Dose: 10 ml Documented by: Loratadine (Loratadine 10 Mg Tab) 10 mg PO DAILY [facility] Last Admin: 04/10/21 09:18 Dose: 10 mg Documented by: Methylprednisolone Sodium Succinate (Methylprednisolone Sodium Succinate 125 Mg/2 Ml Sdv) 60 mg IVPUSH Q8H [facility] Last Admin: 04/10/21 06:09 Dose: 60 mg Documented by: Montelukast Sodium (Montelukast 10 Mg Tab) 10 mg PO BEDTIME [facility] Last Admin: 04/09/21 20:47 Dose: 10 mg Documented by: Ondansetron HCl (Ondansetron 4 Mg/2 Ml Sdv) 4 mg IVPUSH Q4H PRN PRN Reason: Nausea/Vomiting Last Admin: 04/07/21 18:28 Dose: 4 mg Documented by: Pantoprazole Sodium (Pantoprazole 40 Mg Tab.Cr) 40 mg PO ACBREAKFAST [facility] Last Admin: 04/10/21 06:10 Dose: 40 mg Documented by: Sertraline HCl (Sertraline 50 Mg Tab) 50 mg PO DAILY [facility] Last Admin: 04/10/21 09:18 Dose: 50 mg Documented by: Sodium Chloride (Sodium Chloride 0.9% 10 Ml Syringe) 10 ml FLUSH ASDIRECTED PRN PRN Reason: Keep Vein Open Last Admin: 04/09/21 13:48 Dose: 10 ml Documented by: Tramadol HCl (Tramadol 50 Mg Tab) 50 mg PO Q6H PRN PRN Reason: Pain Last Admin: 04/10/21 10:34 Dose: 50 mg Documented by: Trazodone HCl (Trazodone 50 Mg Tab) 150 mg PO BEDTIME [facility] Last Admin: 04/09/21 20:46 Dose: 150 mg Documented by: Venlafaxine HCl (Venlafaxine 150 Mg Cap.Er) 150 mg PO DAILY [facility] Last Admin: 04/10/21 09:18 Dose: 150 mg Documented by: Discontinued Medications Albuterol/Ipratropium (Albuterol/Ipratropium 3.0-0.5 Mg/3 Ml Neb Soln) 3 ml NEB ONETIME ONE Stop: 04/07/21 03:15 Last Admin: 04/08/21 16:18 Dose: 3 ml Documented by: Albuterol/Ipratropium (Albuterol/Ipratropium 3.0-0.5 Mg/3 Ml Neb Soln) 3 ml NEB ONETIME ONE Stop: 04/08/21 12:09 Last Admin: 04/08/21 12:08 Dose: 3 ml Documented by: Amlodipine Besylate (Amlodipine 5 Mg Tab) 20 mg PO DAILY [facility] Last Admin: 04/07/21 08:46 Dose: Not Given Documented by: Amlodipine Besylate (Amlodipine 5 Mg Tab) 20 mg PO BEDTIME [facility] Benazepril HCl (Benazepril 10 Mg Tab) 10 mg PO DAILY [facility] Last Admin: 04/07/21 08:46 Dose: Not Given Documented by: Benazepril HCl (Benazepril 10 Mg Tab) 10 mg PO BEDTIME [facility] Methylprednisolone Sodium Succinate (Methylprednisolone Sodium Succinate 125 Mg/2 Ml Sdv) 125 mg IVPUSH ONETIME ONE Stop: 04/07/21 03:14 Last Admin: 04/07/21 03:22 Dose: 125 mg Documented by: Methylprednisolone Sodium Succinate (Methylprednisolone Sodium Succinate 40 Mg/1 Ml Sdv) 60 mg IVPUSH Q8H [facility] Last Admin: 04/07/21 13:29 Dose: Not Given Documented by: Trazodone HCl (Trazodone 50 Mg Tab) 50 mg PO BEDTIME PRN PRN Reason: Insomnia Trazodone HCl (Trazodone 50 Mg Tab) 150 mg PO BEDTIME PRN PRN Reason: Insomnia Venlafaxine HCl (Venlafaxine 150 Mg Cap.Er) 150 mg PO DAILY [facility] - Exam General: Reports: Alert, Oriented HEENT: Reports: Pupils Equal, Pupils Reactive, EOMI, Mucous Membr. Moist/[place] Neck: Reports: Supple Lungs: Reports: Decreased Breath Sounds Cardiovascular: Reports: Regular Rate GI/Abdominal Exam: Normal Bowel Sounds, Soft, Non-Tender, No Organomegaly, No D istention, No Abnormal Bruit, No Mass, Pelvis Stable Back Exam: Reports: Normal Inspection, Full Range of Motion Extremities: Normal Inspection, Normal Range of Motion, Non-Tender, No Pedal Edema, Normal Capillary Refill Skin: Reports: Warm, Dry, Intact Wound/Incisions: Reports: Healing Well Neurological: Reports: No New Focal Deficit Psy/Mental Status: Reports: Alert, Normal Affect, Normal Mood
== END 2021-04-10 14:40 | disposition home or self-care (01) | DRG 191 ==
LOC: DL.ED 02:34 → DL.MS 04:12 → OBSVTOIN 04-08 11:36
PROVIDERS: ADMIT Internal Medicine; ATTEND Internal Medicine
DX: J44.1 Chronic obstructive pulmonary disease with (acute) exacerbation (principal); N39.0 Urinary tract infection, site not specified; B96.1 Klebsiella pneumoniae [K. pneumoniae] as the cause of diseases classified elsewhere; M81.0 Age-related osteoporosis without current pathological fracture; K57.90 Diverticulosis of intestine, part unspecified, without perforation or abscess without bleeding; G89.29 Other chronic pain; G47.00 Insomnia, unspecified; Z20.822 Contact with and (suspected) exposure to COVID-19; F41.9 Anxiety disorder, unspecified; Z66 Do not resuscitate; F32.9 Major depressive disorder, single episode, unspecified; K21.9 Gastro-esophageal reflux disease without esophagitis; K27.9 Peptic ulcer, site unspecified, unspecified as acute or chronic, without hemorrhage or perforation; E78.5 Hyperlipidemia, unspecified; I10 Essential (primary) hypertension; H54.7 Unspecified visual loss; E78.00 Pure hypercholesterolemia, unspecified; H40.9 Unspecified glaucoma; Z96.652 Presence of left artificial knee joint; Z87.891 Personal history of nicotine dependence; Z28.82 Immunization not carried out because of caregiver refusal; Z88.0 Allergy status to penicillin; Z79.899 Other long term (current) drug therapy; Z87.01 Personal history of pneumonia (recurrent); Z98.49 Cataract extraction status, unspecified eye; Z90.49 Acquired absence of other specified parts of digestive tract
CPT/HCPCS: 0240U; 36415; 71045; 80053; 81001; 83605; 84484; 85025; 86140; 87040; 87086; 87088; 87186; 93005; 94618; 94640; 96374; 99285-25; A9270-GY; J1650; J2405; J2930; J7620-GY

== ENCOUNTER 2022-01-31 06:31 | Emergency (ER) | payer MEDICARE, MEDICAID ==
[2022-01-31 06:59] VITALS: BP 129/95; PULSE 98
[2022-01-31] MEDS ORDERED: HYDROmorphone 1 MG/ML Syringe IVPUSH ONE ×3 (07:03→08:59)
[2022-01-31] MEDS ORDERED: Ondansetron 4 MG/2 ML SDV IVPUSH ONE (07:03)
[2022-01-31 07:50] LABS: PTT,PARTIAL THROMBOPLSTIN TIME 22.6 SEC (22.0-34.0)
[2022-01-31] MEDS ORDERED: HYDROmorphone 1 MG/ML Syringe ONE (08:02)
[2022-01-31 08:03] LABS: ANION GAP 14.9 mEq/L (7-13); CHLORIDE,CL 105 mmol/L (98-107); SODIUM,NA 140 mmol/L (136-145)
== END 2022-01-31 09:34 ==
LOC: DL.ED 06:31
DX: S72.002A Fracture of unspecified part of neck of left femur, initial encounter for closed fracture (principal); E78.00 Pure hypercholesterolemia, unspecified; I10 Essential (primary) hypertension; J44.9 Chronic obstructive pulmonary disease, unspecified; K21.9 Gastro-esophageal reflux disease without esophagitis; Z88.0 Allergy status to penicillin; Z79.899 Other long term (current) drug therapy; W01.0XXA Fall on same level from slipping, tripping and stumbling without subsequent striking against object, initial encounter; Y92.002 Bathroom of unspecified non-institutional (private) residence as the place of occurrence of the external cause
CPT/HCPCS: 36415; 51702; 80053; 80307; 82550; 83605; 85025; 85610; 85730; 96374; 96375; 96376; 99283; 99285-25; J1170; J2405

== ENCOUNTER 2022-07-16 08:00 | Emergency (ER) | payer MEDICARE, MEDICAID | END 2022-07-16 11:40 | disposition home or self-care (01) | LOC: DL.ED 08:00 | DX: S61.411A Laceration without foreign body of right hand, initial encounter (principal); W23.1XXA Caught, crushed, jammed, or pinched between stationary objects, initial encounter | CPT/HCPCS: 99282 ==

== ENCOUNTER 2022-08-05 01:45 | Emergency (ER) | payer MEDICARE, MEDICAID ==
[2022-08-05] MEDS: HYDROmorphone 1 MG/ML Syringe IVPUSH ONE (01:57)
[2022-08-05 02:06] VITALS: BP 142/91; PULSE 108
[2022-08-05] MEDS: HYDROmorphone 1 MG/ML Syringe ONE (02:24)
[2022-08-05 02:54] LABS: PTT,PARTIAL THROMBOPLSTIN TIME 22.4 SEC (22.0-34.0)
[2022-08-05] MEDS: Ketorolac 30 MG/ML SDV IVPUSH ONE (03:44)
[2022-08-05] MEDS ORDERED: Sodium Chloride 0.9% 500 ML IV ONE (04:46)
[2022-08-05] MEDS: fentaNYL 100 MCG/2 ML SDV IVPUSH ONE (05:15)
[2022-08-05] MEDS: Midazolam 1 MG/ML 2 ML SDV IVPUSH ONE (05:15)
== END 2022-08-05 05:37 ==
LOC: DL.ED 01:45
DX: S42.291A Other displaced fracture of upper end of right humerus, initial encounter for closed fracture (principal); J44.9 Chronic obstructive pulmonary disease, unspecified; I10 Essential (primary) hypertension; Z79.899 Other long term (current) drug therapy; Z88.0 Allergy status to penicillin; Z90.49 Acquired absence of other specified parts of digestive tract; Y04.8XXA Assault by other bodily force, initial encounter
CPT/HCPCS: 36415; 70450; 73030-RT; 80053; 85014; 85018; 85025; 85610; 85730; 86140; 96374; 96375; 99285-25; J1170; J1885; J2250; J3010

== ENCOUNTER 2023-08-06 06:42 | Emergency (ER) | payer MEDICARE, MEDICAID ==
[2023-08-06] MEDS ORDERED: fentaNYL 100 MCG/2 ML SDV IVPUSH ONE (07:16)
[2023-08-06] MEDS ORDERED: Ondansetron 4 MG/2 ML SDV IV ONE (07:16)
[2023-08-06 07:17] VITALS: BP 126/93; PULSE 98
[2023-08-06] MEDS ORDERED: HYDROmorphone 1 MG/ML Syringe IVPUSH ONE (07:49)
== END 2023-08-06 09:12 ==
LOC: DL.ED 06:42
DX: S72.402A Unspecified fracture of lower end of left femur, initial encounter for closed fracture (principal); I10 Essential (primary) hypertension; E78.00 Pure hypercholesterolemia, unspecified; J44.9 Chronic obstructive pulmonary disease, unspecified; K21.9 Gastro-esophageal reflux disease without esophagitis; Z79.899 Other long term (current) drug therapy; Z88.0 Allergy status to penicillin; W01.0XXA Fall on same level from slipping, tripping and stumbling without subsequent striking against object, initial encounter; Y93.01 Activity, walking, marching and hiking
CPT/HCPCS: 73560-LT; 96374; 96375; 99283; 99285-25; J1170; J2405; J3010; J3360

== ENCOUNTER 2023-09-11 20:29 | Emergency (ER) | payer MEDICARE, MEDICAID ==
[2023-09-11] MEDS ORDERED: Take Home: Acetaminophen/oxyCODONE 325-5 MG, 5 Tab Pack PO ONE ×2 (20:30→21:58)
[2023-09-11 20:49] VITALS: BP 129/81; PULSE 99
== END 2023-09-11 22:30 | disposition home or self-care (01) ==
LOC: DL.ED 20:29
DX: S22.31XA Fracture of one rib, right side, initial encounter for closed fracture (principal); I10 Essential (primary) hypertension; E78.00 Pure hypercholesterolemia, unspecified; J44.9 Chronic obstructive pulmonary disease, unspecified; K21.9 Gastro-esophageal reflux disease without esophagitis; Z88.0 Allergy status to penicillin; Z79.899 Other long term (current) drug therapy; Z90.49 Acquired absence of other specified parts of digestive tract; W01.198A Fall on same level from slipping, tripping and stumbling with subsequent striking against other object, initial encounter
CPT/HCPCS: 71100-RT; 99283; A9270-GY

== ENCOUNTER 2023-11-01 04:25 | Emergency (ER) | payer MEDICARE, MEDICAID ==
[2023-11-01] MEDS ORDERED: Sodium Chloride 0.9% 10 ML Syringe FLUSH PRN (04:37)
[2023-11-01] MEDS ORDERED: Sodium Chloride 0.9% 1,000 ML IV ONE ×2 (04:50→06:43)
[2023-11-01 05:13] LABS: EOSINOPHILS PERCENT AUTO 3.4 % (1.0-3.0); HEMATOCRIT 43.1 % (37.0-47.0); HEMOGLOBIN 13.6 g/dL (12.0-16.0); LYMPHOCYTES PERCENT AUTO 16.8 % (20.5-50.1); MEAN CORPUSCULAR HEMOGLOBIN 25.5 pg (27.0-34.0); MEAN CORPUSCULAR HGB CONC 31.6 g/dL (33.0-35.0); MEAN CORPUSCULAR VOLUME 80.7 fL (80-100); MONOCYTES PERCENT AUTO 9.2 % (2-8); NEUTROPHILS PERCENT AUTO 70.6 % (42.2-75.2); PLATELET COUNT,PLT 288 10^3/uL (150-450); RED BLOOD CELL COUNT 5.34 10^6/uL (4.2-5.4); WHITE BLOOD CELL COUNT,WBC 3.8 10^3/uL (5.0-10.0)
[2023-11-01] MEDS ORDERED: HYDROmorphone 1 MG/ML Syringe IVPUSH ONE (05:32)
[2023-11-01 05:33] LABS: A/G RATIO 1.1; ALBUMIN 3.6 g/dL (3.4-5.0); ANION GAP 28.3 mEq/L (7-13); BILIRUBIN TOTAL 0.5 mg/dL (0.2-1.0); BUN/CREATININE RATIO 9.7 (No establ ref range); CALCIUM 8.7 mg/dL (8.5-10.1); CREATININE 1.24 mg/dL (0.55-1.02); EST CRCL DRUG DOSING (CG) 32.91 mL/min; POTASSIUM,K 3.3 mmol/L (3.5-5.1); PROTEIN TOTAL,TP 6.9 g/dL (6.4-8.2)
[2023-11-01 05:39] LABS: LACTIC ACID 0.5 mmol/L (0.4-2.0)
[2023-11-01] MEDS ORDERED: Iopamidol 612 MG/ML 100 ML Bottle IVPUSH ONE (05:52)
[2023-11-01 05:53] LABS: CORONAVIRUS COVID-19 NAA NEGATIVE (NEGATIVE); INFLUENZA A NAA NEGATIVE (NEGATIVE); INFLUENZA B NAA NEGATIVE (NEGATIVE); RESPIRATORY SYNCYTIAL VIR NAA NEGATIVE (NEGATIVE)
[2023-11-01 05:59] LABS: CREATINE KINASE,CK 82 U/L (16-191)
[2023-11-01 06:09] LABS: ACETAMINOPHEN 0 ug/mL (10-30 (Therapeutic)); ETHANOL BLOOD MEDICAL < 3 mg/dL (0)
[2023-11-01 08:39] VITALS: BP 119/81; PULSE 95
[2023-11-01 08:41] LABS: APPEARANCE,URINE CLEAR (CLEAR); BILIRUBIN,URINE MODERATE (NEGATIVE); COLOR,URINE YELLOW (YELLOW); GLUCOSE,URINE NEGATIVE (NEGATIVE); KETONES,URINE >=160 (NEGATIVE); LEUKOCYTE ESTERASE,URINE NEGATIVE (NEGATIVE); NITRITE,URINE NEGATIVE (NEGATIVE); OCCULT BLOOD,URINE NEGATIVE (NEGATIVE); PROTEIN,URINE 100 (NEGATIVE); UROBILINOGEN,URINE 0.2 mg/dL (0.2-1.0)
[2023-11-01 08:43] LABS: METHAMPHETAMINES,URINE POSITIVE (NEGATIVE)
[2023-11-01 08:44] LABS: AMPHETAMINES,URINE NEGATIVE (NEGATIVE); BARBITURATES,URINE NEGATIVE (NEGATIVE); BENZODIAZEPINE,URINE NEGATIVE (NEGATIVE); MDMA (ECSTASY), URINE NEGATIVE (NEGATIVE); METHADONE,URINE NEGATIVE (NEGATIVE); OPIATES,URINE POSITIVE (NEGATIVE); OXYCODONE,URINE POSITIVE (NEGATIVE); PHENCYCLIDINE,URINE NEGATIVE (NEGATIVE); TCA,URINE NEGATIVE (NEGATIVE)
[2023-11-01 09:17] LABS: EPITHELIAL CELLS,URINE MODERATE /HPF (NOT SEEN); RBC,URINE 0-5 /HPF (0-5)
[2023-11-01 09:18] LABS: AMORPHOUS SEDIMENT,URINE OCCASIONAL /HPF (NOT SEEN); BACTERIA,URINE FEW /HPF (0-FEW/HPF); HYALINE CASTS,URINE OCCASIONAL; MUCUS,URINE FEW /LPF (NOT SEEN)
== END 2023-11-01 10:02 | disposition home or self-care (01) ==
LOC: DL.ED 04:25
DX: R11.2 Nausea with vomiting, unspecified (principal); I10 Essential (primary) hypertension; E78.00 Pure hypercholesterolemia, unspecified; J44.9 Chronic obstructive pulmonary disease, unspecified; K21.9 Gastro-esophageal reflux disease without esophagitis; Z79.899 Other long term (current) drug therapy; Z88.0 Allergy status to penicillin
CPT/HCPCS: 0241U; 36415; 74177; 80053; 80143; 80179; 80305; 80307; 81001; 82150; 82550; 83605; 83690; 83735; 85025; 96361; 96374; 99284; 99285; C1758; J1170; J7030; Q9967; J3490

== ENCOUNTER 2023-11-04 17:22 | Inpatient (IN) | payer MEDICARE, MEDICAID ==
[2023-11-04] MEDS: Sodium Chloride 0.9% 10 ML Syringe FLUSH PRN (18:07)
[2023-11-04 18:09] LABS: EOSINOPHILS PERCENT AUTO 2.5 % (1.0-3.0); HEMATOCRIT 41.2 % (37.0-47.0); HEMOGLOBIN 13.5 g/dL (12.0-16.0); LYMPHOCYTES PERCENT AUTO 11.4 % (20.5-50.1); MEAN CORPUSCULAR HEMOGLOBIN 25.7 pg (27.0-34.0); MEAN CORPUSCULAR HGB CONC 32.8 g/dL (33.0-35.0); MEAN CORPUSCULAR VOLUME 78.5 fL (80-100); MONOCYTES PERCENT AUTO 8.8 % (2-8); NEUTROPHILS PERCENT AUTO 77.3 % (42.2-75.2); PLATELET COUNT,PLT 265 10^3/uL (150-450); RED BLOOD CELL COUNT 5.25 10^6/uL (4.2-5.4); WHITE BLOOD CELL COUNT,WBC 3.2 10^3/uL (5.0-10.0)
[2023-11-04 18:33] LABS: A/G RATIO 1.1; ALANINE AMINOTRANSFERASE,ALT 14 U/L (14-59); ALBUMIN 3.4 g/dL (3.4-5.0); ALKALINE PHOSPHATASE 148 U/L (46-116); AMYLASE 51 U/L (25-115); ANION GAP 19.7 mEq/L (7-13); ASPARTATE AMNIOTRANSFERASE,AST 11 U/L (15-37); BILIRUBIN TOTAL 0.5 mg/dL (0.2-1.0); BLOOD UREA NITROGEN,BUN 10 mg/dL (7-18); BUN/CREATININE RATIO 9.7 (No establ ref range); C-REACTIVE PROTEIN 2.79 ng/dL (<=0.50); CALCIUM 8.7 mg/dL (8.5-10.1); CARBON DIOXIDE,CO2 22 mmol/L (21-32); CHLORIDE,CL 102 mmol/L (98-107); CREATININE 1.03 mg/dL (0.55-1.02); EST CRCL DRUG DOSING (CG) 39.62 mL/min; ESTIMATED GFR 58 mL/min (>=60); GLUCOSE RANDOM 97 mg/dL (70-99); LACTIC ACID 0.7 mmol/L (0.4-2.0); LIPASE 27 U/L (16-77); MAGNESIUM 1.9 mg/dL (1.8-2.4); POTASSIUM,K 2.7 mmol/L (3.5-5.1); PROTEIN TOTAL,TP 6.5 g/dL (6.4-8.2); SODIUM,NA 141 mmol/L (136-145)
[2023-11-04 18:34] LABS: ETHANOL BLOOD MEDICAL < 3 mg/dL (0)
[2023-11-04] MEDS: Sodium Chloride 0.9% 1,000 ML IV ONE (18:47)
[2023-11-04] MEDS: Potassium Chloride 20 MEQ in Premix Bag 1 BAG IV ONE (18:48)
[2023-11-04 18:58] LABS: PROTHROMBIN TIME 9.9 SEC (9.0-12.0); PTT,PARTIAL THROMBOPLSTIN TIME 27.1 SEC (22.0-34.0)
[2023-11-04 19:13] LABS: APPEARANCE,URINE CLEAR (CLEAR); BILIRUBIN,URINE MODERATE (NEGATIVE); COLOR,URINE YELLOW (YELLOW); GLUCOSE,URINE NEGATIVE (NEGATIVE); KETONES,URINE >=160 (NEGATIVE); LEUKOCYTE ESTERASE,URINE SMALL (NEGATIVE); NITRITE,URINE POSITIVE (NEGATIVE); OCCULT BLOOD,URINE TRACE-INTACT (NEGATIVE); PH,URINE 6.5 (5.0-9.0); PROTEIN,URINE 30 (NEGATIVE)
[2023-11-04 19:17] LABS: AMPHETAMINES,URINE NEGATIVE (NEGATIVE); BARBITURATES,URINE NEGATIVE (NEGATIVE); BENZODIAZEPINE,URINE NEGATIVE (NEGATIVE); MDMA (ECSTASY), URINE NEGATIVE (NEGATIVE); METHADONE,URINE NEGATIVE (NEGATIVE); METHAMPHETAMINES,URINE NEGATIVE (NEGATIVE); OPIATES,URINE NEGATIVE (NEGATIVE); OXYCODONE,URINE NEGATIVE (NEGATIVE); PHENCYCLIDINE,URINE NEGATIVE (NEGATIVE); TCA,URINE NEGATIVE (NEGATIVE)
[2023-11-04 19:25] LABS: BACTERIA,URINE MANY /HPF (0-FEW/HPF); EPITHELIAL CELLS,URINE MODERATE /HPF (NOT SEEN); MUCUS,URINE FEW /LPF (NOT SEEN); RBC,URINE 0-5 /HPF (0-5); WBC,URINE 40-50 /HPF (0-5/HPF)
[2023-11-04] MEDS ORDERED: Ketorolac 30 MG/ML SDV IM PRN (20:18)
[2023-11-04] MEDS ORDERED: Metoprolol Tartrate 5 MG/5 ML SDV IVPUSH PRN (20:27)
[2023-11-04] MEDS: MVI, Adult with Vitamin K 10 ML, Folic Acid 1 MG, Thiamine 100 MG in Lactated Ringers 1... IV ONE (21:15)
[2023-11-04] MEDS: Famotidine 20 MG/2 ML SDV IVPUSH ONE (21:21)
[2023-11-04] MEDS: Dexamethasone 4 MG/ML SDV IVPUSH ONE (21:27)
[2023-11-04] MEDS: diphenhydrAMINE 50 MG/ML SDV IVPUSH ONE (21:30)
[2023-11-04] MEDS: Ketorolac 30 MG/ML SDV IVPUSH PRN (21:40)
[2023-11-04] MEDS: Saccharomyces Boulardii (Probiotic) 250 MG Cap PO SCH (22:25)
[2023-11-04] MEDS: Ampicillin/Sulbactam Na 1.5 GM in Sodium Chloride 0.9% 100 ML IV SCH (22:30)
[2023-11-05] MEDS: traZODone 50 MG Tab PO SCH (01:39)
[2023-11-05 06:50] LABS: EOSINOPHILS PERCENT AUTO 0.9 % (1.0-3.0); HEMATOCRIT 36.6 % (37.0-47.0); LYMPHOCYTES PERCENT AUTO 17.3 % (20.5-50.1); MEAN CORPUSCULAR HEMOGLOBIN 25.6 pg (27.0-34.0); MEAN CORPUSCULAR HGB CONC 32.8 g/dL (33.0-35.0); MEAN CORPUSCULAR VOLUME 78.2 fL (80-100); MONOCYTES PERCENT AUTO 7.1 % (2-8); NEUTROPHILS PERCENT AUTO 74.7 % (42.2-75.2); PLATELET COUNT,PLT 258 10^3/uL (150-450); RED BLOOD CELL COUNT 4.68 10^6/uL (4.2-5.4); WHITE BLOOD CELL COUNT,WBC 3.2 10^3/uL (5.0-10.0)
[2023-11-05 06:57] LABS: ALBUMIN 2.9 g/dL (3.4-5.0); ANION GAP 18.2 mEq/L (7-13); BILIRUBIN TOTAL 0.4 mg/dL (0.2-1.0); BUN/CREATININE RATIO 7.5 (No establ ref range); C-REACTIVE PROTEIN 2.14 ng/dL (<=0.50); CALCIUM 7.9 mg/dL (8.5-10.1); CREATININE 0.8 mg/dL (0.55-1.02); EST CRCL DRUG DOSING (CG) 51.01 mL/min; MAGNESIUM 1.8 mg/dL (1.8-2.4); POTASSIUM,K 3.2 mmol/L (3.5-5.1); PROTEIN TOTAL,TP 5.7 g/dL (6.4-8.2)
[2023-11-05 06:58] LABS: A/G RATIO 1.04
[2023-11-05] MEDS ORDERED: Loperamide 2 MG Cap PO PRN (08:08)
[2023-11-05 08:38] LABS: T4 FREE 0.75 ng/dL (0.76-1.46); TSH ULTRASENSITIVE 1.36 uIU/mL (0.36-3.74)
[2023-11-05] MEDS ORDERED: traMADol 50 MG Tab PO PRN (17:16)
[2023-11-05] MEDS: hydrALAZINE 20 MG/ML SDV IVPUSH PRN (17:31)
[2023-11-05] MEDS: Dexamethasone 4 MG/ML SDV IVPUSH ONE (17:43)
[2023-11-05] MEDS: Sertraline 50 MG Tab PO ONE (17:43)
[2023-11-05] MEDS: traMADol 50 MG Tab PO PRN (23:37)
[2023-11-06 06:20] LABS: HEMATOCRIT 35.6 % (37.0-47.0); HEMOGLOBIN 11.3 g/dL (12.0-16.0); LYMPHOCYTES PERCENT AUTO 24.7 % (20.5-50.1); MEAN CORPUSCULAR HEMOGLOBIN 24.5 pg (27.0-34.0); MEAN CORPUSCULAR HGB CONC 31.7 g/dL (33.0-35.0); MEAN CORPUSCULAR VOLUME 77.2 fL (80-100); MONOCYTES PERCENT AUTO 11.3 % (2-8); PLATELET COUNT,PLT 281 10^3/uL (150-450); RED BLOOD CELL COUNT 4.61 10^6/uL (4.2-5.4); WHITE BLOOD CELL COUNT,WBC 3.4 10^3/uL (5.0-10.0)
[2023-11-06 06:36] LABS: ALBUMIN 2.9 g/dL (3.4-5.0); ANION GAP 14.8 mEq/L (7-13); BILIRUBIN TOTAL 0.3 mg/dL (0.2-1.0); BUN/CREATININE RATIO 6.4 (No establ ref range); C-REACTIVE PROTEIN 1.26 ng/dL (<=0.50); CALCIUM 8.1 mg/dL (8.5-10.1); CREATININE 0.78 mg/dL (0.55-1.02); EST CRCL DRUG DOSING (CG) 52.32 mL/min; MAGNESIUM 1.7 mg/dL (1.8-2.4); POTASSIUM,K 2.8 mmol/L (3.5-5.1); PROTEIN TOTAL,TP 5.9 g/dL (6.4-8.2)
[2023-11-06 06:48] LABS: A/G RATIO 0.97
[2023-11-06] MEDS ORDERED: traMADol 50 MG Tab PO PRN (10:31)
[2023-11-06] MEDS: Magnesium Sulfate/Water 2 GM in Premix Bag 1 BAG IV ONE (10:37)
[2023-11-06] MEDS: amLODIPine 5 MG Tab PO SCH (10:39)
[2023-11-06] MEDS: Potassium Chloride 10 MEQ Tab.ER PO SCH (10:40)
[2023-11-06] MEDS: Sertraline 50 MG Tab PO ONE (12:37)
[2023-11-06] MEDS: Cholecalciferol (Vitamin D3) 25 MCG Tab PO ONE (12:37)
[2023-11-06] MEDS: Potassium Chloride 10 MEQ Tab.ER PO ONE (12:40)
[2023-11-06] MEDS: Sertraline 50 MG Tab PO SCH (13:48)
[2023-11-06] MEDS: Calcium Carbonate 500 MG Tab.Chew PO PRN (17:34)
[2023-11-06] MEDS: Acetaminophen 325 MG Tab PO PRN (17:34)
[2023-11-06] MEDS: Pantoprazole 40 MG Vial IVPUSH ONE (20:37)
[2023-11-07] MEDS: Omeprazole 20 MG Cap.CR PO SCH (05:32)
[2023-11-07 06:42] LABS: BASOPHILS PERCENT AUTO 0.3 % (0.0-1.0); EOSINOPHILS PERCENT AUTO 5.3 % (1.0-3.0); HEMATOCRIT 35.3 % (37.0-47.0); HEMOGLOBIN 11.5 g/dL (12.0-16.0); LYMPHOCYTES PERCENT AUTO 19.3 % (20.5-50.1); MEAN CORPUSCULAR HEMOGLOBIN 25.8 pg (27.0-34.0); MEAN CORPUSCULAR HGB CONC 32.6 g/dL (33.0-35.0); MEAN CORPUSCULAR VOLUME 79.1 fL (80-100); MONOCYTES PERCENT AUTO 11.7 % (2-8); NEUTROPHILS PERCENT AUTO 63.4 % (42.2-75.2); PLATELET COUNT,PLT 278 10^3/uL (150-450); RED BLOOD CELL COUNT 4.46 10^6/uL (4.2-5.4); WHITE BLOOD CELL COUNT,WBC 3.6 10^3/uL (5.0-10.0)
[2023-11-07 06:48] LABS: ALBUMIN 2.6 g/dL (3.4-5.0); BILIRUBIN TOTAL 0.2 mg/dL (0.2-1.0); BUN/CREATININE RATIO 8.8 (No establ ref range); C-REACTIVE PROTEIN 0.79 ng/dL (<=0.50); CALCIUM 7.7 mg/dL (8.5-10.1); CREATININE 0.57 mg/dL (0.55-1.02); EST CRCL DRUG DOSING (CG) 71.6 mL/min; MAGNESIUM 2.4 mg/dL (1.8-2.4); PROTEIN TOTAL,TP 5.4 g/dL (6.4-8.2)
[2023-11-07 06:52] LABS: A/G RATIO 0.93
[2023-11-07] MEDS: Cholecalciferol (Vitamin D3) 25 MCG Tab PO SCH (08:06)
[2023-11-07] MEDS: Sertraline 50 MG Tab PO SCH (08:07)
[2023-11-07] MEDS: traMADol 50 MG Tab PO PRN (15:57)
[2023-11-07] MEDS: diphenhydrAMINE 25 MG Tab PO PRN (19:56)
[2023-11-07] MEDS: atorvaSTATin 20 MG Tab PO SCH (21:01)
[2023-11-07] MEDS: Montelukast 10 MG Tab PO SCH (21:01)
[2023-11-07] MEDS: Zolpidem 5 MG Tab PO PRN (21:02)
[2023-11-08] MEDS: Albuterol/Ipratropium 3.0-0.5 MG/3 ML Neb Soln NEB PRN (04:49)
[2023-11-08] MEDS ORDERED: FLUTICASONE INH SCH (06:00)
[2023-11-08] MEDS ORDERED: VILANTEROL INH SCH (06:00)
[2023-11-08] MEDS: FLUTICASONE INH SCH (06:43)
[2023-11-08] MEDS: VILANTEROL INH SCH (06:43)
[2023-11-08 06:54] LABS: HEMATOCRIT 38.8 % (37.0-47.0); HEMOGLOBIN 12.3 g/dL (12.0-16.0); MEAN CORPUSCULAR HEMOGLOBIN 25.4 pg (27.0-34.0); MEAN CORPUSCULAR HGB CONC 31.7 g/dL (33.0-35.0); MEAN CORPUSCULAR VOLUME 80.2 fL (80-100); PLATELET COUNT,PLT 241 10^3/uL (150-450); RED BLOOD CELL COUNT 4.84 10^6/uL (4.2-5.4)
[2023-11-08 07:00] LABS: EOSINOPHILS PERCENT AUTO 4.7 % (1.0-3.0); LYMPHOCYTES PERCENT AUTO 15.1 % (20.5-50.1); NEUTROPHILS PERCENT AUTO 72.2 % (42.2-75.2)
[2023-11-08 07:10] LABS: ALBUMIN 3.1 g/dL (3.4-5.0); ANION GAP 12.8 mEq/L (7-13); BILIRUBIN TOTAL 0.2 mg/dL (0.2-1.0); BUN/CREATININE RATIO 6.3 (No establ ref range); C-REACTIVE PROTEIN 1.98 ng/dL (<=0.50); CALCIUM 8.1 mg/dL (8.5-10.1); CREATININE 0.63 mg/dL (0.55-1.02); EST CRCL DRUG DOSING (CG) 64.78 mL/min; MAGNESIUM 2.1 mg/dL (1.8-2.4); POTASSIUM,K 3.8 mmol/L (3.5-5.1); PROTEIN TOTAL,TP 6.2 g/dL (6.4-8.2)
[2023-11-08 08:04] LABS: EOSINOPHILS PERCENT MAN 6 % (1-3); LYMPHOCYTES PERCENT MAN 17 % (20-50); MONOCYTES PERCENT MAN 8 % (2-8); SEG NEUTROPHILS PERCENT MAN 69 % (42-75)
[2023-11-08] MEDS: Lisinopril 10 MG Tab PO SCH (08:10)
[2023-11-08] MEDS: Ondansetron 4 MG/2 ML SDV IVPUSH PRN (08:47)
[2023-11-08] MEDS: Non-Formulary Medication 1 Each (Benazepril [Lotensin] 20 MG Tablet) PO SCH (11:23)
[2023-11-09 11:05] LABS: ALBUMIN 2.9 g/dL (3.4-5.0); ANION GAP 12.9 mEq/L (7-13); BILIRUBIN TOTAL 0.2 mg/dL (0.2-1.0); BUN/CREATININE RATIO 15.9 (No establ ref range); C-REACTIVE PROTEIN 7.99 ng/dL (<=0.50); CALCIUM 7.9 mg/dL (8.5-10.1); CREATININE 0.69 mg/dL (0.55-1.02); EST CRCL DRUG DOSING (CG) 59.15 mL/min; POTASSIUM,K 3.9 mmol/L (3.5-5.1); PROTEIN TOTAL,TP 5.8 g/dL (6.4-8.2)
[2023-11-09 11:41] LABS: EOSINOPHILS PERCENT AUTO 4.1 % (1.0-3.0); HEMATOCRIT 38.2 % (37.0-47.0); HEMOGLOBIN 12.5 g/dL (12.0-16.0); LYMPHOCYTES PERCENT AUTO 14.4 % (20.5-50.1); MEAN CORPUSCULAR HEMOGLOBIN 26.1 pg (27.0-34.0); MEAN CORPUSCULAR HGB CONC 32.7 g/dL (33.0-35.0); MEAN CORPUSCULAR VOLUME 79.7 fL (80-100); MONOCYTES PERCENT AUTO 10.3 % (2-8); NEUTROPHILS PERCENT AUTO 71.2 % (42.2-75.2); PLATELET COUNT,PLT 199 10^3/uL (150-450); RED BLOOD CELL COUNT 4.79 10^6/uL (4.2-5.4); WHITE BLOOD CELL COUNT,WBC 2.9 10^3/uL (5.0-10.0)
[2023-11-09] MEDS ORDERED: Haloperidol Lactate 5 MG/ML SDV IVPUSH PRN (12:39)
[2023-11-09] MEDS ORDERED: Capsaicin 0.025% Crm 60 GM Tube TOP PRN (12:39)
[2023-11-09 13:53] LABS: CORONAVIRUS COVID-19 NAA NEGATIVE (NEGATIVE); INFLUENZA A NAA POSITIVE (NEGATIVE); INFLUENZA B NAA NEGATIVE (NEGATIVE); RESPIRATORY SYNCYTIAL VIR NAA NEGATIVE (NEGATIVE)
[2023-11-09] MEDS: Oseltamivir 75 MG Cap PO SCH (15:20)
[2023-11-10 07:06] LABS: BASOPHILS PERCENT AUTO 0.4 % (0.0-1.0); EOSINOPHILS PERCENT AUTO 3.8 % (1.0-3.0); HEMATOCRIT 35.7 % (37.0-47.0); LYMPHOCYTES PERCENT AUTO 20.5 % (20.5-50.1); MEAN CORPUSCULAR HEMOGLOBIN 24.8 pg (27.0-34.0); MEAN CORPUSCULAR HGB CONC 30.8 g/dL (33.0-35.0); MEAN CORPUSCULAR VOLUME 80.6 fL (80-100); MONOCYTES PERCENT AUTO 11.7 % (2-8); NEUTROPHILS PERCENT AUTO 63.6 % (42.2-75.2); PLATELET COUNT,PLT 215 10^3/uL (150-450); RED BLOOD CELL COUNT 4.43 10^6/uL (4.2-5.4); WHITE BLOOD CELL COUNT,WBC 2.4 10^3/uL (5.0-10.0)
[2023-11-10 07:20] LABS: ALBUMIN 2.6 g/dL (3.4-5.0); ANION GAP 11.5 mEq/L (7-13); BILIRUBIN TOTAL 0.2 mg/dL (0.2-1.0); BUN/CREATININE RATIO 20.4 (No establ ref range); C-REACTIVE PROTEIN 7.99 ng/dL (<=0.50); CALCIUM 7.7 mg/dL (8.5-10.1); CREATININE 0.54 mg/dL (0.55-1.02); EST CRCL DRUG DOSING (CG) 75.58 mL/min; MAGNESIUM 1.9 mg/dL (1.8-2.4); POTASSIUM,K 4.5 mmol/L (3.5-5.1); PROTEIN TOTAL,TP 5.5 g/dL (6.4-8.2)
[2023-11-10 07:22] LABS: A/G RATIO 0.9
[2023-11-10] MEDS: Levofloxacin/Dextrose 5%-Water 250 MG in Premix Bag 1 BAG IV SCH (09:58)
[2023-11-10] MEDS: Iopamidol 612 MG/ML 100 ML Bottle IVPUSH ONE (13:19)
[2023-11-10] MEDS: metroNIDAZOLE/Normal Saline 500 MG in Premix Bag 1 BAG IV SCH (15:08)
[2023-11-10 17:01] VITALS: BP 100/62; PULSE 86
== END 2023-11-10 20:00 | DRG 392 ==
LOC: DL.ED 17:22 → DL.MS 18:54 → DL.ED 19:26 → DL.MS 11-06 12:43
PROVIDERS: ADMIT Internal Medicine; ATTEND Internal Medicine
DX: K52.9 Noninfective gastroenteritis and colitis, unspecified (principal); N39.0 Urinary tract infection, site not specified; N17.9 Acute kidney failure, unspecified; E87.6 Hypokalemia; Z66 Do not resuscitate; E78.00 Pure hypercholesterolemia, unspecified; I10 Essential (primary) hypertension; J44.9 Chronic obstructive pulmonary disease, unspecified; K21.9 Gastro-esophageal reflux disease without esophagitis; G47.00 Insomnia, unspecified; F41.9 Anxiety disorder, unspecified; Z96.659 Presence of unspecified artificial knee joint; F32.9 Major depressive disorder, single episode, unspecified; K57.30 Diverticulosis of large intestine without perforation or abscess without bleeding; D25.9 Leiomyoma of uterus, unspecified; K44.9 Diaphragmatic hernia without obstruction or gangrene; Z96.642 Presence of left artificial hip joint; D72.819 Decreased white blood cell count, unspecified; R74.8 Abnormal levels of other serum enzymes; R79.82 Elevated C-reactive protein (CRP); F17.200 Nicotine dependence, unspecified, uncomplicated; F19.10 Other psychoactive substance abuse, uncomplicated; E83.42 Hypomagnesemia; J10.1 Influenza due to other identified influenza virus with other respiratory manifestations; R73.9 Hyperglycemia, unspecified; E87.8 Other disorders of electrolyte and fluid balance, not elsewhere classified; B96.1 Klebsiella pneumoniae [K. pneumoniae] as the cause of diseases classified elsewhere; Z88.0 Allergy status to penicillin; Z79.51 Long term (current) use of inhaled steroids; Z79.899 Other long term (current) drug therapy; Z87.81 Personal history of (healed) traumatic fracture; Z98.49 Cataract extraction status, unspecified eye; Z90.49 Acquired absence of other specified parts of digestive tract; Z11.52 Encounter for screening for COVID-19
CPT/HCPCS: 0241U; 36415; 71045; 74177; 80053; 80305; 80307; 81001; 82140; 82150; 82306; 83605; 83690; 83735; 84133; 84439; 84443; 84484; 85025; 85610; 85730; 86140; 87045; 87046; 87086; 87088; 87186; 87328; 87329; 87493; 87899; 94010; 94060; 94640; 94667; 94668; 96374; 97161; 97165; 99284; 99285; A9270-GY; C9113; J0295; J0360; J1100; J1200; J1836; J1885; J1956; J2405; J3411; J3475; J3480; J3490; J7030; J7120; J7620-GY; Q9967

== ENCOUNTER 2024-06-05 20:36 | Emergency (ER) | payer MEDICARE, MEDICAID ==
[2024-06-05 20:47] VITALS: BP 136/85; PULSE 91
== END 2024-06-05 23:30 | disposition home or self-care (01) ==
LOC: DL.ED 20:36
DX: M17.12 Unilateral primary osteoarthritis, left knee (principal); I10 Essential (primary) hypertension; E78.00 Pure hypercholesterolemia, unspecified; J40 Bronchitis, not specified as acute or chronic; K21.9 Gastro-esophageal reflux disease without esophagitis; Z90.49 Acquired absence of other specified parts of digestive tract; Z87.891 Personal history of nicotine dependence; Z79.899 Other long term (current) drug therapy; Z79.891 Long term (current) use of opiate analgesic
CPT/HCPCS: 73562-LT; 99283

== ENCOUNTER 2024-06-06 09:50 | Observation (INO) | payer MEDICARE, MEDICAID ==
[2024-06-06] MEDS: Ondansetron 4 MG/2 ML SDV IVPUSH ONE (11:03)
[2024-06-06] MEDS: Sodium Chloride 0.9% 1,000 ML IV ONE (11:04)
[2024-06-06] MEDS: HYDROmorphone 1 MG/ML Syringe IVPUSH ONE (11:04)
[2024-06-06] MEDS ORDERED: Lidocaine 1% 4 ML ONE ×2 (11:15→11:33)
[2024-06-06] MEDS ORDERED: Albuterol 6.7 GM Inhaler INH PRN (14:50)
[2024-06-06] MEDS ORDERED: Zolpidem 5 MG Tab PO PRN (14:50)
[2024-06-06] MEDS ORDERED: Ondansetron 4 MG Tab.DIS PO PRN (15:00)
[2024-06-06] MEDS: Enoxaparin 40 MG/0.4 ML Syringe SUBCUT SCH (15:22)
[2024-06-06] MEDS: HYDROmorphone 0.5 MG/0.5 ML Syringe IVPUSH PRN (15:22)
[2024-06-06] MEDS: Potassium Chloride 10 MEQ Tab.ER PO SCH (15:22)
[2024-06-06] MEDS: Lisinopril 10 MG Tab PO SCH (15:26)
[2024-06-06] MEDS: amLODIPine 5 MG Tab PO SCH (15:27)
[2024-06-06] MEDS: Sertraline 50 MG Tab PO SCH (15:27)
[2024-06-06 16:56] LABS: HEMATOCRIT 38.3 % (37.0-47.0); HEMOGLOBIN 12.1 g/dL (12.0-16.0); MEAN CORPUSCULAR HEMOGLOBIN 27.9 pg (27.0-34.0); MEAN CORPUSCULAR HGB CONC 31.6 g/dL (33.0-35.0); MEAN CORPUSCULAR VOLUME 88.5 fL (80-100); RED BLOOD CELL COUNT 4.33 10^6/uL (4.2-5.4); WHITE BLOOD CELL COUNT,WBC 7.4 10^3/uL (5.0-10.0)
[2024-06-06] MEDS: traMADol 50 MG Tab PO PRN (16:57)
[2024-06-06 17:11] LABS: ANION GAP 14.4 mEq/L (7-13); CALCIUM 8.6 mg/dL (8.5-10.1); CREATININE 0.78 mg/dL (0.55-1.02); EST CRCL DRUG DOSING (CG) 51.56 mL/min; POTASSIUM,K 4.4 mmol/L (3.5-5.1)
[2024-06-06] MEDS: Sodium Chloride 0.9% 1,000 ML IV SCH (17:42)
[2024-06-06] MEDS: DULoxetine 30 MG Cap PO SCH (20:35)
[2024-06-06] MEDS: traZODone 50 MG Tab PO SCH (20:35)
[2024-06-06] MEDS: Montelukast 10 MG Tab PO SCH (20:36)
[2024-06-06] MEDS: atorvaSTATin 20 MG Tab PO SCH (20:36)
[2024-06-07] MEDS: Omeprazole 20 MG Cap.CR PO SCH (04:44)
[2024-06-07] MEDS: Formoterol/Mometasone 200-5 MCG 8.8 GM Inhaler INH SCH (05:03)
[2024-06-07] MEDS: oxyCODONE 5 MG Tab PO PRN (05:12)
[2024-06-07 07:42] VITALS: BP 109/61; PULSE 87
== END 2024-06-07 09:40 | disposition home or self-care (01) ==
LOC: DL.ED 09:50 → UNDOADMOB 12:24 → DL.MS 12:24 → UNDODISOB 06-07 09:40
PROVIDERS: ADMIT Internal Medicine; ATTEND Internal Medicine
DX: S82.851A Displaced trimalleolar fracture of right lower leg, initial encounter for closed fracture (principal); F41.8 Other specified anxiety disorders; I10 Essential (primary) hypertension; J44.9 Chronic obstructive pulmonary disease, unspecified; E78.00 Pure hypercholesterolemia, unspecified; Z79.899 Other long term (current) drug therapy
CPT/HCPCS: 36415; 73600; 73610; 80048; 85027; 99222; 99239; A9270; J1170; J1650; J2405; J7030; 27818; 96372; 96374; 96375; 96376; 99152; 99153; 99156; 99157; 99284; 99284-25; G0378

== ENCOUNTER 2024-12-05 16:25 | Emergency (ER) | payer MEDICARE, MEDICAID ==
[2024-12-05 17:09] VITALS: BP 174/88; PULSE 105
[2024-12-05] MEDS: predniSONE 20 MG Tab PO ONE (17:19)
== END 2024-12-05 18:22 | disposition home or self-care (01) ==
LOC: DL.ED 16:25
DX: M17.12 Unilateral primary osteoarthritis, left knee (principal); I10 Essential (primary) hypertension; E78.00 Pure hypercholesterolemia, unspecified; J44.9 Chronic obstructive pulmonary disease, unspecified; K21.9 Gastro-esophageal reflux disease without esophagitis; Z90.49 Acquired absence of other specified parts of digestive tract; Z96.659 Presence of unspecified artificial knee joint; Z79.51 Long term (current) use of inhaled steroids; Z79.899 Other long term (current) drug therapy
CPT/HCPCS: 73562; 99284; J7512

== ENCOUNTER 2025-01-17 17:09 | Emergency (ER) | payer MEDICARE, MEDICAID ==
[2025-01-17 20:51] VITALS: BP 118/90; PULSE 88
== END 2025-01-17 20:51 | disposition home or self-care (01) ==
LOC: DL.ED 17:09
DX: M25.562 Pain in left knee (principal); Z91.412 Personal history of adult neglect; Z59.19 Other inadequate housing; I10 Essential (primary) hypertension; K21.9 Gastro-esophageal reflux disease without esophagitis; J44.9 Chronic obstructive pulmonary disease, unspecified; E78.00 Pure hypercholesterolemia, unspecified; Z79.899 Other long term (current) drug therapy; Z90.49 Acquired absence of other specified parts of digestive tract
CPT/HCPCS: 73560-LT; 99283; 99284

== ENCOUNTER 2025-02-03 18:34 | Inpatient (IN) | payer MEDICARE, MEDICAID ==
[2025-02-03] MEDS ORDERED: Sodium Chloride 0.9% 500 ML IV SCH ×3 (19:00→19:30)
[2025-02-03 19:20] LABS: BASOPHILS PERCENT AUTO 0.1 % (0.0-1.0); HEMATOCRIT 34.3 % (37.0-47.0); HEMOGLOBIN 11.1 g/dL (12.0-16.0); LYMPHOCYTES PERCENT AUTO 3.2 % (20.5-50.1); MEAN CORPUSCULAR HEMOGLOBIN 26.2 pg (27.0-34.0); MEAN CORPUSCULAR HGB CONC 32.4 g/dL (33.0-35.0); MEAN CORPUSCULAR VOLUME 80.9 fL (80-100); MONOCYTES PERCENT AUTO 6.5 % (2-8); NEUTROPHILS PERCENT AUTO 90.2 % (42.2-75.2); PLATELET COUNT,PLT 334 10^3/uL (150-450); RED BLOOD CELL COUNT 4.24 10^6/uL (4.2-5.4); WHITE BLOOD CELL COUNT,WBC 13.3 10^3/uL (5.0-10.0)
[2025-02-03] MEDS: Sodium Chloride 0.9% 500 ML IV SCH ×2 (19:36→20:22)
[2025-02-03 19:47] LABS: ALBUMIN 2.4 g/dL (3.4-5.0); ALKALINE PHOSPHATASE 127 U/L (46-116); ANION GAP 16.9 mEq/L (7-13); ASPARTATE AMNIOTRANSFERASE,AST 7 U/L (15-37); BILIRUBIN TOTAL 0.7 mg/dL (0.2-1.0); BLOOD UREA NITROGEN,BUN 16 mg/dL (7-18); CARBON DIOXIDE,CO2 21 mmol/L (21-32); CHLORIDE,CL 103 mmol/L (98-107); CREATININE 0.89 mg/dL (0.55-1.02); EST CRCL DRUG DOSING (CG) 47.26 mL/min; GLUCOSE RANDOM 105 mg/dL (70-99); MAGNESIUM 1.8 mg/dL (1.8-2.4); POTASSIUM,K 2.9 mmol/L (3.5-5.1); PROTEIN TOTAL,TP 6.1 g/dL (6.4-8.2); SODIUM,NA 138 mmol/L (136-145)
[2025-02-03 19:50] LABS: A/G RATIO 0.65; ALANINE AMINOTRANSFERASE,ALT < 6 U/L (14-59); ESTIMATED GFR 69 mL/min (>=60); LACTIC ACID 1.1 mmol/L (0.4-2.0)
[2025-02-03 19:51] LABS: LIPASE 8 U/L (16-77)
[2025-02-03 20:03] LABS: APPEARANCE,URINE CLOUDY (CLEAR); BILIRUBIN,URINE SMALL (NEGATIVE); COLOR,URINE YELLOW (YELLOW); GLUCOSE,URINE NEGATIVE (NEGATIVE); KETONES,URINE TRACE (NEGATIVE); LEUKOCYTE ESTERASE,URINE NEGATIVE (NEGATIVE); NITRITE,URINE NEGATIVE (NEGATIVE); OCCULT BLOOD,URINE TRACE-INTACT (NEGATIVE); PROTEIN,URINE 100 (NEGATIVE)
[2025-02-03 20:13] LABS: WBC,URINE 20-30 /HPF (0-5/HPF)
[2025-02-03 20:14] LABS: RBC,URINE 0-5 /HPF (0-5)
[2025-02-03 20:15] LABS: BACTERIA,URINE MANY /HPF (0-FEW/HPF); EPITHELIAL CELLS,URINE FEW /HPF (NOT SEEN); MUCUS,URINE FEW /LPF (NOT SEEN)
[2025-02-03] MEDS: cefTRIAXone 1 GM Vial IVPUSH ONE (20:39)
[2025-02-03] MEDS: Potassium Chloride 20 MEQ in Premix Bag 1 BAG IV ONE (20:52)
[2025-02-03] MEDS: Ondansetron 4 MG/2 ML SDV IVPUSH ONE (21:10)
[2025-02-03] MEDS: Sodium Chloride 0.9% 1,000 ML IV ONE (21:11)
[2025-02-03] MEDS ORDERED: Albuterol/Ipratropium 3.0-0.5 MG/3 ML Neb Soln NEB PRN (21:37)
[2025-02-03] MEDS: Heparin Sodium 5,000 Units/ML Vial SUBCUT SCH (22:19)
[2025-02-03] MEDS: Acetaminophen 325 MG Tab PO PRN (22:20)
[2025-02-03] MEDS: Dextrose 5%-0.45% NaCl 1,000 ML IV SCH (22:25)
[2025-02-04 00:06] LABS: FOLIC ACID 9.4 ng/mL (8.6-58.9)
[2025-02-04 06:44] LABS: BASOPHILS PERCENT AUTO 0.1 % (0.0-1.0); HEMATOCRIT 29.6 % (37.0-47.0); HEMOGLOBIN 9.9 g/dL (12.0-16.0); LYMPHOCYTES PERCENT AUTO 3.3 % (20.5-50.1); MEAN CORPUSCULAR HGB CONC 33.4 g/dL (33.0-35.0); MEAN CORPUSCULAR VOLUME 80.7 fL (80-100); MONOCYTES PERCENT AUTO 6.3 % (2-8); NEUTROPHILS PERCENT AUTO 90.3 % (42.2-75.2); PLATELET COUNT,PLT 277 10^3/uL (150-450); RED BLOOD CELL COUNT 3.67 10^6/uL (4.2-5.4); WHITE BLOOD CELL COUNT,WBC 10.3 10^3/uL (5.0-10.0)
[2025-02-04 07:06] LABS: ALBUMIN 1.9 g/dL (3.4-5.0); BILIRUBIN TOTAL 0.4 mg/dL (0.2-1.0); CALCIUM 7.6 mg/dL (8.5-10.1)
[2025-02-04 07:27] LABS: ANION GAP 14.7 mEq/L (7-13); CREATININE 0.78 mg/dL (0.55-1.02); EST CRCL DRUG DOSING (CG) 51.56 mL/min; POTASSIUM,K 2.7 mmol/L (3.5-5.1)
[2025-02-04 07:28] LABS: A/G RATIO 0.7; BILIRUBIN DIRECT 0.3 mg/dL (0.0-0.2); BILIRUBIN INDIRECT 0.1; PROTEIN TOTAL,TP 4.7 g/dL (6.4-8.2)
[2025-02-04] MEDS: Nicotine 7 MG/24 Hr Patch TRDERM SCH (08:33)
[2025-02-04] MEDS: Folic Acid 1 MG Tab PO SCH (08:34)
[2025-02-04] MEDS: Potassium Chloride 10 MEQ Tab.ER PO SCH (08:34)
[2025-02-04] MEDS ORDERED: Non-Formulary Medication 1 Each (Fluticasone/Vilanterol [Breo Ellipta 50-25 Mcg Inhaler] 1 INH SCH (09:00)
[2025-02-04] MEDS: Cefdinir 300 MG Cap PO SCH (10:36)
[2025-02-04] MEDS: Magnesium Sulfate 2 GM/50 mL 2 GM in Premix Bag 1 BAG IV ONE (10:37)
[2025-02-04] MEDS: Prochlorperazine 5 MG Tab PO ONE (10:51)
[2025-02-04] MEDS: diphenhydrAMINE 50 MG/ML SDV IVPUSH ONE (10:51)
[2025-02-04 11:24] LABS: T4 FREE 0.91 ng/dL (0.76-1.46); TSH ULTRASENSITIVE 0.56 uIU/mL (0.36-3.74)
[2025-02-04 11:35] LABS: PERCENT FE SATURATION 7.5 % (20.0-50.0)
[2025-02-04] MEDS: Potassium Chloride 20 MEQ in Premix Bag 1 BAG IV ONE (12:05)
[2025-02-04] MEDS: Magnesium Oxide 400 MG Tab PO SCH (12:38)
[2025-02-04] MEDS: traMADol 50 MG Tab PO PRN (12:38)
[2025-02-04] MEDS: Iron Sucrose Complex 500 MG in Sodium Chloride 0.9% 250 ML IV ONE (17:38)
[2025-02-04] MEDS: Ondansetron 4 MG/2 ML SDV IVPUSH PRN (17:41)
[2025-02-04] MEDS ORDERED: Magnesium Oxide 400 MG Tab PO SCH (18:00)
[2025-02-04] MEDS: atorvaSTATin 20 MG Tab PO SCH (19:51)
[2025-02-04] MEDS: Montelukast 10 MG Tab PO SCH (19:51)
[2025-02-04] MEDS ORDERED: cefTRIAXone 2 GM Vial IVPUSH SCH (22:00)
[2025-02-04] MEDS: traZODone 50 MG Tab PO SCH (22:28)
[2025-02-05 07:11] LABS: EOSINOPHILS PERCENT AUTO 1.5 % (1.0-3.0); HEMATOCRIT 29.4 % (37.0-47.0); HEMOGLOBIN 9.5 g/dL (12.0-16.0); LYMPHOCYTES PERCENT AUTO 7.2 % (20.5-50.1); MEAN CORPUSCULAR HEMOGLOBIN 26.4 pg (27.0-34.0); MEAN CORPUSCULAR HGB CONC 32.3 g/dL (33.0-35.0); MEAN CORPUSCULAR VOLUME 81.7 fL (80-100); MONOCYTES PERCENT AUTO 8.3 % (2-8); PLATELET COUNT,PLT 271 10^3/uL (150-450); WHITE BLOOD CELL COUNT,WBC 5.8 10^3/uL (5.0-10.0)
[2025-02-05 07:25] LABS: ANION GAP 12.7 mEq/L (7-13); CALCIUM 7.6 mg/dL (8.5-10.1); CREATININE 0.78 mg/dL (0.55-1.02); EST CRCL DRUG DOSING (CG) 51.56 mL/min; POTASSIUM,K 3.7 mmol/L (3.5-5.1)
[2025-02-05] MEDS ORDERED: Sertraline 50 MG Tab PO SCH (10:30)
[2025-02-05] MEDS: Lisinopril 10 MG Tab PO SCH (12:08)
[2025-02-05] MEDS: amLODIPine 5 MG Tab PO SCH (12:09)
[2025-02-05] MEDS: DULoxetine 30 MG Cap PO SCH (12:11)
[2025-02-05] MEDS: Check NICOTINE Patch TRDERM SCH (21:30)
[2025-02-06] MEDS: ferumoxytoL 510 MG in Sodium Chloride 0.9% 100 ML IV ONE (10:03)
[2025-02-07 07:00] LABS: BASOPHILS PERCENT AUTO 0.2 % (0.0-1.0); EOSINOPHILS PERCENT AUTO 2.9 % (1.0-3.0); HEMATOCRIT 32.2 % (37.0-47.0); HEMOGLOBIN 10.3 g/dL (12.0-16.0); LYMPHOCYTES PERCENT AUTO 14.7 % (20.5-50.1); MEAN CORPUSCULAR VOLUME 81.3 fL (80-100); MONOCYTES PERCENT AUTO 11.6 % (2-8); NEUTROPHILS PERCENT AUTO 70.6 % (42.2-75.2); PLATELET COUNT,PLT 338 10^3/uL (150-450); RED BLOOD CELL COUNT 3.96 10^6/uL (4.2-5.4); WHITE BLOOD CELL COUNT,WBC 4.5 10^3/uL (5.0-10.0)
[2025-02-07 07:13] LABS: ANION GAP 11.8 mEq/L (7-13); CALCIUM 8.4 mg/dL (8.5-10.1); CREATININE 0.57 mg/dL (0.55-1.02); EST CRCL DRUG DOSING (CG) 70.56 mL/min; POTASSIUM,K 4.8 mmol/L (3.5-5.1)
[2025-02-07 12:16] VITALS: BP 152/71; PULSE 93
== END 2025-02-07 12:00 | disposition swing bed (61) | DRG 871 ==
LOC: DL.ED 18:34 → DL.MS 20:31 → UNDOADMIN 21:22
PROVIDERS: ADMIT Internal Medicine; ATTEND Emergency Medicine
DX: A41.9 Sepsis, unspecified organism (principal); K52.9 Noninfective gastroenteritis and colitis, unspecified; E43 Unspecified severe protein-calorie malnutrition; N39.0 Urinary tract infection, site not specified; I10 Essential (primary) hypertension; E87.20 Acidosis, unspecified; R64 Cachexia; Z68.22 Body mass index [BMI] 22.0-22.9, adult; H40.9 Unspecified glaucoma; Z79.51 Long term (current) use of inhaled steroids; H54.7 Unspecified visual loss; E78.00 Pure hypercholesterolemia, unspecified; J44.9 Chronic obstructive pulmonary disease, unspecified; D50.9 Iron deficiency anemia, unspecified; I12.9 Hypertensive chronic kidney disease with stage 1 through stage 4 chronic kidney disease, or unspecified chronic kidney disease; D51.3 Other dietary vitamin B12 deficiency anemia; E86.0 Dehydration; E87.6 Hypokalemia; K21.9 Gastro-esophageal reflux disease without esophagitis; N18.9 Chronic kidney disease, unspecified; F41.9 Anxiety disorder, unspecified; R62.7 Adult failure to thrive; R19.7 Diarrhea, unspecified; E83.42 Hypomagnesemia; F32.A Depression, unspecified; Z98.49 Cataract extraction status, unspecified eye; Z90.49 Acquired absence of other specified parts of digestive tract; Z98.890 Other specified postprocedural states; Z79.899 Other long term (current) drug therapy
CPT/HCPCS: 36415; 80053; 81001; 82607; 82746; 82977; 83605; 83690; 83735; 84100; 84484; 85025; 87040 ×2; 96360; 99285 ×2; J0696; J2405; J3480; J7030; J7040 ×2; 74018; 80048; 80076; 82272; 83540; 83550; 84439; 84443; 87493; 97161-GP; 97165-GO; 99223; 99232; 99239; A9270-GY; J1200; J1644; J1756; J3475; Q0138; Q0164

== ENCOUNTER 2025-02-06 13:39 | Inpatient (IN) | payer MEDICARE, MEDICAID ==
[2025-02-06] MEDS ORDERED: Ondansetron 4 MG/2 ML SDV IVPUSH PRN (13:58)
[2025-02-06] MEDS ORDERED: Albuterol/Ipratropium 3.0-0.5 MG/3 ML Neb Soln NEB PRN (13:58)
[2025-02-07] MEDS: Heparin Sodium 5,000 Units/ML Vial SUBCUT SCH (13:40)
[2025-02-07] MEDS: Check NICOTINE Patch TRDERM SCH (13:41)
[2025-02-07] MEDS: Potassium Chloride 10 MEQ Tab.ER PO SCH (13:41)
[2025-02-07] MEDS: Magnesium Oxide 400 MG Tab PO SCH (13:41)
[2025-02-07] MEDS: traZODone 50 MG Tab PO SCH (13:42)
[2025-02-07] MEDS: Cefdinir 300 MG Cap PO SCH (13:42)
[2025-02-07] MEDS: atorvaSTATin 20 MG Tab PO SCH (13:42)
[2025-02-07] MEDS: Folic Acid 1 MG Tab PO SCH (13:42)
[2025-02-07] MEDS: Montelukast 10 MG Tab PO SCH (13:42)
[2025-02-07] MEDS: DULoxetine 30 MG Cap PO SCH (13:42)
[2025-02-07] MEDS: Nicotine 7 MG/24 Hr Patch TRDERM SCH (13:42)
[2025-02-07] MEDS: amLODIPine 5 MG Tab PO SCH (13:43)
[2025-02-07] MEDS: Lisinopril 10 MG Tab PO SCH (13:43)
[2025-02-07] MEDS: amLODIPine 5 MG Tab PO ONE (16:19)
[2025-02-07] MEDS: traMADol 50 MG Tab PO PRN (21:24)
[2025-02-08] MEDS: amLODIPine 5 MG Tab PO SCH (08:23)
[2025-02-09] MEDS: Calcium Carbonate 500 MG Tab.Chew PO PRN (11:32)
[2025-02-09] MEDS: Omeprazole 20 MG Cap.CR PO SCH (13:01)
[2025-02-09] MEDS: GI Cocktail Oral Solution 30 ML PO ONE (18:33)
[2025-02-10] MEDS: GI Cocktail Oral Solution 30 ML PO ONE (11:06)
[2025-02-12] MEDS: Acetaminophen 325 MG Tab PO PRN (07:28)
[2025-02-13] MEDS: Sodium Chloride 0.9% 10 ML Syringe FLUSH PRN (08:15)
[2025-02-16] MEDS: Montelukast 10 MG Tab PO SCH (09:13)
[2025-02-19 06:31] LABS: BASOPHILS PERCENT AUTO 0.2 % (0.0-1.0); EOSINOPHILS PERCENT AUTO 4.1 % (1.0-3.0); HEMATOCRIT 36.5 % (37.0-47.0); HEMOGLOBIN 11.9 g/dL (12.0-16.0); LYMPHOCYTES PERCENT AUTO 20.2 % (20.5-50.1); MEAN CORPUSCULAR HEMOGLOBIN 27.9 pg (27.0-34.0); MEAN CORPUSCULAR HGB CONC 32.6 g/dL (33.0-35.0); MEAN CORPUSCULAR VOLUME 85.5 fL (80-100); MONOCYTES PERCENT AUTO 10.1 % (2-8); NEUTROPHILS PERCENT AUTO 65.4 % (42.2-75.2); PLATELET COUNT,PLT 502 10^3/uL (150-450); RED BLOOD CELL COUNT 4.27 10^6/uL (4.2-5.4); WHITE BLOOD CELL COUNT,WBC 4.8 10^3/uL (5.0-10.0)
[2025-02-19 07:08] LABS: ALBUMIN 2.4 g/dL (3.4-5.0); ANION GAP 13.8 mEq/L (7-13); BILIRUBIN TOTAL 0.4 mg/dL (0.2-1.0); BUN/CREATININE RATIO 13.7 (No establ ref range); CALCIUM 9.3 mg/dL (8.5-10.1); CREATININE 0.73 mg/dL (0.55-1.02); EST CRCL DRUG DOSING (CG) 55.09 mL/min; MAGNESIUM 2.1 mg/dL (1.8-2.4); POTASSIUM,K 4.8 mmol/L (3.5-5.1); PROTEIN TOTAL,TP 6.8 g/dL (6.4-8.2)
[2025-02-19 07:10] LABS: A/G RATIO 0.55
[2025-02-21 06:20] LABS: BASOPHILS PERCENT AUTO 0.3 % (0.0-1.0); EOSINOPHILS PERCENT AUTO 3.8 % (1.0-3.0); HEMATOCRIT 35.8 % (37.0-47.0); HEMOGLOBIN 11.5 g/dL (12.0-16.0); LYMPHOCYTES PERCENT AUTO 24.3 % (20.5-50.1); MEAN CORPUSCULAR HEMOGLOBIN 27.6 pg (27.0-34.0); MEAN CORPUSCULAR HGB CONC 32.1 g/dL (33.0-35.0); MEAN CORPUSCULAR VOLUME 86.1 fL (80-100); MONOCYTES PERCENT AUTO 10.9 % (2-8); NEUTROPHILS PERCENT AUTO 60.7 % (42.2-75.2); PLATELET COUNT,PLT 479 10^3/uL (150-450); RED BLOOD CELL COUNT 4.16 10^6/uL (4.2-5.4); WHITE BLOOD CELL COUNT,WBC 5.8 10^3/uL (5.0-10.0)
[2025-02-21 06:45] LABS: CALCIUM 9.5 mg/dL (8.5-10.1); CREATININE 0.75 mg/dL (0.55-1.02); EST CRCL DRUG DOSING (CG) 53.62 mL/min; MAGNESIUM 2.2 mg/dL (1.8-2.4)
[2025-02-21 08:29] VITALS: BP 118/72; PULSE 90
== END 2025-02-21 10:35 | disposition home or self-care (01) | DRG 871 ==
LOC: DL.MS 02-07 12:00
PROVIDERS: ADMIT Internal Medicine; ATTEND Student in an Organized Health Care Education/Training Program
DX: A41.9 Sepsis, unspecified organism (principal); E43 Unspecified severe protein-calorie malnutrition; N39.0 Urinary tract infection, site not specified; R53.81 Other malaise; D50.9 Iron deficiency anemia, unspecified; E87.6 Hypokalemia; E83.42 Hypomagnesemia; I10 Essential (primary) hypertension; E78.5 Hyperlipidemia, unspecified; J44.9 Chronic obstructive pulmonary disease, unspecified; H40.9 Unspecified glaucoma; K21.9 Gastro-esophageal reflux disease without esophagitis; F41.9 Anxiety disorder, unspecified; E88.09 Other disorders of plasma-protein metabolism, not elsewhere classified; F32.A Depression, unspecified; H54.7 Unspecified visual loss; E78.00 Pure hypercholesterolemia, unspecified; E53.8 Deficiency of other specified B group vitamins; Z98.49 Cataract extraction status, unspecified eye; Z90.49 Acquired absence of other specified parts of digestive tract; Z79.899 Other long term (current) drug therapy; Z96.659 Presence of unspecified artificial knee joint; Z98.890 Other specified postprocedural states
CPT/HCPCS: 36415; 80048; 80053; 82728; 83735; 85025; 87040; 97110-GO; 97110-GP; 97116-GP; 97139; 97162-GP; 97165-GO; 97530-GO; 97530-GP; 97535-GO; 99306; 99309; 99315; A9270-GY; J1644

== ENCOUNTER 2025-03-29 16:08 | Emergency (ER) | payer MEDICARE, MEDICAID ==
[2025-03-29] MEDS: Ketorolac 10 MG Tab PO ONE (16:27)
[2025-03-29] MEDS: Acetaminophen 500 MG Tab PO ONE (16:31)
[2025-03-29 18:38] VITALS: BP 161/95; PULSE 89
== END 2025-03-29 18:35 | disposition home or self-care (01) ==
LOC: DL.ED 16:08
DX: S29.9XXA Unspecified injury of thorax, initial encounter (principal); I10 Essential (primary) hypertension; E78.00 Pure hypercholesterolemia, unspecified; J44.9 Chronic obstructive pulmonary disease, unspecified; K21.9 Gastro-esophageal reflux disease without esophagitis; Z90.49 Acquired absence of other specified parts of digestive tract; Z79.899 Other long term (current) drug therapy; W06.XXXA Fall from bed, initial encounter
CPT/HCPCS: 71250; 99284; A9270